=== PATIENT | female | born 1950 | race Caucasian/White ===

== ENCOUNTER → 2018-10-24 | Outpatient (CLI) | payer MEDICARE, SELFPAY ==
[2018-10-24 17:58] LABS: ALB/GLOB Ratio 0.7 RATIO (0.9-2.4); AST(SGOT) 44 U/L (15-37); Alanine Aminotransfer ALT/SGPT 33 U/L (13-56); Albumin, Serum 3.1 g/dL (3.2-5.0); Alkaline Phosphatase 106 U/L (45-117); Anion Gap 8 (5-15); BUN 8 mg/dL (7-18); BUN/Creat Ratio 16.1 RATIO (10-20); Calcium,Total 7.9 mg/dL (8.5-10.1); Chloride 108 mmol/L (98-107); Cholesterol 117 mg/dL (200); EST Glomerular Filtration Rate 131 mL/min (>60); Est Glom Filt Rate - Afr Amer 159 mL/min (>60); Globulin 4.2 g/dL (2.2-4.2); Glucose 110 mg/dL (74-106); High Density Lipoprotein 57 mg/dL; Potassium 3.6 mmol/L (3.5-5.1); Protein, Total 7.3 g/dL (6.4-8.2); Sodium Level 141 mmol/L (136-145); Thyroid Stim Hormone (TSH) 1.88 uIU/mL (0.358-3.74); Triglycerides 76 mg/dL; Very Low Density Lipoprotein 15 mg/dL (5-40)
[2018-10-24 17:59] LABS: Absolute Lymphocyte Count 2.14 X10^3/ul (0.83-4.51); Absolute Neutrophil Count 2.3 X10^3/uL (2.0-7.7); Basophil# 0.23 X10^3/uL; Basophil% 3.7 % (0-1); Eosinophil# 0.44 X10^3/uL; Eosinophils% 7.1 % (0-5); Hematocrit 27.4 % (37-47); Hemoglobin 7.9 g/dl (12.0-15.0); Lymphocyte # 2.14 X10^3/ul (4.0); Lymphocyte % 34.6 % (19-41); Mean Corp Hgb Conc 28.8 g/gl (32-36); Mean Corpuscular Hgb 22.5 pg (27.0-32.0); Mean Corpuscular Volume 78.1 fL (81-99); Mean Platelet Vol. 9.3 fl (6.2-12.0); Monocyte# 1.08 X10^3/uL; Monocyte% 17.5 % (0-10); Neutrophil # 2.29 X10^3/uL (2.7-7.7); Neutrophil % 37.1 % (47-70); POSITIVE COUNT NO; POSITIVE DIFFERENTIAL NO; POSITIVE MORPHOLOGY NO; Platelet Count 177 K/mm3 (150-450); RBC Distribution Width CV 19.9 % (11.6-14.6); Red Blood Count 3.51 M/mm3 (4.2-5.4); White Blood Count 6.2 K/mm3 (4.4-11.0)
[2018-10-24 18:35] LABS: Microalbumin,Random Urine 12.8 mg/L (NO RANGE EST.); Microalbumin:Creatinine Ratio 28.1 mg/g CRE (<30 mg/g CRE)
== END | disposition home or self-care (01) ==
LOC: BFHLAB 15:03
PROVIDERS: Family Provider Family Medicine; PCP Family Medicine; Visit Provider Family Medicine
DX: E11.65 Type 2 diabetes mellitus with hyperglycemia (principal); R53.83 Other fatigue; E78.5 Hyperlipidemia, unspecified; R17 Unspecified jaundice
CPT/HCPCS: 36415; 80053; 80061; 82043; 82570; 84443; 85025

== ENCOUNTER → 2018-11-09 07:48 | Outpatient (CLI) | payer MEDICARE, OTHER, SELFPAY ==
[2018-11-08 16:11] LABS: Hematocrit 26.6 % (37-47); Hemoglobin 7.6 g/dl (12.0-15.0); Mean Corp Hgb Conc 28.6 g/gl (32-36); Mean Corpuscular Volume 76.9 fL (81-99); Mean Platelet Vol. 10.1 fl (6.2-12.0); Platelet Count 204 K/mm3 (150-450); RBC Distribution Width CV 19.2 % (11.6-14.6); Red Blood Count 3.46 M/mm3 (4.2-5.4); White Blood Count 5.8 K/mm3 (4.4-11.0)
[2018-11-08 16:13] LABS: Scan Indicated on CBC? Y/N NO
[2018-11-09] VITALS (7 sets, daily range): BP systolic 116–137; BP diastolic 52–65; PULSE 84–91; RESP 16–18; TEMP 36.8–37.2; O2SAT 97–99; BMI 32.1
== END ==
PROVIDERS: Family Provider Family Medicine; PCP Family Medicine; Referring Provider Family Medicine; Visit Provider Family Medicine
DX: D50.9 Iron deficiency anemia, unspecified (principal)
CPT/HCPCS: 36415; 36430; 85027; 86850; 86900; 86920; 86922; J7040; P9016; A4216

== ENCOUNTER → 2018-11-11 10:27 | Outpatient (CLI) | payer MEDICARE, SELFPAY ==
[2018-11-09 08:00] VITALS: BMI 32.1
[2018-11-11 11:15] LABS: Hematocrit 28.9 % (37-47); Hemoglobin 8.7 g/dl (12.0-15.0); Mean Corp Hgb Conc 30.1 g/gl (32-36); Mean Corpuscular Hgb 23.4 pg (27.0-32.0); Mean Corpuscular Volume 77.7 fL (81-99); Mean Platelet Vol. 9.4 fl (6.2-12.0); Platelet Count 150 K/mm3 (150-450); RBC Distribution Width CV 19.1 % (11.6-14.6); RBC Distribution Width SD 53.7 fl (35.1-43.9); Red Blood Count 3.72 M/mm3 (4.2-5.4)
[2018-11-11 11:19] LABS: Scan Indicated on CBC? Y/N NO
[2018-11-11 11:55] LABS: Anion Gap 9 (5-15); BUN 8 mg/dL (7-18); BUN/Creat Ratio 13.7 RATIO (10-20); Calcium,Total 8.1 mg/dL (8.5-10.1); Chloride 105 mmol/L (98-107); Creatinine, Serum 0.58 mg/dL (0.55-1.02); EST Glomerular Filtration Rate 110 mL/min (>60); Est Glom Filt Rate - Afr Amer 133 mL/min (>60); Glucose 219 mg/dL (74-106); Potassium 3.8 mmol/L (3.5-5.1); Sodium Level 139 mmol/L (136-145)
[2018-11-11 11:56] LABS: Iron 33 ug/dL (50-170)
[2018-11-11 11:57] VITALS: BP 134/74; PULSE 91; RESP 16; TEMP 36.5; O2SAT 97; BMI 34.3
== END ==
PROVIDERS: Family Provider Family Medicine; PCP Family Medicine; Referring Provider Family Medicine; Visit Provider Family Medicine
DX: D50.9 Iron deficiency anemia, unspecified (principal); I10 Essential (primary) hypertension; K90.9 Intestinal malabsorption, unspecified
CPT/HCPCS: 96365; 80048; 83540; 85027; J1756; J7050; A4216

== ENCOUNTER 2018-11-16 09:24 | Day surgery (SDC) | payer MEDICARE, SELFPAY ==
--- NOTE | 2018-11-07 15:46 | HP_ITS ---
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 Required: No Is patient in pain?: No Allergies estrogens, conjugated [From Premarin] Allergy (Mild, Verified 11/07/18 15:12) Unknown hydrochlorothiazide Allergy (Mild, Verified 11/07/18 15:12) Unknown Penicillins Allergy (Mild, Verified 11/07/18 15:12) Unknown Sulfa (Sulfonamide Antibiotics) Allergy (Mild, Verified 11/07/18 15:12) Unknown Medications amlodipine 10 mg tablet 10 mg PO DAILY 11/07/18 [History Confirmed 11/07/18] clonidine HCl 0.3 mg tablet 0.3 mg PO QHS 11/07/18 [History Confirmed 11/07/18] coenzyme Q10 75 mg capsule 75 mg PO DAILY 11/07/18 [History Confirmed 11/07/18] furosemide 40 mg tablet 40 mg PO DAILY 11/07/18 [History Confirmed 11/07/18] glipizide ER 10 mg tablet, extended release 24 hr 10 mg PO DAILY 11/07/18 [History Confirmed 11/07/18] losartan 50 mg tablet 50 mg PO DAILY 11/07/18 [History Confirmed 11/07/18] meloxicam 15 mg tablet 15 mg PO DAILY 11/07/18 [History Confirmed 11/07/18] metformin 500 mg tablet 500 mg PO BID 11/07/18 [History Confirmed 11/07/18] pravastatin 40 mg tablet 40 mg PO DAILY 11/07/18 [History Confirmed 11/07/18] [facility] Medical History Diabetes (Acute) High cholesterol (Acute) HTN (hypertension) (Chronic) Surgical History S/P carpal tunnel release (Acute) S/P cholecystectomy (Acute) S/P hysterectomy (Acute) S/P parathyroidectomy (Acute) S/P renal artery angioplasty (Acute) Status post right knee replacement (Acute) Family History Mother Breast cancer Hypertension CAD (coronary artery disease) Social History Smoking Status: Never smoker alcohol intake: never HPI HPI HPI: JOSE A FANG, is a 68 F who presents to the office today for HPI HPI Surgical H&P: Yes HPI: JOSE A FANG, is a 68 F who presents to the office today for EGD and colonoscopy due to anemia. Patient's recent hemoglobin was 7.9 she has been reporting being fatigued lately. Pt Hb in 2017 was 13. Patient's last colonoscopy was in January 2009 she had 2 tubular adenomas and a hyperplastic polyp. Patient denies any family history of colon cancer. Patient states she has bowel movements daily but does states she has occasional bright red blood per rectum due to her hemorrhoids. Patient states about a month ago she did have quite a bit of bright red blood in the toilet and before that it was a little bit last fall or spring. Patient denies abdominal pain nausea or vomiting states her reflux is controlled with [id number] medication she believes is ranitidine. Patient states she was recently put on Lasix due to her bilateral lower extremity swelling. Patient currently denies any itching or pain with bowel movements only notices some pressure there when sitting. ROS General General: Yes fatigue; no weight change Gastro Gastrointestinal: No abdominal pain, No nausea or vomiting, No diarrhea, No constipation, No blood in stool, Yes acid reflux, Yes hemorrhoids, No ulcers, No gallbladder problem, No black,tarry stools Exam Const General: cooperative, comfortable, no acute distress Resp Effort & Inspection: normal respiratory effort GI Inspection: non-distended, obesity Palpation: soft, no guarding, no hernias, nontender Rectal Exam: normal sphincter tone, hemorrhoids (Circumferential residual hemorrhoidal tissue, internal the left lateral), No mass, other (No gross blood) Assessment & Plan Problems 1. Anemia D64.9 2. BRBPR (bright red blood per rectum) K62.5 3. Hemorrhoids K64.9 Plan I have discussed the above with the patient. I have offered the patient EGD & colonoscopy for evaluation. I have explained the risks/benefits of the procedure and described the procedure. I have discussed the risks with the patient, including but not limited to: infection, bleeding, perforation of the GI tract requiring emergency surgery, inability to complete the procedure, injury to any internal organs, complications of anesthesia, etc. - the patient understands and agrees to proceed. I have answered all the patient's questions to the patient's satisfaction and the patient has no further questions. The patient has been given instructions for the colon cleansing preparation. 1 day of clears, MiraLAX Dulcolax split prep Keeley Washington M.D. Pager: [phone] [facility] [address] [place] [address], [facility], [address] [place] [address] Office: [phone] Orders Orders: Colonoscopy Today EGD Today Plan Detail Follow Up We will schedule EGD and colonoscopy Coding Level of Care Code Off vis,new,level 3 Diagnoses Anemia D64.9 BRBPR (bright red blood per rectum) K62.5 Hemorrhoids K64.9 11/07/18 1546 <Electronically signed by Keeley Washington MD> Date Keeley Washington MD I have examined the patient the following changes are noted: Patient did get 2 units packed red blood cells on 11/09/1018 her hemoglobin for this was 7.6 and on 11/11/2018 her hemoglobin was 8.7. Patient states her shortness of breath is improved however she still has the lower extremity swelling.
[2018-11-09 08:00] VITALS: BMI 32.1
[2018-11-11 11:57] VITALS: BMI 34.3
[2018-11-16] VITALS (7 sets, daily range): BP systolic 114–133; BP diastolic 59–74; PULSE 75–89; RESP 15–18; TEMP 36.7–37.2; O2SAT 93–97; BMI 34.5; BMI 35.0
--- NOTE | 2018-11-16 10:30 | EGD_PTH ---
PATIENT: JOSE A FANG LOC: EN U#:[id number] AGE/SX: 68/F ROOM: RE11/16/[address]: Dr. Keeley Washington MD : 1950 BED: DIS: 11/16/2018 SPEC #: [id number] RECD: 11/16/18 12:26 STATUS: DANA REWalter #: [id number] HESHAM: 11/16/18 10:[address]: Keeley Washington DEPT: SURGICAL PATHOLOGY RECD BY: Musa Cartagena ENTERED: 11/16/18 12:48 SP TYPE: EGD BIOPSY OT DR: Dr. Shana Mckeon, DO Tissues: A - Gastric mucous membrane B - Rectum, NOS C - Rectum, NOS D - Rectum, NOS Procedures: Surgery Specimen Level IV HEADER OPERATION: Colonoscopy, EGD ([facility]) PRE-OP DIAGNOSIS: Anemia TISSUE SUBMITTED: A - Antrum biopsy for H. pylori, B - Rectal polyp snare, C - Rectal polyp snare, D - Rectal polyp snare MICROSCOPIC DIAGNOSIS A. Gastric antrum, biopsy: Mild chronic gastritis. See comment. B. Rectal polyp, biopsy: Serrated adenoma. C. Rectal polyp, biopsy: Tubulovillous adenoma. D. Rectal polyp, biopsy: Hyperplastic polyp. AM:lilo 11/17/18 COMMENT A. The results of immunohistochemistry for Helicobacter pylori will be reported separately ([id number]). MICROSCOPIC DESCRIPTION Slides are reviewed. GROSS DESCRIPTION A - Received in fixative is one container labeled with the patient's name and designated antrum biopsy. The specimen consists of one irregular fragment of light martin soft tissue that measures 0.5 x 0.2 x 0.1 cm. The specimen is totally submitted in one cassette. B - Received in fixative is one container labeled with the patient's name and designated rectal polyp snare. The specimen consists of one irregular fragment of light martin soft tissue that measures 0.5 x 0.5 x 0.1 cm. The specimen is totally submitted in one cassette. C - Received in fixative is one container labeled with the patient's name and designated rectal polyp snare. The specimen consists of two fragments ranging in size from 0.3 to 1.2 cm. The largest fragment is inked, trisected and submitted along with the smaller fragment in one cassette. D - Received in fixative is one container labeled with the patient's name and designated rectal polyp snare. The specimen consists of one irregular fragment of light martin soft tissue with fecal debris that measures 0.5 x 0.2 x 0.1 cm. The specimen is totally submitted in one cassette. / AM:lilo 11/16/18 TC:5 [facility]: [id number] x4 ADDENDUM ADDENDUM ADDENDUM ADDENDUM ADDENDUM ADDENDUM 12/01/2018 13:46 ADDENDUM 12/01/2018 13:46 ADDENDUM 12/01/2018 13:46 ADDENDUM 12/01/2018 13:46 ADDENDUM 12/01/2018 13:46 A. Both fragments of gastric mucosa show similar morphologic change. There is no evidence of dysplasia. This case was reviewed and diagnosis discussed with Dr. Washington on 12/01/18.
--- NOTE | 2018-11-16 11:30 | OP.ENDO_ITS ---
11/16/2018 Shana Mckeon [address] [facility] [place] [address] Re : Upper GI endoscopy procedure for Shanna Hinds Dear Dr. Mckeon This procedure was performed on Friday, November 16, 2018. My impressions and recommendations are as follows: Impressions : - Z-line regular, 39 cm from the incisors. - Grade II esophageal varices. - Erythematous mucosa in the antrum. Prepyloric ulcer no evidence of bleeding - Normal examined duodenum. - No specimens collected. Recommendations : - Discharge patient to home. - Continue present medications. - Await pathology results. My findings are described in the full procedure note, which is enclosed. If I can be of further assistance, please feel free to contact me at Doctor phone number(s): , Work: . Sincerely, MD Keeley Hewitt MD 11/16/2018 11:28:58 AM This report has been signed electronically.
--- NOTE | 2018-11-16 11:35 | OP.ENDO_ITS ---
12/06/2018 Shana Mckeon [address] [place] [address] Re : Colonoscopy procedure for Shanna Hinds Dear Dr. Mckeon This procedure was performed on Friday, November 16, 2018. My impressions and recommendations are as follows: Impressions : - Hemorrhoids found on perianal exam. - Three rectal polyps removed - Diverticulosis of sigmoid colon. Recommendations : - Discharge patient to home. - Continue present medications. - Await pathology results. - Repeat colonoscopy in 3 - 5 years for surveillance based on pathology results. - High fiber diet. My findings are described in the full procedure note, which is enclosed. If I can be of further assistance, please feel free to contact me at Doctor phone number(s): , Work: . Sincerely, MD Keeley Hewitt MD 11/16/2018 11:35:13 AM This report has been signed electronically.
--- NOTE | 2018-11-16 12:30 | IMM_PTH ---
PATIENT: JOSE A FANG LOC: EN U#:[id number] AGE/SX: 68/F ROOM: RE11/16/[address]: Dr. Keeley Washington MD : 1950 BED: DIS: 11/16/2018 SPEC #: [id number] RECD: 11/16/18 15:07 STATUS: DANA REQ #: [id number] HESHAM: 11/16/18 12:[address]: Keeley Washington DEPT: IMMUNOHISTOCHEMISTRY RECD BY: Lilly Sparrow ENTERED: 11/16/18 15:08 SP TYPE: IMMUNO OTHR DR: Dr. Shana Mckeon, DO Tissues: A - Stomach, NOS Procedures: H Pylori (initial) Comments: @ Specimen number changed from [id number] to [id number] @ on 11/16/18 at 1523 by [facility] IN[facility]UTION [place] [id number] SPECIMEN INFORMATION: Tissue Source: A - Antrum biopsy Clinical Info: Blood in stool Specimen Number: [id number] CPT code: 81179 METHODOLOGY: Deparaffinized sections of prefer/formalin-fixed tissue or PAP/DQ stained slides are incubated with monoclonal/polyclonal antibodies/oligonucleotide probes. Localization is made via biotin free immunoperoxidase method. Appropriate controls are performed and reacted as expected. Results on target cell population are indicated in the following table: RESULTS: ANTIBODY / CLONE RESULT Block A H Pylori (polyclonal) negative These tests were developed and their performance characteristics determined by [facility]. They may not have been cleared or approved by the U.S. Food and Drug Administration. The FDA has determined that such clearance or approval is not necessary. INTERPRETATION: A. Antrum, biopsy: Negative for Helicobacter pylori organisms. AM:lilo 11/17/18
[2018-11-16 13:02] LABS: Bedside Glucose 150 mg/dL (70-110)
[2018-11-16 13:33] LABS: Absolute Lymphocyte Count 1.16 X10^3/ul (0.83-4.51); Absolute Neutrophil Count 2.8 X10^3/uL (2.0-7.7); Basophil# 0.18 X10^3/uL; Basophil% 3.5 % (0-1); Eosinophil# 0.24 X10^3/uL; Eosinophils% 4.6 % (0-5); Hematocrit 31.9 % (37-47); Hemoglobin 9.4 g/dl (12.0-15.0); Lymphocyte # 1.16 X10^3/ul (4.0); Lymphocyte % 22.4 % (19-41); Mean Corp Hgb Conc 29.5 g/gl (32-36); Mean Corpuscular Hgb 23.3 pg (27.0-32.0); Mean Platelet Vol. 9.5 fl (6.2-12.0); Monocyte# 0.82 X10^3/uL; Monocyte% 15.9 % (0-10); Neutrophil # 2.76 X10^3/uL (2.7-7.7); Neutrophil % 53.4 % (47-70); Platelet Count 170 K/mm3 (150-450); Red Blood Count 4.04 M/mm3 (4.2-5.4); White Blood Count 5.2 K/mm3 (4.4-11.0)
[2018-11-16 13:34] LABS: Differential Indicated SCAN CRITERIA MET; POSITIVE COUNT NO; POSITIVE DIFFERENTIAL NO; POSITIVE MORPHOLOGY YES
[2018-11-16 14:29] LABS: Anisocytosis 1+; Platelet Estimate ADEQUATE (ADEQ); Red Cell Morphology N CHROM NORMAL (NORM C&C)
== END 2018-11-16 12:34 | disposition home or self-care (01) ==
LOC: EN 09:24 → AC 09:25
PROVIDERS: Family Provider Family Medicine; PCP Family Medicine; Referring Provider Family Medicine; Visit Provider Surgery
PROC: 0DJD8ZZ Inspection of Lower Intestinal Tract, Via Natural or Artificial Opening Endoscopic (ICD-10-PCS; CPT 45378; principal; 2018-11-16 10:25)
DX: K29.50 Unspecified chronic gastritis without bleeding (principal); D12.8 Benign neoplasm of rectum; K63.5 Polyp of colon; K64.0 First degree hemorrhoids; K57.30 Diverticulosis of large intestine without perforation or abscess without bleeding; I85.00 Esophageal varices without bleeding; K25.9 Gastric ulcer, unspecified as acute or chronic, without hemorrhage or perforation; K21.9 Gastro-esophageal reflux disease without esophagitis; D50.9 Iron deficiency anemia, unspecified; K90.9 Intestinal malabsorption, unspecified; E11.9 Type 2 diabetes mellitus without complications; I10 Essential (primary) hypertension; E78.00 Pure hypercholesterolemia, unspecified; M06.9 Rheumatoid arthritis, unspecified; G47.30 Sleep apnea, unspecified; N28.9 Disorder of kidney and ureter, unspecified; Z79.84 Long term (current) use of oral hypoglycemic drugs; Z79.899 Other long term (current) drug therapy
CPT/HCPCS: 43239; 45380; 96365; 82962; 85025; 88305; 88342; J1756; J7120; A4216; J2405

== ENCOUNTER → 2018-11-22 | Outpatient (CLI) | payer MEDICARE, SELFPAY ==
[2018-11-09 08:00] VITALS: BMI 32.1
--- NOTE | 2018-11-22 07:47 | CT_ITS ---
STUDY: CT ABDOMEN AND PELVIS WITH CONTRAST REASON FOR EXAM: Female, 68 years old. Anemia, esophageal varices history of diabetes and hysterectomy cholecystectomy. RADIATION DOSAGE (If Supplied By Facility): CTDIvol = ( 15.36 ) mGy, DLP = ( 1209.37 ) mGycm TECHNIQUE: Transaxial images were obtained from the dome of the diaphragm to the symphysis pubis with oral contrast. 100mL IV/Oral Isovue 300 was administered. Sagittal and coronal images were reconstructed. Individualized dose optimization techniques were used for this CT. COMPARISON: None. FINDINGS: The visualized lung bases are unremarkable. The visualized portions of the heart are within normal limits. The liver is smallish lobulated low attenuating. There is a distended appearance of the portal veins. The main portal vein measures 1.8 cm. 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 There are visualized small esophageal varices. There are surgical clips in the gallbladder fossa consistent with a prior cholecystectomy. Normal spleen. Normal pancreas. Normal bilateral adrenal glands. Normal right kidney. Normal left kidney. There is a small hiatal hernia. Normal small intestine. There is a contrasted appearance of the colon. There are a few diverticula present without visualized diverticulitis. The appendix is visualized and appears normal. There is partial calcification of the aorta. Normal inferior vena cava. Normal retroperitoneum. Normal urinary bladder. There is absence of the uterus consistent with a prior hysterectomy. There are varices which are extending from the common femoral veins up into the caput medusa and beyond up to the chest. There are diffuse degenerative changes of the visualized lumbar spine. CT/Abdomen/Pelvis WITH Contrast IMPRESSION: Cirrhosis portal hypertension, classic caput medusa. There is postoperative change in the gallbladder fossa. Status post hysterectomy status post cholecystectomy. Electronically Signed: Dawn Morales MD at 17:27 EDT Tel , Service support ,
[2018-11-22 08:31] VITALS: BP 147/72; PULSE 90; RESP 18; TEMP 36.7; O2SAT 98; BMI 34.5
[2018-11-22 08:54] LABS: Hematocrit 31.1 % (37-47); Hemoglobin 9.5 g/dl (12.0-15.0); Mean Corp Hgb Conc 30.5 g/gl (32-36); Mean Corpuscular Hgb 24.5 pg (27.0-32.0); Mean Corpuscular Volume 80.2 fL (81-99); Mean Platelet Vol. 9.3 fl (6.2-12.0); Platelet Count 159 K/mm3 (150-450); RBC Distribution Width CV 22.6 % (11.6-14.6); RBC Distribution Width SD 64.6 fl (35.1-43.9); Red Blood Count 3.88 M/mm3 (4.2-5.4); White Blood Count 5.4 K/mm3 (4.4-11.0)
[2018-11-22 08:55] LABS: Scan Indicated on CBC? Y/N YES- FLAGS NOTED
[2018-11-22 09:21] LABS: Differential Comment SCANNED
[2018-11-22 09:29] LABS: Iron 49 ug/dL (50-170)
--- NOTE | 2018-11-22 09:40 | NURSING ---
venofer complete, pt reports feeling nauseous, will flush iv with ns saline and monitor.
[2018-11-22 10:00] VITALS: BP 146/73; PULSE 104; RESP 16
[2018-11-22] MEDS: Ondansetron 4 MG/2 ML Vial IV (10:16)
== END | disposition home or self-care (01) ==
LOC: CT 07:45 → MEDOUTP 08:21
PROVIDERS: Family Provider Family Medicine; PCP Family Medicine; Referring Provider Surgery; Visit Provider Surgery
DX: D50.9 Iron deficiency anemia, unspecified (principal); K90.9 Intestinal malabsorption, unspecified; I85.00 Esophageal varices without bleeding
CPT/HCPCS: 96365; 96375; 74177; 83540; 85027; J1756; J7050; Q9967; A4216; J2405

== ENCOUNTER → 2018-11-30 | Outpatient (CLI) | payer MEDICARE, SELFPAY ==
[2018-11-09 08:00] VITALS: BMI 32.1
[2018-11-22 08:31] VITALS: BMI 34.5
[2018-11-30 13:47] VITALS: BP 149/63; PULSE 99; RESP 16; TEMP 37.4; O2SAT 96; BMI 34.5
[2018-11-30 17:15] LABS: Absolute Lymphocyte Count 1.71 X10^3/ul (0.83-4.51); Basophil# 0.12 X10^3/uL; Basophil% 2.3 % (0-1); Eosinophil# 0.27 X10^3/uL; Eosinophils% 5.2 % (0-5); Hematocrit 32.6 % (37-47); Hemoglobin 10.1 g/dl (12.0-15.0); Lymphocyte # 1.71 X10^3/ul (4.0); Lymphocyte % 33.1 % (19-41); Mean Corpuscular Hgb 25.5 pg (27.0-32.0); Mean Corpuscular Volume 82.3 fL (81-99); Mean Platelet Vol. 9.9 fl (6.2-12.0); Monocyte# 1.08 X10^3/uL; Monocyte% 20.9 % (0-10); Neutrophil # 1.98 X10^3/uL (2.7-7.7); Neutrophil % 38.3 % (47-70); Platelet Count 219 K/mm3 (150-450); RBC Distribution Width SD 69.9 fl (35.1-43.9); Red Blood Count 3.96 M/mm3 (4.2-5.4); White Blood Count 5.2 K/mm3 (4.4-11.0)
[2018-11-30 17:16] LABS: Differential Indicated SCAN CRITERIA MET; POSITIVE COUNT NO; POSITIVE DIFFERENTIAL NO; POSITIVE MORPHOLOGY YES
== END | disposition home or self-care (01) ==
LOC: MEDOUTP 13:32
PROVIDERS: Family Provider Family Medicine; PCP Family Medicine; Referring Provider Family Medicine; Visit Provider Family Medicine
DX: D50.9 Iron deficiency anemia, unspecified (principal); K90.9 Intestinal malabsorption, unspecified
CPT/HCPCS: 96365; 85025; J1756; J7050; A4216

== ENCOUNTER → 2018-12-07 13:35 | Outpatient (CLI) | payer MEDICARE, SELFPAY ==
[2018-11-09 08:00] VITALS: BMI 32.1
[2018-11-30 13:47] VITALS: BMI 34.5
[2018-12-07 14:28] VITALS: BP 131/65; PULSE 83; RESP 16; TEMP 36.4; BMI 34.1
[2018-12-07 14:54] LABS: Hematocrit 32.2 % (37-47); Hemoglobin 10.1 g/dl (12.0-15.0); Mean Corp Hgb Conc 31.4 g/gl (32-36); Mean Corpuscular Hgb 26.4 pg (27.0-32.0); Mean Corpuscular Volume 84.3 fL (81-99); Mean Platelet Vol. 9.6 fl (6.2-12.0); Platelet Count 177 K/mm3 (150-450); RBC Distribution Width CV 24.3 % (11.6-14.6); Red Blood Count 3.82 M/mm3 (4.2-5.4); White Blood Count 4.8 K/mm3 (4.4-11.0)
[2018-12-07 14:55] LABS: Scan Indicated on CBC? Y/N YES- FLAGS NOTED
== END ==
PROVIDERS: Family Provider Family Medicine; PCP Family Medicine; Referring Provider Family Medicine; Visit Provider Family Medicine
DX: D50.9 Iron deficiency anemia, unspecified (principal); K90.9 Intestinal malabsorption, unspecified
CPT/HCPCS: 96365; 85027; J1756; J7050; A4216

== ENCOUNTER → 2018-12-12 | Outpatient (CLI) | payer MEDICARE, SELFPAY ==
[2018-11-30 13:47] VITALS: BMI 34.5
[2018-12-07 14:28] VITALS: BMI 34.1
--- NOTE | 2018-12-12 08:48 | US_ITS ---
STUDY: ABDOMINAL ULTRASOUND - RIGHT UPPER QUADRANT REASON FOR VISIT: Female, 68 years old. Cirrhosis TECHNIQUE: Ultrasound evaluation of the right upper quadrant was performed with real-time and static taveras-scale imaging. TECHNICAL QUALITY: Adequate. COMPARISON: CT dated 11/22/2018 FINDINGS: Liver: The liver measures 17.4 cm. The liver is nodular in contour and heterogeneous in echotexture. The bile ducts are within normal limits. There is hepatic color flow. The direction of portal flow is hepatopetal. There are no focal hepatic lesions identified. Gallbladder: The patient is status post cholecystectomy. Common Bile Duct (C.B.D.): The common bile duct measures 9 mm. Pancreas: Normal size of the head, body and tail of the pancreas. There is normal echogenicity of the pancreas. There is no demonstrated pancreatic mass or cyst. Right Kidney: Normal size of the right kidney. The right kidney measures 15.3 cm. Normal renal cortex. There is no demonstrated renal mass or cyst. There is no right hydronephrosis. There are varices noted in the upper abdomen. US/Liver IMPRESSION: Cirrhotic liver. No focal hepatic lesions identified. Please note that CT and MRI are more sensitive for the detection of hepatic lesions in the setting of cirrhosis. Status post cholecystectomy. Varices. Electronically Signed: Sean Colin, at 16:58 EDT Tel , Service support ,
== END | disposition home or self-care (01) ==
LOC: US 08:46
PROVIDERS: Family Provider Family Medicine; PCP Family Medicine; Referring Provider Family Medicine; Visit Provider Family Medicine
DX: K74.60 Unspecified cirrhosis of liver (principal)
CPT/HCPCS: 76705

== ENCOUNTER → 2018-12-15 | Outpatient (CLI) | payer MEDICARE, SELFPAY ==
[2018-12-07 14:28] VITALS: BMI 34.1
[2018-12-15 18:09] LABS: Anion Gap 12 (5-15); BUN 10 mg/dL (7-18); BUN/Creat Ratio 16.1 RATIO (10-20); Calcium,Total 8.7 mg/dL (8.5-10.1); Chloride 102 mmol/L (98-107); Creatinine, Serum 0.62 mg/dL (0.55-1.02); EST Glomerular Filtration Rate 102 mL/min (>60); Est Glom Filt Rate - Afr Amer 123 mL/min (>60); Glucose 153 mg/dL (74-106); Potassium 3.8 mmol/L (3.5-5.1); Sodium Level 137 mmol/L (136-145)
== END | disposition home or self-care (01) ==
PROVIDERS: Family Provider Family Medicine; PCP Family Medicine
DX: R18.8 Other ascites (principal); K74.60 Unspecified cirrhosis of liver
CPT/HCPCS: 36415; 80048

== ENCOUNTER 2019-05-18 18:56 | Emergency (ER) | payer MEDICARE, SELFPAY ==
[2018-12-07 14:28] VITALS: BMI 34.1
[2019-05-18 18:58] VITALS: BP 184/89; PULSE 96; RESP 16; TEMP 36.8; O2SAT 94; BMI 33.4
--- NOTE | 2019-05-18 19:01 | EKG12_ITS ---
Test Reason : SYNCOPE Blood Pressure : / mmHG Vent. Rate : 094 BPM Atrial Rate : 094 BPM P-R Int : 112 ms QRS Dur : 098 ms QT Int : 416 ms P-R-T Axes : 058 -17 068 degrees QTc Int : 520 ms Normal sinus rhythm Prolonged QT Abnormal ECG Confirmed by RAHAT LOPEZ, JOHANNY ([id number]), offline editor DOMINGUEZ BENITEZ ([id number]) on 05/23/2019 11:27:53 AM Referred By: Confirmed By:JOHANNY GIANG MD
--- NOTE | 2019-05-18 19:02 | ED.VIS.GEN ---
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 She became lightheaded, nauseous and passed out. She states she has not been eating well. She has history of nonalcoholic cirrhosis. Paramedics checked blood sugar was greater than 200. She states blood sugar normally runs 120. She reports no appetite the past several days with weight loss. She denies dysuria, frequency, urgency or hematuria. She denies chest pain, shortness of breath. She denies leg pain or swelling. She denies history of PE or DVT. She denies headache, ocular, visual or auditory symptoms. Prior similar symptoms: No Recent Illness/Hospitalization: No - Past Medical History (1) Non-alcoholic cirrhosis Status: Acute (2) History of type 2 diabetes mellitus Status: Acute (3) History of hypertension Status: Acute Past Medical History - Allergies and Home Meds Allergies/Adverse Reactions: Allergies estrogens, conjugated [From Premarin] Allergy (Mild, Verified 05/18/19 19:01) SWELLING, ITCHING, RASH hydrochlorothiazide Allergy (Mild, Verified 05/18/19 19:01) RASH, ITCHING Penicillins Allergy (Mild, Verified 05/18/19 19:01) Unknown Sulfa (Sulfonamide Antibiotics) Allergy (Mild, Verified 05/18/19 19:01) SWELLING, ITCHING, RASH Primary Care Physician: Shana Mckeon DO [Primary Care Provider] - Prior records reviewed: Yes Surgical History: noncontributory Lives: Alone Smoking Status: Never smoker Alcohol: None Drugs: None Review of Systems General: Reports: Malaise, Weight loss. Denies: Chills, Fever, Subjective, Sweats, - Eyes: Denies: Visual changes - bilaterally, Blurred Vision - bilaterally, Diplopia ENT: Denies: Rhinorrhea, Sore throat Cardiovascular: Denies: Chest pain, Palpitations Respiratory: Denies: Dyspnea, Cough, Dyspnea on exertion, Orthopnea Gastrointestinal: Reports: Nausea, Hematochezia, - - Poor appetite. Denies: Abdominal pain, Vomiting, Diarrhea, Constipation, Melena Genitourinary: Denies: Dysuria, Hematuria, Frequency Musculoskeletal: Denies: Myalgias, Arthralgias, Neck pain, Back pain, Swelling, Extremity Pain, -, - Skin: Denies: Rash, Wounds Neurological: Reports: Weakness. Denies: Headache, Parasthesia, Numbness, -, - Hematologic: Denies: Easy bruising, Easy bleeding Physical Exam Vital Signs/Narrative: Vital Signs Temp Pulse Resp BP Pulse Ox 05/18/19 18:58 98.3 F 96 16 184/89 H 94 Inital Vital Signs reviewed: Yes General: Well nourished, Well developed, Obese, No Acute Distress Head: Normocephalic, Atraumatic Eyes: Perrl, EOMI. Negative for: Pale conjunctiva, Scleral icterus ENT: No rhinorrhea, TM's clear, Dry mucous membranes Neck: Supple, Nontender, No lymphadenopathy, No JVD Cardiovascular: Regular rate, Regular rhythm, No murmurs, Normal S1, Normal S2 Respiratory: No distress, CTA bilaterally, Chest nontender Abdomen: Soft, Nontender, Nondistended, Normal bowel sounds, No masses Rectal: Deferred Back: Nontender, Normal Inspection Extremities: Nontender, No edema Skin: Normal color, No rash, No Trauma. Negative for: Cyanosis, Diaphoresis, Jaundice Neurological: Alert, Oriented x3, Cranial nerves II-XII grossly intact, Normal Strength, Normal Sensation Psychological: Normal affect, Normal Mood Diagnostic/Tx/Re-eval Laboratory Results 05/18/19 19:04 Sodium 141 Potassium 3.1 L Chloride 108 H Carbon Dioxide 25.0 Anion Gap 8 BUN 4 L Creatinine 0.52 L Estim Creat Clear Calc 47.14 Est GFR (MDRD) Af Amer 153 Est GFR (MDRD) Non-Af 126 BUN/Creatinine Ratio 7.8 L Glucose 186 H Calcium 8.1 L Basic metabolic panel is remarkable for mild hypokalemia. BUN and creatinine are four 0.52 respectively. BUN to creatinine ratio is less than 21. Glucose is elevated 186. Since there is no evidence of endorgan injury patient will be discharged to home. - EKG Initial EKG Interpretation: Sinus Rhythm - This rhythm with a ventricular rate of 94. OR interval 112 ms. QRS duration 98 ms. QT intervals 416 ms with a QTC of 520 ms. [place] is normal. EKG is remarkable for prolonged QT. - Medical Decision Making His history suggestive of vasovagal episode. Will obtain EKG to evaluate for cardiac ischemia. Since she is clinically dehydrated has been losing weight and not eating well with history of diabetes hypertension we will obtain basic metabolic panel to assess renal function as well as blood sugar/anion gap. She received 1 L of normal saline wide open she also received 4 mg of Zofran. ED Disposition - Plan for ED Patient: Disposition: Home or Assisted Living Diagnosis: Syncope and collapse, Hypokalemia Instructions: SYNCOPE, Vasovagal Referrals: Shana Mckeon DO [Primary Care Provider] - As soon as possible
[2019-05-18] MEDS: 0.9% Normal Saline 1,000 ML 1000 ML IV (19:04)
[2019-05-18 20:08] VITALS: BP 174/89; PULSE 89; RESP 17; O2SAT 95
[2019-05-18 20:11] LABS: Anion Gap 8 (5-15); BUN 4 mg/dL (7-18); BUN/Creat Ratio 7.8 RATIO (10-20); Calcium,Total 8.1 mg/dL (8.5-10.1); Chloride 108 mmol/L (98-107); Creatinine, Serum 0.52 mg/dL (0.55-1.02); EST Glomerular Filtration Rate 126 mL/min (>60); Est Glom Filt Rate - Afr Amer 153 mL/min (>60); Estimated Creatinine Clearance 47.14 ml/min; Glucose 186 mg/dL (74-106); Potassium 3.1 mmol/L (3.5-5.1); Sodium Level 141 mmol/L (136-145)
[2019-05-18 20:30] VITALS: BP 173/79; PULSE 85; RESP 17; O2SAT 97
== END 2019-05-18 20:31 | disposition home or self-care (01) ==
PROVIDERS: Emergency Provider Emergency Medicine; Family Provider Family Medicine; PCP Family Medicine
DX: R55 Syncope and collapse (principal); E87.6 Hypokalemia; E11.9 Type 2 diabetes mellitus without complications; I10 Essential (primary) hypertension; E66.9 Obesity, unspecified; Z79.84 Long term (current) use of oral hypoglycemic drugs; Z79.899 Other long term (current) drug therapy
CPT/HCPCS: 80048; 93005; 96360; 99285; J7030; A4216; J2405

== ENCOUNTER → 2019-05-24 11:24 | Outpatient (CLI) | payer MEDICARE, SELFPAY ==
[2019-05-18 18:58] VITALS: BMI 33.4
[2019-05-24 15:37] LABS: Anion Gap 10 (5-15); BUN 5 mg/dL (7-18); BUN/Creat Ratio 8.3 RATIO (10-20); Calcium,Total 7.9 mg/dL (8.5-10.1); Chloride 105 mmol/L (98-107); EST Glomerular Filtration Rate 105 mL/min (>60); Est Glom Filt Rate - Afr Amer 127 mL/min (>60); Glucose 140 mg/dL (74-106); Sodium Level 141 mmol/L (136-145)
== END ==
PROVIDERS: Family Provider Family Medicine; PCP Family Medicine; Visit Provider Family Medicine
DX: E87.6 Hypokalemia (principal)
CPT/HCPCS: 36415; 80048

== ENCOUNTER → 2019-06-12 07:47 | Outpatient (CLI) | payer MEDICARE, SELFPAY ==
[2018-12-07 14:28] VITALS: BMI 34.1
[2019-05-18 18:58] VITALS: BMI 33.4
--- NOTE | 2019-06-12 07:55 | RAD_ITS ---
STUDY: X-RAY CHEST REASON FOR EXAM: Female, 68 years old. Cough. TECHNIQUE: PA and lateral views of the chest. COMPARISON: None. FINDINGS: Small right pleural effusion with underlying consolidation in the right lower lobe. Radiographic follow-up is recommended. The left lung is clear. The lungs are clear and expanded. There is no demonstrated pleural abnormality. Normal size heart. Normal mediastinum and mckenna. Normal visualized pulmonary arteries. Normal visualized aortic arch and descending thoracic aorta. Normal visualized thoracic spine. Normal visualized ribs, clavicles, and shoulders. There is no demonstrated abnormality of the visualized soft tissue structures of the upper abdomen. RAD/Chest PA and Lateral IMPRESSION: Small right pleural effusion with underlying consolidation in the right lower lobe. Follow-up is recommended. Electronically Signed: Dimas Suarez, at 9:19 EST , Service support ,
[2019-06-12 10:42] LABS: ALB/GLOB Ratio 0.8 RATIO (0.9-2.4); AST(SGOT) 34 U/L (15-37); Alanine Aminotransfer ALT/SGPT 36 U/L (13-56); Albumin, Serum 2.8 g/dL (3.2-5.0); Alkaline Phosphatase 111 U/L (45-117); Anion Gap 7 (5-15); BUN 5 mg/dL (7-18); BUN/Creat Ratio 10.1 RATIO (10-20); Bilirubin, Direct 0.79 mg/dL (0.00-0.30); Calcium,Total 7.5 mg/dL (8.5-10.1); Chloride 111 mmol/L (98-107); Creatinine, Serum 0.49 mg/dL (0.55-1.02); EST Glomerular Filtration Rate 133 mL/min (>60); Est Glom Filt Rate - Afr Amer 160 mL/min (>60); Globulin 3.7 g/dL (2.2-4.2); Glucose 134 mg/dL (74-106); Magnesium 1.5 mg/dL (1.6-2.6); Potassium 3.1 mmol/L (3.5-5.1); Protein, Total 6.5 g/dL (6.4-8.2); Sodium Level 143 mmol/L (136-145)
== END ==
PROVIDERS: Family Provider Family Medicine; PCP Family Medicine; Referring Provider Family Medicine; Visit Provider Family Medicine
DX: R06.00 Dyspnea, unspecified (principal); R06.2 Wheezing; K74.60 Unspecified cirrhosis of liver; E83.42 Hypomagnesemia; E87.6 Hypokalemia; Z51.81 Encounter for therapeutic drug level monitoring
CPT/HCPCS: 36415; 71046; 80053; 82248; 83735

== ENCOUNTER → 2019-07-07 12:30 | Outpatient (CLI) | payer MEDICARE, SELFPAY ==
--- NOTE | 2019-07-07 13:30 | RAD_ITS ---
STUDY: X-RAY CHEST REASON FOR EXAM: Female, 69 years old. HX PNEUMONIA TECHNIQUE: PA and lateral views of the chest. COMPARISON: June 12, 2019. FINDINGS: There is interval resolution of the right pleural effusion and right basilar consolidation visualized on the prior examination. There are low lung volumes. There is cardiomegaly. Normal mediastinum and mckenna. Normal visualized pulmonary arteries. Normal visualized aortic arch and descending thoracic aorta. Normal visualized thoracic spine. Normal visualized ribs, clavicles, and shoulders. There are surgical clips within the right upper quadrant of the abdomen consistent with prior cholecystectomy. RAD/Chest PA and Lateral IMPRESSION: Interval resolution of right pleural effusion and right basilar pneumonia. No acute cardiopulmonary process. Electronically Signed: Nichole Yoo MD at 14:03 EST Tel , Service support ,
== END ==
PROVIDERS: Family Provider Family Medicine; PCP Family Medicine; Referring Provider Family Medicine; Visit Provider Family Medicine
DX: J18.9 Pneumonia, unspecified organism (principal)
CPT/HCPCS: 71046

== ENCOUNTER → 2019-07-17 11:06 | Outpatient (CLI) | payer OTHER, SELFPAY ==
[2019-07-17 15:35] LABS: International Normalized Ratio 1.5; Prothrombin Time (Protime)PT. 17.9 SECONDS (11.7-14.9)
[2019-07-17 15:38] LABS: ALB/GLOB Ratio 0.7 RATIO (0.9-2.4); AST(SGOT) 30 U/L (15-37); Alanine Aminotransfer ALT/SGPT 29 U/L (13-56); Alkaline Phosphatase 117 U/L (45-117); Anion Gap 6 (5-15); BUN 7 mg/dL (7-18); BUN/Creat Ratio 10.7 RATIO (10-20); Calcium,Total 8.5 mg/dL (8.5-10.1); Chloride 105 mmol/L (98-107); Creatinine, Serum 0.66 mg/dL (0.55-1.02); EST Glomerular Filtration Rate 96 mL/min (>60); Est Glom Filt Rate - Afr Amer 116 mL/min (>60); Globulin 4.2 g/dL (2.2-4.2); Glucose 151 mg/dL (74-106); Magnesium 1.6 mg/dL (1.6-2.6); Protein, Total 7.2 g/dL (6.4-8.2); Sodium Level 136 mmol/L (136-145)
[2019-07-19 12:42] LABS: AFP, Tumor Marker 4.6 ng/mL (0.0-8.3)
== END ==
PROVIDERS: Family Provider Family Medicine; PCP Family Medicine; Visit Provider Family Medicine
DX: E87.6 Hypokalemia (principal); E11.9 Type 2 diabetes mellitus without complications; K74.60 Unspecified cirrhosis of liver; E83.42 Hypomagnesemia; Z51.81 Encounter for therapeutic drug level monitoring
CPT/HCPCS: 36415; 80053; 82105; 83735; 85610

== ENCOUNTER → 2019-09-04 | Outpatient (CLI) | payer MEDICARE, SELFPAY ==
--- NOTE | 2019-09-04 15:14 | RAD_ITS ---
STUDY: X-RAY CHEST REASON FOR EXAM: Female, 69 years old. Cough for approx 6 months; hx of pneumonia; SOB upon exertion TECHNIQUE: PA and lateral views of the chest. COMPARISON: PA and lateral chest July 07, 2019. FINDINGS: The lungs again are under expanded. There is stable minor bibasilar volume loss and crowding, but no acute consolidation. There is no demonstrated pleural abnormality. Normal size heart. Normal mediastinum and mckenna. Normal visualized pulmonary arteries. Normal visualized aortic arch and descending thoracic aorta. There are stable mild degenerative changes of the visualized thoracic spine. Normal visualized ribs, clavicles, and shoulders. Surgical clips consistent with prior cholecystectomy again seen in the medial right upper quadrant of the abdomen. RAD/Chest PA and Lateral IMPRESSION: Suboptimal inspiratory effort. No acute consolidating infiltrate or CHF. Electronically Signed: Willam Camilo MD at 20:07 EST , Service support ,
[2019-09-04 17:07] LABS: Absolute Neutrophil Count 1.8 X10^3/uL (2.0-7.7); Basophil# 0.07 X10^3/uL; Basophil% 1.8 % (0-1); Eosinophil# 0.03 X10^3/uL; Eosinophils% 0.8 % (0-5); Hemoglobin 6.1 g/dL (12.0-15.0); Mean Corp Hgb Conc 27.7 g/dL (32-36); Mean Corpuscular Volume 72.1 fL (81-99); Mean Platelet Vol. 10.2 fl (6.2-12.0); Monocyte# 1.07 X10^3/uL; Monocyte% 27.4 % (0-10); NRBC Flagged by Analyzer 0 % (0-5); Neutrophil # 1.84 X10^3/uL (2.7-7.7); POSITIVE MORPHOLOGY YES; Platelet Count 165 K/mm3 (150-450); RBC Distribution Width CV 20.9 % (11.6-14.6); RBC Distribution Width SD 54.2 fl (35.1-43.9); Red Blood Count 3.05 M/mm3 (4.2-5.4); White Blood Count 3.9 K/mm3 (4.4-11.0)
[2019-09-04 17:10] LABS: Differential Indicated SCAN CRITERIA MET
[2019-09-04 17:25] LABS: ALB/GLOB Ratio 0.7 RATIO (0.9-2.4); AST(SGOT) 45 U/L (15-37); Alanine Aminotransfer ALT/SGPT 28 U/L (13-56); Albumin, Serum 2.9 g/dL (3.2-5.0); Alkaline Phosphatase 98 U/L (45-117); Anion Gap 9 (5-15); BUN 6 mg/dL (7-18); BUN/Creat Ratio 9.3 RATIO (10-20); Calcium,Total 8.2 mg/dL (8.5-10.1); Chloride 106 mmol/L (98-107); Creatinine, Serum 0.64 mg/dL (0.55-1.02); EST Glomerular Filtration Rate 97 mL/min (>60); Est Glom Filt Rate - Afr Amer 118 mL/min (>60); Globulin 4.3 g/dL (2.2-4.2); Glucose 131 mg/dL (74-106); Potassium 3.9 mmol/L (3.5-5.1); Protein, Total 7.2 g/dL (6.4-8.2); Sodium Level 137 mmol/L (136-145)
[2019-09-04 17:34] LABS: BNP,B-Type NATRIURETIC PEPTIDE 65.4 pg/mL (0-100)
[2019-09-04 17:42] LABS: Differential Comment SCANNED
== END | disposition home or self-care (01) ==
PROVIDERS: PCP Family Medicine; Referring Provider Family Medicine; Visit Provider Family Medicine
DX: I50.9 Heart failure, unspecified (principal); R05 Cough; K74.60 Unspecified cirrhosis of liver
CPT/HCPCS: 36415; 71046; 80053; 83880; 85025

== ENCOUNTER → 2019-09-11 | Outpatient (CLI) | payer MEDICARE, SELFPAY ==
[2019-09-11] VITALS (10 sets, daily range): BP systolic 123–146; BP diastolic 60–71; PULSE 80–98; RESP 16–18; TEMP 36.3–37.2; O2SAT 95–100; BMI 30.6
== END | disposition home or self-care (01) ==
LOC: MEDOUTP 07:47
PROVIDERS: PCP Family Medicine; Referring Provider Family Medicine; Visit Provider Family Medicine
DX: D64.9 Anemia, unspecified (principal); K74.60 Unspecified cirrhosis of liver
CPT/HCPCS: 36415; 36430; 86850; 86900; 86901; 86920; 86922; J7040; P9016; A4216

== ENCOUNTER → 2020-01-04 | Outpatient (CLI) | payer MEDICARE, SELFPAY ==
[2019-09-11 08:13] VITALS: BMI 30.6
[2020-01-04 12:52] LABS: International Normalized Ratio 1.4; Prothrombin Time (Protime)PT. 16.9 SECONDS (11.7-14.9)
[2020-01-04 13:34] LABS: AST(SGOT) 28 U/L (15-37); Alanine Aminotransfer ALT/SGPT 28 U/L (13-56); Albumin, Serum 3.1 g/dL (3.2-5.0); Alkaline Phosphatase 228 U/L (45-117); Anion Gap 7 (5-15); BUN 7 mg/dL (7-18); BUN/Creat Ratio 11.1 RATIO (10-20); Bilirubin, Direct 0.47 mg/dL (0.00-0.30); Calcium,Total 8.4 mg/dL (8.5-10.1); Chloride 107 mmol/L (98-107); Creatinine, Serum 0.63 mg/dL (0.55-1.02); EST Glomerular Filtration Rate 100 mL/min (>60); Est Glom Filt Rate - Afr Amer 120 mL/min (>60); Globulin 4.8 g/dL (2.2-4.2); Glucose 202 mg/dL (74-106); Potassium 3.8 mmol/L (3.5-5.1); Protein, Total 7.9 g/dL (6.4-8.2); Sodium Level 139 mmol/L (136-145)
[2020-01-04 13:47] LABS: Hemoglobin A1c 9.6 % (3.8-5.6)
[2020-01-05 14:58] LABS: AFP, Tumor Marker 5.9 ng/mL (0.0-8.3)
== END | disposition home or self-care (01) ==
LOC: BFHLAB 09:48
PROVIDERS: PCP Family Medicine; Visit Provider Family Medicine
DX: K74.60 Unspecified cirrhosis of liver (principal); E11.9 Type 2 diabetes mellitus without complications
CPT/HCPCS: 36415; 80048; 80076; 82105; 83036; 85610

== ENCOUNTER → 2020-01-12 | Outpatient (CLI) | payer MEDICARE, SELFPAY ==
[2019-09-11 08:13] VITALS: BMI 30.6
--- NOTE | 2020-01-12 10:05 | US_ITS ---
STUDY: ABDOMINAL ULTRASOUND - RIGHT UPPER QUADRANT REASON FOR VISIT: Female, 69 years old cirrhosis TECHNIQUE: Ultrasound evaluation of the right upper quadrant was performed with real-time and static taveras-scale imaging. TECHNICAL QUALITY: Adequate. COMPARISON: Comparison is made with prior examination dated December 12, 2018. FINDINGS: Liver: The liver measures 17.7 cm. There is a heterogeneous echogenicity of the liver. The liver as a nodular contour. The bile ducts are within normal limits. There is hepatic color flow. The direction of portal flow is hepatopetal. There is no demonstrated mass lesion. Gallbladder: The patient is status post cholecystectomy. Common Bile Duct (C.B.D.): The common bile duct measures 7.3 mm. Pancreas: Normal size of the head, body and tail of the pancreas. There is increased echogenicity of the pancreas. There is no demonstrated pancreatic mass or cyst. Right Kidney: Normal size of the right kidney. The right kidney measures 14.5 cm x 6.4 cm x 4.8 cm. Normal renal cortex. The right cortex measures 1.9 cm. There is no demonstrated renal mass or cyst. There is no right hydronephrosis. US/Abdomen Limited IMPRESSION: Heterogeneous echotexture of the liver with a nodular contour. This is in keeping with the history of cirrhosis. Status post cholecystectomy. Electronically Signed: Dimas Suarez, at 13:45 EDT , Service support ,
== END | disposition home or self-care (01) ==
LOC: US 10:03
PROVIDERS: PCP Family Medicine; Referring Provider Family Medicine; Visit Provider Family Medicine
DX: K74.60 Unspecified cirrhosis of liver (principal)
CPT/HCPCS: 76705

== ENCOUNTER → 2020-02-12 10:51 | Outpatient (CLI) | payer MEDICARE, SELFPAY ==
[2019-09-11 08:13] VITALS: BMI 30.6
[2020-02-12 14:50] LABS: Absolute Lymphocyte Count 1.29 X10^3/uL (0.83-4.51); Absolute Neutrophil Count 1.4 X10^3/uL (2.0-7.7); Basophil% 2.8 % (0-1); Eosinophil# 0.16 X10^3/uL; Eosinophils% 4.4 % (0-5); Hematocrit 31.8 % (37-47); Hemoglobin 9.1 g/dL (12.0-15.0); Lymphocyte # 1.29 X10^3/ul (4.0); Lymphocyte % 35.8 % (19-41); Mean Corp Hgb Conc 28.6 g/dL (32-36); Mean Corpuscular Hgb 22.9 pg (27.0-32.0); Mean Corpuscular Volume 79.9 fL (81-99); Mean Platelet Vol. 9.5 fl (6.2-12.0); Monocyte# 0.65 X10^3/uL; Monocyte% 18.1 % (0-10); NRBC Flagged by Analyzer 0 % (0-5); Neutrophil # 1.39 X10^3/uL (2.7-7.7); Neutrophil % 38.6 % (47-70); POSITIVE MORPHOLOGY YES; Platelet Count 206 K/mm3 (150-450); RBC Distribution Width CV 20.1 % (11.6-14.6); RBC Distribution Width SD 58.9 fl (35.1-43.9); Red Blood Count 3.98 M/mm3 (4.2-5.4); White Blood Count 3.6 K/mm3 (4.4-11.0)
[2020-02-12 14:55] LABS: Differential Indicated SCAN CRITERIA MET
[2020-02-12 15:03] LABS: International Normalized Ratio 1.6; Prothrombin Time (Protime)PT. 18.3 SECONDS (11.7-14.9)
[2020-02-12 15:08] LABS: Vitamin B12 1137 pg/mL (211-911)
[2020-02-12 15:23] LABS: ALB/GLOB Ratio 0.7 RATIO (0.9-2.4); AST(SGOT) 39 U/L (15-37); Alanine Aminotransfer ALT/SGPT 32 U/L (13-56); Albumin, Serum 2.9 g/dL (3.2-5.0); Alkaline Phosphatase 166 U/L (45-117); Anion Gap 11 (5-15); BUN 4 mg/dL (7-18); BUN/Creat Ratio 7.1 RATIO (10-20); Calcium,Total 8.1 mg/dL (8.5-10.1); Chloride 106 mmol/L (98-107); Creatinine, Serum 0.56 mg/dL (0.55-1.02); EST Glomerular Filtration Rate 113 mL/min (>60); Est Glom Filt Rate - Afr Amer 137 mL/min (>60); Ferritin 9 ng/mL (8-252); Globulin 4.3 g/dL (2.2-4.2); Glucose 212 mg/dL (74-106); Iron 65 ug/dL (50-170); Iron Binding Capacity,Total 417 ug/dL (250-450); Potassium 3.5 mmol/L (3.5-5.1); Protein, Total 7.2 g/dL (6.4-8.2); Sodium Level 140 mmol/L (136-145)
[2020-02-13 12:07] LABS: Anti-Centromere B Ab <0.2 AI (0.0-0.9); Anti-Chromatin 0.2 AI (0.0-0.9); Anti-Jo <0.2 AI (0.0-0.9); Anti-Scleroderma-70 AB <0.2 AI (0.0-0.9); RNP Ab <0.2 AI (0.0-0.9); SJOGREN'S Anti-SS-A test < 0.2 AI (0.0-0.9); SJOGREN'S Anti-SS-B test < 0.2 AI (0.0-0.9); Smith Ab <0.2 AI (0.0-0.9)
[2020-02-13 14:08] LABS: HEPATITIS B SURFACE AG Negative (Negative); Hepatitis A AB, Total Negative (Negative); Hepatitis A IgM Antibody Negative (Negative); Hepatitis B Core AB IgM Negative (Negative); Hepatitis B Core Ab Total Negative (Negative); Hepatitis C Ab <0.1 s/co ratio (0.0-0.9)
[2020-02-13 14:40] LABS: Anti-Smooth Muscle ABS 15 Units (0-19); Ceruloplasmin 21.1 mg/dL (19.0-39.0); Hep B Surface Antibodies Non Reactive (.)
[2020-02-13 14:55] LABS: Anti-dsDNA Ab <1 IU/mL (0-9)
== END ==
PROVIDERS: PCP Family Medicine; Visit Provider Family Medicine
DX: D64.9 Anemia, unspecified (principal); K74.69 Other cirrhosis of liver; K92.0 Hematemesis; D68.9 Coagulation defect, unspecified; R53.83 Other fatigue; I10 Essential (primary) hypertension; E11.65 Type 2 diabetes mellitus with hyperglycemia; E78.5 Hyperlipidemia, unspecified
CPT/HCPCS: 36415; 80053; 82390; 82607; 82728; 82746; 83516; 83540; 83550; 85025; 85610; 86225; 86235; 86704; 86705; 86706; 86708; 86709; 86803; 87340

== ENCOUNTER → 2020-04-30 | Outpatient (CLI) | payer MEDICARE, SELFPAY ==
[2019-09-11 08:13] VITALS: BMI 30.6
[2020-04-30 17:20] LABS: Hematocrit 42.7 % (37-47); Hemoglobin 13.7 g/dL (12.0-15.0); Mean Corp Hgb Conc 32.1 g/dL (32-36); Mean Corpuscular Hgb 29.8 pg (27.0-32.0); Mean Platelet Vol. 10.4 fl (6.2-12.0); POSITIVE MORPHOLOGY YES; Platelet Count 180 K/mm3 (150-450); RBC Distribution Width CV 20.4 % (11.6-14.6); RBC Distribution Width SD 70.1 fl (35.1-43.9); Red Blood Count 4.59 M/mm3 (4.2-5.4); White Blood Count 5.3 K/mm3 (4.4-11.0)
[2020-04-30 17:24] LABS: International Normalized Ratio 1.6; Prothrombin Time (Protime)PT. 18.2 SECONDS (11.7-14.9)
[2020-04-30 17:25] LABS: Partial Thromboplast Time 36.9 Seconds (24.1-36.2)
[2020-04-30 17:44] LABS: Scan Indicated on CBC? Y/N YES- FLAGS NOTED
[2020-04-30 18:03] LABS: ALB/GLOB Ratio 0.7 RATIO (0.9-2.4); AST(SGOT) 47 U/L (15-37); Alanine Aminotransfer ALT/SGPT 42 U/L (13-56); Albumin, Serum 2.9 g/dL (3.2-5.0); Alkaline Phosphatase 136 U/L (45-117); Anion Gap 12 (5-15); BUN 7 mg/dL (7-18); BUN/Creat Ratio 11.3 RATIO (10-20); Calcium,Total 8.3 mg/dL (8.5-10.1); Chloride 105 mmol/L (98-107); Creatinine, Serum 0.62 mg/dL (0.55-1.02); EST Glomerular Filtration Rate 101 mL/min (>60); Est Glom Filt Rate - Afr Amer 123 mL/min (>60); Ferritin 52 ng/mL (8-252); Globulin 4.4 g/dL (2.2-4.2); Glucose 269 mg/dL (74-106); Iron 104 ug/dL (50-170); Iron Binding Capacity,Total 352 ug/dL (250-450); Protein, Total 7.3 g/dL (6.4-8.2); Sodium Level 137 mmol/L (136-145)
[2020-05-02 08:27] LABS: AFP, Tumor Marker 6.8 ng/mL (0.0-8.3)
== END | disposition home or self-care (01) ==
LOC: LAB.FUTURE 16:07
PROVIDERS: PCP Family Medicine; Referring Provider Family Medicine; Visit Provider Internal Medicine
DX: K74.69 Other cirrhosis of liver (principal); D50.9 Iron deficiency anemia, unspecified
CPT/HCPCS: 36415; 80053; 82105; 82728; 83540; 83550; 85027; 85610; 85730

== ENCOUNTER 2020-08-28 08:59 | Outpatient (RCR) | payer MEDICARE, SELFPAY ==
[2019-09-11 08:13] VITALS: BMI 30.6
== END 2020-08-28 23:59 ==
LOC: IMMUN 08:59
PROVIDERS: PCP Family Medicine; Referring Provider Family Medicine; Visit Provider Family Medicine
DX: Z23 Encounter for immunization (principal)
CPT/HCPCS: 0011A; 0012A

== ENCOUNTER → 2020-09-05 13:07 | Outpatient (CLI) | payer MEDICARE, SELFPAY ==
[2019-09-11 08:13] VITALS: BMI 30.6
[2020-09-05 15:10] LABS: Hematocrit 43.6 % (37-47); Hemoglobin 14.9 g/dL (12.0-15.0); Mean Corp Hgb Conc 34.2 g/dL (32-36); Mean Corpuscular Hgb 35.5 pg (27.0-32.0); Mean Corpuscular Volume 103.8 fL (81-99); Mean Platelet Vol. 10.7 fl (6.2-12.0); Platelet Count 141 K/mm3 (150-450); RBC Distribution Width CV 13.4 % (11.6-14.6); RBC Distribution Width SD 51.8 fl (35.1-43.9); White Blood Count 4.9 K/mm3 (4.4-11.0)
[2020-09-05 15:16] LABS: International Normalized Ratio 1.6; Prothrombin Time (Protime)PT. 18.1 SECONDS (11.7-14.9)
[2020-09-05 16:02] LABS: ALB/GLOB Ratio 0.7 RATIO (0.9-2.4); AST(SGOT) 52 U/L (15-37); Alanine Aminotransfer ALT/SGPT 41 U/L (13-56); Albumin, Serum 2.8 g/dL (3.2-5.0); Alkaline Phosphatase 153 U/L (45-117); Anion Gap 10 (5-15); BUN 4 mg/dL (7-18); BUN/Creat Ratio 6.8 RATIO (10-20); Calcium,Total 8.7 mg/dL (8.5-10.1); Chloride 103 mmol/L (98-107); Creatinine, Serum 0.58 mg/dL (0.55-1.02); EST Glomerular Filtration Rate 109 mL/min (>60); Est Glom Filt Rate - Afr Amer 131 mL/min (>60); Globulin 4.1 g/dL (2.2-4.2); Glucose 282 mg/dL (74-106); Potassium 3.6 mmol/L (3.5-5.1); Protein, Total 6.9 g/dL (6.4-8.2); Sodium Level 138 mmol/L (136-145)
== END ==
PROVIDERS: PCP Family Medicine; Visit Provider Internal Medicine
DX: K74.69 Other cirrhosis of liver (principal); I85.00 Esophageal varices without bleeding
CPT/HCPCS: 36415; 80053; 85027; 85610

== ENCOUNTER 2021-10-01 14:50 | Outpatient (CLI) | payer MEDICARE, SELFPAY ==
--- NOTE | 2021-10-01 14:54 | RAD_ITS ---
STUDY: X-RAY CHEST REASON FOR EXAM: Female, 71 years old. COUGH, PNEUMONIA TECHNIQUE: PA and lateral views of the chest. COMPARISON: Comparison is made with prior study of 09/04/2019. FINDINGS: Small right pleural effusion. Possible mass lesion versus dense consolidation in the right lower lobe. Correlation with the CT scan of the thorax is recommended. Normal size heart. Normal mediastinum and mckenna. Normal visualized pulmonary arteries. There is atherosclerotic calcification of the aortic arch with tortuosity. There is demineralization of the osseous structures. Normal visualized ribs, clavicles, and shoulders. There is no demonstrated abnormality of the visualized soft tissue structures of the upper abdomen. RAD/Chest PA and Lateral IMPRESSION: Findings suggestive of a consolidation and/or mass lesion in the right lower lobe with right pleural effusion. Correlation with CT scan is recommended. Electronically Signed: Dimas Suarez MD at 15:27 EDT ,
== END 2021-10-01 23:59 | disposition home or self-care (01) ==
LOC: MTRAD 14:52
PROVIDERS: PCP Family Medicine; Referring Provider Family Medicine; Visit Provider Family Medicine
DX: R05.9 Cough, unspecified (principal)
CPT/HCPCS: 71046

== ENCOUNTER 2021-10-10 12:01 | Outpatient (CLI) | payer MEDICARE, SELFPAY ==
--- NOTE | 2021-10-10 12:50 | CT_ITS ---
STUDY: CT CHEST WITHOUT CONTRAST REASON FOR EXAM: Female, 71 years old. COUGH / PNEUMONIA RADIATION DOSAGE (If Supplied By Facility): CTDIvol = ( 15.06 ) mGy, DLP = ( 450.87 ) mGycm TECHNIQUE: Transaxial imaging was performed without the administration of intravenous contrast material. Multiplanar coronal and sagittal images were reformatted. Individualized dose optimization techniques were used for this CT. COMPARISON: Comparison is made with prior chest radiograph dated 10/01/2021. FINDINGS: Moderate sized right pleural effusion with collapse of the right lower lobe. Mild increased markings in the anterior medial aspect of the left upper lobe suggestive of atelectasis. There are calcifications of the coronary arteries. Normal mediastinum. Normal hilar regions. Normal unenhanced pulmonary arteries. Normal aorta arch and descending thoracic aorta. Normal osseous structures. Heterogeneous appearance of the liver. Irregular contour of the liver suggestive of a cirrhotic change. The patient is status post cholecystectomy. CT/Chest without Contrast IMPRESSION: Moderate sized right pleural effusion with collapse of the right lower lobe. Increased markings in the mid segment of the left upper lobe suggestive of infiltrate and/or atelectasis. Heterogeneous appearance of the liver with nodular contour suggestive of cirrhotic change. Electronically Signed: Dimas Suarez MD at 13:44 EDT ,
== END 2021-10-10 23:59 | disposition home or self-care (01) ==
LOC: CT 12:02
PROVIDERS: PCP Family Medicine; Visit Provider Family Medicine
DX: J18.9 Pneumonia, unspecified organism (principal); R09.02 Hypoxemia
CPT/HCPCS: 71250

== ENCOUNTER 2021-10-10 13:56 | Inpatient (IN) | payer MEDICARE, SELFPAY ==
[2021-10-10] VITALS (8 sets, daily range): BP systolic 115–167; BP diastolic 62–86; PULSE 83–90; RESP 15–24; TEMP 36–37.1; O2SAT 83–96; BMI 29.2; BMI 31.7
--- NOTE | 2021-10-10 14:40 | RAD_ITS ---
STUDY: X-RAY CHEST REASON FOR EXAM: Female, 71 years old. Pleural effusion. TECHNIQUE: Single AP portable view of the chest. COMPARISON: Comparison is made with prior study dated 10/01/2021. FINDINGS: EKG electrodes are seen. Moderate size right pleural effusion. This has progressed as compared to prior study. Right basilar atelectasis and/or infiltrate. Normal size heart. Normal mediastinum and mckenna. Normal visualized pulmonary arteries. Normal visualized aortic arch and descending thoracic aorta. Normal visualized thoracic spine. Normal visualized ribs, clavicles, and shoulders. There is no demonstrated abnormality of the visualized soft tissue structures of the upper abdomen. RAD/Chest 1 View (Portable) IMPRESSION: Moderate size right pleural effusion with right basilar infiltration and/or atelectasis. Electronically Signed: Dimas Suarez MD at 15:00 EDT ,
--- NOTE | 2021-10-10 14:41 | EKG12_ITS ---
Test Reason : SOB Blood Pressure : / mmHG Vent. Rate : 082 BPM Atrial Rate : 082 BPM P-R Int : 106 ms QRS Dur : 092 ms QT Int : 422 ms P-R-T Axes : 006 -03 039 degrees QTc Int : 493 ms Sinus rhythm with sinus arrhythmia with short TX Prolonged QT Abnormal ECG Confirmed by RAHAT LOPEZ, JOHANNY ([id number]), script editor HOA DOBBS ([id number]) on 10/15/2021 10:39:21 AM Referred By: STEFFEN Confirmed By:JOHANNY GIANG MD
--- NOTE | 2021-10-10 14:48 | ED.VIS.DYS ---
HPI History of Present Illness Chief Complaint: Shortness of Breath Narrative Narrative: Patient presents with shortness of breath. She was diagnosed with pneumonia about 7 or 8 days ago, she has been on Levaquin and she is worsening. She has an outpatient CAT scan which showed a significant effusion. She is also been using her 's oxygen since she has been quite short of breath. She was found to be at least 83% on room air upon arrival. She is denying fevers. She has no back pain. She has no pleuritic component. No abdominal pain. She is denying lower extremity edema. [facility] Medical History Diabetes High cholesterol HTN (hypertension) Home Medications losartan 50 mg tablet 25 mg PO DAILY 11/07/18 [History Last Taken 05/18/19] metformin 500 mg tablet 500 mg PO BID 11/07/18 [History Last Taken 05/18/19] cholecalciferol (vitamin D3) [Vitamin D] 1,000 unit PO DAILY 11/14/18 [History Last Taken 05/18/19] cyanocobalamin (vitamin B-12) 1,000 mcg PO DAILY 11/14/18 [History Last Taken 05/18/19] garlic 500 mg PO QHS 11/14/18 [History Last Taken 05/18/19] spironolactone 25 mg PO DAILY 12/07/18 [History Last Taken 05/18/19] pantoprazole 40 mg PO BID 05/18/19 [History Last Taken 05/18/19] Allergy/AdvReac Type Severity Reaction Status Date / Time estrogens, conjugated Allergy Mild SWELLING, Verified 05/18/19 19:01 [From Premarin] ITCHING, RASH hydrochlorothiazide Allergy Mild RASH, Verified 05/18/19 19:01 ITCHING Penicillins Allergy Mild Unknown Verified 05/18/19 19:01 Sulfa (Sulfonamide Allergy Mild SWELLING, Verified 05/18/19 19:01 Antibiotics) ITCHING, RASH Family History Mother Breast cancer Hypertension CAD (coronary artery disease) Surgical History S/P carpal tunnel release S/P cholecystectomy S/P hysterectomy S/P parathyroidectomy S/P renal artery angioplasty Status post right knee replacement Social History Smoking Status: Never smoker alcohol intake: never ROS ROS ED ROS Narrative Past medical history: Reviewed, she has nonalcoholic cirrhosis, diabetes, hypertension Medications: Reviewed Social history: Noncontributory Review of systems: All systems negative except as indicated General: No fever. She is endorsing generalized weakness Eyes: No visual changes ENT: No upper airway congestion, normal voice Neck: No neck pain Cardiovascular: No chest pain Respiratory: Shortness of breath as in HPI Gastrointestinal: No abdominal pain, nausea vomiting or diarrhea Genitourinary: No dysuria Musculoskeletal: Denies myalgias no difficulty with ambulation Skin: No rash Neurological: No memory loss, confusion or any focal weakness Psych: No recent behavioral changes Hematologic: No easy bleeding or easy bruising EXAM Physical Exam Narrative Exam Narrative: Physical exam General: She appears chronically ill. She is in mild respiratory distress. Head: Normocephalic, Atraumatic Eyes: Conjunctiva not pale ENT: Slightly dry mucous membranes Neck: Supple, Nontender, No lymphadenopathy Cardiovascular: Regular rate, Regular rhythm Respiratory: Coarse breath sounds on the left, diminished breath sounds right lower and coarse breath sounds right upper lung region. She is slightly tachypneic. Abdomen: Soft, Nontender, Nondistended Back: Nontender, Normal Inspection. Negative for: CVA tenderness Extremities: Nontender, No edema Skin: Normal color, No rash Neurological: Alert, Normal Strength, Normal Sensation Psychological: Normal affect Const Vital Signs: 10/10/21 13:57 10/10/21 14:19 10/10/21 15:01 Temperature 96.8 F L Temperature Source Temporal Pulse Rate 88 Respiratory Rate 24 H Respiratory Effort Short of Breath Labored Respiratory Depth Normal Respiratory Pattern Normal Blood Pressure 167/80 H Blood Pressure Mean 109 Pulse Ox 83 88 Oxygen Delivery Method Nasal Cannula Nasal Cannula Room Air Oxygen Flow Rate (L/min) 3 3 10/10/21 15:15 Temperature 98.8 F Temperature Source Temporal Pulse Rate 86 Respiratory Rate 20 H Respiratory Effort Respiratory Depth Respiratory Pattern Blood Pressure 132/86 H Blood Pressure Mean 101 Pulse Ox 94 Oxygen Delivery Method Nasal Cannula Oxygen Flow Rate (L/min) 2.5 MDM MDM MDM Narrative Medical decision making narrative: Patient is found to have a moderate-sized right-sided effusion. She is hypoxic and dependent on oxygen. I will admit her for further work-up including thoracentesis Lab Data Labs: Laboratory Results - last 24 hr 10/10/21 10/10/21 10/10/21 14:35 14:35 14:35 WBC 5.4 RBC 4.19 L Hgb 14.6 Hct 43.2 MCV 103.1 H MCH 34.8 H MCHC 33.8 RDW Std Deviation 53.8 H RDW Coeff of Malryn 14.3 Plt Count 120 L MPV 10.3 Immature Gran % (Auto) 0.400 Neut % (Auto) 52.6 Lymph % (Auto) 24.5 [place] % (Auto) 16.4 H Eos % (Auto) 4.4 Baso % (Auto) 1.7 H Absolute Neuts (auto) 2.9 Absolute Lymphs (auto) 1.33 Nucleated RBC % 0 PT INR Troponin I High Sens 3 B-Natriuretic Peptide 58.5 10/10/21 15:00 WBC RBC Hgb Hct MCV MCH MCHC RDW Std Deviation RDW Coeff of Marlyn Plt Count MPV Immature Gran % (Auto) Neut % (Auto) Lymph % (Auto) [place] % (Auto) Eos % (Auto) Baso % (Auto) Absolute Neuts (auto) Absolute Lymphs (auto) Nucleated RBC % PT 20.2 H INR 1.8 Troponin I High Sens B-Natriuretic Peptide Radiography Diagnostic Testing: Clinical Impression(s) from Imaging Studies Chest X-Ray 10/10/21 14:40 IMPRESSION: Moderate size right pleural effusion with right basilar infiltration and/or atelectasis. Electronically Signed: Dimas Suarez MD at 15:00 EDT , X-ray read by me shows right-sided pleural effusion. EKG Initial EKG: Comments: Sinus rhythm with a rate of 82. Normal VT and QTc intervals. No ischemic changes. Interpreted by emergency doctor Discharge Plan Triage Chief Complaint: Shortness of Breath ED Provider: Perry Torres Dx/Rx/DC Orders Clinical Impression: Hypoxia, Pleural effusion Prescriptions: No Action losartan 50 mg tablet 25 mg PO DAILY RF: 0 metformin 500 mg tablet 500 mg PO BID RF: 0 garlic 500 MG capsule 500 mg PO QHS RF: 0 cyanocobalamin (vitamin B-12) 500 MCG tablet 1,000 mcg PO DAILY RF: 0 cholecalciferol (vitamin D3) [Vitamin D3] 1,000 UNIT tablet 1,000 unit PO DAILY RF: 0 spironolactone 100 MG tablet 25 mg PO DAILY RF: 0 pantoprazole 40 MG tablet 40 mg PO BID RF: 0 Primary Care Provider: Shana Mckeon Referrals: Shana Mckeon DO [Primary Care Provider] - Disposition Disposition: Acute Care Hospital [facility]
[2021-10-10 15:09] LABS: Absolute Lymphocyte Count 1.33 X10^3/uL (0.83-4.51); Absolute Neutrophil Count 2.9 X10^3/uL (2.0-7.7); Basophil# 0.09 X10^3/uL; Basophil% 1.7 % (0-1); Eosinophil# 0.24 X10^3/uL; Eosinophils% 4.4 % (0-5); Hematocrit 43.2 % (37-47); Hemoglobin 14.6 g/dL (12.0-15.0); Lymphocyte # 1.33 X10^3/ul (0.83-4.51); Lymphocyte % 24.5 % (19-41); Mean Corp Hgb Conc 33.8 g/dL (32-36); Mean Corpuscular Hgb 34.8 pg (27.0-32.0); Mean Corpuscular Volume 103.1 fL (81-99); Mean Platelet Vol. 10.3 fl (6.2-12.0); Monocyte# 0.89 X10^3/uL; Monocyte% 16.4 % (0-10); NRBC Flagged by Analyzer 0 % (0-5); Neutrophil # 2.85 X10^3/uL (2.7-7.7); Neutrophil % 52.6 % (47-70); Platelet Count 120 K/mm3 (150-450); RBC Distribution Width CV 14.3 % (11.6-14.6); RBC Distribution Width SD 53.8 fl (35.1-43.9); Red Blood Count 4.19 M/mm3 (4.2-5.4); White Blood Count 5.4 K/mm3 (4.4-11.0)
[2021-10-10 15:29] LABS: BNP,B-Type NATRIURETIC PEPTIDE 58.5 pg/mL (0-100)
[2021-10-10 15:33] LABS: Troponin-I HS 3 pg/mL (3.0-54.0)
[2021-10-10 15:37] LABS: International Normalized Ratio 1.8; Prothrombin Time (Protime)PT. 20.2 SECONDS (11.7-14.9)
[2021-10-10] MEDS: Ceftriaxone 1 GM/50 ML BAG IV (15:42)
[2021-10-10 16:23] LABS: ALB/GLOB Ratio 0.5 RATIO (0.9-2.4); AST(SGOT) 65 U/L (15-37); Alanine Aminotransfer ALT/SGPT 44 U/L (13-56); Albumin, Serum 2.3 g/dL (3.2-5.0); Alkaline Phosphatase 156 U/L (45-117); Anion Gap 5 (5-15); BUN 4 mg/dL (7-18); BUN/Creat Ratio 9.2 RATIO (10-20); Chloride 106 mmol/L (98-107); Creatinine, Serum 0.43 mg/dL (0.55-1.02); EST Glomerular Filtration Rate 153 mL/min (>60); Est Glom Filt Rate - Afr Amer 185 mL/min (>60); Globulin 4.7 g/dL (2.2-4.2); Glucose 123 mg/dL (74-106); Potassium 3.8 mmol/L (3.5-5.1); Sodium Level 139 mmol/L (136-145)
--- NOTE | 2021-10-10 16:36 | NURSING ---
MED SUG TERELETSKY HYPOXIA, EFFUSION
--- NOTE | 2021-10-10 16:59 | HP.PCM.HOS_ITS ---
Documented by User: Delma Correia NP, TELE GROUT SEWER LINE REPAIRER-C 10/10/21 17:19 HPI - General General Date of Admission: 10/10/21 HPI Narrative JOSE A FANG, is a 71 F who presents to the emergency room due to shortness of breath. Patient states she has had shortness of breath for approximately the last week and a half which has worsened over that period of time. She states her primary care provider placed her on Levaquin for suspected pneumonia. She did not notice an improvement in her symptoms. She denies cough, fever, chills. She denies increased swelling or weight gain. She denies chest pain. She states her wears oxygen at bedtime and she has been using his supplemental oxygen to help with shortness of breath. 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 Her other past medical history includes type 2 diabetes mellitus, rheumatoid arthritis, GERD. [facility] Medical History (Updated 10/10/21 @ 16:22 by Dayan Forbes) Asthma Cirrhosis CPAP (continuous positive airway pressure) dependence Diabetes GERD (gastroesophageal reflux disease) GI bleed High cholesterol HTN (hypertension) Rheumatoid arthritis Sleep apnea Home Medications metformin 500 mg tablet 1,000 mg PO BID 11/07/18 [History Last Taken 10/10/21] cholecalciferol (vitamin D3) [Vitamin D] 2,000 unit PO DAILY 11/14/18 [History Last Taken 10/10/21] cyanocobalamin (vitamin B-12) 1,000 mcg PO DAILY 11/14/18 [History Last Taken 10/10/21] spironolactone 25 mg PO DAILY 12/07/18 [History Last Taken 10/10/21] pantoprazole 40 mg PO BID 05/18/19 [History Last Taken 10/10/21] iron 40 mg PO DAILY 10/10/21 [History Last Taken 10/10/21] magnesium chloride [Mag 64] 64 mg PO DAILY 10/10/21 [History Last Taken Unknown] Allergy/AdvReac Type Severity Reaction Status Date / Time estrogens, conjugated Allergy Mild SWELLING, Verified 05/18/19 19:01 [From Premarin] ITCHING, RASH hydrochlorothiazide Allergy Mild RASH, Verified 05/18/19 19:01 ITCHING Penicillins Allergy Mild Hives Verified 10/10/21 16:23 Sulfa (Sulfonamide Allergy Mild SWELLING, Verified 05/18/19 19:01 Antibiotics) ITCHING, RASH Family History (Updated 10/10/21 @ 17:06 by Delma Correia TELE GROUT SEWER LINE REPAIRER, TELE GROUT SEWER LINE REPAIRER-C) Mother Breast cancer Hypertension CAD (coronary artery disease) Father CAD (coronary artery disease) Cancer Surgical History (Reviewed 10/10/21 @ 17:06 by Delma Correia TELE GROUT SEWER LINE REPAIRER, TELE GROUT SEWER LINE REPAIRER-C) History of cholecystectomy S/P carpal tunnel release S/P cholecystectomy S/P hysterectomy S/P parathyroidectomy S/P renal artery angioplasty Status post right knee replacement Social History Smoking Status: Never smoker alcohol intake: never ROS Constitutional Constitutional: Denies change in weight, chills, fatigue, fever(s) or weakness Cardiovascular Cardiovascular: Denies chest pain, edema, lightheadedness, palpitations or syncope Respiratory/Chest Respiratory/Chest: Reports shortness of breath at rest and shortness of breath with exertion; Denies cough, productive cough or wheezing Gastrointestinal Gastrointestinal: Denies abdominal pain, constipation, diarrhea, nausea or vomiting Genitourinary Genitourinary: Denies burning urination, difficulty urinating, dysuria, hematuria, urinary frequency, urinary incontinence or urinary urgency Musculoskeletal Musculoskeletal: Denies back pain, joint pain or muscle weakness Integumentary Integumentary: Denies erythema, lesions, rash or wounds Neurologic Neurologic: Denies abnormal speech, confusion, dizziness, focal weakness, numbness, paresthesias, seizure-like activity or syncope Psychiatric Psychiatric: Denies anxiety or depression Hematologic/Lymphatic Hematologic/Lymphatic: Denies anemia, easy bleeding or easy bruising Allergic/Immunologic Allergic/Immunologic: Denies hives or asthma Vital Signs Vital Signs Vital Signs: 10/10/21 13:57 10/10/21 14:19 10/10/21 15:01 Temperature 96.8 F L Temperature Source Temporal Pulse Rate 88 Respiratory Rate 24 H Respiratory Effort Short of Breath Labored Respiratory Depth Normal Respiratory Pattern Normal Blood Pressure 167/80 H Blood Pressure Mean 109 Pulse Ox 83 88 Oxygen Delivery Method Nasal Cannula Nasal Cannula Room Air Oxygen Flow Rate (L/min) 3 3 10/10/21 15:15 10/10/21 16:00 10/10/21 16:33 Temperature 98.8 F 98.4 F 98.4 F Temperature Source Temporal Temporal Temporal Pulse Rate 86 83 88 Respiratory Rate 20 H 15 16 Respiratory Effort Respiratory Depth Respiratory Pattern Blood Pressure 132/86 H 135/68 H 135/68 H Blood Pressure Mean 101 90 90 Pulse Ox 94 96 96 Oxygen Delivery Method Nasal Cannula Nasal Cannula Nasal Cannula Oxygen Flow Rate (L/min) 2.5 2.5 2.5 Weight Weight: 170 lb Body Mass Index (BMI) 29.2 Physical Exam Const alert, oriented x3 and no apparent distress Orientation / Consciousness: awake, oriented to person, oriented to place and oriented to time HEENT normocephalic and moist oral mucous membranes Eyes PERRL, EOMs intact bilaterally and conjunctivae normal Neck no lymphadenopathy Resp clear to auscultation bilaterally Auscultation: diminished lung sounds Cardio regular rate, regular rhythm and no murmurs Peripheral Pulses: pulses 2+ throughout GI normal to inspection, nondistended, normoactive bowel sounds, non-tender and non-distended Extremity normal to inspection General Extremity: edema bilateral lower extremity Details: mild Skin no rashes or lesions noted Lesions: no lesions Rashes: no rashes Trauma: no lacerations or abrasions Neuro CN's II-XII intact bilaterally, no focal motor deficits, no sensory deficits noted and deep tendon reflexes 2+ bilaterally Psych mental status grossly normal and affect normal Results Lab / Micro Data Result Diagrams: 10/10/21 14:35 10/10/21 14:35 Labs: Laboratory Results - last 24 hr 10/10/21 14:35: WBC 5.4, RBC 4.19 L, Hgb 14.6, Hct 43.2, MCV 103.1 H, MCH 34.8 H , MCHC 33.8, RDW Std Deviation 53.8 H, RDW Coeff of Marlyn 14.3, Plt Count 120 L, MPV 10.3, Immature Gran % (Auto) 0.400, Neut % (Auto) 52.6, Lymph % (Auto) 24.5, [place] % (Auto) 16.4 H, Eos % (Auto) 4.4, Baso % (Auto) 1.7 H, Absolute Neuts (auto) 2.9, Absolute Lymphs (auto) 1.33, Nucleated RBC % 0 10/10/21 14:35: B-Natriuretic Peptide 58.5 10/10/21 14:35: Troponin I High Sens 3 10/10/21 14:35: Sodium 139, Potassium 3.8, Chloride 106, Carbon Dioxide 28.0, Anion Gap 5, BUN 4 L, Creatinine 0.43 L, Estim Creat Clear Calc 45.20, Est GFR (MDRD) Af Amer 185, Est GFR (MDRD) Non-Af 153, BUN/Creatinine Ratio 9.2 L, Glucose 123 H, Calcium 8.0 L, Total Bilirubin 4.20 H, AST 65 H, ALT 44, Alkaline Phosphatase 156 H, Total Protein 7.0, Albumin 2.3 L, Globulin 4.7 H, Albumin/Globulin Ratio 0.5 L 10/10/21 15:00: PT 20.2 H, INR 1.8 Micro: Microbiology 10/10/21 15:08 Mucosa - Nasopharyngeal Influenza Types A,B Direct FA (MIRELLA) - Final 10/10/21 14:35 Nasal Secretion SARS-CoV-2 Antigen (Rapid) - Final Radiology Impression Chest X-Ray 10/10/21 14:40 IMPRESSION: Moderate size right pleural effusion with right basilar infiltration and/or atelectasis. Electronically Signed: Dimas Suarez MD at 15:00 EDT , Assessment & Plan Assessment/Plan (1) Non-alcoholic cirrhosis: PLAN: 1. Acute hypoxic respiratory failure secondary to right pleural effusion with collapse of right lower lobe- patient documented to be hypoxic in the emergency room with initial tachypnea. Now improved on supplemental oxygen. Plan for diagnostic and therapeutic thoracentesis. Send fluid studies with culture and cytology. Low suspicion for pneumonia. Patient completed 7-day course of Levaquin. Afebrile, no leukocytosis. BNP normal. Suspect pleural effusion related to liver disease versus rheumatologic. Continue supplement oxygen to maintain O2 at above 90%. 2. Nonalcoholic cirrhosis-following with hepatology in [place], in process to be placed on transplant list. Continue spironolactone. Consider adding low dose lasix. 3. Type 2 diabetes mellitus-patient is on Metformin. She reports episodes of low blood sugar in the morning. Check hemoglobin A1c. 4. Rheumatoid arthritis- not on regimen. 5. GERD- continue PPI. DVT prophylaxis- heparin sc This patient was seen by Delma Correia NP-C under the supervision of Dr. Sandoval. Time spent examining patient, reviewing data and subsequent management of care: 17 minutes Documented by User: Dr. Efraín Sandoval, 10/10/21 18:17 HPI - General General Date of Admission: 10/10/21 [facility] Medical History (Updated 10/10/21 @ 16:22 by Dayan Forbes) Asthma Cirrhosis CPAP (continuous positive airway pressure) dependence Diabetes GERD (gastroesophageal reflux disease) GI bleed High cholesterol HTN (hypertension) Rheumatoid arthritis Sleep apnea Home Medications metformin 500 mg tablet 1,000 mg PO BID 11/07/18 [History Last Taken 10/10/21] cholecalciferol (vitamin D3) [Vitamin D] 2,000 unit PO DAILY 11/14/18 [History Last Taken 10/10/21] cyanocobalamin (vitamin B-12) 1,000 mcg PO DAILY 11/14/18 [History Last Taken 10/10/21] spironolactone 25 mg PO DAILY 12/07/18 [History Last Taken 10/10/21] pantoprazole 40 mg PO BID 05/18/19 [History Last Taken 10/10/21] iron 40 mg PO DAILY 10/10/21 [History Last Taken 10/10/21] magnesium chloride [Mag 64] 64 mg PO DAILY 10/10/21 [History Last Taken Unknown] Allergy/AdvReac Type Severity Reaction Status Date / Time estrogens, conjugated Allergy Mild SWELLING, Verified 05/18/19 19:01 [From Premarin] ITCHING, RASH hydrochlorothiazide Allergy Mild RASH, Verified 05/18/19 19:01 ITCHING Penicillins Allergy Mild Hives Verified 10/10/21 16:23 Sulfa (Sulfonamide Allergy Mild SWELLING, Verified 05/18/19 19:01 Antibiotics) ITCHING, RASH Family History (Updated 10/10/21 @ 17:06 by Delma Correia TELE GROUT SEWER LINE REPAIRER, TELE GROUT SEWER LINE REPAIRER-C) Mother Breast cancer Hypertension CAD (coronary artery disease) Father CAD (coronary artery disease) Cancer Surgical History (Reviewed 10/10/21 @ 17:06 by Delma Correia TELE GROUT SEWER LINE REPAIRER, TELE GROUT SEWER LINE REPAIRER-C) History of cholecystectomy S/P carpal tunnel release S/P cholecystectomy S/P hysterectomy S/P parathyroidectomy S/P renal artery angioplasty Status post right knee replacement Social History Smoking Status: Never smoker alcohol intake: never Results Lab / Micro Data Result Diagrams: 10/10/21 14:35 10/10/21 14:35 Charges/Coding Addendum Addendum: Patient was seen and examined today independently of Delma Correia, she came to the ER today at [facility] with a chief complaint of increasing shortness of breath. She was treated as an outpatient for presumed pneumonia approximately a week ago, she is on Levaquin but she states that her respiratory status was worsening. She had an outpatient CAT scan which shows significant right pleural effusion, she has been using her 's oxygen at home due to shortness of breath. Patient has a history of nonalcoholic steatohepatitis and is currently seeing a commercial relationship manager, she is also seeing a second commercial relationship manager who is a transplant surgeon at [facility]. On examination she appeared in good health and spirits, she does not appear to be in any distress. Vital signs as documented. Skin warm and dry and without overt rashes. Neck without JVD, thyroid appears normal, trachea is midline, neck is supple. Lungs-decreased air movement was noted over the right lower lung field, decreased breath sounds are noted over the right lower lung field. Heart: heart exam notable for regular rhythm, normal sounds and absence of murmurs, rubs or gallops. Abdomen unremarkable and without evidence of organomegaly, masses, or abdominal aortic enlargement, bowel sounds are present in all 4 quadrants, no abdominal tenderness was noted. Extremities-there is noted to be mild edema in the pretibial areas of both lower legs, no cyanosis was noted, no clubbing was noted. Neuro: Cranial nerves II through XII are grossly intact, no focal motor deficits were noted, sensation to light touch and pinprick is intact, motor exam 5/5 throughout. Psych: Patient is alert and oriented x3, she does not appear anxious or depressed, she does not appear agitated. Impression: #1 right pleural effusion-most probably secondary to nonalcoholic liver disease with cirrhosis-I talked to the patient at length about increasing her diuretic usage, she states she is sensitive to Lasix and when she was on 40 mg of Lasix she got very fatigued and tired. I have decided to place her on 20 of Lasix daily, I will give her 1 dose of IV Lasix tonight. Patient will need to see pulmonary medicine tomorrow and hopefully they can do a right-sided thoracentesis. #2 hypoxemic respiratory failure-secondary to right pleural effusion with suspected right lower lobe atelectasis-patient's pulse ox will be monitored, she is currently on 2-1/2 L via nasal cannula. #3 nonalcoholic liver disease with cirrhosis-patient sees a commercial relationship manager as an outpatient concerning this #4 type 2 diabetes-patient is on Metformin, blood sugars will be monitored, sliding scale insulin will be used #5 essential hypertension-patient is on losartan, this will be continued I have reviewed Delma Correia's history and physical including her medical assessment and plan of care and endorse it with the above additions. Total clinical time spent by myself addressing the patient's medical issues, reviewing the patient's medical data, and conferring with the patient's care team: 53 minutes Visit Charges Inpatient E&M: 72043 Init Hosp L3
[2021-10-10 17:33] LABS: ALB/GLOB Ratio 0.5 RATIO (0.9-2.4); Globulin 4.7 g/dL (2.2-4.2); LDH 496 U/L (84-246)
[2021-10-10] MEDS: Furosemide 20 MG/2 ML VIAL IV (18:42)
[2021-10-10] MEDS: 0.9% Saline Lock 10 ML Syringe IV ×2 (18:43→22:16)
[2021-10-10] MEDS: metFORMIN HCl 1,000 MG Tablet 1000 MG PO (22:12)
[2021-10-10] MEDS: Pantoprazole Sodium 40 MG Tablet PO (22:13)
[2021-10-10] MEDS: Heparin Injection (Vial) 5,000 UNIT/ML VIAL 5000 UNIT SC (22:14)
[2021-10-11] VITALS (11 sets, daily range): BP systolic 120–132; BP diastolic 61–75; PULSE 92–109; RESP 16–20; TEMP 36.3–37.1; O2SAT 85–95
[2021-10-11 00:15] LABS: Bedside Glucose 211 mg/dL (74-106)
--- NOTE | 2021-10-11 06:15 | CON.PCM.CC_ITS ---
Assessment & Plan Assessment/Plan (1) Pleural effusion: PLAN: RECOMMENDATIONS: 1. Proceed with ultrasound-guided thoracentesis. 2. Send pleural fluid for analysis as ordered. 3. Wean supplemental oxygen to maintain saturations at or above 90%. 4. Encourage incentive spirometer use and mobilize patient as tolerated. 5. The patient may ultimately require additional medical optimization of her underlying liver disease. IMPRESSIONS: 1. Right pleural effusion The patient presented to the hospital with shortness of breath and cough after having been treated for 7 days with Levaquin for outpatient coverage of pneumonia. Her CT scan revealed a moderate sized right-sided pleural effusion with associated atelectasis. Bedside ultrasound imaging revealed a sizable free-flowing pleural effusion. Therefore, we will proceed with bedside ultrasound-guided thoracentesis. Pleural fluid will be sent for analysis to include cell count with differential, cultures, LDH, total protein, glucose and cytology. The patient has not currently demonstrated any systemic signs of infection. It is certainly plausible that the pleural effusion is the consequence of her underlying liver disease. If this is truly the case, the effusion may return post thoracentesis. Her underlying medical management of her liver disease may need to be further optimized. 2. History of BYRD cirrhosis/diabetes mellitus/rheumatoid arthritis/GERD Complicates care, management, recovery and prognosis. Continue home medications as indicated. This note was generated with [employer] dictation software. It may contain incorrect words, spelling, and punctuation that were not noted in checking the note before signing. HPI Consult Data Date of Consult: 10/12/21 HPI Narrative Reason for Consultation: Pleural effusion HPI Narrative: The patient is a 71-year-old female, with a history as outlined below, who presented to the emergency department on October 10 with progressive dyspnea. The patient has a history of BYRD cirrhosis and is currently working with a surgical aide in [place]. She was recently treated by her primary care provider with Levaquin for suspected pneumonia, but failed to respond to therapy. Her medical history is also significant for diabetes mellitus, GERD and rheumatoid arthritis. The patient denies ever having had a thoracentesis completed previously. The patient reported that her liver specialist wants her to follow-up at [facility] for potential transplantation. She is not currently on any diuretic therapy. On presentation to the emergency department, the patient was noted to be afebrile and hemodynamically stable. She was initially noted to be hypoxemic on room air. Initial laboratory evaluation revealed no evidence of a leukocytosis. Platelet count was low at 120,000. Chemistry profile was unrevealing. Total bili was increased at 4.2 with an AST of 65 and alkaline phosphatase of 156. A CT chest revealed a moderate sized right-sided pleural effusion with associated atelectasis. The liver appeared cirrhotic radiographically. [facility] Medical History (Updated 10/11/21 @ 06:[address] Kurtis Lance, DO) Asthma Cirrhosis CPAP (continuous positive airway pressure) dependence Diabetes GERD (gastroesophageal reflux disease) GI bleed High cholesterol HTN (hypertension) Rheumatoid arthritis Sleep apnea Home Medications metformin 500 mg tablet 1,000 mg PO BID 11/07/18 [History Last Taken 10/10/21] cholecalciferol (vitamin D3) [Vitamin D] 2,000 unit PO DAILY 11/14/18 [History Last Taken 10/10/21] cyanocobalamin (vitamin B-12) 1,000 mcg PO DAILY 11/14/18 [History Last Taken 10/10/21] spironolactone 25 mg PO DAILY 12/07/18 [History Last Taken 10/10/21] pantoprazole 40 mg PO BID 05/18/19 [History Last Taken 10/10/21] iron 40 mg PO DAILY 10/10/21 [History Last Taken 10/10/21] magnesium chloride [Mag 64] 64 mg PO DAILY 10/10/21 [History Last Taken Unknown] nadolol 20 mg PO DAILY 10/11/21 [History Last Taken Unknown] Allergy/AdvReac Type Severity Reaction Status Date / Time estrogens, conjugated Allergy Mild SWELLING, Verified 05/18/19 19:01 [From Premarin] ITCHING, RASH hydrochlorothiazide Allergy Mild RASH, Verified 05/18/19 19:01 ITCHING Penicillins Allergy Mild Hives Verified 10/10/21 16:23 Sulfa (Sulfonamide Allergy Mild SWELLING, Verified 05/18/19 19:01 Antibiotics) ITCHING, RASH Family History (Updated 10/10/21 @ 17:06 by Delma Correia HEALTH SAFETY ENGINEER, HEALTH SAFETY ENGINEER-C) Mother Breast cancer Hypertension CAD (coronary artery disease) Father CAD (coronary artery disease) Cancer Surgical History History of cholecystectomy S/P carpal tunnel release S/P cholecystectomy S/P hysterectomy S/P parathyroidectomy S/P renal artery angioplasty Status post right knee replacement Social History Smoking Status: Never smoker alcohol intake: never ROS Constitutional Constitutional: Denies chills, fatigue or fever(s) Eyes Eyes: Denies blurry vision or change in vision ENT HEENT: Denies dizziness, dysphagia, epistaxis or headache(s) Cardiovascular Cardiovascular: Reports dyspnea; Denies chest pain Respiratory/Chest Respiratory/Chest: Reports cough and dyspnea Gastrointestinal Gastrointestinal: Reports nausea; Denies abdominal pain or diarrhea Genitourinary Genitourinary: Denies difficulty urinating Musculoskeletal Musculoskeletal: Denies arthralgias, back pain or joint pain Integumentary Integumentary: Denies lesions, rash or skin ulcer Neurologic Neurologic: Denies abnormal gait or abnormal speech Psychiatric Psychiatric: Denies anxiety or depression Endocrine Endocrinology: Denies fatigue Hematologic/Lymphatic Hematologic/Lymphatic: Reports easy bleeding Physical Exam Const alert, oriented x3 and no apparent distress General Appearance: cooperative Nutritional Appearance: obese HEENT normocephalic and head/scalp atraumatic Eyes PERRL, EOMs intact bilaterally and conjunctivae normal Neck supple General: trachea midline Chest inspection of chest normal Resp Resp Narrative: Grossly diminished air movement in the right lower lobe with dullness to percussion. Cardio regular rate and regular rhythm GI normal to inspection, nondistended, normoactive bowel sounds Extremity no clubbing, cyanosis or edema Skin no rashes or lesions noted Neuro oriented x3, CN's II-XII intact bilaterally, moves all extremities and no focal motor deficits Psych cooperative and affect normal Lab / Micro Data Result Diagrams: 10/11/21 08:58 10/11/21 05:57 Labs: Laboratory Results - last 24 hr 10/10/21 14:35: WBC 5.4, RBC 4.19 L, Hgb 14.6, Hct 43.2, MCV 103.1 H, MCH 34.8 H , MCHC 33.8, RDW Std Deviation 53.8 H, RDW Coeff of Marlyn 14.3, Plt Count 120 L, MPV 10.3, Immature Gran % (Auto) 0.400, Neut % (Auto) 52.6, Lymph % (Auto) 24.5, [place] % (Auto) 16.4 H, Eos % (Auto) 4.4, Baso % (Auto) 1.7 H, Absolute Neuts (auto) 2.9, Absolute Lymphs (auto) 1.33, Nucleated RBC % 0 10/10/21 14:35: B-Natriuretic Peptide 58.5 10/10/21 14:35: Troponin I High Sens 3 10/10/21 14:35: Sodium 139, Potassium 3.8, Chloride 106, Carbon Dioxide 28.0, Anion Gap 5, BUN 4 L, Creatinine 0.43 L, Estim Creat Clear Calc 45.20, Est GFR (MDRD) Af Amer 185, Est GFR (MDRD) Non-Af 153, BUN/Creatinine Ratio 9.2 L, Glucose 123 H, Calcium 8.0 L, Total Bilirubin 4.20 H, AST 65 H, ALT 44, Alkaline Phosphatase 156 H, Total Protein 7.0, Albumin 2.3 L, Globulin 4.7 H, Albumin/Globulin Ratio 0.5 L 10/10/21 14:35: Lactate Dehydrogenase 496 H, Total Protein 7.0, Globulin 4.7 H, Albumin/Globulin Ratio 0.5 L 10/10/21 15:00: PT 20.2 H, INR 1.8 10/10/21 22:03: POC Glucose 211 H Micro: Microbiology 10/10/21 15:08 Mucosa - Nasopharyngeal Influenza Types A,B Direct FA (MIRELLA) - Final 10/10/21 14:35 Nasal Secretion SARS-CoV-2 Antigen (Rapid) - Final Radiology Impression Chest X-Ray 10/10/21 14:40 IMPRESSION: Moderate size right pleural effusion with right basilar infiltration and/or atelectasis. Electronically Signed: Dimas Suarez MD at 15:00 EDT , Charges/Coding Visit Charges Inpatient E&M: 61301 Init Hosp L3
[2021-10-11] MEDS: Lidocaine 1% (20 ml mdv) 20 ML Vial INFILT (06:55)
--- NOTE | 2021-10-11 07:18 | RAD_ITS ---
INDICATION: bedside procedure EXAMINATION/TECHNIQUE: X-RAY - XR Chest 1 View COMPARISON: 10/10/2021 FINDINGS: LINES/DEVICES: None. LUNGS: Interval decreased right pleural effusion now small. Hazy opacities in the right lower lung field are improved compared to the prior. MEDIASTINUM AND CARDIOVASCULAR STRUCTURES: Cardiac silhouette not enlarged. Central airways and mediastinal contour are unremarkable. BONES AND SOFT TISSUES: Unremarkable. RAD/Chest 1 View (Portable) IMPRESSION: 1. Interval decreased right pleural effusion, now small. 2. Interval decreased right lower lobe hazy opacities, likely represent layering effusion. 3. No pneumothorax. Electronically Signed: Jose Mcdowell MD at 7:52 EDT ,
--- NOTE | 2021-10-11 07:25 | FLU_PTH ---
PATIENT: JOSE A FANG LOC: MS3 U#:[id number] AGE/SX: 71/F ROOM: [facility] [place]10/10/[address]: Dr. Corky Montaño DO : 1950 BED: 1 DIS: 10/15/2021 SPEC #: [id number] RECD: 10/13/21 09:31 STATUS: DANA REWalter #: [id number] HESHAM: 10/11/21 07:[address]: Kurtis Lance DEPT: CYTOLOGY RECD BY: Keiko Loya ENTERED: 10/13/21 09:31 SP TYPE: Fluid OTHR DR: MD Dr. Kurtis Orta, DO Dr. Efraín Grant Dr., DO Sravanthi Kumari, AUTOMATIC CLIPPER AND STRIPPER-C Tissues: Lung, NOS Procedures: Special Stain Group II Surgery Specimen Level IV Cytospin Fluid Comments: @ Ordering doctor for SSII edited from to [email or web address] [place] by ISELA at 10/13/21 1350 @ Ordering doctor for SUIV edited from to [email or web address] [place] by ISELA at 10/13/21 1350 @ Ordering doctor for CYSPIN edited from to [email or web address] [place] by ISELA at 10/13/21 1350 @ Submitting doctor edited from to [email or web address] [place] by ISELA at 10/13/21 1350 HEADER OPERATION: Thoracentesis PRE-OP DIAGNOSIS: Pleural effusion TISSUE SUBMITTED: Thoracentesis fluid for cytology DIAGNOSIS CYTOLOGY Thoracentesis fluid for cytology (cytospin and cell block): Negative for malignant cells. AM:lilo 10/14/2021 CYTOLOGY STUDY Slides are reviewed. CYTOLOGY GROSS Received is 3 ml of yellow cloudy fluid labeled with the patient's name and and designated per the requisition as thoracentesis. Submitted for cytology preparation including cell block. / lilo 10/13/2021 TC:5 CPT: 34590, 15489
--- NOTE | 2021-10-11 07:29 | PCM.OP.PRO ---
Procedure Report Date of Procedure: 10/11/21 Thoracentesis procedure note Procedure Date: October 11, 2021 [place] Protocol Verbal consent obtained Written consent obtained Consent given by: patient Patient states understanding of procedure being performed: Yes The patient's understanding of the procedure matches consent given Procedure consent matches procedure scheduled Relevant documents present and verified: Yes Test results available and properly labeled: Yes Site marked: Yes Imaging studies available: Yes Required blood products, implants, devices, and special equipment available Patient identity confirmed: verbally with patient Immediately prior to procedure a time out was called to verify the correct patient, procedure, equipment, technical support specialist and site/side marked as required. Indications Procedure purpose: therapeutic and diagnostic Indications: pleural effusion Anesthesia Local anesthesia used: yes Local: 1% Lidocaine Procedure Vital Signs Monitored Procedure Details hand hygiene performed prior to procedure Skin prep agent completely dried prior to procedure Maximum sterile barriers were used: cap, mask, sterile gown, sterile gloves, and large sterile sheet Patient position: sitting Ultrasound guidance: yes Location: right posterior Number of attempts: 1 Drainage characteristics: 1500 mL yellow straw colored Post-Procedure Patient tolerance: Patient tolerated the procedure well with no immediate complications. Post procedure chest x-ray is pending. Pleural fluid to be sent for analysis as ordered. ULTRASOUND GUIDANCE STATEMENT: Prior to thoracentesis, I performed ultrasound image acquisition and interpretation for needle placement during this procedure. The inner chest wall, the diaphragm, and the lung margin were identified. An area of echo free fluid was determined and marked at the skin. The needle was guided by obtaining free flowing fluid. Procedures Pulmonary CF Procedures 30xxx-32xxx: [id number] Aspirate pleura w/o imaging
[2021-10-11 07:31] LABS: Anion Gap 7 (5-15); BUN 5 mg/dL (7-18); BUN/Creat Ratio 11.7 RATIO (10-20); Calcium,Total 7.4 mg/dL (8.5-10.1); Chloride 101 mmol/L (98-107); Creatinine, Serum 0.43 mg/dL (0.55-1.02); EST Glomerular Filtration Rate 155 mL/min (>60); Est Glom Filt Rate - Afr Amer 188 mL/min (>60); Glucose 101 mg/dL (74-106); Potassium 3.5 mmol/L (3.5-5.1); Sodium Level 137 mmol/L (136-145)
[2021-10-11 07:34] LABS: Cytology, Body Fluid / CSF SEE PATHOLOGY REPORT
[2021-10-11] MEDS: Ondansetron 4 MG/2 ML Vial IV (07:42)
[2021-10-11] MEDS: 0.9% Saline Lock 10 ML Syringe IV (07:42)
[2021-10-11 07:46] LABS: Bedside Glucose 113 mg/dL (74-106)
[2021-10-11 07:55] LABS: Hemoglobin A1c 6.2 % (3.8-5.6)
[2021-10-11 08:19] LABS: Body Fluid Mononuclear WBC # 0.092 10^3/uL; Body Fluid Mononuclear WBC % 74.8 %; Body Fluid Polynuclear WBC # 0.031 10^3/uL; Body Fluid Polynuclear WBC % 25.2 %; Body Fluid Total Cells Counted 0.209 10^3/ul; White Blood Count/Body Fluid 0.123 10^3/uL
[2021-10-11 08:57] LABS: Glucose, Body Fluid 147 mg/dL (40-70); LDH,Body Fluid 63 Units/l (Not Establ.); Protein, Body Fluid 0.7 g/dL (Not Establ.)
[2021-10-11] MEDS: Pantoprazole Sodium 40 MG Tablet PO ×2 (09:05→22:12)
[2021-10-11] MEDS: metFORMIN HCl 1,000 MG Tablet 1000 MG PO ×2 (09:05→16:13)
[2021-10-11] MEDS: Furosemide 20 MG Tablet PO (09:06)
[2021-10-11] MEDS: Heparin Injection (Vial) 5,000 UNIT/ML VIAL 5000 UNIT SC ×2 (09:06→22:10)
[2021-10-11] MEDS: Spironolactone 25 MG Tablet PO (09:08)
[2021-10-11 09:28] LABS: Lymphocytes 2 %; Macrophages 82 %; Mesothelial Cells 5 %; Monocytes 10 %; Neutrophil (Segs) 1 %
[2021-10-11 09:38] LABS: Hematocrit 42.8 % (37-47); Hemoglobin 14.2 g/dL (12.0-15.0); Mean Corp Hgb Conc 33.2 g/dL (32-36); Mean Corpuscular Hgb 34.3 pg (27.0-32.0); Mean Corpuscular Volume 103.4 fL (81-99); Platelet Count 118 K/mm3 (150-450); Red Blood Count 4.14 M/mm3 (4.2-5.4); White Blood Count 5.6 K/mm3 (4.4-11.0)
[2021-10-11 09:42] LABS: GGTP 38 U/L (5-55); Lipase 192 U/L (73-393)
[2021-10-11 09:46] LABS: Auto B Fluid Analyzer BKGD Ct COUNTS W/IN LIMITS (W/IN LIMITS)
[2021-10-11 09:47] LABS: Appearance/Body Fluid CLEAR; Color/Body Fluid YELLOW; Red Cell Count/Body Fluid 54 /mm3; Source- Body Fluid THORACENTESIS
[2021-10-11 09:48] LABS: Body Fluid QC Type(s) BF1Q
[2021-10-11] MEDS: Insulin Lispro 100 UNIT/ML INSULN.PEN SC ×3 (11:09→22:11)
--- NOTE | 2021-10-11 11:15 | CASEMGMT ---
SINDHU MACIAS assessment: Face to Face with patient for initial transition planning/care coordination assessment. SINDHU MACIAS introduced self and role at [facility], pt voices understanding and consents to assessment. Pt is sitting up in bed in no distress on 3.5L nc. Pt is A/Ox4 and answers all questions appropriately. Care providers, pharmacy, and demographics verified. Presentation: Pt was dx w/ pna and fluid on lungs Admitting dx: Hypoxia PCP: Luis Alberto appt 10/15/21 Specialists: john Boucher Dr at [facility]; RAKESH Jarquin in [place] Preferred Pharmacy: [facility] Insurance: [facility] Prescription Benefit: [facility] Living Will/HPOA: Pt does not have LW/HPOA but states is 'working on it'. LNOK: Melchor Hinds, Living Arrangements: Pt lives in split level home with and mother and states no concerns at home. Pt is independent with ADL's. Transportation: Pt drives self and states no transportation concerns. DME/HHC: Pt has the following DME: cane, w/c, walker, grab bars, and shower bench. Pt is aware will need oxygen at discharge and states would like [employer] as her has oxygen thru them. Pt states no hx of HHC or SNF. Pt states no concerns with going home at time of discharge. Pt is retired. Pt states does not smoke cigarettes or drink ETOH. Pt states no concerns/needs. CM to follow for any further discharge planning/needs. Advised pt to ask for CM if any further questions/concerns/needs arise, voices understanding. Pt Goal: Home Plan: Home w/ oxygen. [place] SINDHU MACIAS
[2021-10-11 11:16] LABS: Bedside Glucose 195 mg/dL (74-106)
--- NOTE | 2021-10-11 11:56 | CASEMGMT ---
Addendum entered by Lexy Ramon 10/11/21 12:11: [place] [facility] [place] them disregard order at this time, voice understanding. Gary MANLEY CM Original Note: Pt qualifies for 2L nc at rest and 6L w/ exertion at this time. [place] was [place] [facility] [place] pt preference but then Dr. Sandoval states pt will not discharge today now. Green sheet left on chart for home oxygen at discharge. Gary MANLEY CM
--- NOTE | 2021-10-11 14:01 | PN.HOSP_ITS ---
Documented by User: Delma Correia COUNT TEAM MEMBER, COUNT TEAM MEMBER-C 10/11/21 14:06 Subjective Subjective Patient seen and examined. Underwent thoracentesis with 1200 cc fluid removal. Remains on supplemental oxygen, requiring 6 L with exertion. Reports subjectively she feels breathing is improved. Objective Data Objective Data Vital Signs: Vital Signs Temp Pulse Resp BP Pulse Ox 98.6 F 105 H 16 120/69 87 10/11/21 11:23 10/11/21 11:23 10/11/21 11:23 10/11/21 11:23 10/11/21 11:36 Oxygen Flow Rate (L/min) [ 3 AMBULATING with Oxygen #3] Oxygen Flow Rate (L/min) [ 6 AMBULATING with Oxygen #2] Oxygen Flow Rate (L/min) [ 4 AMBULATING with Oxygen #1] Oxygen Flow Rate (L/min) [At 2 REST with Oxygen] Oxygen Flow Rate (L/min) 3.5 Oxygen Delivery Method Nasal Cannula Weight: 186 lb Body Mass Index (BMI) 31.7 Intake & Output: Intake and Output for Last 24 Hours 10/09/21 10/10/21 10/11/21 23:59 23:59 23:59 Intake Total 605 / 605 300 / 300 Output Total 650 / 650 Balance -45 / -45 300 / 300 Lab / Micro Data Result Diagrams: 10/11/21 08:58 10/11/21 05:57 Labs: Laboratory Results - last 24 hr 10/10/21 14:35: WBC 5.4, RBC 4.19 L, Hgb 14.6, Hct 43.2, MCV 103.1 H, MCH 34.8 H , MCHC 33.8, RDW Std Deviation 53.8 H, RDW Coeff of Marlyn 14.3, Plt Count 120 L, MPV 10.3, Immature Gran % (Auto) 0.400, Neut % (Auto) 52.6, Lymph % (Auto) 24.5, Bowman % (Auto) 16.4 H, Eos % (Auto) 4.4, Baso % (Auto) 1.7 H, Absolute Neuts (auto) 2.9, Absolute Lymphs (auto) 1.33, Nucleated RBC % 0 10/10/21 14:35: B-Natriuretic Peptide 58.5 10/10/21 14:35: Troponin I High Sens 3 10/10/21 14:35: Sodium 139, Potassium 3.8, Chloride 106, Carbon Dioxide 28.0, Anion Gap 5, BUN 4 L, Creatinine 0.43 L, Estim Creat Clear Calc 45.20, Est GFR (MDRD) Af Amer 185, Est GFR (MDRD) Non-Af 153, BUN/Creatinine Ratio 9.2 L, Glucose 123 H, Calcium 8.0 L, Total Bilirubin 4.20 H, AST 65 H, ALT 44, Alkaline Phosphatase 156 H, Total Protein 7.0, Albumin 2.3 L, Globulin 4.7 H, Albumin/Globulin Ratio 0.5 L 10/10/21 14:35: Lactate Dehydrogenase 496 H, Total Protein 7.0, Globulin 4.7 H, Albumin/Globulin Ratio 0.5 L 10/10/21 15:00: PT 20.2 H, INR 1.8 10/10/21 22:03: POC Glucose 211 H 10/11/21 05:57: Hemoglobin A1c 6.2 H 10/11/21 05:57: Sodium 137, Potassium 3.5, Chloride 101, Carbon Dioxide 29.0, Anion Gap 7, BUN 5 L, Creatinine 0.43 L, Estim Creat Clear Calc 45.20, Est GFR (MDRD) Af Amer 188, Est GFR (MDRD) Non-Af 155, BUN/Creatinine Ratio 11.7, Glucose 101, Calcium 7.4 L 10/11/21 07:10: Fluid Glucose 147 H, Fluid Total Protein 0.7, Fluid LDH 63 10/11/21 07:10: Fluid Source THORACENTESIS, Fluid Color YELLOW, Fluid Appearance CLEAR, Fluid WBC 0.123, Fluid RBC 54, Fluid Tot Cell Count 0.209 H, Fld Polynuclear WBCs # 0.031, Fld Polynuclear WBCs % 25.2, Fluid Mononuclear WBCs 0.092, Fld Mononuclear WBCs % 74.8, Fluid Neutrophils 1, Fluid Lymphocytes 2, Fluid Monocytes 10, Fluid Macrophages 82, Fld Mesothelial Cells 5, Fl Pathologist Comment May follow, Fluid Comment 2 SEE COMMENT 10/11/21 07:35: POC Glucose 113 H 10/11/21 08:58: WBC 5.6, RBC 4.14 L, Hgb 14.2, Hct 42.8, MCV 103.4 H, MCH 34.3 H , MCHC 33.2, RDW Std Deviation 54.0 H, RDW Coeff of Marlyn 14.0, Plt Count 118 L, MPV 10.0 10/11/21 08:58: GGT 38, Lipase 192 10/11/21 11:06: POC Glucose 195 H Micro: Microbiology 10/11/21 07:10 Fluid - Thoracentesis Fluid Gram Stain - Final 10/10/21 15:08 Mucosa - Nasopharyngeal Influenza Types A,B Direct FA (MIRELLA) - Final 10/10/21 14:35 Nasal Secretion SARS-CoV-2 Antigen (Rapid) - Final Radiography Diagnostic Testing: Radiology Impression Chest X-Ray 10/10/21 14:40 IMPRESSION: Moderate size right pleural effusion with right basilar infiltration and/or atelectasis. Electronically Signed: Dimas Suarez MD at 15:00 EDT , Chest X-Ray 10/11/21 07:18 IMPRESSION: 1. Interval decreased right pleural effusion, now small. 2. Interval decreased right lower lobe hazy opacities, likely represent layering effusion. 3. No pneumothorax. Electronically Signed: Jose Mcdowell MD at 7:52 EDT , Physical Exam Const alert, oriented x3 and no apparent distress Orientation / Consciousness: awake, oriented to person, oriented to place and oriented to time HEENT normocephalic and moist oral mucous membranes Eyes PERRL, EOMs intact bilaterally and conjunctivae normal Neck no lymphadenopathy Resp clear to auscultation bilaterally Auscultation: diminished lung sounds Cardio regular rate, regular rhythm and no murmurs Peripheral Pulses: pulses 2+ throughout GI normal to inspection, nondistended, normoactive bowel sounds, non-tender and non-distended Extremity normal to inspection Skin no rashes or lesions noted Lesions: no lesions Rashes: no rashes Trauma: no lacerations or abrasions Neuro CN's II-XII intact bilaterally, no focal motor deficits, no sensory deficits noted and deep tendon reflexes 2+ bilaterally Psych mental status grossly normal and affect normal Assessment & Plan Assessment/Plan (1) Pleural effusion: PLAN: 1. Acute hypoxic respiratory failure secondary to right transudative pleural effusion with collapse of right lower lobe- underwent diagnostic and therapeutic thoracentesis. Culture and cytology pending. Patient completed 7- day course of Levaquin. No evidence of infectious process. Suspect pleural effusion related to liver disease. Continue supplement oxygen to maintain O2 at above 90%. Patient requiring 6 L with exertion. Will likely need home O2 at discharge. Increase spironolactone and add Lasix. 2. Nonalcoholic cirrhosis-following with hepatology in [place], in process to be placed on transplant list. Continue spironolactone. Add low-dose Lasix. 3. Type 2 diabetes mellitus-continue Metformin. Hemoglobin A1c 6.2%. 4. Rheumatoid arthritis- not on regimen. 5. GERD- continue PPI. DVT prophylaxis- heparin sc This patient was seen by Delma Correia, OUMAR-C under the supervision of Dr. Sandoval. Time spent examining patient, reviewing data and subsequent management of care: 13 minutes Documented by User: Dr. Efraín Sandoval DO 10/11/21 15:35 Objective Data Lab / Micro Data Result Diagrams: 10/11/21 08:58 10/11/21 05:57 Charges/Coding Addendum Addendum: Patient was seen and examined today independently of Delma Correia, she underwent a right thoracentesis today done by pulmonary medicine with removal of 1500 cc of yellow straw-colored fluid. Patient still requiring 3 L supplemental oxygen via nasal cannula at rest. On examination she appeared in good health and spirits, she does not appear to be in any distress. Vital signs as documented. Skin warm and dry and without overt rashes. Neck without JVD, thyroid appears normal, trachea is midline, neck is supple. Lungs clear, there is decreased breath sounds at the right base noted as compared with the left base.. Heart exam notable for regular rhythm, normal sounds and absence of murmurs, rubs or gallops. Abdomen unremarkable and without evidence of organomegaly, masses, or abdominal aortic enlargement, bowel sounds are present in all 4 quadrants, no abdominal tenderness was noted. Extremities nonedematous, no cyanosis was noted, no clubbing was noted. Neuro: Cranial nerves II through XII are grossly intact, no focal motor deficits were noted, sensation to light touch and pinprick is intact, motor exam 5/5 throughout. Psych: Patient is alert and oriented x3, she does not appear anxious or depressed, she does not appear agitated. Impression: #1 right pleural effusion-probably secondary to nonalcoholic cirrhosis, continue to monitor patient, chest x-ray taken after procedure shows some remaining fluid over the right lower lung #2 acute hypoxic respiratory failure-patient is currently on 3 L via nasal cannula at rest, I will reevaluate her oxygen requirement tomorrow, I have started aerosol treatments on the patient. #3 nonalcoholic cirrhosis-patient's Aldactone will be continued, she will be placed on low-dose Lasix to mobilize fluid #4 type 2 diabetes-patient is currently on Metformin #5 essential hypertension-patient is on losartan I have reviewed Delma Correia's progress note including her medical assessment and plan of care and with the above additions endorse it. Total clinical time spent by myself addressing the patient's medical issues, reviewing patient's medical data, and collaborating with the patient's care team: 22 minutes Visit Charges Inpatient E&M: 25255 Subs Hosp L3
[2021-10-11] MEDS: Albuterol 2.5 MG/3 ML VIAL.NEB. INHALATION ×2 (15:06→19:30)
[2021-10-11 16:26] LABS: Bedside Glucose 182 mg/dL (74-106)
[2021-10-11] MEDS: Nadolol 20 MG Tablet PO (22:10)
[2021-10-11] MEDS: Nystatin Powder 15gm Bottle 1 APPLIC TOPICAL (22:12)
[2021-10-11 22:31] LABS: Bedside Glucose 188 mg/dL (74-106)
[2021-10-12] VITALS (9 sets, daily range): BP systolic 105–124; BP diastolic 52–62; PULSE 69–89; RESP 16–20; TEMP 36.6–37.1; O2SAT 86–97
--- NOTE | 2021-10-12 05:51 | PCM.PN.INT ---
Assessment & Plan Assessment/Plan (1) Pleural effusion: PLAN: RECOMMENDATIONS: 1. Continue to wean supplemental oxygen to maintain saturations at or above 90%. 2. Continue to encourage incentive spirometer use. 3. Await finalized pleural fluid culture results and cytology. 4. Continue diuresis as tolerated by hemodynamics and renal function. 5. Continue Corgard. IMPRESSIONS: 1. Right pleural effusion with associated hypoxemia The patient presented to the hospital with shortness of breath and cough after having been treated for 7 days with Levaquin for outpatient coverage of pneumonia. Her CT scan revealed a moderate sized right-sided pleural effusion with associated atelectasis. Bedside ultrasound imaging revealed a sizable free-flowing pleural effusion. Therefore, the patient underwent bedside ultrasound-guided thoracentesis on October 11 with 1.5 L of fluid removed from the right hemithorax. Per traditional Light's criteria, if at least one of the following three is fulfilled, the fluid would be considered an exudate: 1. Pleural fluid protein/serum protein ratio greater than 0.5 2. Pleural fluid LDH/serum LDH ratio greater than 0.6 3. Pleural fluid LDH greater than two thirds the upper limits of the laboratories normal serum LDH Based upon my review of the patient's pleural fluid analysis, along with serum LDH and total protein levels, the pleural fluid would be considered transudative in nature. 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 Continue current medical management with diuretics as tolerated by hemodynamics and renal function. Continue to wean supplemental oxygen to maintain saturations at or above 90%. 2. History of BYRD cirrhosis/diabetes mellitus/rheumatoid arthritis/GERD Complicates care, management, recovery and prognosis. Continue home medications as indicated. This note was generated with [employer] dictation software. It may contain incorrect words, spelling, and punctuation that were not noted in checking the note before signing. Subjective Subjective The patient was seen and examined at the bedside this morning. Events from the last 24 hours have been reviewed. The patient is currently afebrile, hemodynamically stable and maintaining appropriate oxygen saturations on 4 L/min via nasal cannula. The patient tolerated bedside ultrasound-guided thoracentesis yesterday with 1.5 L of fluid removed from her right hemithorax. The patient has noted interval improvement in her breathing quality. She has remained compliant with the use of her incentive spirometer. Objective Data Objective Data The patient's most recent lab work, culture data and imaging studies have all been personally reviewed. Pleural fluid Gram stain demonstrated no organisms. Cultures are pending. Vital Signs: Vital Signs Temp Pulse Resp BP Pulse Ox 98.5 F 75 16 117/60 94 10/12/21 03:15 10/12/21 03:15 10/12/21 03:15 10/12/21 03:15 10/12/21 03:15 Oxygen Flow Rate (L/min) [ 3 AMBULATING with Oxygen #3] Oxygen Flow Rate (L/min) [ 6 AMBULATING with Oxygen #2] Oxygen Flow Rate (L/min) [ 4 AMBULATING with Oxygen #1] Oxygen Flow Rate (L/min) [At 2 REST with Oxygen] Oxygen Flow Rate (L/min) 4 Oxygen Delivery Method Nasal Cannula Weight: 84.368 kg Body Mass Index (BMI) 31.7 Intake & Output: Intake and Output for Last 24 Hours 10/10/21 10/11/21 10/12/21 23:59 23:59 23:59 Intake Total 605 / 605 650 / 650 Output Total 650 / 650 800 / 800 Balance -45 / -45 -150 / -150 Lab / Micro Data Attestation: I reviewed the patient's lab results. Result Diagrams: 10/11/21 08:58 10/11/21 05:57 Labs: Laboratory Results - last 24 hr 10/11/21 05:57: Hemoglobin A1c 6.2 H 10/11/21 05:57: Sodium 137, Potassium 3.5, Chloride 101, Carbon Dioxide 29.0, Anion Gap 7, BUN 5 L, Creatinine 0.43 L, Estim Creat Clear Calc 45.20, Est GFR (MDRD) Af Amer 188, Est GFR (MDRD) Non-Af 155, BUN/Creatinine Ratio 11.7, Glucose 101, Calcium 7.4 L 10/11/21 07:10: Fluid Glucose 147 H, Fluid Total Protein 0.7, Fluid LDH 63 10/11/21 07:10: Fluid Source THORACENTESIS, Fluid Color YELLOW, Fluid Appearance CLEAR, Fluid WBC 0.123, Fluid RBC 54, Fluid Tot Cell Count 0.209 H, Fld Polynuclear WBCs # 0.031, Fld Polynuclear WBCs % 25.2, Fluid Mononuclear WBCs 0.092, Fld Mononuclear WBCs % 74.8, Fluid Neutrophils 1, Fluid Lymphocytes 2, Fluid Monocytes 10, Fluid Macrophages 82, Fld Mesothelial Cells 5, Fl Pathologist Comment May follow, Fluid Comment 2 SEE COMMENT 10/11/21 07:35: POC Glucose 113 H 10/11/21 08:58: WBC 5.6, RBC 4.14 L, Hgb 14.2, Hct 42.8, MCV 103.4 H, MCH 34.3 H, MCHC 33.2, RDW Std Deviation 54.0 H, RDW Coeff of Marlyn 14.0, Plt Count 118 L, MPV 10.0 10/11/21 08:58: GGT 38, Lipase 192 10/11/21 11:06: POC Glucose 195 H 10/11/21 16:10: POC Glucose 182 H 10/11/21 22:07: POC Glucose 188 H Micro: Microbiology 10/11/21 07:10 Fluid - Thoracentesis Fluid Gram Stain - Final 10/10/21 15:08 Mucosa - Nasopharyngeal Influenza Types A,B Direct FA (MIRELLA) - Final 10/10/21 14:35 Nasal Secretion SARS-CoV-2 Antigen (Rapid) - Final Radiography Diagnostic Testing: Radiology Impression Chest X-Ray 10/11/21 07:18 IMPRESSION: 1. Interval decreased right pleural effusion, now small. 2. Interval decreased right lower lobe hazy opacities, likely represent layering effusion. 3. No pneumothorax. Electronically Signed: Jose Mcdowell MD at 7:52 EDT Reading Location ID and State: [address] [place] [address] Tel , Service support , Physical Exam Const alert, oriented x3 and no apparent distress General Appearance: cooperative Nutritional Appearance: obese HEENT normocephalic and head/scalp atraumatic Eyes PERRL, EOMs intact bilaterally and conjunctivae normal Neck supple General: trachea midline Chest inspection of chest normal Resp Resp Narrative: Improved aeration throughout the right mid and lower lung blum when compared to previous. Cardio regular rate and regular rhythm GI normal to inspection, nondistended, normoactive bowel sounds Extremity no clubbing, cyanosis or edema Skin no rashes or lesions noted Neuro oriented x3, CN's II-XII intact bilaterally, moves all extremities and no focal motor deficits Psych cooperative and affect normal Charges/Coding Visit Charges Inpatient E&M: 66510 Subs Hosp L2
[2021-10-12 06:26] LABS: Bedside Glucose 100 mg/dL (74-106)
[2021-10-12] MEDS: Albuterol 2.5 MG/3 ML VIAL.NEB. INHALATION ×3 (06:38→19:46)
--- NOTE | 2021-10-12 07:19 | RAD_ITS ---
EXAM: XR CHEST, 2 VIEWS CLINICAL INDICATION: Right pleural effusion. TECHNIQUE: Frontal and lateral views of the chest. This report was created using [employer] report generation technology. COMPARISON: None. FINDINGS: LUNGS AND PLEURAL SPACES: Right subpulmonic fluid with compressive atelectases of the right lung base and right middle lobe. No pneumothorax. HEART: Unremarkable. Cardiac silhouette not enlarged. MEDIASTINUM: Central airways and mediastinal contour are unremarkable. BONES/JOINTS: Minimal old anterior wedging of the upper T12 vertebral body. SOFT TISSUES: Unremarkable. RAD/Chest PA and Lateral IMPRESSION: Right subpulmonic fluid with compressive atelectases of the right lung base and right middle lobe. Electronically Signed: Denilson Christensen MD at 17:05 EDT ,
[2021-10-12] MEDS: metFORMIN HCl 1,000 MG Tablet 1000 MG PO ×2 (08:28→17:53)
[2021-10-12] MEDS: Pantoprazole Sodium 40 MG Tablet PO ×2 (08:28→21:00)
[2021-10-12] MEDS: Nystatin Powder 15gm Bottle 1 APPLIC TOPICAL ×2 (08:28→21:00)
[2021-10-12] MEDS: Furosemide 20 MG Tablet PO ×2 (08:28→17:53)
[2021-10-12] MEDS: Heparin Injection (Vial) 5,000 UNIT/ML VIAL 5000 UNIT SC ×2 (08:29→20:58)
--- NOTE | 2021-10-12 09:15 | RAD_ITS ---
EXAM: XR CHEST, 1 VIEW CLINICAL INDICATION: Pleural effusion. Right decubitus positioning. TECHNIQUE: Frontal view of the chest. This report was created using [employer] report generation technology. COMPARISON: 10/12/2021 at 9:06 AM. FINDINGS: LUNGS AND PLEURAL SPACES: Layering of moderate right subpulmonic fluid along the right lateral pleural space on decubitus positioning. Diminished right lung volume due to partial atelectases of the right lung. Normal left lung. No pneumothorax. HEART: Normal cardiac size. MEDIASTINUM: Central airways and mediastinal contour are unremarkable. BONES/JOINTS: Unremarkable. SOFT TISSUES: Unremarkable. RAD/Special CXR (Obl/Decub/A/L) IMPRESSION: Layering of moderate right pleural fluid followed decubitus positioning and diminished right lung volume due to partial atelectases. Electronically Signed: Denilson Christensen MD at 9:33 EDT ,
--- NOTE | 2021-10-12 10:17 | PCM.PN.HOSP ---
Documented by User: Delma Correia NP, MEMBER SERVICES COORDINATOR-C 10/12/21 14:48 Objective Data Objective Data Vital Signs: Vital Signs Temp Pulse Resp BP Pulse Ox 98 F 69 18 105/52 L 87 10/12/21 08:04 10/12/21 08:04 10/12/21 08:04 10/12/21 08:04 10/12/21 09:56 Oxygen Flow Rate (L/min) [ 6 AMBULATING with Oxygen #3] Oxygen Flow Rate (L/min) [ 4 AMBULATING with Oxygen #2] Oxygen Flow Rate (L/min) [ 4 AMBULATING with Oxygen #1] Oxygen Flow Rate (L/min) [At 2 REST with Oxygen] Oxygen Flow Rate (L/min) 4 Oxygen Delivery Method Nasal Cannula Weight: 186 lb Body Mass Index (BMI) 31.7 Intake & Output: Intake and Output for Last 24 Hours 10/10/21 10/11/21 10/12/21 23:59 23:59 23:59 Intake Total 605 / 605 650 / 650 Output Total 650 / 650 800 / 800 Balance -45 / -45 -150 / -150 Lab / Micro Data Result Diagrams: 10/11/21 08:58 10/11/21 05:57 Labs: Laboratory Results - last 24 hr 10/11/21 11:06: POC Glucose 195 H 10/11/21 16:10: POC Glucose 182 H 10/11/21 22:07: POC Glucose 188 H 10/12/21 06:18: POC Glucose 100 Micro: Microbiology 10/10/21 14:50 Blood Culture (Wb) - Right Hand Blood Culture - Preliminary No growth in 48 hours. 10/11/21 07:10 Fluid - Thoracentesis Fluid Gram Stain - Final 10/10/21 15:08 Mucosa - Nasopharyngeal Influenza Types A,B Direct FA (MIRELLA) - Final 10/10/21 14:35 Nasal Secretion SARS-CoV-2 Antigen (Rapid) - Final Radiography Diagnostic Testing: Radiology Impression Chest X-Ray 10/12/21 09:15 IMPRESSION: Layering of moderate right pleural fluid followed decubitus positioning and diminished right lung volume due to partial atelectases. Electronically Signed: Denilson Christensen MD at 9:33 EDT , Assessment & Plan Assessment/Plan (1) Pleural effusion: PLAN: 1. Acute hypoxic respiratory failure secondary to right transudative pleural effusion with collapse of right lower lobe- underwent diagnostic and therapeutic thoracentesis 10/11/21. Culture and cytology pending. Patient completed 7-day course of Levaquin. No evidence of infectious process. Suspect pleural effusion related to liver disease. Continue supplement oxygen to maintain O2 at above 90%. Patient requiring 6 L with exertion. Will likely need home O2 at discharge. Increase spironolactone and add Lasix. Repeat chest x-ray shows layering of moderate right pleural effusion. Plan for additional thoracenesis 10/13/21. 2. Nonalcoholic cirrhosis-following with hepatology in [place], in process to be placed on transplant list. Continue spironolactone. Add low-dose Lasix. 3. Type 2 diabetes mellitus-continue Metformin. Hemoglobin A1c 6.2%. 4. Rheumatoid arthritis- not on regimen. 5. GERD- continue PPI. DVT prophylaxis- heparin sc This patient was seen by Delma Correia, MEMBER SERVICES COORDINATOR-C under the supervision of Dr. Sandoval. Time spent examining patient, reviewing data and subsequent management of care: 12 minutes Documented by User: Dr. Efraín Sandoval, 10/12/21 17:43 Objective Data Lab / Micro Data Result Diagrams: 10/11/21 08:58 10/11/21 05:57 Charges/Coding Addendum Addendum: Patient was seen and examined independently of Delma Correia today, I repeated her chest x-ray today and it showed moderate effusion around her right lung, patient still requiring supplemental oxygen, I think it would be ann to do another thoracentesis tomorrow to see if we can get more fluid off and make her more comfortable. On examination she appeared in good health and spirits, she does not appear to be in any distress. Vital signs as documented. Skin warm and dry and without overt rashes. Neck without JVD, thyroid appears normal, trachea is midline, neck is supple. Lungs decreased breath sounds are noted over the right lower lung field Heart exam notable for regular rhythm, normal sounds and absence of murmurs, rubs or gallops. Abdomen unremarkable and without evidence of organomegaly, masses, or abdominal aortic enlargement, bowel sounds are present in all 4 quadrants, no abdominal tenderness was noted. Extremities nonedematous, no cyanosis was noted, no clubbing was noted. Neuro: Cranial nerves II through XII are grossly intact, no focal motor deficits were noted, sensation to light touch and pinprick is intact, motor exam 5/5 throughout. Psych: Patient is alert and oriented x3, she does not appear anxious or depressed, she does not appear agitated. #1 right pleural effusion-probably secondary to nonalcoholic cirrhosis, continue to monitor patient, repeat right thoracentesis tomorrow #2 acute hypoxic respiratory failure-patient is currently on 4 L via nasal cannula at rest, I will reevaluate her oxygen requirement tomorrow, patient is on aerosol treatment #3 nonalcoholic cirrhosis-patient's Aldactone will be continued, she will remain on Lasix #4 type 2 diabetes-patient is currently on Metformin #5 essential hypertension-patient is on losartan I have reviewed Delma Correia's progress note including her medical assessment and plan of care and with the above additions endorse it. Total clinical time spent by myself addressing the patient's medical issues, reviewing the patient's data, and collaborating with the patient's caregivers: 24 minutes Visit Charges Inpatient E&M: 08244 Subs Hosp L3
[2021-10-12] MEDS: Spironolactone 50 MG Tablet PO (10:44)
[2021-10-12] MEDS: Insulin Lispro 100 UNIT/ML INSULN.PEN SC ×2 (11:08→20:59)
[2021-10-12 11:15] LABS: Bedside Glucose 175 mg/dL (74-106)
[2021-10-12] MEDS: guaiFENesin Dm 10 ML UDC PO (14:36)
[2021-10-12 15:56] LABS: Bedside Glucose 114 mg/dL (74-106)
[2021-10-12] MEDS: Ondansetron 4 MG/2 ML Vial IV (20:44)
[2021-10-12] MEDS: 0.9% Saline Lock 10 ML Syringe IV ×2 (20:45→20:50)
[2021-10-12 21:15] LABS: Bedside Glucose 218 mg/dL (74-106)
[2021-10-13] VITALS (10 sets, daily range): BP systolic 100–129; BP diastolic 52–79; PULSE 75–88; RESP 16–22; TEMP 36.3–37.1; O2SAT 80–96
[2021-10-13] MEDS: guaiFENesin Dm 10 ML UDC PO ×3 (04:30→21:58)
--- NOTE | 2021-10-13 05:00 | US_ITS ---
PROCEDURE: ULTRASOUND GUIDED THORACENTESIS. DATE: 10/13/2021. INDICATION: Female, 71 years old. Right pleural effusion. PHYSICIAN: Dimas Suarez M.D. PROCEDURE: The risks, benefits, and alternatives to the procedure were explained to the patient. The specific risks of bleeding, infection, and pneumothorax requiring chest tube insertion were discussed and accepted. Written informed consent was obtained. Ultrasonographic evaluation of the right lower pleural space was carried out. An adequate pocket was identified. The patient was placed in the sitting, upright position. The overlying skin was prepped and draped in sterile fashion. 1% lidocaine was administered subcutaneously for local anesthesia. Under ultrasound guidance, a 5 Vietnamese thoracentesis needle/catheter system was advanced into the right posterior lower pleural fluid collection. Approximately 1150 mL of salo-colored fluid was drained. The catheter was removed, and a sterile dressing was applied. The patient tolerated the procedure well. A chest x-ray was ordered. US/Thoracentesis W US IMPRESSION: Ultrasound-guided right thoracentesis. Electronically Signed: Dimas Suarez MD at 14:30 EDT ,
[2021-10-13 06:24] LABS: Absolute Lymphocyte Count 1.75 X10^3/uL (0.83-4.51); Absolute Neutrophil Count 2.3 X10^3/uL (2.0-7.7); Basophil# 0.09 X10^3/uL; Basophil% 1.6 % (0-1); Eosinophil# 0.31 X10^3/uL; Eosinophils% 5.6 % (0-5); Hematocrit 40.2 % (37-47); Hemoglobin 13.4 g/dL (12.0-15.0); Lymphocyte # 1.75 X10^3/ul (0.83-4.51); Lymphocyte % 31.7 % (19-41); Mean Corp Hgb Conc 33.3 g/dL (32-36); Mean Corpuscular Hgb 34.4 pg (27.0-32.0); Mean Corpuscular Volume 103.3 fL (81-99); Mean Platelet Vol. 10.3 fl (6.2-12.0); Monocyte# 1.04 X10^3/uL; Monocyte% 18.8 % (0-10); NRBC Flagged by Analyzer 0 % (0-5); Neutrophil # 2.32 X10^3/uL (2.7-7.7); Neutrophil % 42.1 % (47-70); Platelet Count 104 K/mm3 (150-450); RBC Distribution Width CV 14.2 % (11.6-14.6); RBC Distribution Width SD 53.4 fl (35.1-43.9); Red Blood Count 3.89 M/mm3 (4.2-5.4); White Blood Count 5.5 K/mm3 (4.4-11.0)
[2021-10-13 06:31] LABS: International Normalized Ratio 1.8; Prothrombin Time (Protime)PT. 20.3 SECONDS (11.7-14.9)
[2021-10-13 06:48] LABS: Anion Gap 5 (5-15); BUN 5 mg/dL (7-18); BUN/Creat Ratio 16.9 RATIO (10-20); Calcium,Total 7.6 mg/dL (8.5-10.1); Chloride 99 mmol/L (98-107); EST Glomerular Filtration Rate 237 mL/min (>60); Est Glom Filt Rate - Afr Amer 287 mL/min (>60); Glucose 120 mg/dL (74-106); Potassium 3.3 mmol/L (3.5-5.1); Sodium Level 137 mmol/L (136-145)
[2021-10-13 07:00] LABS: Bedside Glucose 123 mg/dL (74-106)
[2021-10-13] MEDS: Albuterol 2.5 MG/3 ML VIAL.NEB. INHALATION ×2 (07:22→19:35)
--- NOTE | 2021-10-13 07:43 | US_ITS ---
STUDY: ABDOMINAL ULTRASOUND - 4 quadrants. REASON FOR VISIT: Female, 71 years old Ascites TECHNIQUE: Ultrasound evaluation of the 4 quadrants was performed with real-time and static taveras-scale imaging. TECHNICAL QUALITY: Adequate. COMPARISON: None. FINDINGS: The 4 quadrants were evaluated for possible ascites. Minimal fluid is seen in the pelvis. US/Abdomen Limited IMPRESSION: Minimal fluid is seen in the pelvis. Not enough fluid for a safe paracentesis. Electronically Signed: Dimas Suarez MD at 15:09 EDT ,
--- NOTE | 2021-10-13 07:45 | PN.CC_ITS ---
Assessment & Plan Assessment/Plan (1) Pleural effusion: PLAN: RECOMMENDATIONS: 1. Continue to wean supplemental oxygen to maintain saturations at or above 90%. 2. Continue to encourage incentive spirometer use. 3. Await finalized pleural fluid culture results and cytology. 4. Continue diuresis, fluid removal and C[place]ard as tolerated by hemodynamics and renal function. 5. Evaluate for ascites. Paracentesis prior to thoracentesis 6. Supplement vitamin K and potassium 7. Walking oximetry prior to discharge IMPRESSIONS: 1. Acute hypoxic respiratory insufficiency secondary to transudative right pleural effusion Work-up from thoracentesis over the weekend consistent with a transudate pattern. Patient does appear to have ascites on physical exam. This is likely led to rapid reaccumulation of the pleural effusion. Will add on a paracentesis. This should be done prior to the thoracentesis and should limit the rapid reaccumulation. Cannot exclude the need for a Pleurx catheter in the future. Patient is on appropriate medical therapy at this time. Patient will need a walking oximetry prior to discharge. 2. History of BYRD cirrhosis/diabetes mellitus/rheumatoid arthritis/GERD/coagulopathy Complicates care, management, recovery and prognosis. Continue home medications as indicated. Patient may have an element of poor utilization of vitamin K given Byrd cirrhosis. Will supplement vitamin K. Blood sugars have been relatively controlled. This note was generated with [employer] dictation software. It may contain incorrect words, spelling, and punctuation that were not noted in checking the note before signing. Subjective Subjective Patient did okay overnight. Patient does feel that she has worsened from a respiratory standpoint since her thoracentesis. Patient states that she felt significantly better immediately after the thoracentesis, but has progressively gotten more short of breath over the weekend. Patient denies any current chest pain. Patient does continue to report abdominal bloating. Objective Data Objective Data Vital Signs: Vital Signs Temp Pulse Resp BP Pulse Ox 36.3 C L 80 16 129/61 H 96 10/13/21 03:45 10/13/21 03:45 10/13/21 03:45 10/13/21 03:45 10/13/21 03:45 Oxygen Flow Rate (L/min) [ 6 AMBULATING with Oxygen #3] Oxygen Flow Rate (L/min) [ 4 AMBULATING with Oxygen #2] Oxygen Flow Rate (L/min) [ 4 AMBULATING with Oxygen #1] Oxygen Flow Rate (L/min) [At 2 REST with Oxygen] Oxygen Flow Rate (L/min) 3 Oxygen Delivery Method Nasal Cannula Weight: 84.368 kg Body Mass Index (BMI) 31.7 Intake & Output: Intake and Output for Last 24 Hours 10/11/21 10/12/21 10/13/21 23:59 23:59 23:59 Intake Total 650 / 650 750 / 750 Output Total 800 / 800 200 / 400 200 / 200 Balance -150 / -150 550 / 350 -200 / -200 Lab / Micro Data Result Diagrams: 10/13/21 05:07 10/13/21 05:07 Labs: Laboratory Results - last 24 hr 10/12/21 11:07: POC Glucose 175 H 10/12/21 15:46: POC Glucose 114 H 10/12/21 20:34: POC Glucose 218 H 10/13/21 05:07: WBC 5.5, RBC 3.89 L, Hgb 13.4, Hct 40.2, MCV 103.3 H, MCH 34.4 H , MCHC 33.3, RDW Std Deviation 53.4 H, RDW Coeff of Marlyn 14.2, Plt Count 104 L, MPV 10.3, Immature Gran % (Auto) 0.200, Neut % (Auto) 42.1 L, Lymph % (Auto) 31.7, [place] % (Auto) 18.8 H, Eos % (Auto) 5.6 H, Baso % (Auto) 1.6 H, Absolute Neuts (auto) 2.3, Absolute Lymphs (auto) 1.75, Nucleated RBC % 0 10/13/21 05:07: PT 20.3 H, INR 1.8 10/13/21 05:07: Sodium 137, Potassium 3.3 L, Chloride 99, Carbon Dioxide 33.0 H, Anion Gap 5, BUN 5 L, Creatinine 0.30 L, Estim Creat Clear Calc 45.20, Est GFR (MDRD) Af Amer 287, Est GFR (MDRD) Non-Af 237, BUN/Creatinine Ratio 16.9, Glucose 120 H, Calcium 7.6 L 10/13/21 06:34: POC Glucose 123 H Micro: Microbiology 10/11/21 07:10 Fluid - Thoracentesis Fluid Gram Stain - Final 10/11/21 07:10 Fluid - Thoracentesis Fluid Body Fluid Culture - Preliminary No growth-Final to follow 10/10/21 14:50 Blood Culture (Wb) - Right Hand Blood Culture - Preliminary No growth in 48 hours. 10/10/21 15:08 Mucosa - Nasopharyngeal Influenza Types A,B Direct FA (MIRELLA) - Final 10/10/21 14:35 Nasal Secretion SARS-CoV-2 Antigen (Rapid) - Final Radiography Diagnostic Testing: Radiology Impression Chest X-Ray 10/12/21 07:19 IMPRESSION: Right subpulmonic fluid with compressive atelectases of the right lung base and right middle lobe. Electronically Signed: Denilson Christensen MD at 17:05 EDT , Chest X-Ray 10/12/21 09:15 IMPRESSION: Layering of moderate right pleural fluid followed decubitus positioning and diminished right lung volume due to partial atelectases. Electronically Signed: Denilson Christensen MD at 9:33 EDT , Physical Exam Const alert, oriented x3 and no apparent distress General Appearance: cooperative Nutritional Appearance: obese HEENT normocephalic and head/scalp atraumatic Eyes PERRL, EOMs intact bilaterally and conjunctivae normal Neck supple General: trachea midline Chest inspection of chest normal Resp Resp Narrative: Diminished at the right base Cardio regular rate, regular rhythm, no murmurs, no rub and no gallops GI non-tender Inspection: central obesity and fluid wave present Palpation: soft; Negative for guarding Extremity no clubbing, cyanosis or edema Skin no rashes or lesions noted Neuro oriented x3, CN's II-XII intact bilaterally, moves all extremities and no focal motor deficits Psych cooperative and affect normal Charges/Coding Visit Charges Inpatient E&M: 36518 Subs Hosp L3
[2021-10-13] MEDS: Phytonadione (Vit K1) 5 MG TABLET PO (08:40)
[2021-10-13] MEDS: metFORMIN HCl 1,000 MG Tablet 1000 MG PO ×2 (08:40→17:32)
[2021-10-13] MEDS: Potassium Chloride Oral Tablet 20 MEQ 40 MEQ PO (08:40)
[2021-10-13] MEDS: Nadolol 20 MG Tablet PO (10:31)
[2021-10-13] MEDS: Pantoprazole Sodium 40 MG Tablet PO ×2 (10:31→21:59)
[2021-10-13] MEDS: Nystatin Powder 15gm Bottle 1 APPLIC TOPICAL ×2 (10:31→22:00)
[2021-10-13] MEDS: Spironolactone 50 MG Tablet PO ×2 (10:32→21:59)
[2021-10-13] MEDS: Furosemide 20 MG Tablet PO (10:35)
[2021-10-13 11:26] LABS: Bedside Glucose 179 mg/dL (74-106)
[2021-10-13] MEDS: Insulin Lispro 100 UNIT/ML INSULN.PEN SC ×2 (12:13→21:59)
[2021-10-13 13:19] LABS: Pathologist Comment/Body Fluid Reviewed
[2021-10-13] MEDS: Lidocaine 2% (20 ml mdv) 20 ML Vial INFILT (13:42)
--- NOTE | 2021-10-13 13:54 | RAD_ITS ---
STUDY: X-RAY CHEST REASON FOR EXAM: Female, 71 years old. Post thora TECHNIQUE: AP inspiration and expiration views. COMPARISON: Comparison is made with prior study dated 10/12/2021. FINDINGS: The patient is status post right thoracentesis. There is no evidence of pneumothorax. RAD/Chest Insp/Exp 2 View IMPRESSION: No evidence of pneumothorax on the status post right thoracocentesis examination. Electronically Signed: Dimas Suarez MD at 14:12 EDT ,
--- NOTE | 2021-10-13 15:32 | PCM.PN.HOSP ---
Documented by User: Delma Correia NP, LOSS PREVENTION REPRESENTATIVE-C 10/13/21 15:41 Subjective Subjective Patient seen and examined. Denies worsening shortness of breath. Underwent thoracentesis with greater than 1 L fluid removal. Patient ambulated following recovery and O2 dropped to 86% on 6 L. Objective Data Objective Data Vital Signs: Vital Signs Temp Pulse Resp BP Pulse Ox 98.3 F 79 18 111/55 L 88 10/13/21 14:29 10/13/21 14:29 10/13/21 14:29 10/13/21 14:29 10/13/21 15:13 Oxygen Flow Rate (L/min) [4] 3 Oxygen Flow Rate (L/min) [3] 3 Oxygen Flow Rate (L/min) [2] 3 Oxygen Flow Rate (L/min) [1 ( 3 Initial Baseline)] Oxygen Flow Rate (L/min) [ 8 AMBULATING with Oxygen #3] Oxygen Flow Rate (L/min) [ 6 AMBULATING with Oxygen #2] Oxygen Flow Rate (L/min) [ 4 AMBULATING with Oxygen #1] Oxygen Flow Rate (L/min) [At 2 REST with Oxygen] Oxygen Flow Rate (L/min) 3 Oxygen Delivery Method [4] Nasal Cannula Oxygen Delivery Method [3] Nasal Cannula Oxygen Delivery Method [2] Nasal Cannula Oxygen Delivery Method [1 ( Nasal Cannula Initial Baseline)] Oxygen Delivery Method Nasal Cannula Weight: 186 lb Body Mass Index (BMI) 31.7 Intake & Output: Intake and Output for Last 24 Hours 10/11/21 10/12/21 10/13/21 23:59 23:59 23:59 Intake Total 650 / 650 750 / 750 650 / 650 Output Total 800 / 800 200 / 400 2049 / 2049 Balance -150 / -150 550 / 350 -1400 / -1400 Lab / Micro Data Result Diagrams: 10/13/21 05:07 10/13/21 05:07 Labs: Laboratory Results - last 24 hr 10/11/21 07:10: Fl Pathologist Comment Reviewed 10/12/21 15:46: POC Glucose 114 H 10/12/21 20:34: POC Glucose 218 H 10/13/21 05:07: WBC 5.5, RBC 3.89 L, Hgb 13.4, Hct 40.2, MCV 103.3 H, MCH 34.4 H, MCHC 33.3, RDW Std Deviation 53.4 H, RDW Coeff of Marlyn 14.2, Plt Count 104 L, MPV 10.3, Immature Gran % (Auto) 0.200, Neut % (Auto) 42.1 L, Lymph % (Auto) 31.7, [place] % (Auto) 18.8 H, Eos % (Auto) 5.6 H, Baso % (Auto) 1.6 H, Absolute Neuts (auto) 2.3, Absolute Lymphs (auto) 1.75, Nucleated RBC % 0 10/13/21 05:07: PT 20.3 H, INR 1.8 10/13/21 05:07: Sodium 137, Potassium 3.3 L, Chloride 99, Carbon Dioxide 33.0 H, Anion Gap 5, BUN 5 L, Creatinine 0.30 L, Estim Creat Clear Calc 45.20, Est GFR (MDRD) Af Amer 287, Est GFR (MDRD) Non-Af 237, BUN/Creatinine Ratio 16.9, Glucose 120 H, Calcium 7.6 L 10/13/21 06:34: POC Glucose 123 H 10/13/21 11:20: POC Glucose 179 H Micro: Microbiology 10/11/21 07:10 Fluid - Thoracentesis Fluid Gram Stain - Final 10/11/21 07:10 Fluid - Thoracentesis Fluid Body Fluid Culture - Preliminary No growth-Final to follow 10/11/21 07:10 Fluid - Thoracentesis Fluid Anaerobic Culture - Preliminary No growth in 48 hours. 10/10/21 14:50 Blood Culture (Wb) - Right Hand Blood Culture - Preliminary No growth in 48 hours. 10/10/21 15:08 Mucosa - Nasopharyngeal Influenza Types A,B Direct FA (MIRELLA) - Final 10/10/21 14:35 Nasal Secretion SARS-CoV-2 Antigen (Rapid) - Final Radiography Diagnostic Testing: Radiology Impression Chest X-Ray 10/12/21 07:19 IMPRESSION: Right subpulmonic fluid with compressive atelectases of the right lung base and right middle lobe. Electronically Signed: Denilson Christensen MD at 17:05 EDT , Thoracentesis Ultrasound 10/13/21 05:00 IMPRESSION: Ultrasound-guided right thoracentesis. Electronically Signed: Dimas Suarez MD at 14:30 EDT , Abdomen Ultrasound 10/13/21 07:43 IMPRESSION: Minimal fluid is seen in the pelvis. Not enough fluid for a safe paracentesis. Electronically Signed: Dimas Suarez MD at 15:09 EDT , Chest X-Ray 10/13/21 13:54 IMPRESSION: No evidence of pneumothorax on the status post right thoracocentesis examination. Electronically Signed: Dimas Suarez MD at 14:12 EDT , Physical Exam Const alert, oriented x3 and no apparent distress Orientation / Consciousness: awake, oriented to person, oriented to place and oriented to time HEENT normocephalic and moist oral mucous membranes Eyes PERRL, EOMs intact bilaterally and conjunctivae normal Neck no lymphadenopathy Resp clear to auscultation bilaterally Auscultation: diminished lung sounds Cardio regular rate, regular rhythm and no murmurs Peripheral Pulses: pulses 2+ throughout GI normal to inspection, nondistended, normoactive bowel sounds, non-tender and non-distended Extremity normal to inspection Skin no rashes or lesions noted Lesions: no lesions Rashes: no rashes Trauma: no lacerations or abrasions Neuro CN's II-XII intact bilaterally, no focal motor deficits, no sensory deficits noted and deep tendon reflexes 2+ bilaterally Psych mental status grossly normal and affect normal Assessment & Plan Assessment/Plan (1) Pleural effusion: PLAN: 1. Acute hypoxic respiratory failure secondary to right transudative pleural effusion with collapse of right lower lobe- underwent diagnostic and therapeutic thoracentesis 10/11/21. Culture and cytology pending. Patient completed 7-day course of Levaquin. No evidence of infectious process. Suspect pleural effusion related to liver disease. Continue supplement oxygen to maintain O2 at above 90%. Repeat chest x-ray shows layering of moderate right pleural effusion. Repeat thoracentesis for 1122 with 1150 ml removal. Increase spironolactone to 50mg BID and add transition to IV lasix 20mg BID. 2. Nonalcoholic cirrhosis-following with hepatology in [place], in process to be placed on transplant list. Continue spironolactone, lasix as noted above. 3. Type 2 diabetes mellitus-continue Metformin. Hemoglobin A1c 6.2%. 4. Rheumatoid arthritis- not on regimen. 5. GERD- continue PPI. DVT prophylaxis- heparin sc This patient was seen by DOMINIC Cordoba under the supervision of Dr. Sandoval. Time spent examining patient, reviewing data and subsequent management of care: 12 minutes Documented by User: Dr. Efraín Sandoval DO 10/13/21 16:24 Objective Data Lab / Micro Data Result Diagrams: 10/13/21 05:07 10/13/21 05:07 Charges/Coding Addendum Addendum: Patient was seen and examined today independently of Delma Correia, she underwent a thoracentesis today with removal of approximately 1200 cc of fluid, there was not enough fluid in the peritoneal space to tap. I talked briefly with pulmonary medicine about her care, pulmonary medicine recommended increasing her diuresis and getting an echocardiogram. Patient requires over 6 L of oxygen via nasal cannula to maintain her pulse ox on ambulation, she is not appropriate for discharge at this time. On examination she appeared in good health and spirits, she does not appear to be in any distress. Vital signs as documented. Skin warm and dry and without overt rashes. Neck without JVD, thyroid appears normal, trachea is midline, neck is supple. Lungs-decreased breath sounds are noted over the right lower lung field. Heart exam notable for regular rhythm, normal sounds and absence of murmurs, rubs or gallops. Abdomen unremarkable and without evidence of organomegaly, masses, or abdominal aortic enlargement, bowel sounds are present in all 4 quadrants, no abdominal tenderness was noted. Extremities nonedematous, no cyanosis was noted, no clubbing was noted. Neuro: Cranial nerves II through XII are grossly intact, no focal motor deficits were noted, sensation to light touch and pinprick is intact, motor exam 5/5 throughout. Psych: Patient is alert and oriented x3, she does not appear anxious or depressed, she does not appear agitated. #1 right pleural effusion-probably secondary to nonalcoholic cirrhosis, continue to monitor patient, increase patient's diuresis, pulmonary medicine is participating in her care, echocardiogram will be obtained #2 acute hypoxic respiratory failure-patient is currently on 3 L via nasal cannula at rest, unfortunately her pulse ox is only 86% on ambulation with 6 L, patient is not stable enough to discharge at this time #3 nonalcoholic cirrhosis-patient's Aldactone will be continued, she will remain on Lasix, both these medications will be increased #4 type 2 diabetes-patient is currently on Metformin #5 essential hypertension-patient is on losartan I have reviewed Delmajonas Correia's progress note including her medical assessment and plan of care and with the above additions endorse it. Total clinical time spent by myself addressing the patient's medical issues, reviewing the patient's data, and collaborating with the patient's care team: 25 minutes Visit Charges Inpatient E&M: 29427 Subs Hosp L3
--- NOTE | 2021-10-13 15:45 | ECHOD_ITS ---
Reason For Study: CHF Procedure This was a 2D Doppler, Color Flow transthoracic echocardiogram. The study was technically difficult. Due to body habitus and discomfort. Exam performed portable in patient room. Left Ventricle Normal LV size. Left ventricular systolic function is normal. The estimated ejection fraction is 65 %. Diastolic function is indeterminate. No regional wall motion abnormalities noted. Right Ventricle Normal RV size. Normal systolic function. Atria The left atrium is moderately enlarged. Normal right atrium. No doppler evidence for ASD. Mitral Valve There is mild mitral annular calcification. Extension of the mitral annular calcification on the base of the posterior mitral valve leaflet. Mild (1+) mitral valve insufficiency. Tricuspid Valve Normal tricuspid valve. Trivial tricuspid valve insufficiency. Unable to estimate RV systolic pressure/pulmonary artery pressure due to technically difficult study. Aortic Valve Trisinus/trileaflet aortic valve. Mild focal aortic valve thickening. Pulmonic Valve The pulmonic valve is not well visualized. Great Vessels Normal sized aortic root. Pericardium/Pleural No pericardial effusion. MMode/2D Measurements & Calculations LVIDd: 5.4 cm IVSd: 1.0 cm LVOT diam: 2.0 cm LVIDs: 3.7 cm LVPWd: 0.99 cm LVOT area: 3.1 cm2 FS: 30.8 % Ao root diam: 3.1 cm LAV(MOD-bp): 91.8 ml LA A4 area: 25.3 cm2 LAV(MOD-bp) Indexed: 48.4 ml/m2 LAV(MOD-sp2): 89.7 ml LAV(MOD-sp4): 87.3 ml LA dimension(2D): 4.9 cm Time Measurements MV dec time: 0.28 sec Doppler Measurements & Calculations MV E max faisal: 102.7 cm/sec Lat Peak E' Faisal: 11.1 cm/sec Med Peak E' Faisal: 9.1 cm/sec MV A max faisal: 114.8 cm/sec E/E' lat: 9.3 E/E' med: 11.2 MV E/A: 0.90 Ao V2 max: 216.0 cm/sec LV V1 max: 151.6 cm/sec SV(LVOT): 102.1 ml Ao max P.7 mmHg LV V1 max P.2 mmHg Ao V2 mean: 147.3 cm/sec LV V1 mean P.0 mmHg Ao mean P.8 mmHg LV V1 mean: 106.8 cm/sec Ao V2 VTI: 45.0 cm LV V1 VTI: 32.6 cm PAL(I,D): 2.3 cm2 PAL(V,D): 2.2 cm2 PA V2 max: 114.6 cm/sec ECHO/Echo Complete Interpretation Summary The study was technically difficult. Left ventricular systolic function is normal. The estimated ejection fraction is 65 %. The left atrium is moderately enlarged. There is mild mitral annular calcification. Extension of the mitral annular calcification on the base of the posterior mitr al valve leaflet. Mild (1+) mitral valve insufficiency. Trivial tricuspid valve insufficiency. Mild focal aortic valve thickening. Unable to estimate RV systolic pressure/pulmonary artery pressure due to techni ervin difficult study. Diastolic function is indeterminate. Ordering Physician: Delma Correia Referring Physician: Shana Mckeon Performed By: Radha Mckeon, ROSALIE, RVT
[2021-10-13 17:05] LABS: Bedside Glucose 146 mg/dL (74-106)
[2021-10-13] MEDS: Furosemide 20 MG/2 ML VIAL IV (17:32)
--- NOTE | 2021-10-13 17:33 | PCA ---
Facesheet faxed to [facility] transfer pending fax: [phone]
[2021-10-13 21:50] LABS: Bedside Glucose 224 mg/dL (74-106)
[2021-10-13] MEDS: Heparin Injection (Vial) 5,000 UNIT/ML VIAL 5000 UNIT SC (21:59)
[2021-10-14] VITALS (7 sets, daily range): BP systolic 114–124; BP diastolic 51–64; PULSE 75–82; RESP 16–20; TEMP 36.8–37.3; O2SAT 92–94
[2021-10-14] MEDS: guaiFENesin Dm 10 ML UDC PO ×3 (05:30→18:10)
[2021-10-14 06:15] LABS: Bedside Glucose 116 mg/dL (74-106)
[2021-10-14 06:45] LABS: Anion Gap 2 (5-15); BUN 5 mg/dL (7-18); Calcium,Total 7.6 mg/dL (8.5-10.1); Chloride 99 mmol/L (98-107); Creatinine, Serum 0.26 mg/dL (0.55-1.02); EST Glomerular Filtration Rate 272 mL/min (>60); Est Glom Filt Rate - Afr Amer 329 mL/min (>60); Glucose 81 mg/dL (74-106); Potassium 3.4 mmol/L (3.5-5.1); Sodium Level 138 mmol/L (136-145)
[2021-10-14] MEDS: Albuterol 2.5 MG/3 ML VIAL.NEB. INHALATION ×3 (07:02→18:46)
--- NOTE | 2021-10-14 08:27 | PCM.PN.INT ---
Assessment & Plan Assessment/Plan (1) Pleural effusion: PLAN: RECOMMENDATIONS: 1. Continue to wean supplemental oxygen to maintain saturations at or above 90%. 2. Continue to encourage incentive spirometer use. 3. Await finalized pleural fluid culture results and cytology. 4. Continue diuresis and Corgard as tolerated by hemodynamics and renal function. 5. Supplement vitamin K and potassium 6. Walking oximetry prior to discharge. Potential discharge if demands improve IMPRESSIONS: 1. Acute hypoxic respiratory insufficiency secondary to transudative right pleural effusion Work-up from thoracentesis over the weekend consistent with a transudate pattern. Patient had a repeat thoracentesis yesterday with an additional 1+ liters removed. Unfortunately, patient continued to require significant amounts of oxygen with ambulation. This is likely secondary to hepatopulmonary syndrome. Treatment would be aggressive diuresis. Patient is down 1.9 L over last 24 hours. Patient has had issues with hypotension in the past, so will likely need to remain hospitalized until diuresis is completed 2. History of BYRD cirrhosis/diabetes mellitus/rheumatoid arthritis/GERD/coagulopathy Complicates care, management, recovery and prognosis. Continue home medications as indicated. Patient may have an element of poor utilization of vitamin K given Byrd cirrhosis. Will supplement vitamin K. Blood sugars have been relatively controlled. This note was generated with [employer] dictation software. It may contain incorrect words, spelling, and punctuation that were not noted in checking the note before signing. Subjective Subjective Patient did well yesterday and tolerated thoracentesis well. Patient did not have significant ascites, so paracentesis was canceled. However, patient's discharge was delayed as she was only marginally controlled on 6 L/min with ambulation. Patient had increased diuretics and overall feels subjectively improved today. Patient feels her abdomen is much less distended. Objective Data Objective Data Vital Signs: Vital Signs Temp Pulse Resp BP Pulse Ox 36.9 C 75 16 118/64 92 10/14/21 03:00 10/14/21 07:02 10/14/21 07:02 10/14/21 03:00 10/14/21 07:02 Oxygen Flow Rate (L/min) [4] 3 Oxygen Flow Rate (L/min) [3] 3 Oxygen Flow Rate (L/min) [2] 3 Oxygen Flow Rate (L/min) [1 ( 3 Initial Baseline)] Oxygen Flow Rate (L/min) [ 8 AMBULATING with Oxygen #3] Oxygen Flow Rate (L/min) [ 6 AMBULATING with Oxygen #2] Oxygen Flow Rate (L/min) [ 4 AMBULATING with Oxygen #1] Oxygen Flow Rate (L/min) [At 2 REST with Oxygen] Oxygen Flow Rate (L/min) 3 Oxygen Delivery Method [4] Nasal Cannula Oxygen Delivery Method [3] Nasal Cannula Oxygen Delivery Method [2] Nasal Cannula Oxygen Delivery Method [1 ( Nasal Cannula Initial Baseline)] Oxygen Delivery Method Nasal Cannula Weight: 84.368 kg Body Mass Index (BMI) 31.7 Intake & Output: Intake and Output for Last 24 Hours 10/12/21 10/13/21 10/14/21 23:59 23:59 23:59 Intake Total 750 / 750 1300 / 1300 Output Total 200 / 400 2800 / 3400 600 / 600 Balance 550 / 350 -1500 / -2100 -600 / -600 Lab / Micro Data Result Diagrams: 10/13/21 05:07 10/14/21 05:17 Labs: Laboratory Results - last 24 hr 10/11/21 07:10: Fl Pathologist Comment Reviewed 10/13/21 11:20: POC Glucose 179 H 10/13/21 17:03: POC Glucose 146 H 10/13/21 21:40: POC Glucose 224 H 10/14/21 05:17: Sodium 138, Potassium 3.4 L, Chloride 99, Carbon Dioxide 37.0 H, Anion Gap 2 L, BUN 5 L, Creatinine 0.26 L, Estim Creat Clear Calc 45.20, Est GFR (MDRD) Af Amer 329, Est GFR (MDRD) Non-Af 272, BUN/Creatinine Ratio 19.0, Glucose 81, Calcium 7.6 L 10/14/21 06:12: POC Glucose 116 H Micro: Microbiology 10/11/21 07:10 Fluid - Thoracentesis Fluid Gram Stain - Final 10/11/21 07:10 Fluid - Thoracentesis Fluid Body Fluid Culture - Final No growth aerobically. 10/11/21 07:10 Fluid - Thoracentesis Fluid Anaerobic Culture - Final No growth in 5 days. 10/10/21 14:50 Blood Culture (Wb) - Right Hand Blood Culture - Preliminary No growth in 48 hours. 10/10/21 15:08 Mucosa - Nasopharyngeal Influenza Types A,B Direct FA (MIRELLA) - Final 10/10/21 14:35 Nasal Secretion SARS-CoV-2 Antigen (Rapid) - Final Radiography Diagnostic Testing: Radiology Impression Thoracentesis Ultrasound 10/13/21 05:00 IMPRESSION: Ultrasound-guided right thoracentesis. Electronically Signed: Dimas Suarez MD at 14:30 EDT , Abdomen Ultrasound 10/13/21 07:43 IMPRESSION: Minimal fluid is seen in the pelvis. Not enough fluid for a safe paracentesis. Electronically Signed: Dimas Suarez MD at 15:09 EDT , Chest X-Ray 10/13/21 13:54 IMPRESSION: No evidence of pneumothorax on the status post right thoracocentesis examination. Electronically Signed: Dimas Suarez MD at 14:12 EDT , Physical Exam Const alert, oriented x3 and no apparent distress General Appearance: cooperative Nutritional Appearance: obese HEENT normocephalic and head/scalp atraumatic Eyes PERRL, EOMs intact bilaterally and conjunctivae normal Neck supple General: trachea midline Chest inspection of chest normal Resp normal respiratory effort Effort and Inspection: symmetric chest movement Auscultation: Negative for rales, rhonchi or wheezes Cardio regular rate, regular rhythm, no murmurs, no rub and no gallops GI non-tender Inspection: central obesity; Negative for fluid wave present Palpation: soft; Negative for guarding Extremity no clubbing, cyanosis or edema Skin no rashes or lesions noted Neuro oriented x3, CN's II-XII intact bilaterally, moves all extremities and no focal motor deficits Psych cooperative and affect normal Charges/Coding Visit Charges Inpatient E&M: 98999 Subs Hosp L2
[2021-10-14] MEDS: Heparin Injection (Vial) 5,000 UNIT/ML VIAL 5000 UNIT SC (08:52)
[2021-10-14] MEDS: Spironolactone 50 MG Tablet PO ×2 (08:53→21:43)
[2021-10-14] MEDS: Furosemide 20 MG/2 ML VIAL IV ×2 (08:53→17:33)
[2021-10-14] MEDS: Pantoprazole Sodium 40 MG Tablet PO ×2 (08:54→22:02)
[2021-10-14] MEDS: metFORMIN HCl 1,000 MG Tablet 1000 MG PO ×2 (08:54→17:43)
[2021-10-14] MEDS: Nystatin Powder 15gm Bottle 1 APPLIC TOPICAL ×2 (08:54→21:40)
[2021-10-14] MEDS: Nadolol 20 MG Tablet PO (08:54)
--- NOTE | 2021-10-14 09:08 | CASEMGMT ---
Patient is being transferred and accepted to [facility], awaiting bed. [facility] is in-network with patient's insurance Cher[employer] SHARMA
[2021-10-14] MEDS: Potassium Chloride 10mEq/100mL 10 MEQ/100 ML IV.SOLN. 100 MEQ IV BOLUS ×4 (09:12→13:17)
--- NOTE | 2021-10-14 09:52 | DS.PCM_ITS ---
Documented by User: Delma Correia NP, MANAGER SKILLED-C 10/14/21 10:08 Providers Date of Admission: 10/10/21 Date of Discharge: 10/14/21 Primary Care Physician: Dr. 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 Routine Consulting Provider: Pulmonary Medicine [facility] Reason for Consult: hypoxia, need for thoracentesis EMERGENT Consult: No MD Notified: Yes Date Notified: 10/10/21 Time Notified: 16:46 Method of Notification: Verbal Reason For Visit: HYPOXIA Diagnosis Discharge Diagnosis (1) Pleural effusion: Status: Acute Code(s): J90 - Pleural effusion, not elsewhere classified Medications at Discharge Home Medications metformin 500 mg tablet 1,000 mg PO BID 11/07/18 cholecalciferol (vitamin D3) [Vitamin D] 2,000 unit PO DAILY 11/14/18 cyanocobalamin (vitamin B-12) 1,000 mcg PO DAILY 11/14/18 spironolactone 25 mg PO DAILY 12/07/18 pantoprazole 40 mg PO BID 05/18/19 iron 40 mg PO DAILY 10/10/21 magnesium chloride [Mag 64] 64 mg PO DAILY 10/10/21 nadolol 20 mg PO DAILY 10/11/21 Hospital Course Operations None Procedures 2-D Echocardiogram and Thoracentesis Summary of Care Provided Hospital Course: Patient is a 71 year old female admitted 10/10/21 due to shortness of breath. 1. Acute hypoxic respiratory failure secondary to right transudative pleural effusion with collapse of right lower lobe- underwent diagnostic and therapeutic thoracentesis 10/11/21. Culture with no growth. Cytology pending. Patient completed 7-day course of Levaquin. No evidence of infectious process. Suspect pleural effusion related to liver disease. Continue supplement oxygen to maintain O2 at above 90%. Repeat chest x-ray 10/12/21 showed layering of moderate right pleural effusion. Repeat thoracentesis for 1122 with 1150 ml removal. Increase spironolactone to 50mg BID and add transition to IV lasix 20mg BID. Patient accepted to [facility] and will be transferred to tertiary facility for further hepatology evaluation. 2. Nonalcoholic cirrhosis-following with hepatology in [place] and [facility], in process to be placed on transplant list. Continue spironolactone, lasix as noted above. 3. Type 2 diabetes mellitus-continue Metformin. Hemoglobin A1c 6.2%. 4. Rheumatoid arthritis- not on regimen. 5. GERD- continue PPI. Physical Exam Const alert, oriented x3 and no apparent distress Orientation / Consciousness: awake, oriented to person, oriented to place and oriented to time HEENT normocephalic and moist oral mucous membranes Eyes PERRL, EOMs intact bilaterally and conjunctivae normal Neck no lymphadenopathy Resp clear to auscultation bilaterally Auscultation: diminished lung sounds Cardio regular rate, regular rhythm and no murmurs Peripheral Pulses: pulses 2+ throughout GI normal to inspection, nondistended, normoactive bowel sounds, non-tender and non-distended Extremity normal to inspection Skin no rashes or lesions noted Lesions: no lesions Rashes: no rashes Trauma: no lacerations or abrasions Neuro CN's II-XII intact bilaterally, no focal motor deficits, no sensory deficits noted and deep tendon reflexes 2+ bilaterally Psych mental status grossly normal and affect normal Patient seen and examined prior to discharge. Physical assessment as noted above. Patient is stable for discharge with follow up recommendations as noted above. This patient was seen by DOMINIC Cordoba under the supervision of Dr. Montaño. Time spent examining patient, reviewing data and subsequent management of care: 17 minutes Weight / BMI Weight Weight: 186 lb Body Mass Index (BMI) 31.7 ABG / Lab / Microbiology Data Result Diagrams: 10/13/21 05:07 10/14/21 05:17 Laboratory: Laboratory Results - last 24 hr 10/11/21 07:10: Fl Pathologist Comment Reviewed 10/13/21 11:20: POC Glucose 179 H 10/13/21 17:03: POC Glucose 146 H 10/13/21 21:40: POC Glucose 224 H 10/14/21 05:17: Sodium 138, Potassium 3.4 L, Chloride 99, Carbon Dioxide 37.0 H, Anion Gap 2 L, BUN 5 L, Creatinine 0.26 L, Estim Creat Clear Calc 45.20, Est GFR (MDRD) Af Amer 329, Est GFR (MDRD) Non-Af 272, BUN/Creatinine Ratio 19.0, Glucose 81, Calcium 7.6 L 10/14/21 06:12: POC Glucose 116 H Microbiology: Microbiology 10/11/21 07:10 Fluid - Thoracentesis Fluid Gram Stain - Final 10/11/21 07:10 Fluid - Thoracentesis Fluid Body Fluid Culture - Final No growth aerobically. 10/11/21 07:10 Fluid - Thoracentesis Fluid Anaerobic Culture - Final No growth in 5 days. 10/10/21 14:50 Blood Culture (Wb) - Right Hand Blood Culture - Preliminary No growth in 48 hours. 10/10/21 15:08 Mucosa - Nasopharyngeal Influenza Types A,B Direct FA (MIRELLA) - Final 10/10/21 14:35 Nasal Secretion SARS-CoV-2 Antigen (Rapid) - Final Radiography Diagnostic Testing: Radiology Impression Thoracentesis Ultrasound 10/13/21 05:00 IMPRESSION: Ultrasound-guided right thoracentesis. Electronically Signed: Dimas Suarez MD at 14:30 EDT , Abdomen Ultrasound 10/13/21 07:43 IMPRESSION: Minimal fluid is seen in the pelvis. Not enough fluid for a safe paracentesis. Electronically Signed: Dimas Suarez MD at 15:09 EDT , Chest X-Ray 10/13/21 13:54 IMPRESSION: No evidence of pneumothorax on the status post right thoracocentesis examination. Electronically Signed: Dimas Suarez MD at 14:12 EDT , Meaningful Use Info Meaningful Use Diagnoses (Choose all that apply): None applicable Discharge Plan Admission Admit Date/Time: 10/10/21 16:38 Attending Provider: Corky Montaño Primary Care Provider: Shana Mckeon Consulting Providers: Abad Bey ; Kurtis Lance ; Sravanthi Kumari MANAGER SKILLED Discharge Orders/Prescriptions Prescriptions: No Action metformin 500 mg tablet 1,000 mg PO BID RF: 0 cyanocobalamin (vitamin B-12) 500 MCG tablet 1,000 mcg PO DAILY RF: 0 cholecalciferol (vitamin D3) [Vitamin D3] 1,000 UNIT tablet 2,000 unit PO DAILY RF: 0 spironolactone 100 MG tablet 25 mg PO DAILY RF: 0 pantoprazole 40 MG tablet 40 mg PO BID RF: 0 iron 40 mg Capsule 40 mg PO DAILY RF: 0 Mag 64 64 mg Tablet,Delayed Release (Dr/Ec) 64 mg PO DAILY RF: 0 nadolol 20 mg tablet 20 mg PO DAILY RF: 0 Referrals / Follow Up: Shana Mckeon DO [Primary Care Provider] - Disposition Disposition (needs filled in before D/C Order can be placed): [facility] Documented by User: Dr. Corky Montaño DO 10/14/21 12:36 Providers Date of Admission: 10/10/21 Reason For Visit: HYPOXIA Medications at Discharge Home Medications metformin 500 mg tablet 1,000 mg PO BID 11/07/18 cholecalciferol (vitamin D3) [Vitamin D] 2,000 unit PO DAILY 11/14/18 cyanocobalamin (vitamin B-12) 1,000 mcg PO DAILY 11/14/18 spironolactone 25 mg PO DAILY 12/07/18 pantoprazole 40 mg PO BID 05/18/19 iron 40 mg PO DAILY 10/10/21 magnesium chloride [Mag 64] 64 mg PO DAILY 10/10/21 nadolol 20 mg PO DAILY 10/11/21 Hospital Course Operations None Procedures Thoracentesis Summary of Care Provided Minutes Spent on Discharge: 32 Hospital Course: 71 year old female presents with shortness of breath. Patient ws found to have a large right pleural effusion. Patient underwent a right sided thoracentesis on the , removing 1500cc of fluid. It reaccumulated and she underwent another thoracentesis on the removing 1150cc. Fluid was consistent with transudative. It was presumed to be due to underlying cirrhosis. A paracentesis was ordered, but not performed due to lack of significant fluid. Diuretics were increased. Given the recurrent nature, her underlying cirrhosis [facility] was called for transfer. Pt was accepted at [facility] main [facility] for transfer. Physical Exam Resp normal respiratory effort, no retractions, no use of accessory muscles and clear to auscultation bilaterally Cardio regular rate, regular rhythm, S1 normal heart sound and S2 normal heart sound GI normal to inspection, nondistended, normoactive bowel sounds and soft to palpation Extremity normal to inspection ABG / Lab / Microbiology Data Result Diagrams: 10/13/21 05:07 10/14/21 05:17 Discharge Plan Admission Admit Date/Time: 10/10/21 16:38 Attending Provider: Corky Montaño Primary Care Provider: Shana Mckeon Consulting Providers: Abad Bey ; Kurtis Lance ; Sravanthi Kumari MANAGER SKILLED Discharge Orders/Prescriptions Prescriptions: No Action metformin 500 mg tablet 1,000 mg PO BID RF: 0 cyanocobalamin (vitamin B-12) 500 MCG tablet 1,000 mcg PO DAILY RF: 0 cholecalciferol (vitamin D3) [Vitamin D3] 1,000 UNIT tablet 2,000 unit PO DAILY RF: 0 spironolactone 100 MG tablet 25 mg PO DAILY RF: 0 pantoprazole 40 MG tablet 40 mg PO BID RF: 0 iron 40 mg Capsule 40 mg PO DAILY RF: 0 Mag 64 64 mg Tablet,Delayed Release (Dr/Ec) 64 mg PO DAILY RF: 0 nadolol 20 mg tablet 20 mg PO DAILY RF: 0 Referrals / Follow Up: Shana Mckeon DO [Primary Care Provider] - Disposition Disposition (needs filled in before D/C Order can be placed): Acute Care Hospital Charges/Coding Visit Charges Inpatient E&M: 69346 Disch Hosp
[2021-10-14] MEDS: Insulin Lispro 100 UNIT/ML INSULN.PEN SC ×2 (12:11→17:33)
[2021-10-14 12:30] LABS: Bedside Glucose 202 mg/dL (74-106)
[2021-10-14 16:36] LABS: Bedside Glucose 178 mg/dL (74-106)
[2021-10-14] MEDS: 0.9% Saline Lock 10 ML Syringe IV ×2 (17:46→21:38)
[2021-10-14] MEDS: Menthol/Lanolin/Calamine/Znox 113 GM Tube 1 APPLIC TOPICAL (21:39)
[2021-10-14 22:30] LABS: Bedside Glucose 146 mg/dL (74-106)
[2021-10-15 04:21] VITALS: BP 123/55; PULSE 73; RESP 18; TEMP 36.9; O2SAT 92
--- NOTE | 2021-10-15 05:23 | NURSING ---
Report given to Sindi ([phone])at [facility]. Transport to be here at 0630.
[2021-10-15 05:57] VITALS: BP 116/48; PULSE 76; RESP 20; TEMP 37.2; O2SAT 93
[2021-10-15 06:03] LABS: Absolute Lymphocyte Count 1.68 X10^3/uL (0.83-4.51); Absolute Neutrophil Count 2.7 X10^3/uL (2.0-7.7); Basophil# 0.08 X10^3/uL; Basophil% 1.3 % (0-1); Hematocrit 39.2 % (37-47); Hemoglobin 13.3 g/dL (12.0-15.0); Lymphocyte # 1.68 X10^3/ul (0.83-4.51); Lymphocyte % 28.1 % (19-41); Mean Corp Hgb Conc 33.9 g/dL (32-36); Mean Corpuscular Hgb 35.1 pg (27.0-32.0); Mean Corpuscular Volume 103.4 fL (81-99); Mean Platelet Vol. 10.2 fl (6.2-12.0); Monocyte% 20.1 % (0-10); NRBC Flagged by Analyzer 0 % (0-5); Neutrophil % 45.3 % (47-70); Platelet Count 107 K/mm3 (150-450); RBC Distribution Width CV 14.1 % (11.6-14.6); RBC Distribution Width SD 53.6 fl (35.1-43.9); Red Blood Count 3.79 M/mm3 (4.2-5.4)
[2021-10-15 06:06] LABS: Bedside Glucose 102 mg/dL (74-106)
[2021-10-15 06:18] LABS: Anion Gap 3 (5-15); BUN 6 mg/dL (7-18); BUN/Creat Ratio 17.5 RATIO (10-20); Calcium,Total 7.7 mg/dL (8.5-10.1); Chloride 98 mmol/L (98-107); Creatinine, Serum 0.34 mg/dL (0.55-1.02); EST Glomerular Filtration Rate 200 mL/min (>60); Est Glom Filt Rate - Afr Amer 242 mL/min (>60); Glucose 86 mg/dL (74-106); Magnesium 1.3 mg/dL (1.6-2.6); Potassium 3.9 mmol/L (3.5-5.1); Sodium Level 136 mmol/L (136-145)
[2021-10-15] MEDS: guaiFENesin Dm 10 ML UDC PO (07:03)
--- NOTE | 2021-10-15 07:18 | NURSING ---
per Dr Bey's request, this rn called Sindi [phone] @ [facility] and notified that the pt's magnesium was 1.3 this am. Sindi states she would notify the the [facility] nurse and the
== END 2021-10-15 07:15 | disposition short-term general hospital (02) | DRG 186 ==
LOC: ED 16:18 → MS3 17:16
PROVIDERS: Internal Medicine Critical Care Medicine; Nurse Practitioner Family; Admitting Provider Internal Medicine; Emergency Provider Emergency Medicine; PCP Family Medicine
DX: J94.8 Other specified pleural conditions (principal); J96.01 Acute respiratory failure with hypoxia; J18.9 Pneumonia, unspecified organism; J98.11 Atelectasis; K74.69 Other cirrhosis of liver; E11.9 Type 2 diabetes mellitus without complications; M06.9 Rheumatoid arthritis, unspecified; J90 Pleural effusion, not elsewhere classified; K75.81 Nonalcoholic steatohepatitis (NASH); K21.9 Gastro-esophageal reflux disease without esophagitis; I10 Essential (primary) hypertension; E78.00 Pure hypercholesterolemia, unspecified; J45.909 Unspecified asthma, uncomplicated; Z99.81 Dependence on supplemental oxygen; R53.83 Other fatigue; Z79.84 Long term (current) use of oral hypoglycemic drugs; R05.9 Cough, unspecified; R09.02 Hypoxemia; Z79.899 Other long term (current) drug therapy
CPT/HCPCS: 32555; 36415; 71045; 71046; 71250; 76705; 80048; 80053; 82945; 82962; 82977; 83036; 83615; 83690; 83735; 83880; 83986; 84100; 84156; 84157; 84484; 85025; 85027; 85610; 87040; 87070; 87075; 87205; 87804; 87811; 88108; 88305; 88313; 89050; 93005; 93306; 94640; 99251; 99284; J7050; A4216; G0463; J1940; J2405

== ENCOUNTER 2021-10-30 04:34 | Emergency (ER) | payer MEDICARE, SELFPAY ==
[2021-10-30] VITALS (7 sets, daily range): BP systolic 114–155; BP diastolic 58–67; PULSE 90–110; RESP 13–20; TEMP 36.4; O2SAT 96–98; BMI 28.5
--- NOTE | 2021-10-30 05:01 | RAD_ITS ---
INDICATION: cough EXAMINATION/TECHNIQUE: X-RAY - XR Chest 1 View COMPARISON: 10/13/2021 FINDINGS: LINES/DEVICES: None. LUNGS: No consolidation, edema or effusion. No pneumothorax. MEDIASTINUM AND CARDIOVASCULAR STRUCTURES: Cardiac silhouette not enlarged. Central airways and mediastinal contour are unremarkable. BONES AND SOFT TISSUES: Surgical clips in the right upper quadrant suggestive of prior cholecystectomy. No acute osseous abnormality... RAD/Chest 1 View (Portable) IMPRESSION: No acute cardiopulmonary disease. Electronically Signed: Jose Mcdowell MD at 5:36 EDT ,
--- NOTE | 2021-10-30 05:01 | EKG12_ITS ---
Test Reason : WEAKNESS Blood Pressure : / mmHG Vent. Rate : 103 BPM Atrial Rate : 103 BPM P-R Int : 146 ms QRS Dur : 100 ms QT Int : 416 ms P-R-T Axes : 052 -28 039 degrees QTc Int : 544 ms Sinus tachycardia Inferior infarct , age undetermined , cannot be excluded Prolonged QT Poor R wave progression Abnormal ECG Confirmed by YUAN LOPEZ, SEUN ([id number]), fan mail editor JAZZ SMITH ([id number]) on 11/03/2021 11:33:01 AM Referred By: NUNO Confirmed By:SEUN BOLDEN MD
[2021-10-30 05:15] LABS: Absolute Lymphocyte Count 1.07 X10^3/uL (0.83-4.51); Absolute Neutrophil Count 3.5 X10^3/uL (2.0-7.7); Basophil# 0.07 X10^3/uL; Basophil% 1.3 % (0-1); Eosinophil# 0.11 X10^3/uL; Hematocrit 39.9 % (37-47); Hemoglobin 13.7 g/dL (12.0-15.0); Lymphocyte # 1.07 X10^3/ul (0.83-4.51); Lymphocyte % 19.7 % (19-41); Mean Corp Hgb Conc 34.3 g/dL (32-36); Mean Platelet Vol. 9.4 fl (6.2-12.0); Monocyte% 12.9 % (0-10); NRBC Flagged by Analyzer 0 % (0-5); Neutrophil # 3.47 X10^3/uL (2.7-7.7); Neutrophil % 63.7 % (47-70); Platelet Count 242 K/mm3 (150-450); RBC Distribution Width SD 56.6 fl (35.1-43.9); Red Blood Count 3.91 M/mm3 (4.2-5.4); White Blood Count 5.4 K/mm3 (4.4-11.0)
[2021-10-30 05:37] LABS: AST(SGOT) 52 U/L (15-37); Alanine Aminotransfer ALT/SGPT 38 U/L (13-56); Albumin, Serum 3.2 g/dL (3.2-5.0); Alkaline Phosphatase 124 U/L (45-117); Anion Gap 11 (5-15); BUN 11 mg/dL (7-18); BUN/Creat Ratio 14.6 RATIO (10-20); Bilirubin, Direct 2.05 mg/dL (0.00-0.30); Calcium,Total 7.9 mg/dL (8.5-10.1); Chloride 93 mmol/L (98-107); Creatinine, Serum 0.75 mg/dL (0.55-1.02); EST Glomerular Filtration Rate 81 mL/min (>60); Est Glom Filt Rate - Afr Amer 98 mL/min (>60); Globulin 4.6 g/dL (2.2-4.2); Glucose 185 mg/dL (74-106); Magnesium 1.7 mg/dL (1.6-2.6); Protein, Total 7.8 g/dL (6.4-8.2); Sodium Level 132 mmol/L (136-145); Troponin-I HS 3 pg/mL (3.0-54.0)
[2021-10-30 06:04] LABS: Color, Urine Yellow (Yellow); Glucose, Dipstick Normal (Normal); Ketone-Dipstick 15 mg/dl (Negative); Leukocyte Esterase-Dipstick 100 /ul (Negative); Nitrite-Dipstick Negative (Negative); Occult Blood-Urine 250 /ul (Negative); Protein-Dipstick 30 mg/dl (Negative); Urine Clarity Clear (Clear); Urine Urobilinogen 1 mg/dl (Normal)
[2021-10-30 06:13] LABS: Urine Bilirubin Dipstick 1 mg/dL (Negative)
[2021-10-30 06:15] LABS: Amorphous Sediment 1+; Bacteria 2+ /hpf (None Seen); Mucous, Urine 1+ /hpf (<or=2+); Red Blood Cells-Urine > 100 SEEN /hpf (0-5); Squamous Epithelial Cells - UA 0-5 SEEN /hpf (5-10); White Blood Cells 50-100 SEEN /hpf (0-5)
[2021-10-30] MEDS: Potassium Chloride 10mEq/100mL 10 MEQ/100 ML IV.SOLN. 100 MEQ IV BOLUS ×4 (06:24→09:33)
--- NOTE | 2021-10-30 07:14 | EX.ED.DYSGE1 ---
HPI History of Present Illness Chief Complaint: Weakness Narrative Narrative: Patient is a 71-year-old female with past medical history of liver failure from [place]. She was in the hospital roughly for 4 weeks in the past month secondary to a right-sided pleural effusion from her liver failure. She states she has been home approximately 1 week. She reports that she went out to the store yesterday and that any type of activity will make her extremely tired. She states that after doing so she went to bed around 6:30 PM. She states she awoke around 3:30 in the morning to use the restroom and felt so weak that she had difficulty moving. She denies any fevers chills or cough/shortness of breath associated with this. She denies any dysuria. She states there is been no chest pain and she denies any fall/trauma from the weakness. However as the weakness has progressed and she is having difficulty getting around she had EMS called to bring her in for evaluation [facility] Medical History Asthma Cirrhosis CPAP (continuous positive airway pressure) dependence Diabetes GERD (gastroesophageal reflux disease) GI bleed High cholesterol HTN (hypertension) Non-alcoholic cirrhosis Rheumatoid arthritis Sleep apnea Home Medications metformin 500 mg tablet 1,000 mg PO BID 11/07/18 [History Last Taken 10/10/21] cholecalciferol (vitamin D3) [Vitamin D] 1,000 unit PO DAILY 11/14/18 [History Last Taken 10/10/21] cyanocobalamin (vitamin B-12) 500 mcg PO DAILY 11/14/18 [History Last Taken 10/10/21] spironolactone 100 mg PO DAILY 12/07/18 [History Last Taken 10/10/21] pantoprazole 40 mg PO BID 05/18/19 [History Last Taken 10/10/21] nadolol 20 mg PO DAILY 10/11/21 [History Last Taken Unknown] cephalexin 500 mg PO TID 7 Days #21 cap 10/30/21 [Rx Last Taken Unknown] ferrous sulfate 325 mg PO DAILY 10/30/21 [History Last Taken Unknown] furosemide 40 mg PO BID 10/30/21 [History Last Taken Unknown] lactulose 15 ml PO DAILY 10/30/21 [History Last Taken Unknown] magnesium oxide 140 mg PO DAILY 10/30/21 [History Last Taken Unknown] magnesium sulfate 1,000 mg PO DAILY 10/30/21 [History Last Taken Unknown] Allergy/AdvReac Type Severity Reaction Status Date / Time estrogens, conjugated Allergy Mild SWELLING, Verified 05/18/19 19:01 [From Premarin] ITCHING, RASH hydrochlorothiazide Allergy Mild RASH, Verified 05/18/19 19:01 ITCHING Penicillins Allergy Mild Hives Verified 10/10/21 16:23 Sulfa (Sulfonamide Allergy Mild SWELLING, Verified 05/18/19 19:01 Antibiotics) ITCHING, RASH Family History (Updated 10/10/21 @ 17:06 by Delma Correia [employer]ED F[employer]ER [employer]IT OPERATOR, VULCANIZED FIBER UNIT OPERATOR-C) Mother Breast cancer Hypertension CAD (coronary artery disease) Father CAD (coronary artery disease) Cancer Surgical History History of cholecystectomy S/P carpal tunnel release S/P cholecystectomy S/P hysterectomy S/P parathyroidectomy S/P renal artery angioplasty Status post right knee replacement Social History Smoking Status: Never smoker alcohol intake: never ROS ROS ED Constitutional Constitutional ED: Denies chills or fever(s) ENT ENT ED: Denies sore throat Cardiovascular Cardiovascular: Denies chest pain Respiratory/Chest Respiratory/Chest: Denies cough or dyspnea Gastrointestinal Gastrointestinal: Denies abdominal pain, diarrhea, nausea or vomiting Genitourinary Genitourinary ED: Denies dysuria Musculoskeletal Musculoskeletal: Denies myalgias Integumentary Denies rash Neurologic Neurologic: Reports weakness; Denies headache(s) Hematologic/Lymphatic Hematologic/Lymphatic: Reports easy bleeding and easy bruising EXAM Physical Exam Const Vital Signs: 10/30/21 04:35 10/30/21 04:41 10/30/21 06:02 Temperature 97.5 F L Temperature Source Oral Pulse Rate 110 H 103 H Respiratory Rate 14 16 Respiratory Effort Normal Non-Labored Blood Pressure 155/65 H 137/67 H Blood Pressure Mean 95 90 Pulse Ox 98 98 Oxygen Delivery Method Nasal Cannula Room Air Oxygen Flow Rate (L/min) 2 10/30/21 06:44 Temperature Temperature Source Pulse Rate 91 Respiratory Rate 13 Respiratory Effort Blood Pressure 137/67 H Blood Pressure Mean 90 Pulse Ox 98 Oxygen Delivery Method Nasal Cannula Oxygen Flow Rate (L/min) 2 Positive well nourished and well developed General Appearance ED: well developed HEENT Reports dry mucous membranes Mouth ED: Yes dry mucous membranes Mouth: dry mucous membranes Eyes PERRL and EOMs intact bilaterally General Eye ED: Yes scleral icterus Neck supple and no JVD Resp normal respiratory effort Resp Narrative: Breath sounds are diminished throughout but overall clear to auscultation with no signs of distress Cardio regular rhythm Rate: tachycardic and other Other Details: Radial pulses are +2-4 bilaterally are equal and symmetric GI normal to inspection, nondistended, normoactive bowel sounds, non-tender, non-distended and no masses GI Narrative: No voluntary guarding or rigidity. No pulsatile mass or fluid wave noted. Auscultation: normoactive bowel sounds Palpation: soft Extremity normal to inspection Neuro oriented x3 and CN's II-XII intact bilaterally Neuro Narrative: Patient has plus 4 out of 5 strength to both upper and lower extremities. Cranial nerves II through XII are grossly intact there are no focal neurologic deficits. NIH stroke scale score of 0 Sensorium / Orientation: alert Psych Psych Narrative: Patient has a depressed/flat affect Skin Skin Narrative: Skin turgor is increased General Skin Exam: jaundice MDM MDM MDM Narrative Medical decision making narrative: Patient presented to the ER afebrile but tachycardic. She reported generalized weakness to the point where she had difficulty moving around the house and by physical exam she has no focal findings and therefore stroke scale score of 0. She does have physical exam changes consistent with her liver failure but also with acute dehydration. Therefore this time there is concern she has progressed to acute kidney injury or has a severe electrolyte derangement that would require place. Work-up showed chronic elevation to her liver enzymes which are near baseline. Her kidney function is normal but her potassium has dropped to 3 from a previous value of 3.7 consistent with her dehydration status. Urine sample also shows infection but patient does not have a fever or white count or left shift to suggest urosepsis. The urine be sent for culture and patient will be started on antibiotic. Her potassium will also be replaced in ER and she will be provided fluid hydration. I discussed with patient the possibility of placing her back in the hospital secondary to her dehydration and fatigue and UTI as well as her hypokalemia. Patient states that she does not want this and would prefer to go home. Therefore at this time patient will need to stay in the ER for treatment of the lab derangements found and after this ambulation can be attempted. If patient is able to ambulate with walker like she does at home then we will have her continue her normal medications but add antibiotics secondary to the UTI and have her follow-up on an outpatient basis Lab Data Attestation: I reviewed the patient's lab results. Labs: Laboratory Results - last 24 hr 10/30/21 10/30/21 10/30/21 04:45 04:45 04:45 WBC 5.4 RBC 3.91 L Hgb 13.7 Hct 39.9 MCV 102.0 H MCH 35.0 H MCHC 34.3 RDW Std Deviation 56.6 H RDW Coeff of Marlyn 15.0 H Plt Count 242 MPV 9.4 Immature Gran % (Auto) 0.400 Neut % (Auto) 63.7 Lymph % (Auto) 19.7 [place] % (Auto) 12.9 H Eos % (Auto) 2.0 Baso % (Auto) 1.3 H Absolute Neuts (auto) 3.5 Absolute Lymphs (auto) 1.07 Nucleated RBC % 0 Sodium 132 L Potassium 3.0 L Chloride 93 L Carbon Dioxide 28.0 Anion Gap 11 BUN 11 Creatinine 0.75 Estim Creat Clear Calc 45.20 Est GFR (MDRD) Af Amer 98 Est GFR (MDRD) Non-Af 81 BUN/Creatinine Ratio 14.6 Glucose 185 H Calcium 7.9 L Magnesium 1.7 Total Bilirubin 3.90 H Direct Bilirubin 2.05 H AST 52 H ALT 38 Alkaline Phosphatase 124 H Ammonia Cancelled Troponin I High Sens 3 Total Protein 7.8 Albumin 3.2 Globulin 4.6 H Urine Color Urine Clarity Urine pH Ur Specific [place] Urine Protein Urine Glucose (UA) Urine Ketones Urine Occult Blood Urine Nitrite Urine Bilirubin Urine Urobilinogen Ur Leukocyte Esterase Urine RBC Urine WBC Ur Squamous Epith Cells Amorphous Sediment Urine Bacteria Urine Mucus 10/30/21 10/30/21 05:31 06:00 WBC RBC Hgb Hct MCV MCH MCHC RDW Std Deviation RDW Coeff of Marlyn Plt Count MPV Immature Gran % (Auto) Neut % (Auto) Lymph % (Auto) [place] % (Auto) Eos % (Auto) Baso % (Auto) Absolute Neuts (auto) Absolute Lymphs (auto) Nucleated RBC % Sodium Potassium Chloride Carbon Dioxide Anion Gap BUN Creatinine Estim Creat Clear Calc Est GFR (MDRD) Af Amer Est GFR (MDRD) Non-Af BUN/Creatinine Ratio Glucose Calcium Magnesium Total Bilirubin Direct Bilirubin AST ALT Alkaline Phosphatase Ammonia 96.0 H Troponin I High Sens Total Protein Albumin Globulin Urine Color Yellow Urine Clarity Clear Urine pH 5.0 Ur Specific [place] 1.030 Urine Protein 30 H Urine Glucose (UA) Normal Urine Ketones 15 H Urine Occult Blood 250 H Urine Nitrite Negative Urine Bilirubin 1 H Urine Urobilinogen 1 H Ur Leukocyte Esterase 100 H Urine RBC > 100 SEEN Urine WBC 50-100 SEEN Ur Squamous Epith Cells 0-5 SEEN Amorphous Sediment 1+ Urine Bacteria 2+ Urine Mucus 1+ Radiography Diagnostic Testing: Clinical Impression(s) from Imaging Studies Chest X-Ray 10/30/21 05:01 IMPRESSION: No acute cardiopulmonary disease. Electronically Signed: Jose Mcdowell MD at 5:36 EDT Reading Location ID and State: [address] [place] [address] Tel , Service support , 1 view chest x-ray as interpreted by the emergency medicine physician reveals no acute infiltrate pneumothorax or pleural effusion Discharge Plan Triage Chief Complaint: Weakness ED Provider: Dominic Wheeler Dx/Rx/DC Orders Clinical Impression: Dehydration, Acute hypokalemia, Urinary tract infection, Chronic liver failure, Generalized muscle weakness Instructions: Urinary Tract Infections in Women, Dehydration, ED Hypokalemia Prescriptions: New cephalexin 500 mg capsule 500 mg PO TID 7 Days Qty: 21 RF: 0 No Action metformin 500 mg tablet 1,000 mg PO BID RF: 0 cyanocobalamin (vitamin B-12) 500 MCG tablet 500 mcg PO DAILY RF: 0 cholecalciferol (vitamin D3) [Vitamin D3] 1,000 UNIT tablet 1,000 unit PO DAILY RF: 0 spironolactone 100 MG tablet 100 mg PO DAILY RF: 0 pantoprazole 40 MG tablet 40 mg PO BID RF: 0 nadolol 20 mg tablet 20 mg PO DAILY RF: 0 furosemide 40 mg Tablet 40 mg PO BID RF: 0 magnesium oxide 140 mg Capsule 140 mg PO DAILY RF: 0 lactulose 10 gram/15 mL Solution 15 ml PO DAILY RF: 0 ferrous sulfate 325 mg (65 mg iron) Tablet 325 mg PO DAILY RF: 0 magnesium sulfate 100 mg Capsule 1,000 mg PO DAILY RF: 0 Primary Care Provider: Shana Mckeon Referrals: Shana Mckeon DO [Primary Care Provider] - Activity Restrictions/Additional Instructions: Please keep yourself hydrated and take your medications as directed to help control your symptoms. Please start back on your oral potassium pills for the next 3 to 5-day secondary to the low value found on today's laboratory studies and return to the ER should you have any further concerns Disposition Disposition: Home, Self Care
[2021-10-30 08:56] LABS: Bedside Glucose 169 mg/dL (74-106)
[2021-10-30] MEDS: Ceftriaxone 1 GM/50 ML BAG IV (10:37)
--- NOTE | 2021-10-30 11:32 | MDS.RN ---
pt ambulated at this time in pt room with wheeled walker. pt unsteady at first with a mild loss of balance. pt ambulates well with assist of 1 and wheeled walker. gait slow but steady after loss of balance at the start of ambulation. pt tolerated well. O2 at 2L NC.
== END 2021-10-30 12:18 | disposition home or self-care (01) ==
PROVIDERS: Emergency Provider Emergency Medicine; PCP Family Medicine; Visit Provider Emergency Medicine
DX: N39.0 Urinary tract infection, site not specified (principal); K72.10 Chronic hepatic failure without coma; E11.9 Type 2 diabetes mellitus without complications; R74.8 Abnormal levels of other serum enzymes; M62.81 Muscle weakness (generalized); E78.00 Pure hypercholesterolemia, unspecified; F32.A Depression, unspecified; I10 Essential (primary) hypertension; E86.0 Dehydration; E87.6 Hypokalemia; J45.909 Unspecified asthma, uncomplicated; Z79.899 Other long term (current) drug therapy; Z79.84 Long term (current) use of oral hypoglycemic drugs; K21.9 Gastro-esophageal reflux disease without esophagitis
CPT/HCPCS: 71045; 80048; 80076; 81001; 82140; 82962; 83735; 84484; 85025; 87086; 93005; 96365; 96366; 96367; 99285; J7030; A4216

== ENCOUNTER → 2021-11-06 | Outpatient (CLI) | payer MEDICARE, SELFPAY ==
[2021-11-06 10:44] LABS: Anion Gap 6 (5-15); BUN 11 mg/dL (7-18); BUN/Creat Ratio 18.3 RATIO (10-20); Chloride 102 mmol/L (98-107); EST Glomerular Filtration Rate 105 mL/min (>60); Est Glom Filt Rate - Afr Amer 127 mL/min (>60); Glucose 185 mg/dL (74-106); Potassium 3.9 mmol/L (3.5-5.1); Sodium Level 133 mmol/L (136-145)
== END | disposition home or self-care (01) ==
LOC: MTLAB 08:56
PROVIDERS: PCP Family Medicine; Referring Provider Family Medicine; Visit Provider Family Medicine
DX: K74.60 Unspecified cirrhosis of liver (principal); E87.6 Hypokalemia; E83.42 Hypomagnesemia; R79.89 Other specified abnormal findings of blood chemistry
CPT/HCPCS: 36415; 80048; 82140; 83735

== ENCOUNTER 2021-11-27 07:55 | Outpatient (RCR) | payer MEDICARE, SELFPAY ==
[2021-11-13 08:38] LABS: Anion Gap 6 (5-15); BUN 11 mg/dL (7-18); BUN/Creat Ratio 20.3 RATIO (10-20); Calcium,Total 8.6 mg/dL (8.5-10.1); Chloride 105 mmol/L (98-107); Creatinine, Serum 0.54 mg/dL (0.55-1.02); EST Glomerular Filtration Rate 118 mL/min (>60); Est Glom Filt Rate - Afr Amer 143 mL/min (>60); Glucose 129 mg/dL (74-106); Magnesium 1.9 mg/dL (1.6-2.6); Potassium 3.6 mmol/L (3.5-5.1); Sodium Level 138 mmol/L (136-145)
[2021-11-20 10:36] LABS: Anion Gap 9 (5-15); BUN 9 mg/dL (7-18); BUN/Creat Ratio 13.8 RATIO (10-20); Calcium,Total 8.7 mg/dL (8.5-10.1); Chloride 101 mmol/L (98-107); Creatinine, Serum 0.65 mg/dL (0.55-1.02); EST Glomerular Filtration Rate 95 mL/min (>60); Est Glom Filt Rate - Afr Amer 115 mL/min (>60); Glucose 141 mg/dL (74-106); Sodium Level 136 mmol/L (136-145)
[2021-11-27 10:56] LABS: Anion Gap 11 (5-15); BUN 15 mg/dL (7-18); BUN/Creat Ratio 25.4 RATIO (10-20); Calcium,Total 8.8 mg/dL (8.5-10.1); Chloride 100 mmol/L (98-107); Creatinine, Serum 0.59 mg/dL (0.55-1.02); EST Glomerular Filtration Rate 107 mL/min (>60); Est Glom Filt Rate - Afr Amer 129 mL/min (>60); Glucose 133 mg/dL (74-106); Magnesium 1.9 mg/dL (1.6-2.6); Potassium 3.7 mmol/L (3.5-5.1); Sodium Level 136 mmol/L (136-145)
== END 2021-11-27 18:00 | disposition home or self-care (01) ==
LOC: MTLAB 07:55
PROVIDERS: PCP Family Medicine; Referring Provider Family Medicine; Visit Provider Family Medicine
DX: K74.60 Unspecified cirrhosis of liver (principal); E87.6 Hypokalemia; E83.42 Hypomagnesemia; R79.89 Other specified abnormal findings of blood chemistry
CPT/HCPCS: 36415; 80048; 82140; 83735

== ENCOUNTER 2022-01-01 09:37 | Outpatient (RCR) | payer MEDICARE, SELFPAY ==
[2021-12-04 10:39] LABS: Anion Gap 8 (5-15); BUN 12 mg/dL (7-18); BUN/Creat Ratio 18.3 RATIO (10-20); Calcium,Total 8.5 mg/dL (8.5-10.1); Chloride 100 mmol/L (98-107); Creatinine, Serum 0.65 mg/dL (0.55-1.02); EST Glomerular Filtration Rate 95 mL/min (>60); Est Glom Filt Rate - Afr Amer 115 mL/min (>60); Glucose 122 mg/dL (74-106); Magnesium 1.9 mg/dL (1.6-2.6); Sodium Level 135 mmol/L (136-145)
[2021-12-18 10:12] LABS: Anion Gap 8 (5-15); BUN 10 mg/dL (7-18); BUN/Creat Ratio 15.5 RATIO (10-20); Calcium,Total 8.3 mg/dL (8.5-10.1); Chloride 103 mmol/L (98-107); Creatinine, Serum 0.64 mg/dL (0.55-1.02); EST Glomerular Filtration Rate 97 mL/min (>60); Est Glom Filt Rate - Afr Amer 117 mL/min (>60); Glucose 108 mg/dL (74-106); Magnesium 1.5 mg/dL (1.6-2.6); Potassium 3.8 mmol/L (3.5-5.1); Sodium Level 137 mmol/L (136-145)
[2021-12-25 10:26] LABS: Anion Gap 9 (5-15); BUN 10 mg/dL (7-18); Calcium,Total 8.5 mg/dL (8.5-10.1); Chloride 103 mmol/L (98-107); Creatinine, Serum 0.59 mg/dL (0.55-1.02); EST Glomerular Filtration Rate 107 mL/min (>60); Est Glom Filt Rate - Afr Amer 130 mL/min (>60); Glucose 111 mg/dL (74-106); Magnesium 1.8 mg/dL (1.6-2.6); Potassium 3.7 mmol/L (3.5-5.1); Sodium Level 138 mmol/L (136-145)
[2022-01-01 12:54] LABS: Anion Gap 6 (5-15); BUN 8 mg/dL (7-18); BUN/Creat Ratio 12.7 RATIO (10-20); Calcium,Total 8.5 mg/dL (8.5-10.1); Chloride 103 mmol/L (98-107); Creatinine, Serum 0.63 mg/dL (0.55-1.02); EST Glomerular Filtration Rate 100 mL/min (>60); Est Glom Filt Rate - Afr Amer 120 mL/min (>60); Glucose 140 mg/dL (74-106); Magnesium 1.9 mg/dL (1.6-2.6); Potassium 3.7 mmol/L (3.5-5.1); Sodium Level 137 mmol/L (136-145)
== END 2022-01-01 16:00 | disposition home or self-care (01) ==
LOC: MTLAB 09:37
PROVIDERS: PCP Family Medicine; Referring Provider Family Medicine; Visit Provider Family Medicine
DX: K74.60 Unspecified cirrhosis of liver (principal); E87.6 Hypokalemia; E83.42 Hypomagnesemia; R79.89 Other specified abnormal findings of blood chemistry
CPT/HCPCS: 36415; 80048; 82140; 83735

== ENCOUNTER 2022-01-15 11:02 | Outpatient (RCR) | payer MEDICARE, SELFPAY ==
[2022-01-08 12:24] LABS: Anion Gap 7 (5-15); BUN 7 mg/dL (7-18); BUN/Creat Ratio 11.2 RATIO (10-20); Calcium,Total 8.7 mg/dL (8.5-10.1); Chloride 106 mmol/L (98-107); Creatinine, Serum 0.62 mg/dL (0.55-1.02); EST Glomerular Filtration Rate 100 mL/min (>60); Est Glom Filt Rate - Afr Amer 122 mL/min (>60); Glucose 143 mg/dL (74-106); Magnesium 1.9 mg/dL (1.6-2.6); Potassium 3.8 mmol/L (3.5-5.1); Sodium Level 139 mmol/L (136-145)
[2022-01-15 15:14] LABS: Anion Gap 9 (5-15); BUN 10 mg/dL (7-18); BUN/Creat Ratio 13.6 RATIO (10-20); Calcium,Total 8.9 mg/dL (8.5-10.1); Chloride 104 mmol/L (98-107); Creatinine, Serum 0.74 mg/dL (0.55-1.02); EST Glomerular Filtration Rate 83 mL/min (>60); Est Glom Filt Rate - Afr Amer 100 mL/min (>60); Glucose 195 mg/dL (74-106); Magnesium 1.9 mg/dL (1.6-2.6); Potassium 3.4 mmol/L (3.5-5.1); Sodium Level 138 mmol/L (136-145)
== END 2022-02-01 03:30 | disposition home or self-care (01) ==
LOC: MTLAB 11:02
PROVIDERS: PCP Family Medicine; Referring Provider Family Medicine; Visit Provider Family Medicine
DX: K74.60 Unspecified cirrhosis of liver (principal); E87.6 Hypokalemia; E83.42 Hypomagnesemia; R79.89 Other specified abnormal findings of blood chemistry
CPT/HCPCS: 36415; 80048; 82140; 83735

== ENCOUNTER → 2022-02-06 | Outpatient (CLI) | payer MEDICARE, SELFPAY ==
--- NOTE | 2022-02-06 14:34 | BI_ITS ---
MAMMOGRAPHY - BILATERAL SCREENING REASON FOR EXAM: Female, 71 years old. Routine annual screening examination. PERTINENT HISTORY: Mother with breast cancer. Grandmother with breast cancer. TECHNIQUE: Digital bilateral breast jennifer (3D mammographic acquisition) in the CC and MLO projections. 2-D mediolateral oblique (MLO) and craniocaudad (CC) views of both breasts were obtained. CAD: Full Field Digital Mammography with Computer Added Detection was performed. COMPARISON: No comparison mammograms available at this time. If any prior films become available, an addendum to this report can be generated. FINDINGS: Breast Composition: The breasts are heterogeneously dense, which may obscure small masses. A cluster of microcalcification is seen in the anterior upper lateral portion of the right breast. The patient will be recalled for additional views including magnification spot views. No other significant abnormalities are identified. BI/SCRN MAMM (CAD)W/JENNIFER BILAT IMPRESSION: Cluster microcalcifications in the anterior upper lateral aspect of the right breast as described. The patient will be recalled for additional views including compression magnification views. ASSESSMENT CATEGORY: BIRADS Category 0: Incomplete. Need additional imaging evaluation. A letter regarding these results will be sent to the patient by the facility within 30 days. Approximately 10% of breast cancers are not detected by mammography. A normal mammogram should not delay biopsy of a clinically suspicious abnormality. [id number] Electronically Signed: Dimas Suarez MD at 10:33 EDT ,
== END | disposition home or self-care (01) ==
LOC: OPBI 14:33
PROVIDERS: PCP Family Medicine; Visit Provider Family Medicine
DX: Z12.31 Encounter for screening mammogram for malignant neoplasm of breast (principal)
CPT/HCPCS: 77063; 77067

== ENCOUNTER → 2022-02-16 | Outpatient (CLI) | payer MEDICARE, SELFPAY ==
--- NOTE | 2022-02-16 14:22 | BI_ITS ---
MAMMOGRAPHY - UNILATERAL DIAGNOSTIC: RIGHT BREAST REASON FOR EXAM: Female, 71 years old. Callback for assessment of right breast calcifications. PERTINENT HISTORY: Mother with breast cancer. Grandmother with breast cancer. TECHNIQUE: Digital unilateral breast shahnaz (3D mammographic acquisition) in the CC and MLO projections. 2-D mediolateral oblique (MLO) and craniocaudad (CC) views of both breasts were obtained. CAD: Full Field Digital Mammography with Computer Added Detection was performed. COMPARISON: Screening mammogram from 02/06/2022. FINDINGS: Breast Composition: The breasts are heterogeneously dense, which may obscure small masses. The grouped calcifications in the upper outer right breast demonstrate coarse heterogeneous morphology. On the spot magnification CC views, there also appears to be a grouping of tiny amorphous calcifications in the right upper outer breast located 1.5 cm posterior to the larger grouping detailed above. BI/DIAG MAMM W/CAD, UNILAT IMPRESSION: Suspicious right breast calcifications. Biopsy is recommended. ASSESSMENT CATEGORY: BIRADS Category 4: Suspicious - Biopsy Should Be Considered. A letter regarding these results will be sent to the patient by the facility within 30 days. Approximately 10% of breast cancers are not detected by mammography. A normal mammogram should not delay biopsy of a clinically suspicious abnormality. Electronically Signed: Roni Corral, at 16:51 EDT ,
== END | disposition home or self-care (01) ==
LOC: OPBI 14:19
PROVIDERS: PCP Family Medicine; Visit Provider Family Medicine
DX: R92.1 Mammographic calcification found on diagnostic imaging of breast (principal)
CPT/HCPCS: 77065

== ENCOUNTER 2022-03-02 09:26 | Outpatient (RCR) | payer MEDICARE, SELFPAY ==
[2022-03-02 12:06] LABS: Hematocrit 43.4 % (37-47); Hemoglobin 15.2 g/dL (12.0-15.0); Mean Corpuscular Hgb 35.7 pg (27.0-32.0); Mean Corpuscular Volume 101.9 fL (81-99); Mean Platelet Vol. 10.9 fl (6.2-12.0); Platelet Count 152 K/mm3 (150-450); RBC Distribution Width CV 13.4 % (11.6-14.6); RBC Distribution Width SD 50.5 fl (35.1-43.9); Red Blood Count 4.26 M/mm3 (4.2-5.4); White Blood Count 4.7 K/mm3 (4.4-11.0)
[2022-03-02 12:15] LABS: International Normalized Ratio 1.5; Prothrombin Time (Protime)PT. 17.4 SECONDS (11.7-14.9)
[2022-03-02 12:35] LABS: AST(SGOT) 46 U/L (15-37); Alanine Aminotransfer ALT/SGPT 41 U/L (13-56); Albumin, Serum 2.7 g/dL (3.2-5.0); Alkaline Phosphatase 122 U/L (45-117); Anion Gap 8 (5-15); BUN 11 mg/dL (7-18); Bilirubin, Direct 0.99 mg/dL (0.00-0.30); Chloride 101 mmol/L (98-107); Creatinine, Serum 0.67 mg/dL (0.55-1.02); EST Glomerular Filtration Rate 93 mL/min (>60); Est Glom Filt Rate - Afr Amer 112 mL/min (>60); Globulin 4.8 g/dL (2.2-4.2); Potassium 3.3 mmol/L (3.5-5.1); Protein, Total 7.5 g/dL (6.4-8.2); Sodium Level 138 mmol/L (136-145)
== END 2022-03-02 18:00 | disposition home or self-care (01) ==
LOC: MTLAB 09:26
PROVIDERS: PCP Family Medicine; Referring Provider Family Medicine; Visit Provider Family Medicine
DX: K74.60 Unspecified cirrhosis of liver (principal); E87.6 Hypokalemia; E83.42 Hypomagnesemia; R79.89 Other specified abnormal findings of blood chemistry; J91.8 Pleural effusion in other conditions classified elsewhere; K75.81 Nonalcoholic steatohepatitis (NASH)
CPT/HCPCS: 36415; 80051; 80076; 82565; 84520; 85027; 85610

== ENCOUNTER → 2022-03-03 | Outpatient (CLI) | payer MEDICARE, SELFPAY ==
--- NOTE | 2022-03-03 11:40 | BRBX_PTH ---
PATIENT: OJSE A FANG LOC: [facility] U#:[id number] AGE/SX: 71/F ROOM: RE03/03/[address]: Dr. Keeley Washington MD : 1950 BED: DIS: 03/03/2022 SPEC #: [id number] RECD: 03/03/22 12:55 STATUS: DANA REWalter #: [id number] HESHAM: 03/03/22 11:[address]: Keeley Washington DEPT: SURGICAL PATHOLOGY RECD BY: Minda Gardner ENTERED: 03/04/22 08:28 SP TYPE: BREAST BX OTHR DR: Dr. Shana Mckeon DO Tissues: Right breast, NOS Procedures: Surgery Specimen Level IV HEADER OPERATION: Right breast stereotactic biopsy PRE-OP DIAGNOSIS: Right breast upper outer quadrant calcifications TISSUE SUBMITTED: Right breast core tissue ISCHEMIC TIME: 1 minute FIXATION TIME: 32 hours MICROSCOPIC DIAGNOSIS Right breast, stereotactic biopsy: Hyalinized fibroadenoma with clustered microcalcifications. Fibrocystic change. Focal intraductal hyperplasia without atypia. Calcifications of vessel alarcon. No evidence of malignancy. AM:lilo 03/05/2022 MICROSCOPIC DESCRIPTION Slides are reviewed. GROSS DESCRIPTION Received is one container labeled with the patient's name and not further designated. The specimen consists of multiple irregular and elongated fragments of martin-yellow soft tissue that in aggregate measure 4 x 3 x 0.2 cm. The specimen is totally submitted in two cassettes. / AM:lilo 03/04/2022 TC:5 CPT: 16472
--- NOTE | 2022-03-03 12:55 | PCM.OPRPT ---
Report of Operation Date of Procedure: 03/03/22 Pre-Operative Diagnosis: Right breast microcalcifications Post-Operative Diagnosis: Same Surgery/Procedure Performed:: Stereotactic guided biopsy right breast Surgeon: Keeley Washington Type of Anesthesia: Local Specimen's removed: Right breast microcalcifications?upper outer Estimated Blood Loss (mL): 10 cc Description of Procedure: Procedure: Right stereotactic core biopsy Indications: 71 year-old female with microcalcifications in the upper outer of the right breast. Risk benefits were discussed the patient and she elected to proceed with stereotactic core biopsy with clip placement Description of procedure: Patient was brought into the mammography suite and laid prone on the stereotactic table. A timeout was completed verifying correct patient, procedure, site, specially, prior to beginning procedure. The right breast was prepped and draped in usual sterile fashion and using local anesthesia was obtained with 1% lidocaine with epi. Patient's right breast was positioned and placed into compression. Initial film showed calcifications are in the center of the compression paddle. 15? views were then taken. The calcifications were localized. The left breast was prepped draped in usual sterile fashion. An 8-gauge mammotome was set up according to the digital coordinates. The tract of the mammotome was anesthetized with local anesthesia and an incision was made with the 11 blade scalpel at the entry site. The mammotome was advanced to the prefire state. Pre-prior films were checked and verified. The mammotome was fired. Post fire films were also checked and verified. Biopsies were taken from 9:00 to 2:00. The specimen was x-rayed and almost all the calcifications were within the specimen. Mammotome clip was placed at the 12 o'clock position. The mammotome was removed from the breast. An additional films were taken which showed all calcifications were removed and a clip was in place. Pressure was held for hemostasis for about 30 minutes due to patient's cirrhosis and slow oozing and previous INR in October was 1.8. Once hemostasis was assured the wound was dressed with Steri-Strips and OpSite. The patient tolerated the procedure well and was discharged from the mammography suite good condition. complications: none
== END | disposition home or self-care (01) ==
LOC: BIRAD 10:54
PROVIDERS: PCP Family Medicine; Visit Provider Surgery
DX: D24.1 Benign neoplasm of right breast (principal); R92.0 Mammographic microcalcification found on diagnostic imaging of breast; N62 Hypertrophy of breast; R92.1 Mammographic calcification found on diagnostic imaging of breast
CPT/HCPCS: 19101; 19081; 88305; J7050; A4648

== ENCOUNTER 2022-03-24 09:39 | Outpatient (RCR) | payer MEDICARE, SELFPAY ==
[2022-03-24 11:59] LABS: Hematocrit 42.3 % (37-47); Hemoglobin 14.9 g/dL (12.0-15.0); Mean Corp Hgb Conc 35.2 g/dL (32-36); Mean Corpuscular Hgb 36.4 pg (27.0-32.0); Mean Corpuscular Volume 103.4 fL (81-99); Mean Platelet Vol. 11.2 fl (6.2-12.0); Platelet Count 148 K/mm3 (150-450); RBC Distribution Width SD 50.1 fl (35.1-43.9); Red Blood Count 4.09 M/mm3 (4.2-5.4); White Blood Count 4.5 K/mm3 (4.4-11.0)
[2022-03-24 12:07] LABS: International Normalized Ratio 1.4; Prothrombin Time (Protime)PT. 17.2 SECONDS (11.7-14.9)
[2022-03-24 12:41] LABS: AST(SGOT) 41 U/L (15-37); Alanine Aminotransfer ALT/SGPT 33 U/L (13-56); Albumin, Serum 2.7 g/dL (3.2-5.0); Alkaline Phosphatase 107 U/L (45-117); Anion Gap 12 (5-15); BUN 13 mg/dL (7-18); Bilirubin, Direct 1.15 mg/dL (0.00-0.30); Calcium,Total 8.7 mg/dL (8.5-10.1); Chloride 100 mmol/L (98-107); Creatinine, Serum 0.76 mg/dL (0.55-1.02); EST Glomerular Filtration Rate 79 mL/min (>60); Est Glom Filt Rate - Afr Amer 96 mL/min (>60); Globulin 4.5 g/dL (2.2-4.2); Glucose 178 mg/dL (74-106); Magnesium 1.9 mg/dL (1.6-2.6); Potassium 3.8 mmol/L (3.5-5.1); Protein, Total 7.2 g/dL (6.4-8.2); Sodium Level 135 mmol/L (136-145)
== END 2022-03-24 18:00 | disposition home or self-care (01) ==
LOC: MTLAB 09:39
PROVIDERS: PCP Family Medicine; Referring Provider Family Medicine; Visit Provider Family Medicine
DX: K75.81 Nonalcoholic steatohepatitis (NASH) (principal); K74.60 Unspecified cirrhosis of liver; E87.6 Hypokalemia; E83.42 Hypomagnesemia; R79.89 Other specified abnormal findings of blood chemistry; J91.8 Pleural effusion in other conditions classified elsewhere
CPT/HCPCS: 80048; 80076; 82140; 83735; 85027; 85610

== ENCOUNTER 2022-04-13 09:48 | Outpatient (RCR) | payer MEDICARE, SELFPAY ==
[2022-04-13 12:11] LABS: Hematocrit 41.7 % (37-47); Hemoglobin 14.9 g/dL (12.0-15.0); Mean Corp Hgb Conc 35.7 g/dL (32-36); Mean Corpuscular Hgb 37.9 pg (27.0-32.0); Mean Corpuscular Volume 106.1 fL (81-99); Mean Platelet Vol. 10.7 fl (6.2-12.0); Platelet Count 144 K/mm3 (150-450); RBC Distribution Width CV 13.8 % (11.6-14.6); RBC Distribution Width SD 54.2 fl (35.1-43.9); Red Blood Count 3.93 M/mm3 (4.2-5.4)
[2022-04-13 12:16] LABS: International Normalized Ratio 1.6; Prothrombin Time (Protime)PT. 18.4 SECONDS (11.7-14.9)
[2022-04-13 12:24] LABS: AST(SGOT) 50 U/L (15-37); Alanine Aminotransfer ALT/SGPT 39 U/L (13-56); Albumin, Serum 2.6 g/dL (3.2-5.0); Alkaline Phosphatase 138 U/L (45-117); Anion Gap 9 (5-15); BUN 12 mg/dL (7-18); BUN/Creat Ratio 17.9 RATIO (10-20); Bilirubin, Direct 1.02 mg/dL (0.00-0.30); Calcium,Total 8.9 mg/dL (8.5-10.1); Chloride 104 mmol/L (98-107); Creatinine, Serum 0.67 mg/dL (0.55-1.02); EST Glomerular Filtration Rate 92 mL/min (>60); Est Glom Filt Rate - Afr Amer 112 mL/min (>60); Globulin 4.6 g/dL (2.2-4.2); Glucose 153 mg/dL (74-106); Potassium 4.1 mmol/L (3.5-5.1); Protein, Total 7.2 g/dL (6.4-8.2); Sodium Level 139 mmol/L (136-145)
== END 2022-04-13 18:00 | disposition home or self-care (01) ==
LOC: MTLAB 09:48
PROVIDERS: PCP Family Medicine; Referring Provider Family Medicine; Visit Provider Family Medicine
DX: K75.81 Nonalcoholic steatohepatitis (NASH) (principal); K74.60 Unspecified cirrhosis of liver; E87.6 Hypokalemia; E83.42 Hypomagnesemia; J91.8 Pleural effusion in other conditions classified elsewhere; R79.89 Other specified abnormal findings of blood chemistry
CPT/HCPCS: 36415; 80048; 80076; 82140; 83735; 85027; 85610

== ENCOUNTER → 2022-05-26 | Outpatient (CLI) | payer MEDICARE, SELFPAY ==
[2022-05-27 08:42] LABS: Blood Gas Specimen Type ART; O2 Delivery Device Room Air; SITE L BRACHIAL
[2022-05-27 08:44] LABS: Time Given 1417; pCO2 25.7 mmHg (35-45); pH 7.53 (7.35-7.45)
[2022-05-27 08:45] LABS: Base Excess -1 mmol/L (-2 to +2); Bicarbonate 21.7 mmol/L (22-26); PO2 74 mmHG (75-100); Total Carbon Dioxide 23 mmol/L
[2022-05-27 08:48] LABS: SO2 97 % (95-99)
== END | disposition home or self-care (01) ==
PROVIDERS: PCP Family Medicine
DX: Z01.818 Encounter for other preprocedural examination (principal); K76.81 Hepatopulmonary syndrome; K74.60 Unspecified cirrhosis of liver; K75.81 Nonalcoholic steatohepatitis (NASH); Z99.81 Dependence on supplemental oxygen
CPT/HCPCS: 36600; 82803

== ENCOUNTER 2022-06-30 17:01 | Emergency (ER) | payer MEDICARE, SELFPAY ==
[2022-06-30 17:02] VITALS: BP 124/76; PULSE 86; RESP 16; TEMP 37; O2SAT 97; BMI 26.9
--- NOTE | 2022-06-30 17:35 | RAD_ITS ---
INDICATION: INJURY EXAMINATION/TECHNIQUE: X-RAY - XR Ribs 4 Views W/ PA Chest Bilateral COMPARISON: 10/30/2021. FINDINGS: LINES/DEVICES: None. LUNGS: No consolidation, edema or effusion. No pneumothorax. MEDIASTINUM AND CARDIOVASCULAR STRUCTURES: Cardiac silhouette not enlarged. Central airways and mediastinal contour are unremarkable. RIBS AND OSSEOUS STRUCTURES: Unremarkable. No evidence of displaced rib fractures. RAD/Ribs Semaj Min 4V w/PA Chest IMPRESSION: Negative chest and ribs series. Electronically Signed: Laura Dooley MD at 17:58 EST Reading Location ID and State: [id number] / Tel , Service support ,
--- NOTE | 2022-06-30 18:25 | EDS_ITS ---
HPI History of Present Illness Chief Complaint: Fall Narrative Narrative: 72-year-old female presenting with left rib pain. She states she had a mechanical fall on Wednesday. She states he got up out of bed and was trying to go to the restroom when she fell landing on her left arm and her left arm went into her ribs. She is concerned she may have broken a rib. She has not taken any ibuprofen or Tylenol. She does not have shortness of breath. She is not coughing. She has been ambulatory since that time and reports stable gait. She has not had head injury or LOC. [facility] Medical History Asthma Cirrhosis CPAP (continuous positive airway pressure) dependence Diabetes GERD (gastroesophageal reflux disease) GI bleed High cholesterol HTN (hypertension) Non-alcoholic cirrhosis Rheumatoid arthritis Sleep apnea Home Medications metformin 500 mg tablet 1,000 mg PO BID 11/07/18 [History Last Taken 10/10/21] cholecalciferol (vitamin D3) 25 mcg (1,000 unit) tablet (Vitamin D3) 1,000 unit PO DAILY 11/14/18 [History Last Taken 10/10/21] cyanocobalamin (vitamin B-12) 500 mcg tablet 500 mcg PO DAILY 11/14/18 [History Last Taken 10/10/21] spironolactone 100 mg tablet 100 mg PO DAILY 12/07/18 [History Last Taken 10/10/21] pantoprazole 40 mg tablet,delayed release 40 mg PO BID 05/18/19 [History Last Taken 10/10/21] nadolol 20 mg tablet 20 mg PO DAILY blood pressure/heart rate 10/11/21 [History Last Taken Unknown] ferrous sulfate 325 mg (65 mg iron) tablet 325 mg PO DAILY 10/30/21 [History Las t Taken Unknown] furosemide 40 mg tablet 40 mg PO BID 10/30/21 [History Last Taken Unknown] lactulose 10 gram/15 mL oral solution 15 ml PO DAILY 10/30/21 [History Last Taken Unknown] magnesium oxide 140 mg capsule 140 mg PO DAILY 10/30/21 [History Last Taken Unknown] magnesium sulfate 100 mg capsule 1,000 mg PO DAILY 10/30/21 [History Last Taken Unknown] potassium chloride 10 mEq tablet,extended release(part/cryst) 10 meq PO BID 02/23/22 [History Last Taken Unknown] Allergy/AdvReac Type Severity Reaction Status Date / Time estrogens, conjugated Allergy Mild SWELLING, Verified 06/30/22 17:02 [From Premarin] ITCHING, RASH hydrochlorothiazide Allergy Mild RASH, Verified 06/30/22 17:02 ITCHING Penicillins Allergy Mild Hives Verified 06/30/22 17:02 Sulfa (Sulfonamide Allergy Mild SWELLING, Verified 06/30/22 17:02 Antibiotics) ITCHING, RASH Family History Mother Breast cancer Hypertension CAD (coronary artery disease) Father CAD (coronary artery disease) Cancer Surgical History History of cholecystectomy S/P carpal tunnel release S/P cholecystectomy S/P hysterectomy S/P parathyroidectomy S/P renal artery angioplasty Status post right knee replacement Social History Smoking Status: Never smoker alcohol intake: never ROS ROS ED Constitutional Constitutional ED: Denies chills or fever(s) Eyes Eyes: Denies change in vision ENT ENT ED: Denies rhinorrhea Cardiovascular Cardiovascular: Reports other Details: Left rib pain ; Denies chest pain or palpitations Respiratory/Chest Respiratory/Chest: Denies cough or dyspnea Gastrointestinal Gastrointestinal: Denies abdominal pain Genitourinary Genitourinary ED: Denies dysuria or hematuria Musculoskeletal Musculoskeletal: Denies arthralgias or back pain Integumentary Denies abscess Neurologic Neurologic: Denies headache(s) or paresthesias EXAM Physical Exam Const Vital Signs: 06/30/22 17:02 Temperature 98.6 F Temperature Source Temporal Pulse Rate 86 Respiratory Rate 16 Blood Pressure 124/76 H Blood Pressure Mean 92 Pulse Ox 97 Oxygen Delivery Method Room Air Positive well nourished General Appearance ED: NAD HEENT atraumatic Eyes PERRL and EOMs intact bilaterally Chest Wall Chest Narrative: Tenderness to palpation of the left ribs in the midaxillary line. No crepitance, deformity. Equal symmetric breath sounds and chest wall rise. Resp normal respiratory effort and clear to auscultation bilaterally Auscultation: Negative for rales, rhonchi or wheezes Cardio regular rhythm Rate: regular rate GI normal to inspection, nondistended, normoactive bowel sounds Extremity normal to inspection Neuro oriented x3 and CN's II-XII intact bilaterally Sensorium / Orientation: alert Motor Exam: strength 5/5 throughout Psych mental status grossly normal and thought process normal Skin no rashes or lesions noted and no wounds MDM MDM MDM Narrative Medical decision making narrative: Patient seen and evaluated for left rib pain after mechanical fall on Wednesday. She is not needed to take anything for pain. She states the pain is worse when she tries to hold her cell from a sitting position with her left arm. She also states it hurts when she takes a really deep breath. This all started after her fall. No head injury or LOC. She feels otherwise well. He has not had another fall. She and her significant other states that she has been steadily walking without difficulty since then. Patient was given a Lidoderm patch. Her left rib series was obtained and on my interpretation there is no acute fracture of the ribs. No acute cardiopulmonary process. Radiology interpreted this and agrees. Patient will be discharged home with lidocaine patches. She states she has an incentive spirometer at home and she is encouraged to use this. Return precautions discussed. Impression: 1. Mechanical fall 2. Left rib contusion Lab Data Attestation: I reviewed the patient's lab results. Radiography Diagnostic Testing: Clinical Impression(s) from Imaging Studies Ribs w/Chest X-Ray 06/30/22 17:35 IMPRESSION: Negative chest and ribs series. Electronically Signed: Laura Dooley MD at 17:58 EST Reading Location ID and State: [id number] / Tel , Service support , Discharge Plan Triage Chief Complaint: Fall ED Provider: Jean Carlos Smith Dx/Rx/DC Orders Prescriptions: No Action metformin 500 mg tablet 1,000 mg PO BID potassium chloride 10 mEq tablet,ER particles/crystals 10 meq PO BID cyanocobalamin (vitamin B-12) 500 MCG tablet 500 mcg PO DAILY cholecalciferol (vitamin D3) [Vitamin D3] 1,000 UNIT tablet 1,000 unit PO DAILY spironolactone 100 MG tablet 100 mg PO DAILY pantoprazole 40 MG tablet 40 mg PO BID nadolol 20 mg tablet 20 mg PO DAILY Label Comments: TAKE 1 TABLET BY MOUTH ONCE DAILY furosemide 40 mg Tablet 40 mg PO BID magnesium oxide 140 mg Capsule 140 mg PO DAILY lactulose 10 gram/15 mL Solution 15 ml PO DAILY ferrous sulfate 325 mg (65 mg iron) Tablet 325 mg PO DAILY magnesium sulfate 100 mg Capsule 1,000 mg PO DAILY Primary Care Provider: Shana Mckeon Referrals: Shana Mckeon DO [Primary Care Provider] -
[2022-06-30 19:02] VITALS: BP 142/82; PULSE 87; RESP 15; O2SAT 98
--- NOTE | 2022-06-30 19:07 | ED.RN ---
LIDOCAINE PATCH GIVEN PRIOR TO D/C. AKanu PICHARDO RN [phone]
== END 2022-06-30 19:08 | disposition home or self-care (01) ==
LOC: ED 18:52
PROVIDERS: Emergency Provider Student in an Organized Health Care Education/Training Program; PCP Family Medicine; Visit Provider Student in an Organized Health Care Education/Training Program
DX: S20.212A Contusion of left front wall of thorax, initial encounter (principal); E11.9 Type 2 diabetes mellitus without complications; E78.00 Pure hypercholesterolemia, unspecified; I10 Essential (primary) hypertension; W06.XXXA Fall from bed, initial encounter
CPT/HCPCS: 71111; 99283

== ENCOUNTER 2022-07-21 12:53 | Outpatient (RCR) | payer MEDICARE, SELFPAY ==
[2022-07-21 13:42] LABS: Absolute Lymphocyte Count 1.88 X10^3/uL (0.83-4.51); Absolute Neutrophil Count 1.9 X10^3/uL (2.0-7.7); Basophil# 0.11 X10^3/uL; Basophil% 2.1 % (0-1); Eosinophil# 0.35 X10^3/uL; Eosinophils% 6.7 % (0-5); Hematocrit 42.4 % (37-47); Hemoglobin 14.7 g/dL (12.0-15.0); Lymphocyte # 1.88 X10^3/ul (0.83-4.51); Lymphocyte % 35.8 % (19-41); Mean Corp Hgb Conc 34.7 g/dL (32-36); Mean Corpuscular Hgb 35.1 pg (27.0-32.0); Mean Corpuscular Volume 101.2 fL (81-99); Mean Platelet Vol. 10.1 fl (6.2-12.0); Monocyte# 1.01 X10^3/uL; Monocyte% 19.2 % (0-10); NRBC Flagged by Analyzer 0 % (0-5); Neutrophil # 1.89 X10^3/uL (2.7-7.7); Platelet Count 174 K/mm3 (150-450); RBC Distribution Width CV 13.4 % (11.6-14.6); RBC Distribution Width SD 49.4 fl (35.1-43.9); Red Blood Count 4.19 M/mm3 (4.2-5.4); White Blood Count 5.3 K/mm3 (4.4-11.0)
[2022-07-21 13:54] LABS: International Normalized Ratio 1.5; Partial Thromboplast Time 32.8 Seconds (24.1-36.2); Prothrombin Time (Protime)PT. 17.7 SECONDS (11.7-14.9)
[2022-07-21 14:17] LABS: ALB/GLOB Ratio 0.6 RATIO (0.9-2.4); AST(SGOT) 39 U/L (15-37); Alanine Aminotransfer ALT/SGPT 35 U/L (13-56); Albumin, Serum 2.7 g/dL (3.2-5.0); Alkaline Phosphatase 167 U/L (45-117); Anion Gap 9 (5-15); BUN 15 mg/dL (7-18); BUN/Creat Ratio 18.8 RATIO (10-20); Bilirubin, Direct 0.88 mg/dL (0.00-0.30); Calcium,Total 8.4 mg/dL (8.5-10.1); Chloride 101 mmol/L (98-107); EST Glomerular Filtration Rate 75 mL/min (>60); Est Glom Filt Rate - Afr Amer 91 mL/min (>60); Globulin 4.6 g/dL (2.2-4.2); Glucose 167 mg/dL (74-106); Potassium 3.2 mmol/L (3.5-5.1); Protein, Total 7.3 g/dL (6.4-8.2); Sodium Level 136 mmol/L (136-145)
== END 2022-07-21 14:00 | disposition home or self-care (01) ==
LOC: LAB 12:53
PROVIDERS: PCP Family Medicine; Referring Provider Family Medicine
DX: K75.81 Nonalcoholic steatohepatitis (NASH) (principal); K74.60 Unspecified cirrhosis of liver; E87.6 Hypokalemia; E83.42 Hypomagnesemia; J91.8 Pleural effusion in other conditions classified elsewhere; R79.89 Other specified abnormal findings of blood chemistry; R92.8 Other abnormal and inconclusive findings on diagnostic imaging of breast
CPT/HCPCS: 36415; 36600; 80053; 82248; 82803; 85025; 85610; 85730

== ENCOUNTER → 2022-07-21 | Outpatient (CLI) | payer MEDICARE, SELFPAY ==
[2022-07-21 13:03] LABS: Blood Gas Specimen Type ART
[2022-07-21 13:04] LABS: Base Excess -4 mmol/L (-2 to +2); Bicarbonate 19.1 mmol/L (22-26); FI02 21; PO2 66 mmHG (75-100); SITE L BRACHIAL; Total Carbon Dioxide 20 mmol/L; pCO2 25.2 mmHg (35-45); pH 7.49 (7.35-7.45)
[2022-07-21 13:05] LABS: SO2 95 % (95-99)
== END | disposition home or self-care (01) ==
PROVIDERS: PCP Family Medicine
DX: Z01.818 Encounter for other preprocedural examination (principal); K76.81 Hepatopulmonary syndrome; K74.60 Unspecified cirrhosis of liver; K75.81 Nonalcoholic steatohepatitis (NASH)
CPT/HCPCS: 36600; 82803

== ENCOUNTER 2022-08-14 11:00 | Outpatient (RCR) | payer MEDICARE, SELFPAY ==
[2022-08-07 10:56] VITALS: BP 122/62; PULSE 80; RESP 18; TEMP 36.1; BMI 37.8
--- NOTE | 2022-08-07 14:49 | HP.PCM_ITS ---
History of Present Illness Date of Service: 08/07/22 Chief Complaint: ulcers buttock History of Wound: Shanna is 72 yo woman who presents to the wound center today for evaluation and treatment of ulcers of her buttocks. She has been having problems intermittently for the last 9 months. She has been using Calmoseptine and Pinqsalve to the area and recently it has worsened with bleeding over the last 2 weeks. She has cirrhosis and controlled DM and is on the liver transplant list for her cirrhosis. She is very inactive due to poor balance and hypoxia with activity from her liver disease. Sleeping in recliner. Light drainage but bleeding intermittently. No fever or chills, increased odor or drainage. [facility] Medical History (Updated 08/07/22 @ 15:[address] Shana Mckeon DO) Asthma Cirrhosis CPAP (continuous positive airway pressure) dependence Diabetes GERD (gastroesophageal reflux disease) GI bleed High cholesterol HTN (hypertension) Non-alcoholic cirrhosis Rheumatoid arthritis Sleep apnea Home Medications metformin 500 mg tablet 1,000 mg PO BID 11/07/18 [History Last Taken 10/10/21] cholecalciferol (vitamin D3) 25 mcg (1,000 unit) tablet (Vitamin D3) 1,000 unit PO DAILY 11/14/18 [History Last Taken 10/10/21] cyanocobalamin (vitamin B-12) 500 mcg tablet 500 mcg PO DAILY 11/14/18 [History Last Taken 10/10/21] spironolactone 100 mg tablet 100 mg PO DAILY 12/07/18 [History Last Taken 10/10/21] pantoprazole 40 mg tablet,delayed release 40 mg PO BID 05/18/19 [History Last Taken 10/10/21] nadolol 20 mg tablet 20 mg PO DAILY blood pressure/heart rate 10/11/21 [History Last Taken Unknown] ferrous sulfate 325 mg (65 mg iron) tablet 325 mg PO DAILY 10/30/21 [History Last Taken Unknown] furosemide 40 mg tablet 40 mg PO BID 10/30/21 [History Last Taken Unknown] lactulose 10 gram/15 mL oral solution 15 ml PO DAILY 10/30/21 [History Last Taken Unknown] magnesium oxide 140 mg capsule 140 mg PO DAILY 10/30/21 [History Last Taken Unknown] magnesium sulfate 100 mg capsule 1,000 mg PO DAILY 10/30/21 [History Last Taken Unknown] potassium chloride 10 mEq tablet,extended release(part/cryst) 10 meq PO BID 02/23/22 [History Last Taken Unknown] lidocaine 5 % topical patch (Lidoderm) 1 patch topical DAILY PRN pain #15 ea 06/30/22 [Rx Last Taken Unknown] Allergy/AdvReac Type Severity Reaction Status Date / Time estrogens, conjugated Allergy Mild SWELLING, Verified 06/30/22 17:02 [From Premarin] ITCHING, RASH hydrochlorothiazide Allergy Mild RASH, Verified 06/30/22 17:02 ITCHING Penicillins Allergy Mild Hives Verified 06/30/22 17:02 Sulfa (Sulfonamide Allergy Mild SWELLING, Verified 06/30/22 17:02 Antibiotics) ITCHING, RASH Family History Mother Breast cancer Hypertension CAD (coronary artery disease) Father CAD (coronary artery disease) Cancer Surgical History History of cholecystectomy S/P carpal tunnel release S/P cholecystectomy S/P hysterectomy S/P parathyroidectomy S/P renal artery angioplasty Status post right knee replacement Social History Smoking Status: Never smoker alcohol intake: never Vital Signs Vital Signs Vital Signs: 08/07/22 10:56 Temperature 97 F L Temperature Source Temporal Pulse Rate 80 Respiratory Rate 18 Blood Pressure 122/62 H Blood Pressure Mean 82 Blood Pressure Source Monitor Blood Pressure Position Sitting Blood Pressure Location Left Arm Weight Weight: 97 kg Body Mass Index (BMI) 37.8 Physical Exam Const alert, oriented x3 and no apparent distress General Appearance: cooperative and comfortable HEENT normocephalic and head/scalp atraumatic Resp normal respiratory effort Effort and Inspection: able to speak in complete sentences Cardio regular rate and regular rhythm Skin Wounds: wounds noted Wound Narrative: as in clinical panel Psych mental status grossly normal, thought process normal, cooperative and affect normal Debridement Note Debridement Note Wound debrided: right buttock Laterality: Right Wound Grade/Stage: Stage 2 Type of Debridement: Excisional debridement Anesthesia Used: 4% Lidocaine Solution and 5% Lidocaine Gel Depth: Down to and including healthy tissue and in the subcutaneous layer Percentage of wound debrided: 100 Instrument Used: 3mm curette Tissue Removed: yellow slough, devitalized Severity: Fat Layer Exposed Amount of bleeding with debridement: Mild Bleeding Controlled with: Compression and gauze Patient tolerated procedure: Patient tolerated procedure well Post-Debridement Measurements and Additional Note: Post-Debridement Measurements/Treatment WC - Nurse 1 - General Ulcer Assessment Start: 08/07/22 10:56 Freq: Status: Active Protocol: GARCIA Activity Type Activity Date Activity User E-sign Co-sign Detail Recorded Client Recorded Date Recorded By Document 08/07/22 10:56 SHAN [id number] 08/07/22 11:07 SHAN 08/07/22 10:56 WC - Today's Visit Information Type of service Initial Visit Arrival Mode Ambulatory,Cane Transfer Assistance None Patient Identification Verified (Name & Yes ) Patient Requires Transmission-Based No Precautions Height and Weight Height 5 ft 3 in Weight 97 kg Weight in Pounds 213.8 lbs Body Mass Index (BMI) 37.8 BMI Classification Obese BSA - Pierce 1.99 Vital Signs Temperature (97.8 F-99.1 F) 97 F L Temperature Source Temporal Pulse Rate (60-100) 80 Pulse Location Monitor Respiratory Rate (12-18) 18 Respiratory rate source Observation Blood Pressure (90/60-120/80) 122/62 H Blood Pressure Mean 82 Source Monitor Position Sitting Blood Pressure Location Left Arm History Since Last Visit- (Skip if this is Patient's initial visit) Have you changed medications since your No last visit? Any new allergies or adverse reactions No Had a fall/change in ADL's that may No increase risk of falls Signs or symptoms of abuse and/or No neglect since last visit Have you been in the hospital since your No last visit? Has dressing in place as prescribed Yes Has compression in place as prescribed No Has offloadiing in place as prescribed No Experienced any changes in pain level or No management Pain Scale: 0-10 Numeric Is Patient Pain Free? Yes coccyx -Description Aching -Intensity 8 -Duration (hours) Acute -Pain Behavior Withdrawal from Touch -Pain Aggravating Factors ADL's -Alleviating Factors/Interventions Medication,None -Effectiveness of Alleviating Factor/ Minimally Intervention effective WC - Nurse 1 - General Ulcer Measurement Start: 08/07/22 10:56 Freq: Status: Active Protocol: Activity Type Activity Date Activity User E-sign Co-sign Detail Recorded Client Recorded Date Recorded By Document 08/07/22 10:56 RB [id number] 08/07/22 11:07 RB 08/07/22 10:56 Wound Center Nurse 1 1. R buttock -Combined with other wound No -Current Size (cm) - Length 0.1 -Current Size (cm) - Width 0.1 -Current Size (cm) - Depth 0.1 -Total Square Cm 0.01 -Photo Taken Yes -Tunneling No -Undermining/Tunneling No -Circular Undermining No -Exudate Amt Medium -Exudate Type Serosanguineous -Wound Margin Distinct, Outline Attached -Granulation Amt Medium (34-66%) -Granulation Quality Kings -Slough/Fibrin Yes -Necrosis Amt Small (1-33%) -Necrotic Tissue Type Adherent Slough -Structure Exposed N/A -Texture (Dolly-wound Skin Appearance) Scarring -Moisture (Dolly-wound Skin Appearance) Assessed -Color (Dolly-wound Skin Appearance) Assessed -Temperature (Dolly-wound Skin No Abnormality Appearance) (Pt Warm) -Tenderness on Palpation (Dolly-wound No Skin Appearance) -Ulcer Cleansing Wound Cleanser -Foul Odor after Cleansing No -Anesthetic Used 5% Lidocaine Gel WC - Nurse 2 - General Ulcer CM Notes Start: 08/07/22 10:56 Freq: Status: Active Protocol: Activity Type Activity Date Activity User E-sign Co-sign Detail Recorded Client Recorded Date Recorded By Document 08/07/22 11:31 MW [id number] 08/07/22 11:48 MW 08/07/22 11:31 Wound Center Nurse 2 #2 left buttock -Time 11:36 -Correct Patient Yes -Correct Side, Site, Position Yes -Correct Procedure Yes -Procedure Performed Yes -Type of Procedure Debridement -Clinical Debridement Subcutaneous -Tissue Removed Subcutaneous -Post Debridement (cm) - Length 0.2 -Post Debridement (cm) - Width 0.2 -Post Debridement (cm) - Depth 0.1 -Total Square (Post) (cm) 0.04 -Area of Debridement (cm) - Length 0.2 -Area of Debridement (cm) - Width 0.2 -Total Square (Area) (cm) 0.04 -Tunneling No -Undermining/Tunneling No -Circular Undermining No -Wound/Ulcer Outcome Not Healed -Ulcer Cleansing Rinsed/ Irrigated with Saline -Foul Odor after Cleansing No -Bioengineered Tissue No -Bleeding Controlled with Pressure -Treatment Response Procedure Tolerated Well -Offloading No -Debridement - Subq, 1st 20sq cm No 1. R buttock -Time 11:32 -Correct Patient Yes -Correct Side, Site, Position Yes -Correct Procedure Yes -Procedure Performed Yes -Type of Procedure Debridement -Clinical Debridement Subcutaneous -Tissue Removed Subcutaneous -Post Debridement (cm) - Length 0.4 -Post Debridement (cm) - Width 0.4 -Post Debridement (cm) - Depth 0.1 -Total Square (Post) (cm) 0.16 -Area of Debridement (cm) - Length 0.4 -Area of Debridement (cm) - Width 0.4 -Total Square (Area) (cm) 0.16 -Tunneling No -Undermining/Tunneling No -Circular Undermining No -Wound/Ulcer Outcome Not Healed -Ulcer Cleansing Rinsed/ Irrigated with Saline -Foul Odor after Cleansing No -Bioengineered Tissue No -Bleeding Controlled with Pressure -Treatment Response Procedure Tolerated Well -Offloading No -Debridement - Subq, 1st 20sq cm Yes Pain Scale: 0-10 Numeric Is Patient Pain Free? Yes - Nurse 3 - General Ulcer D/C NN Start: 08/07/22 10:56 Freq: Status: Active Protocol: Activity Type Activity Date Activity User E-sign Co-sign Detail Recorded Client Recorded Date Recorded By Document 08/07/22 12:07 DL [id number] 08/07/22 12:09 DL 08/07/22 12:07 Wound Care Center Nurse 3 #2 left buttock -Ulcer Cleansing Rinsed/ Irrigated with Saline -Foul Odor after Cleansing No -Primary Dressing Applied C Hydrogel ($), NonAdherent Contact Layer, Mepilex Border -Mepilex Border 1 1. R buttock -Ulcer Cleansing Rinsed/ Irrigated with Saline -Foul Odor after Cleansing No -Primary Dressing Applied NonAdherent Contact Layer, Mepilex Border -Other Dressing hydrogel -Mepilex Border 1 Treatment Response Procedure Tolerated Well Pain Scale: 0-10 Numeric Is Patient Pain Free? Yes - Visit Discharge Discharge Condition Stable Ambulatory Status Ambulatory,Cane Transportation Additional Wound Wound debrided: left buttock Laterality: Left Wound Grade/Stage: Stage 2 Type of Debridement: Excisional debridement Anesthesia Used: 4% Lidocaine Solution Depth: Down to and including healthy tissue and in the subcutaneous layer Percentage of wound debrided: 100 Instrument Used: 3mm curette Tissue Removed: yellow slough, devitalized Severity: Fat Layer Exposed Amount of bleeding with debridement: Mild Bleeding Controlled with: Compression and gauze Patient tolerated procedure: Patient tolerated procedure well Lab / Micro Data Micro: Microbiology 08/07/22 11:45 Wound Abcess - Buttock Gram Stain - Final Assessment/Plan Assessment/Plan (1) Cirrhosis: CODE(S): K74.60 - Unspecified cirrhosis of liver (2) Pressure ulcer of left buttock, stage 2: CODE(S): L89.322 - Pressure ulcer of left buttock, stage 2 (3) Decubitus ulcer of right buttock, stage 2: CODE(S): L89.312 - Pressure ulcer of right buttock, stage 2 PLAN: Plan Debridement performed today in clinic as annotated above. At home wound-care instructions: Will apply hydrogel and adaptic and cover with silicone foam bordered dressing changed daily. Keep dressing clean and dry. Off-loading: The patient was instructed to avoid pressure and friction on the affected areas. Reposition every 2 hours at minimum. Avoid prolonged standing and/or dangling of legs. When seated, feet should be elevated at chest level. Frequent ambulation is encouraged. Diet: Patient encouraged to increase protein intake while taking caution to avoid high carbohydrate and/or sugar intake. Labs/cultures/imaging:culture taken today. Follow-up: Return in 1 week for wound care follow up. Return sooner or report to the emergency room should symptoms worsen, or new symptoms arise. Note: [employer] speech recognition block handler software was used to create portions of this document. Sound-alike and misspelled words, as well as other block handler errors may be contained in the documentation.
[2022-08-14 11:05] VITALS: BP 101/48; PULSE 76; RESP 18; TEMP 36.1; BMI 37.8
[2022-08-14 12:19] LABS: Absolute Lymphocyte Count 1.61 X10^3/uL (0.83-4.51); Absolute Neutrophil Count 2.3 X10^3/uL (2.0-7.7); Basophil% 1.9 % (0-1); Eosinophil# 0.29 X10^3/uL; Eosinophils% 5.6 % (0-5); Hematocrit 42.6 % (37-47); Hemoglobin 15.2 g/dL (12.0-15.0); Lymphocyte # 1.61 X10^3/ul (0.83-4.51); Lymphocyte % 31.1 % (19-41); Mean Corp Hgb Conc 35.7 g/dL (32-36); Mean Corpuscular Hgb 35.6 pg (27.0-32.0); Mean Corpuscular Volume 99.8 fL (81-99); Mean Platelet Vol. 10.1 fl (6.2-12.0); Monocyte# 0.84 X10^3/uL; Monocyte% 16.2 % (0-10); NRBC Flagged by Analyzer 0 % (0-5); Neutrophil # 2.32 X10^3/uL (2.7-7.7); Neutrophil % 44.8 % (47-70); Platelet Count 169 K/mm3 (150-450); RBC Distribution Width CV 13.3 % (11.6-14.6); RBC Distribution Width SD 49.1 fl (35.1-43.9); Red Blood Count 4.27 M/mm3 (4.2-5.4); White Blood Count 5.2 K/mm3 (4.4-11.0)
[2022-08-14 13:38] LABS: ALB/GLOB Ratio 0.6 RATIO (0.9-2.4); AST(SGOT) 47 U/L (15-37); Alanine Aminotransfer ALT/SGPT 37 U/L (13-56); Albumin, Serum 2.8 g/dL (3.2-5.0); Alkaline Phosphatase 172 U/L (45-117); Anion Gap 8 (5-15); BUN 13 mg/dL (7-18); BUN/Creat Ratio 16.4 RATIO (10-20); Chloride 102 mmol/L (98-107); Creatinine, Serum 0.79 mg/dL (0.55-1.02); EST Glomerular Filtration Rate 76 mL/min (>60); Est Glom Filt Rate - Afr Amer 92 mL/min (>60); Estimated Creatinine Clearance 42.68 ml/min; Globulin 4.4 g/dL (2.2-4.2); Glucose 312 mg/dL (74-106); Potassium 3.7 mmol/L (3.5-5.1); Protein, Total 7.2 g/dL (6.4-8.2); Sodium Level 134 mmol/L (136-145)
--- NOTE | 2022-08-14 13:53 | PN.PCM_ITS ---
History of Present Illness Date of Service: 08/14/22 Chief Complaint: ulcers buttock History of Wound: Shanna is 72 yo woman who presents to the wound center today for evaluation and treatment of ulcers of her buttocks. She has been having problems intermittently for the last 9 months. She has been using Calmoseptine and Pinqsalve to the area and recently it has worsened with bleeding over the last 2 weeks. She has cirrhosis and controlled DM and is on the liver transplant list for her cirrhosis. She is very inactive due to poor balance and hypoxia with activity from her liver disease. Sleeping in recliner. Light drainage but bleeding intermittently. No fever or chills, increased odor or drainage. Subjective Subjective Shanna's wounds are healed. Objective Data Objective Data Vital Signs: Vital Signs Temp Pulse Resp BP O2 Del Method 97 F L 76 18 101/48 L Room Air 08/14/22 11:05 08/14/22 11:05 08/14/22 11:05 08/14/22 11:05 08/14/22 11:05 Oxygen Delivery Method Room Air Weight: 97 kg Body Mass Index (BMI) 37.8 Lab / Micro Data Result Diagrams: 08/14/22 11:58 08/14/22 11:58 Labs: Laboratory Results - last 24 hr 08/14/22 11:58: Ammonia 114.0 H 08/14/22 11:58: Sodium 134 L, Potassium 3.7, Chloride 102, Carbon Dioxide 24.0, Anion Gap 8, BUN 13, Creatinine 0.79, Estim Creat Clear Calc 42.68, Est GFR (MDRD) Af Amer 92, Est GFR (MDRD) Non-Af 76, BUN/Creatinine Ratio 16.4, Glucose 312 H, Calcium 9.0, Total Bilirubin 2.10 H, AST 47 H, ALT 37, Alkaline Phosphatase 172 H, Total Protein 7.2, Albumin 2.8 L, Globulin 4.4 H, Albumin/Globulin Ratio 0.6 L 08/14/22 11:58: WBC 5.2, RBC 4.27, Hgb 15.2 H, Hct 42.6, MCV 99.8 H, MCH 35.6 H, MCHC 35.7, RDW Std Deviation 49.1 H, RDW Coeff of Marlyn 13.3, Plt Count 169, MPV 10.1, Immature Gran % (Auto) 0.400, Neut % (Auto) 44.8 L, Lymph % (Auto) 31.1, [place] % (Auto) 16.2 H, Eos % (Auto) 5.6 H, Baso % (Auto) 1.9 H, Absolute Neuts (auto) 2.3, Absolute Lymphs (auto) 1.61, Nucleated RBC % 0 Micro: Microbiology 08/07/22 11:45 Wound Abcess - Buttock Gram Stain - Final 08/07/22 11:45 Wound Abcess - Buttock Wound Culture - Final Staphylococcus epidermidis 08/07/22 11:45 Wound Abcess - Buttock Anaerobic Culture - Final No anaerobic bacteria isolated. Physical Exam Const alert, oriented x3 and no apparent distress General Appearance: cooperative and comfortable HEENT normocephalic and head/scalp atraumatic Resp normal respiratory effort Effort and Inspection: able to speak in complete sentences Cardio regular rate and regular rhythm Skin Wounds: wounds noted Wound Narrative: as in clinical panel Psych mental status grossly normal, thought process normal, cooperative and affect normal Debridement Note Debridement Note Wound debrided: right buttock Laterality: Right No debridement was completed: No debridement was completed today Post-Debridement Measurements and Additional Note: Post-Debridement Measurements/Treatment - Nurse 1 - General Ulcer Assessment Start: 08/07/22 10:56 Freq: Status: Active Protocol: GARCIA Activity Type Activity Date Activity User E-sign Co-sign Detail Recorded Client Recorded Date Recorded By Document 08/07/22 10:56 [id number] 08/07/22 11:07 RB Document 08/14/22 11:05 OK [id number] 08/14/22 11:08 OK 08/07/22 08/14/22 10:56 11:05 - Today's Visit Information Type of service Initial Visit Follow-up Visit (Physician/STOCK HANDLER FLOORPERSON ) Arrival Mode Ambulatory,Cane Ambulatory, Wheelchair Transfer Assistance None Accompanied by Patient Identification Verified (Name & Yes Yes ) Patient Requires Transmission-Based No Precautions Finger Stick Blood Sugar(mg/dl) (if 155 indicated): Blood Sugar Stated by Patient Height and Weight Height 5 ft 3 in Weight 97 kg Weight in Pounds 213.8 lbs Body Mass Index (BMI) 37.8 37.8 BMI Classification Obese Obese BSA - [place] 1.99 Vital Signs Temperature (97.8 F-99.1 F) 97 F L 97 F L Temperature Source Temporal Temporal Pulse Rate (60-100) 80 76 Pulse Location Monitor Monitor Respiratory Rate (12-18) 18 18 Respiratory rate source Observation Observation Oxygen Delivery Method Room Air Blood Pressure (90/60-120/80) 122/62 H 101/48 L Blood Pressure Mean (mm Hg) 82 65 Source Monitor Monitor Position Sitting Semi-Fowlers Blood Pressure Location Left Arm Right Arm History Since Last Visit- (Skip if this is Patient's initial visit) Have you changed medications since your No last visit? Any new allergies or adverse reactions No Had a fall/change in ADL's that may No increase risk of falls Signs or symptoms of abuse and/or No neglect since last visit Have you been in the hospital since your No No last visit? Has dressing in place as prescribed Yes Yes Has compression in place as prescribed No Yes Has offloadiing in place as prescribed No Yes Experienced any changes in pain level or No Yes management Left Footwear Regular Shoe Right Footwear Regular Shoe Pain Scale: 0-10 Numeric Is Patient Pain Free? Yes Yes coccyx -Description Aching -Intensity 8 -Duration (hours) Acute -Pain Behavior Withdrawal from Touch -Pain Aggravating Factors ADL's -Alleviating Factors/Interventions Medication,None -Effectiveness of Alleviating Factor/ Minimally Intervention effective WC - Nurse 1 - General Ulcer Measurement Start: 08/07/22 10:56 Freq: Status: Active Protocol: Activity Type Activity Date Activity User E-sign Co-sign Detail Recorded Client Recorded Date Recorded By Document 08/07/22 10:56 [id number] 08/07/22 11:07 RB Document 08/14/22 11:05 OK [id number] 08/14/22 11:08 OK 08/07/22 08/14/22 10:56 11:05 Wound Center Nurse 1 #2 left buttock -Current Size (cm) - Length 0.1 -Current Size (cm) - Width 0.1 -Current Size (cm) - Depth 0.1 -Total Square Cm 0.01 -Date of Last Picture (Recall this 08/14/22 field) -Photo Taken Yes -Exudate Amt None Present -Wound Margin Flat & Intact -Granulation Amt Large (67-100%) -Granulation Quality Pale,[place] -Slough/Fibrin No -Necrosis Amt None Present (0 %) -Moisture (Dolly-wound Skin Appearance) Assessed -Color (Dolly-wound Skin Appearance) Assessed -Temperature (Dolly-wound Skin No Abnormality Appearance) (Pt Warm) -Tenderness on Palpation (Dolly-wound No Skin Appearance) 1. R buttock -Combined with other wound No -Current Size (cm) - Length 0.1 0.1 -Current Size (cm) - Width 0.1 0.1 -Current Size (cm) - Depth 0.1 0.1 -Total Square Cm 0.01 0.01 -Date of Last Picture (Recall this 08/14/22 field) -Photo Taken Yes Yes -Epithelialization Large 67-100% -Tunneling No -Undermining/Tunneling No -Circular Undermining No -Exudate Amt Medium None Present -Exudate Type Serosanguineous -Wound Margin Distinct, Flat & Intact Outline Attached -Granulation Amt Medium (34-66%) Large (67-100%) -Granulation Quality [place] Pale,[place] -Slough/Fibrin Yes No -Necrosis Amt Small (1-33%) -Necrotic Tissue Type Adherent Slough -Structure Exposed N/A -Texture (Dolly-wound Skin Appearance) Scarring Assessed -Moisture (Dolly-wound Skin Appearance) Assessed Assessed -Color (Dolly-wound Skin Appearance) Assessed No Abnormality -Temperature (Dolly-wound Skin No Abnormality No Abnormality Appearance) (Pt Warm) (Pt Warm) -Tenderness on Palpation (Dolly-wound No No Skin Appearance) -Ulcer Cleansing Wound Cleanser Soap and Water -Foul Odor after Cleansing No -Anesthetic Used 5% Lidocaine Gel Lower Limb Edema Present NA WC - Nurse 2 - General Ulcer CM Notes Start: 08/07/22 10:56 Freq: Status: Active Protocol: Activity Type Activity Date Activity User E-sign Co-sign Detail Recorded Client Recorded Date Recorded By Document 08/07/22 11:31 MW [id number] 08/07/22 11:48 MW Document 08/14/22 11:20 MW [id number] 08/14/22 11:24 MW 08/07/22 08/14/22 11:31 11:20 Wound Center Nurse 2 #2 left buttock -Time 11:36 11:23 -Correct Patient Yes Yes -Correct Side, Site, Position Yes Yes -Correct Procedure Yes Yes -Procedure Performed Yes No -Type of Procedure Debridement -Clinical Debridement Subcutaneous -Tissue Removed Subcutaneous -Post Debridement (cm) - Length 0.2 0 -Post Debridement (cm) - Width 0.2 0 -Post Debridement (cm) - Depth 0.1 0 -Total Square (Post) (cm) 0.04 0 -Area of Debridement (cm) - Length 0.2 -Area of Debridement (cm) - Width 0.2 -Total Square (Area) (cm) 0.04 -Tunneling No -Undermining/Tunneling No -Circular Undermining No -Wound/Ulcer Outcome Not Healed Healed- Epithelialized -Ulcer Cleansing Rinsed/ Irrigated with Saline -Foul Odor after Cleansing No -Bioengineered Tissue No -Bleeding Controlled with Pressure -Treatment Response Procedure Tolerated Well -Offloading No -Debridement - Subq, 1st 20sq cm No 1. R buttock -Time 11:32 11:23 -Correct Patient Yes Yes -Correct Side, Site, Position Yes Yes -Correct Procedure Yes Yes -Procedure Performed Yes No -Type of Procedure Debridement -Clinical Debridement Subcutaneous -Tissue Removed Subcutaneous -Post Debridement (cm) - Length 0.4 0 -Post Debridement (cm) - Width 0.4 0 -Post Debridement (cm) - Depth 0.1 0 -Total Square (Post) (cm) 0.16 0 -Area of Debridement (cm) - Length 0.4 -Area of Debridement (cm) - Width 0.4 -Total Square (Area) (cm) 0.16 -Tunneling No -Undermining/Tunneling No -Circular Undermining No -Wound/Ulcer Outcome Not Healed Healed- Epithelialized -Ulcer Cleansing Rinsed/ Irrigated with Saline -Foul Odor after Cleansing No -Bioengineered Tissue No -Bleeding Controlled with Pressure -Treatment Response Procedure Tolerated Well -Offloading No -Debridement - Subq, 1st 20sq cm Yes Pain Scale: 0-10 Numeric Is Patient Pain Free? Yes Yes WC - Nurse 3 - General Ulcer D/C NN Start: 08/07/22 10:56 Freq: Status: Active Protocol: Activity Type Activity Date Activity User E-sign Co-sign Detail Recorded Client Recorded Date Recorded By Document 08/07/22 12:07 BETH [id number] 08/07/22 12:09 DL Document 08/14/22 11:26 MW [id number] 08/14/22 11:28 MW 08/07/22 08/14/22 12:07 11:26 Wound Care Center Nurse 3 #2 left buttock -Ulcer Cleansing Rinsed/ Not Cleansed Irrigated with Saline -Foul Odor after Cleansing No No -Negative Pressure Wound Therapy N/A -Primary Dressing Applied C Hydrogel ($), Mepilex Border NonAdherent Contact Layer, Mepilex Border -Mepilex Border 1 1 1. R buttock -Ulcer Cleansing Rinsed/ Not Cleansed Irrigated with Saline -Foul Odor after Cleansing No -Primary Dressing Applied NonAdherent Contact Layer, Mepilex Border -Other Dressing hydrogel mepilex -Mepilex Border 1 Treatment Response Procedure Procedure Tolerated Well Tolerated Well Pain Scale: 0-10 Numeric Is Patient Pain Free? Yes Yes Teaching: Wound Center Dressing Your Wound -Person Taught Patient,Family -Teaching Method Discussion -Response to teaching Verbalize understanding WC - Visit Discharge Discharge Condition Stable Stable Ambulatory Status Ambulatory,Cane Ambulatory Transportation Private Auto Accompanied by Medication Reconcilliation completed & No provided to patient/care provider Clinical Summary of Care Provided Yes Additional Wound Wound debrided: left buttock Laterality: Left Operative Diagnosis: No debridement completed Assessment/Plan Assessment/Plan (1) Cirrhosis: CODE(S): K74.60 - Unspecified cirrhosis of liver (2) Pressure ulcer of left buttock, stage 2: CODE(S): L89.322 - Pressure ulcer of left buttock, stage 2 (3) Decubitus ulcer of right buttock, stage 2: CODE(S): L89.312 - Pressure ulcer of right buttock, stage 2 PLAN: Plan Her ulcers are healed. At home wound-care instructions: Will cover with silicone foam bordered dressing changed daily. Keep dressing clean and dry. Off-loading: The patient was instructed to avoid pressure and friction on the affected areas. Reposition every 2 hours at minimum. Avoid prolonged standing and/or dangling of legs. When seated, feet should be elevated at chest level. Frequent ambulation is encouraged. Diet: Patient encouraged to increase protein intake while taking caution to avoid high carbohydrate and/or sugar intake. Labs/cultures/imaging:culture taken today. Follow-up: Discharge from wound care today. Return sooner or report to the emergency room should symptoms worsen, or new symptoms arise. Note: Dr [employer] speech recognition call center consultant software was used to create portions of this document. Sound-alike and misspelled words, as well as other call center consultant errors may be contained in the documentation.
== END 2022-08-14 14:27 | disposition home or self-care (01) ==
LOC: WC 11:00
PROVIDERS: PCP Family Medicine; Referring Provider Family Medicine; Visit Provider Family Medicine
DX: L89.312 Pressure ulcer of right buttock, stage 2 (principal); L89.322 Pressure ulcer of left buttock, stage 2; K74.60 Unspecified cirrhosis of liver; E11.9 Type 2 diabetes mellitus without complications; I10 Essential (primary) hypertension; R09.02 Hypoxemia; Z79.84 Long term (current) use of oral hypoglycemic drugs; K76.9 Liver disease, unspecified; E78.00 Pure hypercholesterolemia, unspecified
CPT/HCPCS: 11042; 36415; 80053; 82140; 85025; 87070; 87075; 87077; 87186; 87205; 99213; G0463

== ENCOUNTER → 2022-10-23 | Outpatient (CLI) | payer MEDICARE, SELFPAY ==
[2022-10-23 12:10] LABS: Absolute Lymphocyte Count 1.29 X10^3/uL (0.83-4.51); Absolute Neutrophil Count 2.1 X10^3/uL (2.0-7.7); Basophil# 0.11 X10^3/uL; Basophil% 2.3 % (0-1); Eosinophil# 0.42 X10^3/uL; Hematocrit 41.7 % (37-47); Hemoglobin 14.6 g/dL (12.0-15.0); Lymphocyte # 1.29 X10^3/ul (0.83-4.51); Lymphocyte % 27.5 % (19-41); Mean Corpuscular Volume 102.7 fL (81-99); Mean Platelet Vol. 10.7 fl (6.2-12.0); Monocyte# 0.81 X10^3/uL; Monocyte% 17.3 % (0-10); NRBC Flagged by Analyzer 0 % (0-5); Neutrophil # 2.05 X10^3/uL (2.7-7.7); Neutrophil % 43.7 % (47-70); Platelet Count 147 K/mm3 (150-450); RBC Distribution Width CV 13.4 % (11.6-14.6); RBC Distribution Width SD 50.9 fl (35.1-43.9); Red Blood Count 4.06 M/mm3 (4.2-5.4); White Blood Count 4.7 K/mm3 (4.4-11.0)
[2022-10-23 12:29] LABS: ALB/GLOB Ratio 0.6 RATIO (0.9-2.4); AST(SGOT) 49 U/L (15-37); Alanine Aminotransfer ALT/SGPT 38 U/L (13-56); Albumin, Serum 2.6 g/dL (3.2-5.0); Alkaline Phosphatase 143 U/L (45-117); Anion Gap 4 (5-15); BUN 12 mg/dL (7-18); BUN/Creat Ratio 17.9 RATIO (10-20); Bilirubin, Direct 0.94 mg/dL (0.00-0.30); Calcium,Total 8.7 mg/dL (8.5-10.1); Chloride 106 mmol/L (98-107); Cholesterol 150 mg/dL (200); Creatinine, Serum 0.67 mg/dL (0.55-1.02); EST Glomerular Filtration Rate 92 mL/min (>60); Est Glom Filt Rate - Afr Amer 112 mL/min (>60); Globulin 4.2 g/dL (2.2-4.2); Glucose 142 mg/dL (74-106); High Density Lipoprotein 69 mg/dL; Potassium 4.1 mmol/L (3.5-5.1); Protein, Total 6.8 g/dL (6.4-8.2); Sodium Level 135 mmol/L (136-145); Triglycerides 54 mg/dL; Very Low Density Lipoprotein 11 mg/dL (5-40); Vitamin D,25 Hydroxy 57.9 ng/mL
[2022-10-23 12:30] LABS: International Normalized Ratio 1.5; Prothrombin Time (Protime)PT. 17.5 SECONDS (11.7-14.9)
[2022-10-23 12:31] LABS: Partial Thromboplast Time 33.7 Seconds (24.1-36.2)
== END | disposition home or self-care (01) ==
LOC: MTLAB 09:20
PROVIDERS: PCP Family Medicine; Referring Provider Family Medicine; Visit Provider Family Medicine
DX: E55.9 Vitamin D deficiency, unspecified (principal); K74.60 Unspecified cirrhosis of liver; E11.9 Type 2 diabetes mellitus without complications; E78.5 Hyperlipidemia, unspecified
CPT/HCPCS: 36415; 80053; 80061; 82140; 82248; 82306; 85025; 85610; 85730

== ENCOUNTER → 2022-10-29 | Outpatient (CLI) | payer MEDICARE, SELFPAY ==
[2022-10-29 18:37] LABS: Microalbumin,Random Urine 9.8 mg/L (NO RANGE EST.); Microalbumin:Creatinine Ratio 20.3 mg/g CRE (<30 mg/g CRE)
== END | disposition home or self-care (01) ==
LOC: LABSPEC 15:52
PROVIDERS: PCP Family Medicine; Referring Provider Family Medicine; Visit Provider Family Medicine
DX: E78.5 Hyperlipidemia, unspecified (principal); K74.60 Unspecified cirrhosis of liver; E11.9 Type 2 diabetes mellitus without complications; E55.9 Vitamin D deficiency, unspecified
CPT/HCPCS: 82043; 82570

== ENCOUNTER 2022-11-18 15:30 | Outpatient (RCR) | payer MEDICARE, SELFPAY ==
--- NOTE | 2022-10-20 13:48 | HP.PTEVAL ---
Patient's Visit Information JOSE A FANG is a 72 year old F referred to Physical Therapy by NAOMIE VARGAS with a diagnosis of . Date of Evaluation: Physical Therapist: Abbe Jones DPT - Anticipated Interventions Thank you for the opportunity to evaluate your patient. For Medicare and Medicare HMO plans, please review the plan of care and approve it. It will need to be FAXED BACK to us at [phone] for Medicare purposes. For Medicare only, by signing this I certify the plan of care. Please let me know if there are questions or concerns regarding this plan of care. Physician Signature: Date:
--- NOTE | 2022-10-20 14:32 | HP.PTEVAL_ITS ---
Patient's Visit Information JOSE A FANG is a 72 year old F referred to Physical Therapy by NAOMIE VARGAS with a diagnosis of General debility. Date of Evaluation: 10/13/22 Physical Therapist: Abbe Jones DPT - Visit Plan Frequency: 2x /Week Duration: 6 Weeks Plan: Start with BLE strengthening and endurance exercises. Monitor dyspnea and SpO2 throughout. Pt. is on 3L O2 at rest. Goal is to progress to [employer] gym program. - Subjective Pt. is here today for her initial evaluation with diagnosis of general debility. Pt. arrives with use of rollator on 3L of O2. Pt. reports going upto 4L with activity. Pt. reports no major pain, but does get fatigue with activities. Pt. has fallen x5, but not in the last 2 months. Pt. reports no injuries from these falls. Pt. was scheduled to have a liver transplant, but was deemed to weak to have it done. Pt. sticks mostly to home, but does go out occasionally to grocery stores, but reports not being able to do much afterwards and had to rest for several hours due to fatigue after. Pt. is hopeful to increase her endurance and general strength in order to have her transplant and get back to all household activities without limitations. Pt. reports not being able to do much in kitchen or home due to levels of fatigue. - Objective POSTURE: pt. has general flexed posture. Pt. is able to correct in sitting. Standing uses rollator for stability. PALPATION: Pt. has no pain with palpation of BLEs. NEURO: pt. has normal sensation in BLEs. Pt. has normal DTR of BLEs without issues. Pt. is able to rise on heels and toes, but requires balance aide to complete. ROM: Pt. has normal B ankle, knee, hip ROM. Pt. has tight B HS and calves. MMT: RLE: ankle 5-/5 throughout; knee 4/5 throughout; hip: flexion 4/5, abd 4/5, ext 4+/5. LLE: 5-/5 throughout; knee 4/5 throughout; hip: flexion 4/5, abd 4/5, ext 4+/5. Core strength- poor. GAIT: Pt. ambulates with rollator with flexed posture. Pt. had difficulty walking without, requiring WAREHOUSE SHIPPING SUPERVISOR to complete. . 6WMT: Pt. ambulated 321feetin 4:21 sec with rollator. Pt. had SpO2 of 94% pre 6 MWT and ended at 87% post. Eleveated back within 2 minutes. - Balance/Special Test Scores Lower Extremity Functional Score: 19 TUG Test Time Seconds: 32 6 Minute Walk Test: 321 feet in 4:21sec with rollator - Goals Goal 1:: LTG: Pt. to be I with HEP for gym exercises for BLE strengthening and endurance. Goal Time Frame: 4-6 Weeks Goal 2:: STG: Pt. to be able to finish a 6 MWT without rest periods. Goal Time Frame: 2-4 Weeks Goal 3:: LTG: Pt. to be able to walk 800+ feet with 6 MWT allowing for adjusted norms, showing improved overall endurance. Goal Time Frame: 4-6 Weeks Goal 4:: LTG: Pt. to have increased BLE strength by 1/2 grade throughout. Goal Time Frame: 4-6 Weeks Goal 5:: LTG: Pt. to have improved TUG time to less than 20seconds with use of rollator. Goal Time Frame: 4-6 Weeks - Rehabilitation Potential Physical Therapy Diagnosis: Pt. has signs and symptoms consistent with general debility. She has some marked BLE weakness, but also overall general endurance issues. She also has an underlying breathing issues resulting in further cardiopulmonary issues. Pt. would benefit from PT to address her LE weakness as well as her decreased endurance. Rehabilitation Potential: Good - Anticipated Interventions Patient/Client Instruction: Educate patient on: Condition, Plan of Care, Risk Factors, Benefits of Fitness Program For the Purpose of:: To improve decision making, To facilitate caregiver knowledge, To improve self management, To prevent re-injury, To improve ability to perform tasks related to life management Therapeutic Exercise to Include: Strength training, Power training, Endurance t raining, Balance training, Coordination, Body mechanics, Postural training Thank you for the opportunity to evaluate your patient. For Medicare and Medicare HMO plans, please review the plan of care and approve it. It will need to be FAXED BACK to us at [phone] for Medicare purposes. For Medicare only, by signing this I certify the plan of care. Please let me know if there are questions or concerns regarding this plan of care. Physician Signature: Date:
--- NOTE | 2022-10-21 13:34 | HP.OTEVAL ---
Patient's Visit Information JOSE A FANG is a 72 year old F, referred to Occupational Therapy by NAOMIE VARGAS, with a diagnosis of debility. Date of Evaluation: 10/20/22 Occupational Therapist: Mayte Bowers, SERINA/Geovanna, CHT - Subjective This 72 year old female was seen for OT eval with dx of debility ( BYRD Cirrhosis, respiratory failure on O2 with exertion. - pt states about 6 months ago she qualified for a liver transplant but now is on hold due to her debility. Pt states she has fallen 5x and luckily has not broken anything. pt is here to get stronger so she can have her liver transplant done. - ADLs Comments: Lives with spouse in split level home with 3 entry with railing- 6 steps bathroom /bedroom. pt states she sleeps in her recliner and has for years due to back problems. Pt on 3 liters of O2 at night and 3 liters with exertion. pt has walk in shower has shower chair. grab bars. long handle shower head. pt states she can bath and dress herself at [place] level- will need help with socks-. pt states spouse does cooking and cleaning. pt states she does laundry folding of laundry. pt states she struggles with walking and will walk with ww or rollator and has O2. . - ROM ROM Comments: pt demo full ROM of BUE. pt demo full composite fist - Strength Shoulder: right/left 4-/5 Elbow: right/left 4-/5 Crisis Nurse: right 40# left 35# Lateral Pinch: right 10# left 10# Tripod Pinch: right 8# left 10# Strength Comments: pt demo generalized weakness bilateral - Sensation Sensation Comments: denies - Quick DASH-Disab of Arm,Shoulder& Hand Quick DASH Score: 47.7250 - Goals Goal:: Pt will demo increase in functional strength of BLE to lift/carry 10# to increase pt ind. with kitchen/grocery and IADL tasks. pt will demo a increase in bilateral billing customer service representative strength by 10# to increase pts ind.,with ALD and IADLs by d/c, Goal:: pt will report decrease time (less than 45 min) to complete bath/dress by d/c. Goal:: pt will demo understanding of energy conservation freeman. by end of 3rd session. Pt will demo understanding of using ad. eq. by end of 3rd session. - Rehabilitation General Assessment: pt demo with BUE weakness limiting pts safe functional mobility and increase assistance with her ADLs. pt would benefit form skilled OT services 2x week for 4 weeks to increase pts strength to return to a PLOF. Today therapist ed. pt on energy conservation and using her ad. eq. pt and pts spouse demo understanding and agree to POC. Rehabilitation Potential: Good - Anticipated Interventions Strengthening, Education re assistive Equipment, Education re Diagnosis, Caregiver Training, Home Program - Visit Plan Frequency: 2-3x /Week Duration: 2 Months TEXT: Thank you for the opportunity to evaluate your patient. For Medicare and Medicare HMO plans, please review the plan of care and approve it. It will need to be FAXED BACK to us at [phone] for Medicare purposes. Please let me know if there are questions or concerns regarding this plan of care. Physician Signature: Date:
--- NOTE | 2022-12-01 13:16 | HP.PTREVAL ---
NAOMIE VARGAS, It has been my pleasure to treat JOSE A FANG over the last 5 visits for General debility. Please see the progress note below for an update on the physical therapy plan of care! Subjective: Pt. reports overall doing well. She arrives today using her rollator and on 3L of O2 pulsed. Pt. reports feeling a little bit more steady, with reports of no recent falls. Pt. reports doing well with PT, but still gets tired frequently. Objective/Function: Pt. was able to ambulate for 6 minutes, she walked 475feet. Pt. ambulated with rollator. SpO2 did drop to 89% with walking. elevated to 93% with rest. LE strength- 4/5 throughout without increase in symptoms. No pain noted. She does fatigue rapidly still. TUsec with use of rollator. She still requires rollator for stability. She is safe with use of rollator. She continues to be challenged with her dyspnea and fatigue. I want her to work on walking progression and BLE strengthening in gym. Pt. consents. Plan Plan: Pt. desires to trial exercises I at gym now. Pt. to work on progressing on walking and strengthening in gym setting. Pt. consents. Balance/Gait/Functional tests - Balance/Special Test Scores Lower Extremity Functional Score: 19 TUG Test Time Seconds: 32 Tug Test: >30sec.=impaired mobility 6 Minute Walk Test: 321 feet in 4:21sec with rollator Goals Goal 1:: LTG: Pt. to be I with HEP for gym exercises for BLE strengthening and endurance. Goal Time Frame: 4-6 Weeks Goal 2:: STG: Pt. to be able to finish a 6 MWT without rest periods. Goal Time Frame: 2-4 Weeks Goal 3:: LTG: Pt. to be able to walk 800+ feet with 6 MWT allowing for adjusted norms, showing improved overall endurance. Goal Time Frame: 4-6 Weeks Goal Progress: Progressing Goal 4:: LTG: Pt. to have increased BLE strength by 1/2 grade throughout. Goal Time Frame: 4-6 Weeks Goal Progress: Progressing Goal 5:: LTG: Pt. to have improved TUG time to less than 20seconds with use of rollator. Goal Time Frame: 4-6 Weeks Goal Progress: Progressing Anticipated Interventions Patient/Client Instruction: Educate patient on: Condition, Plan of Care, Risk Factors, Benefits of Fitness Program For the Purpose of:: To improve decision making, To facilitate caregiver knowledge, To improve self management, To prevent re-injury, To improve ability to perform tasks related to life management Therapeutic Exercise to Include: Strength training, Power training, Endurance training, Balance training, Coordination, Body mechanics, Postural training Please do not hesitate to contact me at [phone] by phone or if you have questions or concerns regarding this new plan of care! Sincerely, ANNE ChurchT
--- NOTE | 2022-12-02 07:39 | HP.OTDCSUM_ITS ---
It has been my pleasure to treat JOSE A FANG under orders from NAOMIE VARGAS, for the diagnosis of debility for a total of 5 visit(s). Please see the following information for a summary of their discharge status. Objective/Function: Fountain Dispenser: right 43# left 35#. Lateral Pinch: right 11# left 12#. Tripod Pinch: right 10# left 8#. pt denies needs for ad. eq. Patient Goals: Regain Strength, Be More Independent in ADLS Goal:: Pt will demo increase in functional strength of BLE to lift/carry 10# to increase pt ind. with kitchen/grocery and IADL tasks. pt will demo a increase in bilateral bi architect strength by 10# to increase pts ind.,with ALD and IADLs by d/c, Goal:: pt will report decrease time (less than 45 min) to complete bath/dress by d/c. goal met Goal:: pt will demo understanding of energy conservation freeman. by end of 3rd session. Pt will demo understanding of using ad. eq. by end of 3rd session. Plan: D/C pt states she feels she has more endurance- states she can fold laundry.pt states she is not cooking- is doing for her. pt states she is LAWRENCE with dressing and bathing but reports this task is exhausting- pt does have grab bars and shower chair she will use. Discharge Comments: pt states she feels she has more endurance- states she can fold laundry.pt states she is not cooking- is doing for her. pt states she is LAWRENCE with dressing and bathing but reports this task is exhausting- pt does have grab bars and shower chair she will use. If there are questions or concerns regarding this patient's occupational therapy, please fell free to call me at [phone]. Thank you for the referral of this patient. Sincerely, Mayte Bowers, OTR/L, CHT
--- NOTE | 2022-12-02 07:41 | HP.OTDCSUM_ITS ---
It has been my pleasure to treat JOSE A FANG under orders from NAOMIE VARGAS, for the diagnosis of debility for a total of 5 visit(s). Please see the following information for a summary of their discharge status. % Improvement: 70 Objective/Function: Cook Specialty: right 43# left 35#. Lateral Pinch: right 11# left 12#. Tripod Pinch: right 10# left 8#. pt denies needs for ad. eq. Patient Goals: Regain Strength, Be More Independent in ADLS Goal:: Pt will demo increase in functional strength of BLE to lift/carry 10# to increase pt ind. with kitchen/grocery and IADL tasks. pt will demo a increase in bilateral support merchandiser strength by 10# to increase pts ind.,with ALD and IADLs by d/c, Goal:: pt will report decrease time (less than 45 min) to complete bath/dress by d/c. goal met Goal:: pt will demo understanding of energy conservation freeman. by end of 3rd session. Pt will demo understanding of using ad. eq. by end of 3rd session. Plan: D/C pt states she feels she has more endurance- states she can fold laund ry.pt states she is not cooking- is doing for her. pt states she is LAWRENCE with dressing and bathing but reports this task is exhausting- pt does have grab bars and shower chair she will use. pt will cont. with physical therapy and silver sneakers. Discharge Comments: pt states she feels she has more endurance- states she can fold laundry.pt states she is not cooking- is doing for her. pt states she is LAWRENCE with dressing and bathing but reports this task is exhausting- pt does have grab bars and shower chair she will use. will cont. with Physical therapy and silver sneaker program. If there are questions or concerns regarding this patient's occupational therapy, please fell free to call me at [phone]. Thank you for the referral of this patient. Sincerely, Mayte Bowers, OTR/L, CHT
== END 2022-11-18 19:00 | disposition home or self-care (01) ==
LOC: OT 15:30
PROVIDERS: PCP Family Medicine
DX: R53.81 Other malaise (principal)
CPT/HCPCS: 97110; 97161; 97164; 97166; 97530

== ENCOUNTER → 2023-01-06 | Outpatient (CLI) | payer MEDICARE, SELFPAY ==
--- NOTE | 2023-01-06 10:57 | US_ITS ---
STUDY: ABDOMINAL ULTRASOUND - RIGHT UPPER QUADRANT REASON FOR VISIT: Female, 72 years old abnormal LFTs TECHNIQUE: Ultrasound evaluation of the right upper quadrant was performed with real-time and static taveras-scale imaging. TECHNICAL QUALITY: Adequate. COMPARISON: None. FINDINGS: Liver: The liver measures 13.4 cm. There is a heterogeneous echogenicity of the liver. The bile ducts are within normal limits. There is hepatic color flow. The direction of portal flow is hepatopetal. There is no demonstrated mass lesion. Gallbladder: The gallbladder is not visualized. Common Bile Duct (C.B.D.): The common bile duct measures 9.7 mm. Pancreas: Normal size of the head, body and tail of the pancreas. There is increased echogenicity of the pancreas. There is no demonstrated pancreatic mass or cyst. Right Kidney: Normal size of the right kidney. The right kidney measures 14.2 x 5.4 x 7 cm. Normal renal cortex. The right cortex measures 1.4 cm. There is no demonstrated renal mass or cyst. There is no right hydronephrosis. Recannulized umbilical vein US/Abdomen Limited IMPRESSION: Coarse heterogeneous echotexture within the liver suggests early fatty infiltration, no suspicious lesion. Nonspecific echogenic pancreas Electronically Signed: Willam Natarajan MD at 12:37 EDT ,
== END | disposition home or self-care (01) ==
PROVIDERS: PCP Family Medicine
DX: K75.81 Nonalcoholic steatohepatitis (NASH) (principal); K74.60 Unspecified cirrhosis of liver
CPT/HCPCS: 76705

== ENCOUNTER 2023-01-25 15:02 | Inpatient (IN) | payer MEDICARE, SELFPAY ==
[2023-01-25] VITALS (7 sets, daily range): BP systolic 104–135; BP diastolic 58–68; PULSE 64–76; RESP 15–20; TEMP 36.1–36.8; O2SAT 94–98; BMI 28.3; BMI 27.1
--- NOTE | 2023-01-25 15:17 | CT_ITS ---
EXAM: CT HEAD WITHOUT INTRAVENOUS CONTRAST CLINICAL INDICATION: Change in mental status, fall yesterday TECHNIQUE: Multiple axial images were obtained of the head without intravenous contrast. This CT exam was performed using one or more of the following dose reduction techniques: automated exposure control, adjustment of the mA and/or kV according to patient size, and/or use of iterative reconstruction technique. COMPARISON: No relevant prior studies available. FINDINGS: BRAIN AND EXTRA-AXIAL SPACES: No acute hemorrhage or mass effect. No acute ischemia. Areas of diminished white matter density noted within both cerebral hemispheres suggestive of chronic microvascular change. BONES/JOINTS: No suspicious lytic or blastic abnormality. SINUSES: No acute sinusitis. MASTOID AIR CELLS: Normal. Clear. ORBITS: Visualized globes, extraocular muscles, optic nerves and retrobulbar fat appear unremarkable. CT/Brain/Head without Contrast IMPRESSION: 1. No acute intracranial abnormality. 2. Mild senescent changes Electronically Signed: Blair Fernandez MD at 16:30 EDT ,
--- NOTE | 2023-01-25 15:19 | EKG12_ITS ---
Test Reason : SOB Blood Pressure : / mmHG Vent. Rate : 073 BPM Atrial Rate : 073 BPM P-R Int : 106 ms QRS Dur : 090 ms QT Int : 436 ms P-R-T Axes : 011 -10 044 degrees QTc Int : 480 ms Sinus rhythm with short MI Low voltage QRS Borderline ECG Confirmed by RAHAT LOPEZ, JOHANNY ([id number]), metropolitan editor JAZZ SMITH ([id number]) on 01/27/2023 9:32:46 AM Referred By: Coni Pride Confirmed By:JOHANNY GIANG MD
--- NOTE | 2023-01-25 15:21 | EDS_ITS ---
HPI History of Present Illness Chief Complaint: Alt LOC Detail of Chief Complaint: Altered mental status since yesterday Informant: spouse/S.O. Onset/Context/Timing Onset: Yesterday Context: Sudden Onset Timing: Continuous Quality: Confusion Location: Not applicable Current Severity: Unable to determine Maximum Severity: Unable to determine Worsened by: Unknown Relieved by: Nothing per Associated Symptoms Associated Symptoms: Bright red blood per rectum Narrative Narrative: Patient is a 72-year-old woman who was brought to the emergency department for evaluation. She was in hospice. She is on a liver transplant list. Since requested that she be brought to the emergency room hospice was revoked. Patient's responses to majority the question was yesterday. She does endorse shortness of breath. She stated she fell. He is unable to tell if she hurts anywhere. Patient arrived by ambulance. presented. He states this is not his . She does have history of hepatic encephalopathy on lactulose. Apparently she has been taking her medicine. She also has history of peptic ulcer disease, iron deficiency anemia, and has history of hypertension, type 2 diabetes Patient denied headache. She had trouble with vision. She denies trouble with speech or swallowing. She told the nurse that she has trouble finding her words. Her response to onset was yesterday. Prior similar symptoms: No Recent Illness/Hospitalization: No PFSH PFSH Medical History Asthma Cirrhosis CPAP (continuous positive airway pressure) dependence Diabetes GERD (gastroesophageal reflux disease) GI bleed High cholesterol HTN (hypertension) Non-alcoholic cirrhosis Rheumatoid arthritis Sleep apnea Home Medications metformin 500 mg tablet 1,000 mg PO BID 11/07/18 [History Last Taken 10/10/21] cholecalciferol (vitamin D3) 25 mcg (1,000 unit) tablet (Vitamin D3) 1,000 unit PO DAILY 11/14/18 [History Last Taken 10/10/21] cyanocobalamin (vitamin B-12) 500 mcg tablet 500 mcg PO DAILY 11/14/18 [History Last Taken 10/10/21] spironolactone 100 mg tablet 100 mg PO DAILY 12/07/18 [History Last Taken 10/10] pantoprazole 40 mg tablet,delayed release 40 mg PO BID 05/18/19 [History Last Taken 10/10/21] nadolol 20 mg tablet 20 mg PO DAILY blood pressure/heart rate 10/11/21 [History Last Taken Unknown] ferrous sulfate 325 mg (65 mg iron) tablet 325 mg PO DAILY 10/30/21 [History Last Taken Unknown] furosemide 40 mg tablet 40 mg PO BID 10/30/21 [History Last Taken Unknown] lactulose 10 gram/15 mL oral solution 15 ml PO DAILY 10/30/21 [History Last Taken Unknown] magnesium oxide 140 mg capsule 140 mg PO DAILY 10/30/21 [History Last Taken Unknown] magnesium sulfate 100 mg capsule 1,000 mg PO DAILY 10/30/21 [History Last Taken Unknown] potassium chloride 10 mEq tablet,extended release(part/cryst) 10 meq PO BID 02/23/22 [History Last Taken Unknown] lidocaine 5 % topical patch (Lidoderm) 1 patch topical DAILY PRN pain #15 ea 06/30/22 [Rx Last Taken Unknown] Allergy/AdvReac Type Severity Reaction Status Date / Time estrogens, conjugated Allergy Mild SWELLING, Verified 06/30/22 17:02 [From Premarin] ITCHING, RASH hydrochlorothiazide Allergy Mild RASH, Verified 06/30/22 17:02 ITCHING Penicillins Allergy Mild Hives Verified 06/30/22 17:02 Sulfa (Sulfonamide Allergy Mild SWELLING, Verified 06/30/22 17:02 Antibiotics) ITCHING, RASH Family History Mother Breast cancer Hypertension CAD (coronary artery disease) Father CAD (coronary artery disease) Cancer Surgical History History of cholecystectomy S/P carpal tunnel release S/P cholecystectomy S/P hysterectomy S/P parathyroidectomy S/P renal artery angioplasty Status post right knee replacement Social History (Updated 01/25/23 @ 15:[address] Leonel Lockhart MD) household members: spouse Smoking Status: Never smoker alcohol intake: never substance use type: does not use ROS ROS ED Review of Systems ROS Unobtainable: due to mental status Respiratory/Chest Respiratory/Chest: Reports dyspnea EXAM Physical Exam Const Vital Signs: 01/25/23 15:07 01/25/23 15:25 Temperature 97 F L Temperature Source Temporal Pulse Rate 76 Respiratory Rate 20 H Blood Pressure 135/68 H Blood Pressure Mean 90 Pulse Ox 95 Positive well developed and unkempt Constitutional Narrative: Patient appears jaundiced. She appears to have dried blood on her lower lip. General Appearance ED: unkempt, well developed, NAD and pallor; Negative for cyanotic or diaphoretic HEENT Reports dry mucous membranes HEENT Narrative: Head is atraumatic normocephalic. Ears normal. TMs normal. Nares patent with no discharge. Uvula is midline. Mouth ED: Yes dry mucous membranes Mouth: dry mucous membranes Eyes PERRL and EOMs intact bilaterally General Eye ED: Yes scleral icterus; Negative for pale conjunctiva Neck no lymphadenopathy, supple and no JVD Chest Wall inspection of chest normal and palpation of chest normal Resp normal respiratory effort and clear to auscultation bilaterally Cardio regular rate, regular rhythm, S1 normal heart sound, S2 normal heart sound and no murmurs GI normal to inspection, nondistended, normoactive bowel sounds, non-tender, non- distended and no masses; Negative for hepatosplenomegaly GI Narrative: Bruises noted abdomen multiple periumbilical. Palpation: soft and tender other (Predominantly over areas of bruising.) Back/Spine no CVA tenderness Extremity Negative for normal to inspection Extremity Narrative: Edema is pitting. General Extremety ED: Yes edema; Negative for tenderness General Extremity: edema Neuro No oriented x3, CN's II-XII intact bilaterally and no sensory deficits noted Sensorium / Orientation: orientation impaired; Negative for alert Psych Negative for mental status grossly normal Appearance: unkempt Skin No no rashes or lesions noted and No skin turgor normal General Skin Exam: jaundice and pallor; Negative for elasticity normal MDM MDM MDM Narrative Medical decision making narrative: With change in mental status history liver disease recent fall the to evaluate for intracranial bleed, stroke is a possibility but unlikely. Hepatic encephalopathy. Infectious etiology. PT/INR was obtained because of the multiple bruises and history of liver disease to determine she has a coagulopathy. Urine cath specimen was obtained. Ammonia level was obtained. CBC to assess H&H and white count. She does have bright red blood per rectum with hemorrhoids noted. Stool was brown. Suspect bleeding is due to hemorrhoids. wants her evaluated and reason hospice was revoked. History & Record Review Discussion w/independent historian: Significant other Lab Data Attestation: I reviewed the patient's lab results. Lab results narrative: White count is normal. Indices are elevated with an MCV of 103.0. Differential is unremarkable. Comprehensive metabolic panel is remarkable for a glucose of 151 with a normal CO2 and anion gap. Lactate elevated 3.5. Total bili is 2.7. AST and ALT are 50 and 43 respectively. Ammonia is elevated 114. UA is negative. Patient has oh positive blood. Labs: Laboratory Results - last 24 hr 01/25/23 01/25/23 15:35 15:45 WBC 6.4 RBC 4.28 Hgb 15.9 H Hct 44.1 MCV 103.0 H MCH 37.1 H MCHC 36.1 H RDW Std Deviation 49.8 H RDW Coeff of Marlyn 13.1 Plt Count 174 MPV 10.5 Immature Gran % (Auto) 0.300 Neut % (Auto) 47.1 Lymph % (Auto) 29.8 [place] % (Auto) 15.1 H Eos % (Auto) 5.8 H Baso % (Auto) 1.9 H Absolute Neuts (auto) 3.0 Absolute Lymphs (auto) 1.89 Nucleated RBC % 0 PT 17.0 H INR 1.4 Sodium 137 Potassium 3.8 Chloride 107 Carbon Dioxide 24.0 Anion Gap 6 BUN 12 Creatinine 0.75 Estim Creat Clear Calc 42.68 Est GFR (MDRD) Af Amer 97 Est GFR (MDRD) Non-Af 80 BUN/Creatinine Ratio 15.9 Glucose 151 H Lactic Acid 3.5 H* Calcium 9.2 Total Bilirubin 2.70 H AST 50 H ALT 43 Alkaline Phosphatase 170 H Ammonia 114.0 H Total Protein 7.5 Albumin 2.8 L Globulin 4.7 H Albumin/Globulin Ratio 0.6 L Urine Color Yellow Urine Clarity Clear Urine pH 7.0 Ur Specific [place] 1.020 Urine Protein Negative Urine Glucose (UA) Normal Urine Ketones 5 H Urine Occult Blood Negative Urine Nitrite Negative Urine Bilirubin 1 H Urine Urobilinogen 8 H Ur Leukocyte Esterase 25 H Urine RBC 0 SEEN Urine WBC 0-5 SEEN Ur Squamous Epith Cells 0 SEEN Urine Bacteria 0 SEEN Urine Mucus 0 SEEN Blood Type O POSITIVE Antibody Screen NEGATIVE Radiography Diagnostic Testing: Clinical Impression(s) from Imaging Studies Brain CT 01/25/23 15:17 IMPRESSION: 1. No acute intracranial abnormality. 2. Mild senescent changes Electronically Signed: Blair Fernandez MD at 16:30 EDT , EKG Initial EKG: Attestation: I personally reviewed and interpreted this EKG as follows: Interpretation: Sinus Rhythm (With 73. Low voltage otherwise EKG is unremarkable. Rate is 73. TN interval 206 ms per cures duration 90 ms. QT duration is 436. [place] normal.) Discharge Plan Triage Chief Complaint: Alt LOC ED Provider: Leonel Lockhart Dx/Rx/DC Orders Clinical Impression: History of type 2 diabetes mellitus, Cirrhosis, Acute hepatic encephalopathy, History of hypertension, Acidosis, lactic Prescriptions: No Action metformin 500 mg tablet 1,000 mg PO BID potassium chloride 10 mEq tablet,ER particles/crystals 10 meq PO BID cyanocobalamin (vitamin B-12) 500 MCG tablet 500 mcg PO DAILY cholecalciferol (vitamin D3) [Vitamin D3] 1,000 UNIT tablet 1,000 unit PO DAILY spironolactone 100 MG tablet 100 mg PO DAILY pantoprazole 40 MG tablet 40 mg PO BID nadolol 20 mg tablet 20 mg PO DAILY Patient Comments: TAKE 1 TABLET BY MOUTH ONCE DAILY furosemide 40 mg Tablet 40 mg PO BID magnesium oxide 140 mg Capsule 140 mg PO DAILY lactulose 10 gram/15 mL Solution 15 ml PO DAILY ferrous sulfate 325 mg (65 mg iron) Tablet 325 mg PO DAILY magnesium sulfate 100 mg Capsule 1,000 mg PO DAILY lidocaine [Lidoderm] 5 % adhesive patch,medicated 1 patch topical DAILY PRN (Reason: pain) Qty: 15 0RF Rx Instructions: leave on most painful area for up to 12 hrs Primary Care Provider: Shana Mckeon Referrals: Shana Mckeon DO [Primary Care Provider] - Disposition Disposition: Acute Care Hospital [facility]
[2023-01-25 15:54] LABS: Absolute Lymphocyte Count 1.89 X10^3/uL (0.83-4.51); Basophil# 0.12 X10^3/uL; Basophil% 1.9 % (0-1); Eosinophil# 0.37 X10^3/uL; Eosinophils% 5.8 % (0-5); Hematocrit 44.1 % (37-47); Hemoglobin 15.9 g/dL (12.0-15.0); Lymphocyte # 1.89 X10^3/ul (0.83-4.51); Lymphocyte % 29.8 % (19-41); Mean Corp Hgb Conc 36.1 g/dL (32-36); Mean Corpuscular Hgb 37.1 pg (27.0-32.0); Mean Platelet Vol. 10.5 fl (6.2-12.0); Monocyte# 0.96 X10^3/uL; Monocyte% 15.1 % (0-10); NRBC Flagged by Analyzer 0 % (0-5); Neutrophil # 2.99 X10^3/uL (2.7-7.7); Neutrophil % 47.1 % (47-70); Platelet Count 174 K/mm3 (150-450); RBC Distribution Width CV 13.1 % (11.6-14.6); RBC Distribution Width SD 49.8 fl (35.1-43.9); Red Blood Count 4.28 M/mm3 (4.2-5.4); White Blood Count 6.4 K/mm3 (4.4-11.0)
[2023-01-25 16:00] LABS: Bacteria 0 SEEN /hpf (None Seen); Mucous, Urine 0 SEEN /hpf (<or=2+); Red Blood Cells-Urine 0 SEEN /hpf (0-5); Squamous Epithelial Cells - UA 0 SEEN /hpf (5-10)
[2023-01-25 16:05] LABS: International Normalized Ratio 1.4
[2023-01-25 16:15] LABS: Color, Urine Yellow (Yellow); Glucose, Dipstick Normal (Normal); Ketone-Dipstick 5 mg/dl (Negative); Leukocyte Esterase-Dipstick 25 /ul (Negative); Nitrite-Dipstick Negative (Negative); Occult Blood-Urine Negative /ul (Negative); Protein-Dipstick Negative (Negative); Urine Clarity Clear (Clear); Urine Urobilinogen 8 mg/dl (Normal)
[2023-01-25 16:17] LABS: ALB/GLOB Ratio 0.6 RATIO (0.9-2.4); AST(SGOT) 50 U/L (15-37); Alanine Aminotransfer ALT/SGPT 43 U/L (13-56); Albumin, Serum 2.8 g/dL (3.2-5.0); Alkaline Phosphatase 170 U/L (45-117); Anion Gap 6 (5-15); BUN 12 mg/dL (7-18); BUN/Creat Ratio 15.9 RATIO (10-20); Calcium,Total 9.2 mg/dL (8.5-10.1); Chloride 107 mmol/L (98-107); Creatinine, Serum 0.75 mg/dL (0.55-1.02); EST Glomerular Filtration Rate 80 mL/min (>60); Est Glom Filt Rate - Afr Amer 97 mL/min (>60); Estimated Creatinine Clearance 42.68 ml/min; Globulin 4.7 g/dL (2.2-4.2); Glucose 151 mg/dL (74-106); Potassium 3.8 mmol/L (3.5-5.1); Protein, Total 7.5 g/dL (6.4-8.2); Sodium Level 137 mmol/L (136-145)
[2023-01-25 16:24] LABS: Urine Bilirubin Dipstick 1 mg/dL (Negative)
[2023-01-25 16:30] LABS: White Blood Cells 0-5 SEEN /hpf (0-5)
[2023-01-25 16:32] LABS: Lactic Acid 3.5 mmol/L (0.4-1.9)
--- NOTE | 2023-01-25 17:05 | HP.PCM.HOS_ITS ---
HPI - General General Date of Admission: 01/25/23 Date of Service: 01/25/23 Chief Complaint: Confusion, falls, fatigued, dyspnea. HPI Narrative The patient is a 72 y/o F w/ PMHx: Fe deficiency anemia, SALVADOR, Rheumatoid arthritis, HTN, HLD, Hx GI bleed (PUD), GERD, Diabetes mellitus type II, Asthma, Non-alcoholic Cirrhosis with ESLD reportedly prior on liver transplant waiting list on Hospice who presents to the [facility] ED on 01/25/23 with history of increasing dyspnea as well as confusion starting over the last 24 hours in addition to known hemorrhoids with spotting of bright red blood with general malaise, fatigue as well as dyspnea worse with exertion with a fall the day prior prompting to eventually bring his in for evaluation. He does report that she is actively appropriately been taking her medications including lactulose. Work-up in the ED included T97, heart rate 76, BP 135/68, respiratory rate 20, 95% on room air, CBC with WBC 6.4, hemoglobin 15.9, platelet 174 without marked shift, coags with PT 17, INR 1.4, CMP with glucose 151, lactic acid 3.5, T. bili 2.70, AST/LT 50/43, alk phos 170, ammonia level 114, u rinalysis with mildly elevated specific remedy 1.020 otherwise no acute evidence of UTI, type and screen initiated per ED physician, EKG with sinus rhythm with no acute evidence of ischemia, visualized hemorrhoids on ED physician evaluation, CT the brain with no acute intracranial abnormalities with mild senescent changes. In the ED patient ministered lactulose 20 g p.o. x1. [facility] Medical History Asthma Cirrhosis CPAP (continuous positive airway pressure) dependence Diabetes GERD (gastroesophageal reflux disease) GI bleed High cholesterol HTN (hypertension) Non-alcoholic cirrhosis Rheumatoid arthritis Sleep apnea Home Medications metformin 500 mg tablet 1,000 mg PO BID 11/07/18 [History Last Taken 10/10/21] cholecalciferol (vitamin D3) 25 mcg (1,000 unit) tablet (Vitamin D3) 1,000 unit PO DAILY 11/14/18 [History Last Taken 10/10/21] cyanocobalamin (vitamin B-12) 500 mcg tablet 500 mcg PO DAILY 11/14/18 [History Last Taken 10/10/21] spironolactone 100 mg tablet 100 mg PO DAILY 12/07/18 [History Last Taken 10/10/21] pantoprazole 40 mg tablet,delayed release 40 mg PO BID 05/18/19 [History Last Taken 10/10/21] nadolol 20 mg tablet 20 mg PO DAILY blood pressure/heart rate 10/11/21 [History Last Taken Unknown] ferrous sulfate 325 mg (65 mg iron) tablet 325 mg PO DAILY 10/30/21 [History Last Taken Unknown] furosemide 40 mg tablet 40 mg PO BID 10/30/21 [History Last Taken Unknown] lactulose 10 gram/15 mL oral solution 15 ml PO DAILY 10/30/21 [History Last Taken Unknown] magnesium oxide 140 mg capsule 140 mg PO DAILY 10/30/21 [History Last Taken Unknown] magnesium sulfate 100 mg capsule 1,000 mg PO DAILY 10/30/21 [History Last Taken Unknown] potassium chloride 10 mEq tablet,extended release(part/cryst) 10 meq PO BID [History Last Taken Unknown] lidocaine 5 % topical patch (Lidoderm) 1 patch topical DAILY PRN pain #15 ea 06/30/22 [Rx Last Taken Unknown] Allergy/AdvReac Type Severity Reaction Status Date / Time estrogens, conjugated Allergy Mild SWELLING, Verified 06/30/22 17:02 [From Premarin] ITCHING, RASH hydrochlorothiazide Allergy Mild RASH, Verified 06/30/22 17:02 ITCHING Penicillins Allergy Mild Hives Verified 06/30/22 17:02 Sulfa (Sulfonamide Allergy Mild SWELLING, Verified 06/30/22 17:02 Antibiotics) ITCHING, RASH Family History Mother Breast cancer Hypertension CAD (coronary artery disease) Father CAD (coronary artery disease) Cancer Surgical History History of cholecystectomy S/P carpal tunnel release S/P cholecystectomy S/P hysterectomy S/P parathyroidectomy S/P renal artery angioplasty Status post right knee replacement Social History household members: spouse Smoking Status: Never smoker alcohol intake: never substance use type: does not use ROS ROS Narrative Admission Review of Systems: CONSTITUTIONAL: No weight loss, fever, chills, + weakness or fatigue. HEENT: + Various teeth broken, lacking inserts. Eyes: No visual loss, blurred vision, double vision or yellow sclerae. Ears, Nose, Throat: No hearing loss, sneezing, congestion, runny nose or sore throat. SKIN: + Chronic issues with decubitous stage II ischemial/buttock ulcers, various staged ecchymoses. CARDIOVASCULAR: No chest pain, chest pressure or chest discomfort, palpitations, edema, orthopnea, syncopal events. RESPIRATORY: + Shortness of breath. No cough or sputum, wheezing, hemoptysis. GASTROINTESTINAL: + Anorexia, nausea, + hemorrhoids w/ intermittent BRBPR. No vomiting or diarrhea, abdominal pain, melena. GENITOURINARY: No dysuria, frequency, urgency or retention. NEUROLOGICAL: + Confusion. No headache, dizziness, syncope, paralysis, ataxia, numbness or tingling in the extremities, focal weakness, change in bowel or bladder control, seizure. MUSCULOSKELETAL: + muscle, back pain, joint pain or stiffness. HEMATOLOGIC: + anemia, bleeding or bruising. LYMPHATICS: No enlarged nodes. No history of splenectomy. PSYCHIATRIC: No history of depression or anxiety. ENDOCRINOLOGIC: No reports of sweating, cold or heat intolerance. No polyuria or polydipsia. ALLERGIES: + history of asthma, hives. Vital Signs Vital Signs Vital Signs: 01/25/23 15:07 01/25/23 15:25 Temperature 97 F L Temperature Source Temporal Pulse Rate 76 Respiratory Rate 20 H Blood Pressure 135/68 H Blood Pressure Mean 90 Pulse Ox 95 Weight Weight: 160 lb Body Mass Index (BMI) 28.3 Physical Exam Narrative Physical Examination: General: Awake, alert, oriented to self, place and some events, notes i mproved since initial ED arrival, following commands, cooperative, seated upright in ED bed in no apparent distress but lethargic/fatigued. Skin: Normal color, normal turgor, no icterus, no cyanosis except occasional very staged ecchymoses, mild stage II ischial/buttock breakdown/decubitous ulcer. HEENT: AT/NC, EOMI, PERRLA, dry MM, poor dentition with several teeth missing, chronic left lip mildly tucked in as result, no carotid bruits or JVD noted. Lungs: Diminished, > bases, appropriate effort, no rales, ronchi or wheezing. Heart: Regular rate and rhythm; no gallop, rub audible. Abdomen: Soft, NTTP, ND, hyperactive BS, + HM. Extremities: No cyanosis, no clubbing, BL ankle edema, not markedly pitting, chronic. Neurological: Patient awake, alert, oriented as noted, cognitive function im proving but still not baseline intact per discussion with spouse; pupils equally reactive to light and accommodation, cranial nerves grossly normal, moving all 4 extremities, no focal deficits, strength severely globally decreased secondary to acute presentation and underlying comorbidities. Psychiatric: Affect appears flat, fatigued, lethargic, no acute evidence of depressive or anxiety feelings. Results Lab / Micro Data 01/25/23 15:35 01/25/23 15:35 Labs: Laboratory Results - last 24 hr 01/25/23 15:35: WBC 6.4, RBC 4.28, Hgb 15.9 H, Hct 44.1, MCV 103.0 H, MCH 37.1 H , MCHC 36.1 H, RDW Std Deviation 49.8 H, RDW Coeff of Marlyn 13.1, Plt Count 174, MPV 10.5, Immature Gran % (Auto) 0.300, Neut % (Auto) 47.1, Lymph % (Auto) 29.8, [place] % (Auto) 15.1 H, Eos % (Auto) 5.8 H, Baso % (Auto) 1.9 H, Absolute Neuts (auto) 3.0, Absolute Lymphs (auto) 1.89, Nucleated RBC % 0, PT 17.0 H, INR 1.4, Sodium 137, Potassium 3.8, Chloride 107, Carbon Dioxide 24.0, Anion Gap 6, BUN 12, Creatinine 0.75, Estim Creat Clear Calc 42.68, Est GFR (MDRD) Af Amer 97, Est GFR (MDRD) Non-Af 80, BUN/Creatinine Ratio 15.9, Glucose 151 H, Lactic Acid 3.5 H*, Calcium 9.2, Total Bilirubin 2.70 H, AST 50 H, ALT 43, Alkaline Phosphatase 170 H, Ammonia 114.0 H, Total Protein 7.5, Albumin 2.8 L, Globulin 4.7 H, Albumin/Globulin Ratio 0.6 L, Blood Type O POSITIVE, Antibody Screen NEGATIVE 01/25/23 15:45: Urine Color Yellow, Urine Clarity Clear, Urine pH 7.0, Ur Specific [place] 1.020, Urine Protein Negative, Urine Glucose (UA) Normal, Urine Ketones 5 H, Urine Occult Blood Negative, Urine Nitrite Negative, Urine Bilirubin 1 H, Urine Urobilinogen 8 H, Ur Leukocyte Esterase 25 H, Urine RBC 0 SEEN, Urine WBC 0-5 SEEN, Ur Squamous Epith Cells 0 SEEN, Urine Bacteria 0 SEEN, Urine Mucus 0 SEEN Radiology Impression Brain CT 01/25/23 15:17 IMPRESSION: 1. No acute intracranial abnormality. 2. Mild senescent changes Electronically Signed: Blair Fernandez MD at 16:30 EDT , Assessment & Plan Assessment/Plan (1) Acute hepatic encephalopathy: PLAN: Plan The patient is a 72 y/o F w/ PMHx: Fe deficiency anemia, SALVADOR, Rheumatoid arthritis, HTN, HLD, Hx GI bleed (PUD), GERD, Diabetes mellitus type II, Asthma, Non-alcoholic Cirrhosis with ESLD reportedly prior on liver transplant waiting list on Hospice who presents to the [facility] ED on 01/25/23 with history of increasing dyspnea as well as confusion starting over the last 24 hours in addition to known hemorrhoids with spotting of bright red blood with general malaise, fatigue as well as dyspnea worse with exertion with a fall the day prior prompting to eventually bring his in for evaluation. #1. Hepatic encephalopathy with nonalcoholic cirrhotic liver disease/end-stage liver disease reportedly on transplant list previously hospice: Will admit to [facility] given stable VS, temporarily increase lactulose regimen with repeat ammonia level trending in a.m., will continue patient home nadolol, spironolactone, Lasix regimen with adjustments as needed, will trend CMP, de-escalate lactulose once active BMs with improving mental status and correcting NH level. Will need to ascertain if then preference to return to hospice program. #2. Lactic acidosis, unclear etiology: Admission lactic acid 3.5, patient does have mildly elevated specific remedy 1.020, suspect some component of being mildly dry, will judiciously hydrate especially given #1 and trend lactic acid per facility protocol #3. Rectal bleeding secondary to hemorrhoids: Visible hemorrhoids on ED evaluation, hemoglobin stable, will add as needed anusol especially given plan for aggressive lactulose regimen with possible further irritation, trend CBC. #4. Hypertension: Continue home regimen including Lasix, spironolactone, nadolol with first doses 01/26/23 given planned overnight judicious hydration with noted lactic acidosis with further hold parameters as needed, PRN hydralazine. #5. Hyperlipidemia: Not on regimen, given advanced liver disease would defer. #6. Chronic asthma: From current list not on any chronic regimen, PRN albuterol, HOB, IS parameters. #7. GERD with history of GI bleed with peptic ulcer disease: We will continue patient home PPI. #8. Chronic iron deficiency anemia: Admission hemoglobin 15.9, MCV 103, baseline hemoglobin noted primarily 14-15, stable, continue iron supplementation and CBC trending. #9. Rheumatoid arthritis: If necessary may continue topical lidocaine patches, not in chronic oral regimen per review of current list. #10. SALVADOR: Not using CPAP nightly. If desires may resume if amenable however if any persistent nausea or concerns of emesis would hold for concern of aspiration potential. #11. Diabetes mellitus type II: Noted history, hold oral home regimen, as long as oral intake safe we will continue ADA diet/mechanical/minced given dentation status, accu checks w/ ISS. #12. DVT prophylaxis: SCDs. #13. CODE status: Patient HCPOA and living will or not formally set up however her who is present she notes would be her decision-maker if necessary. As noted patient revoked hospice for presentation to the ED for evaluation. Discussed CODE status at length including difference between FULL code, DNR-CCA and DNR-CC status. Following discussions about the differences in these status, requested Full Code status. Patient had previously also reportedly been full CODE STATUS in the hospice program and honestly discussed the likelihood of a decent prognosis if a cardiopulmonary event should occur and despite these discussions does request to continue full code status. Advanced Care Planning Face to Face Time: 16 minutes. Charges/Coding Visit Charges Inpatient E&M: 87478 Init Hosp L3 Procedures Hospitalists Procedures: 51403 Advncd Care Plan 30 Min
[2023-01-25] MEDS: Lactulose 20 GM/30 ML UDC PO (17:07)
[2023-01-25 17:47] LABS: Magnesium 2.1 mg/dL (1.6-2.6); Phosphorus 1.3 mg/dL (2.5-4.9)
[2023-01-25 19:43] LABS: Reflex Lactate? Y
[2023-01-25 20:54] LABS: Lactic Acid 2.6 mmol/L (0.4-1.9)
[2023-01-25] MEDS: Nystatin Powder 15gm Bottle 1 APPLIC TOPICAL (22:00)
[2023-01-25] MEDS: Menthol/Lanolin/Calamine/Znox 113 GM Tube 1 APPLIC TOPICAL (22:06)
[2023-01-25] MEDS: Potassium Chloride Oral Tablet 10 MEQ PO (22:07)
[2023-01-25] MEDS: Pantoprazole Sodium 40 MG Tablet PO (22:07)
[2023-01-25] MEDS: Nadolol 20 MG Tablet PO (22:13)
[2023-01-25 22:20] LABS: Bedside Glucose 182 mg/dL (74-106)
[2023-01-25] MEDS: Glucerna Shake 120 ML LIQUID PO (22:23)
[2023-01-25] MEDS: Insulin Lispro 100 UNIT/ML INSULN.PEN SC (22:23)
[2023-01-25] MEDS: 0.9% Normal Saline 1,000 ML 100 ML IV (22:35)
[2023-01-26] MEDS: Lactulose 20 GM/30 ML UDC PO ×2 (00:33→06:36)
[2023-01-26 00:40] VITALS: BP 110/60; PULSE 67; RESP 16; TEMP 36.7; O2SAT 95
[2023-01-26 03:29] VITALS: BMI 27.1
[2023-01-26 06:00] VITALS: BP 108/59; PULSE 68; RESP 20; TEMP 37.2; O2SAT 95
[2023-01-26] MEDS: Insulin Lispro 100 UNIT/ML INSULN.PEN SC ×4 (06:41→23:12)
[2023-01-26 06:44] LABS: Absolute Lymphocyte Count 1.55 X10^3/uL (0.83-4.51); Absolute Neutrophil Count 3.3 X10^3/uL (2.0-7.7); Basophil# 0.11 X10^3/uL; Basophil% 1.8 % (0-1); Eosinophil# 0.41 X10^3/uL; Eosinophils% 6.6 % (0-5); Hematocrit 41.3 % (37-47); Hemoglobin 14.6 g/dL (12.0-15.0); Lymphocyte # 1.55 X10^3/ul (0.83-4.51); Lymphocyte % 24.9 % (19-41); Mean Corp Hgb Conc 35.4 g/dL (32-36); Mean Corpuscular Hgb 36.7 pg (27.0-32.0); Mean Corpuscular Volume 103.8 fL (81-99); Mean Platelet Vol. 10.2 fl (6.2-12.0); Monocyte# 0.85 X10^3/uL; Monocyte% 13.6 % (0-10); NRBC Flagged by Analyzer 0 % (0-5); Neutrophil # 3.28 X10^3/uL (2.7-7.7); Neutrophil % 52.6 % (47-70); Platelet Count 160 K/mm3 (150-450); RBC Distribution Width CV 13.1 % (11.6-14.6); Red Blood Count 3.98 M/mm3 (4.2-5.4); White Blood Count 6.2 K/mm3 (4.4-11.0)
[2023-01-26 07:10] LABS: Bedside Glucose 156 mg/dL (74-106)
[2023-01-26 07:17] LABS: ALB/GLOB Ratio 0.6 RATIO (0.9-2.4); AST(SGOT) 46 U/L (15-37); Alanine Aminotransfer ALT/SGPT 39 U/L (13-56); Albumin, Serum 2.5 g/dL (3.2-5.0); Alkaline Phosphatase 138 U/L (45-117); Anion Gap 6 (5-15); BUN 9 mg/dL (7-18); BUN/Creat Ratio 12.7 RATIO (10-20); Calcium,Total 8.3 mg/dL (8.5-10.1); Chloride 112 mmol/L (98-107); Creatinine, Serum 0.71 mg/dL (0.55-1.02); EST Glomerular Filtration Rate 87 mL/min (>60); Est Glom Filt Rate - Afr Amer 105 mL/min (>60); Estimated Creatinine Clearance 42.68 ml/min; Globulin 4.2 g/dL (2.2-4.2); Glucose 152 mg/dL (74-106); Potassium 3.4 mmol/L (3.5-5.1); Protein, Total 6.7 g/dL (6.4-8.2); Sodium Level 139 mmol/L (136-145)
[2023-01-26 07:25] VITALS: O2SAT 93
[2023-01-26] MEDS: Ferrous Sulfate 325 MG Tablet PO (09:34)
[2023-01-26] MEDS: Menthol/Lanolin/Calamine/Znox 113 GM Tube 1 APPLIC TOPICAL ×4 (09:34→22:55)
[2023-01-26] MEDS: Spironolactone 50 MG Tablet 100 MG PO (09:34)
[2023-01-26] MEDS: Cyanocobalamin 500 MCG Tablet PO (09:35)
[2023-01-26] MEDS: Cholecalciferol (VIT D3) 25 MCG TABLET (1,000 UNITS) PO (09:35)
[2023-01-26] MEDS: Pantoprazole Sodium 40 MG Tablet PO ×2 (09:35→22:56)
[2023-01-26] MEDS: Nystatin Powder 15gm Bottle 1 APPLIC TOPICAL ×2 (09:35→22:55)
[2023-01-26] MEDS: Potassium Chloride Oral Tablet 10 MEQ PO ×2 (09:35→22:55)
[2023-01-26] MEDS: Furosemide 40 MG Tablet PO ×2 (09:35→17:45)
[2023-01-26 09:56] VITALS: BP 118/61; PULSE 77; RESP 18; TEMP 36.6; O2SAT 90
[2023-01-26 12:15] LABS: Bedside Glucose 298 mg/dL (74-106)
--- NOTE | 2023-01-26 13:00 | CASEMGMT ---
SINDHU MACIAS Assessment: Face to Face with pt for initial transition planning/care coordination assessment. SINDHU MACIAS introduced self and role at [facility], pt voices understanding and consents to assessment. Pt is A/O x3 and answers all questions appropriately at this time. Pt states her brain feels foggy. Pt reports being on the liver transplant list. Care providers, pharmacy, and demographics verified/updated. Admitting Dx: hepatic encephalopathy PCP:Mike Specialists:[facility] liver team; pod, pt could not recall name [facility]acy[facility] Insurance: [employer] [facility] Prescription Benefit: yes LNOK: Melchor Hinds, Living Arrangements: Pt lives with in a bilevel home with 4 steps to enter. Pt reports hospice does her bathing and dressing 2x/wk. Pt ambulates as much as she can per report. Transportation: Pt transports her to medical appts. DME/HHC/SNF: Pt has oxygen through hospice, she states she has portable tanks at home. Pt has a cane, rollator, lift chair and a BGM with sufficient supplies. Pt is unsure if she has ever had HHC and denies SNF stays. Pt states no concerns with going home at time of dc. Pt states she does want to have hospice reinstated once dc'd. Updated SW. Pt states no further concerns/needs. CM to follow. Advised pt to ask CM if any further question/concerns/needs arise, voices understanding. Pt Goal: Home with hospice Plan: Home with hospice
--- NOTE | 2023-01-26 13:49 | PN_ITS ---
Subjective Subjective Patient seen and examined. She states she feels much better today. She is much more alert and oriented. She does complain of some pain in the tailbone which she states was because of change of position. She is however requesting an x- ray of the pelvis patient states she has a pilonidal cyst removed some years ago and is concerned about the pain. Review of systems otherwise negative. Objective Data Objective Data Vital Signs: Vital Signs Temp Pulse Resp BP Pulse Ox O2 Del Method O2 Flow Rate 97.8 F 77 18 118/61 90 Nasal Cannula 2 01/26/23 09:56 01/26/23 09:56 01/26/23 09:56 01/26/23 09:56 01/26/23 09:56 01/26/23 09:57 01/26/23 09:56 Oxygen Flow Rate (L/min) 2 Oxygen Delivery Method Nasal Cannula Weight: 153 lb 7.068 oz Body Mass Index (BMI) 27.1 Intake & Output: Intake and Output for Last 24 Hours 01/24/23 01/25/23 01/26/23 23:59 23:59 23:59 Intake Total 1540 / 1540 Balance 1540 / 1540 Lab / Micro Data 01/26/23 06:37 01/26/23 06:37 Labs: Laboratory Results - last 24 hr 01/25/23 15:35: WBC 6.4, RBC 4.28, Hgb 15.9 H, Hct 44.1, MCV 103.0 H, MCH 37.1 H , MCHC 36.1 H, RDW Std Deviation 49.8 H, RDW Coeff of Marlyn 13.1, Plt Count 174, MPV 10.5, Immature Gran % (Auto) 0.300, Neut % (Auto) 47.1, Lymph % (Auto) 29.8, [place] % (Auto) 15.1 H, Eos % (Auto) 5.8 H, Baso % (Auto) 1.9 H, Absolute Neuts (auto) 3.0, Absolute Lymphs (auto) 1.89, Nucleated RBC % 0, PT 17.0 H, INR 1.4, Sodium 137, Potassium 3.8, Chloride 107, Carbon Dioxide 24.0, Anion Gap 6, BUN 12, Creatinine 0.75, Estim Creat Clear Calc 42.68, Est GFR (MDRD) Af Amer 97, Est GFR (MDRD) Non-Af 80, BUN/Creatinine Ratio 15.9, Glucose 151 H, Lactic Acid 3.5 H*, Calcium 9.2, Phosphorus 1.3 L, Magnesium 2.1, Total Bilirubin 2.70 H, AST 50 H, ALT 43, Alkaline Phosphatase 170 H, Ammonia 114.0 H, Total Protein 7.5, Albumin 2.8 L, Globulin 4.7 H, Albumin/Globulin Ratio 0.6 L, Blood Type O POSITIVE, Antibody Screen NEGATIVE 01/25/23 15:45: Urine Color Yellow, Urine Clarity Clear, Urine pH 7.0, Ur Specific [place] 1.020, Urine Protein Negative, Urine Glucose (UA) Normal, Urine Ketones 5 H, Urine Occult Blood Negative, Urine Nitrite Negative, Urine Bilirubin 1 H, Urine Urobilinogen 8 H, Ur Leukocyte Esterase 25 H, Urine RBC 0 SEEN, Urine WBC 0-5 SEEN, Ur Squamous Epith Cells 0 SEEN, Urine Bacteria 0 SEEN, Urine Mucus 0 SEEN 01/25/23 20:14: Lactic Acid 2.6 H* 01/25/23 22:02: POC Glucose 182 H 01/26/23 06:37: WBC 6.2, RBC 3.98 L, Hgb 14.6, Hct 41.3, MCV 103.8 H, MCH 36.7 H , MCHC 35.4, RDW Std Deviation 50.0 H, RDW Coeff of Marlyn 13.1, Plt Count 160, MPV 10.2, Immature Gran % (Auto) 0.500, Neut % (Auto) 52.6, Lymph % (Auto) 24.9, [place] % (Auto) 13.6 H, Eos % (Auto) 6.6 H, Baso % (Auto) 1.8 H, Absolute Neuts ( auto) 3.3, Absolute Lymphs (auto) 1.55, Nucleated RBC % 0, Sodium 139, Potassium 3.4 L, Chloride 112 H, Carbon Dioxide 21.0, Anion Gap 6, BUN 9, Creatinine 0.71, Estim Creat Clear Calc 42.68, Est GFR (MDRD) Af Amer 105, Est GFR (MDRD) Non-Af 87, BUN/Creatinine Ratio 12.7, Glucose 152 H, Calcium 8.3 L, Total Bilirubin 2.30 H, AST 46 H, ALT 39, Alkaline Phosphatase 138 H, Ammonia 72.0 H, Total Protein 6.7, Albumin 2.5 L, Globulin 4.2, Albumin/Globulin Ratio 0.6 L 01/26/23 06:40: POC Glucose 156 H 01/26/23 11:25: POC Glucose 298 H Radiography Diagnostic Testing: Radiology Impression Brain CT 01/25/23 15:17 IMPRESSION: 1. No acute intracranial abnormality. 2. Mild senescent changes Electronically Signed: Blair Fernandez MD at 16:30 EDT , Physical Exam Const alert, oriented x3 and no apparent distress Constitutional Narrative: frail, weak General Appearance: cooperative HEENT normocephalic, head/scalp atraumatic, moist oral mucous membranes and oropharynx normal Eyes PERRL and EOMs intact bilaterally Neck no lymphadenopathy and supple Lymph Lymphatic: no lymphadenopathy noted Resp normal respiratory effort and normal air movement Cardio regular rate, regular rhythm, S1 normal heart sound and S2 normal heart sound GI normal to inspection, nondistended, normoactive bowel sounds, soft to palpation, non-tender and non-distended Extremity normal capillary refill, no clubbing, cyanosis or edema and no calf tenderness Extremity Narrative: mild hepatic flap of both upper extremities Skin General Skin Exam: no breakdown Neuro CN's II-XII intact bilaterally, no focal motor deficits and no sensory deficits noted Neuro Narrative: mild hepatic flap of upper extremities Motor Exam: strength 5/5 throughout and general weakness Psych thought process normal, cooperative and affect normal Appearance: appropriate Assessment & Plan Assessment/Plan (1) Acute hepatic encephalopathy: (2) History of type 2 diabetes mellitus: PLAN: Plan #Acute hepatic encephalopathy due to liver cirrhosis * on lactulose. * also on nadolol, spironolactone and lasix * titrate lactulose until she is having 2-3 loose stools daily * #LActic acidosis: resolved #rectal hemorrhoids * on anusol. she did complain of some mild bleeding which now seems to have resolved. * #Hypertension * on lasix and spironolactone as well as nadolol. * #Hyperlipidemia: not on any statins, likely due to advanced liver disease. #Asthma: not in exacerbation. On breathing treatment with bronchodilators #TYpe 2 diabetes mellitus: on ISS. Accuchecks ACHS DVT prophylaxis; SCDs Code status; full code Charges/Coding Visit Charges Inpatient E&M: 71694 Subs Hosp L2
--- NOTE | 2023-01-26 14:50 | RAD_ITS ---
STUDY: X-RAY - SACRUM/COCCYX REASON FOR EXAM: Female, 72 years old. pain over tailbone area, history of pilonidal cyst TECHNIQUE: 3 view(s) of the sacrum and coccyx were obtained. COMPARISON: None. FINDINGS: Normal bilateral sacroiliac joints. Normal visualized sacral ala and fused sacral bodies. Normal sacrococcygeal junction with a normal angulation. Normal coccygeal segments. The presacral soft tissue structures are unremarkable. RAD/Sacrum-Coccyx min 2 Views IMPRESSION: Normal x-rays of the sacrum and coccyx. CT or MRI would be helpful for further assessment if clinically warranted Electronically Signed: Forrest Valentin MD at 17:03 EDT ,
[2023-01-26 15:39] VITALS: BP 100/55; PULSE 68; RESP 18; TEMP 36.9; O2SAT 97
[2023-01-26 17:11] LABS: Bedside Glucose 180 mg/dL (74-106)
[2023-01-26 23:16] VITALS: BP 106/62; PULSE 71; RESP 16; TEMP 36.8; O2SAT 96
[2023-01-26 23:58] LABS: Bedside Glucose 185 mg/dL (74-106)
[2023-01-27 02:50] VITALS: BMI 27.1
[2023-01-27 05:43] VITALS: BP 111/59; PULSE 71; RESP 16; TEMP 36.6; O2SAT 97
[2023-01-27] MEDS: Lactulose 20 GM/30 ML UDC PO ×4 (05:52→21:51)
[2023-01-27 06:11] LABS: Absolute Lymphocyte Count 1.82 X10^3/uL (0.83-4.51); Absolute Neutrophil Count 2.8 X10^3/uL (2.0-7.7); Basophil% 1.6 % (0-1); Eosinophil# 0.73 X10^3/uL; Eosinophils% 11.4 % (0-5); Hematocrit 41.8 % (37-47); Hemoglobin 14.8 g/dL (12.0-15.0); Lymphocyte # 1.82 X10^3/ul (0.83-4.51); Lymphocyte % 28.3 % (19-41); Mean Corp Hgb Conc 35.4 g/dL (32-36); Mean Corpuscular Hgb 36.6 pg (27.0-32.0); Mean Corpuscular Volume 103.5 fL (81-99); Mean Platelet Vol. 10.1 fl (6.2-12.0); Monocyte# 0.94 X10^3/uL; Monocyte% 14.6 % (0-10); NRBC Flagged by Analyzer 0 % (0-5); Neutrophil # 2.82 X10^3/uL (2.7-7.7); Neutrophil % 43.8 % (47-70); Platelet Count 145 K/mm3 (150-450); RBC Distribution Width SD 49.1 fl (35.1-43.9); Red Blood Count 4.04 M/mm3 (4.2-5.4); White Blood Count 6.4 K/mm3 (4.4-11.0)
[2023-01-27] MEDS: Insulin Lispro 100 UNIT/ML INSULN.PEN SC ×4 (06:34→21:49)
[2023-01-27 07:02] LABS: Bedside Glucose 175 mg/dL (74-106)
[2023-01-27 07:24] LABS: ALB/GLOB Ratio 0.6 RATIO (0.9-2.4); AST(SGOT) 46 U/L (15-37); Alanine Aminotransfer ALT/SGPT 39 U/L (13-56); Albumin, Serum 2.6 g/dL (3.2-5.0); Alkaline Phosphatase 128 U/L (45-117); Anion Gap 5 (5-15); BUN 9 mg/dL (7-18); BUN/Creat Ratio 13.9 RATIO (10-20); Calcium,Total 8.2 mg/dL (8.5-10.1); Chloride 109 mmol/L (98-107); Creatinine, Serum 0.65 mg/dL (0.55-1.02); EST Glomerular Filtration Rate 96 mL/min (>60); Est Glom Filt Rate - Afr Amer 116 mL/min (>60); Estimated Creatinine Clearance 42.68 ml/min; Globulin 4.1 g/dL (2.2-4.2); Glucose 148 mg/dL (74-106); Potassium 3.3 mmol/L (3.5-5.1); Protein, Total 6.7 g/dL (6.4-8.2); Sodium Level 139 mmol/L (136-145)
[2023-01-27 08:27] VITALS: O2SAT 94
[2023-01-27] MEDS: Ferrous Sulfate 325 MG Tablet PO (08:57)
[2023-01-27] MEDS: Cyanocobalamin 500 MCG Tablet PO (09:00)
[2023-01-27] MEDS: Nystatin Powder 15gm Bottle 1 APPLIC TOPICAL ×2 (09:00→21:49)
[2023-01-27] MEDS: Menthol/Lanolin/Calamine/Znox 113 GM Tube 1 APPLIC TOPICAL ×4 (09:00→21:50)
[2023-01-27] MEDS: Spironolactone 50 MG Tablet 100 MG PO (09:00)
[2023-01-27] MEDS: Furosemide 40 MG Tablet PO ×2 (09:01→18:14)
[2023-01-27] MEDS: Cholecalciferol (VIT D3) 25 MCG TABLET (1,000 UNITS) PO (09:01)
[2023-01-27] MEDS: Potassium Chloride Oral Tablet 10 MEQ PO ×2 (09:01→21:53)
[2023-01-27] MEDS: 0.9% Saline Lock 10 ML Syringe IV (09:01)
[2023-01-27] MEDS: Pantoprazole Sodium 40 MG Tablet PO ×2 (09:01→21:53)
--- NOTE | 2023-01-27 10:53 | CASEMGMT ---
Social Work SW met with patient and introduced self and role as [facility] SW. Patient seated in hospital chair alert and oriented. SW inquired about Hospice services patient previously utilized. Patient states she was working with [facility] and wants to resume services at home at D/C. Patient reports having PCP appt at 1:30p and is hopeful she will be discharged in time to attend. SW reviewed with auto fleet manager, care team aware of appointment. SW provided verbal referral to [facility] and sent clinical information via [facility] per their request. [facility] to contact patient's to discuss services. Plan: home with [facility] Shelly WRIGHT, [place]
--- NOTE | 2023-01-27 11:04 | DS.PCM_ITS ---
Providers Date of Admission: 01/25/23 Primary Care Physician: Dr. Shana Mckeon DO Reason For Visit: HEPATIC ENCEPHALOPATHY Diagnosis Discharge Diagnosis (1) Acute hepatic encephalopathy: Status: Acute Code(s): K76.82 - Hepatic encephalopathy (2) History of type 2 diabetes mellitus: Status: Acute Code(s): Z86.39 - Personal history of other endocrine, nutritional and metabolic disease Plan #Acute hepatic encephalopathy due to liver cirrhosis * on lactulose. * also on nadolol, spironolactone and lasix * titrate lactulose until she is having 2-3 loose stools daily * #LActic acidosis: resolved #rectal hemorrhoids * on anusol. she did complain of some mild bleeding which now seems to have resolved. * #Hypertension * on lasix and spironolactone as well as nadolol. * #Hyperlipidemia: not on any statins, likely due to advanced liver disease. #Asthma: not in exacerbation. On breathing treatment with bronchodilators #TYpe 2 diabetes mellitus: on ISS. Accuchecks ACHS DVT prophylaxis; SCDs Code status; full code Medications at Discharge Home Medications metformin 500 mg tablet 1,000 mg PO BID glucose control 11/07/18 cholecalciferol (vitamin D3) 25 mcg (1,000 unit) tablet (Vitamin D3) 1,000 unit PO DAILY supplement 11/14/18 cyanocobalamin (vitamin B-12) 500 mcg tablet 500 mcg PO DAILY supplement 11/14/18 spironolactone 100 mg tablet 100 mg PO DAILY diuretic 12/07/18 pantoprazole 40 mg tablet,delayed release 40 mg PO BID gerd 05/18/19 nadolol 20 mg tablet 20 mg PO DAILY blood pressure/heart rate 10/11/21 ferrous sulfate 325 mg (65 mg iron) tablet 325 mg PO DAILY iron 10/30/21 furosemide 40 mg tablet 40 mg PO BID fld retetion 10/30/21 magnesium oxide 140 mg capsule 140 mg PO DAILY supplement 10/30/21 magnesium sulfate 100 mg capsule 1,000 mg PO DAILY supplement 10/30/21 potassium chloride 10 mEq tablet,extended release(part/cryst) 10 meq PO BID k+ s upplement 02/23/22 lactulose 20 gram/30 mL oral solution 20 g (30 mL) PO TID #3,000 mL 01/27/23 Weight / BMI Weight Weight: 153 lb 7.068 oz Body Mass Index (BMI) 27.1 ABG / Lab / Microbiology Data 01/27/23 06:00 01/27/23 06:00 Laboratory: Laboratory Results - last 24 hr 01/26/23 11:25: POC Glucose 298 H 01/26/23 16:51: POC Glucose 180 H 01/26/23 23:12: POC Glucose 185 H 01/27/23 06:00: WBC 6.4, RBC 4.04 L, Hgb 14.8, Hct 41.8, MCV 103.5 H, MCH 36.6 H , MCHC 35.4, RDW Std Deviation 49.1 H, RDW Coeff of Marlyn 13.0, Plt Count 145 L, MPV 10.1, Immature Gran % (Auto) 0.300, Neut % (Auto) 43.8 L, Lymph % (Auto) 28.3, [place] % (Auto) 14.6 H, Eos % (Auto) 11.4 H, Baso % (Auto) 1.6 H, Absolute Neuts (auto) 2.8, Absolute Lymphs (auto) 1.82, Nucleated RBC % 0, Sodium 139, Potassium 3.3 L, Chloride 109 H, Carbon Dioxide 25.0, Anion Gap 5, BUN 9, Creatinine 0.65, Estim Creat Clear Calc 42.68, Est GFR (MDRD) Af Amer 116, Est GFR (MDRD) Non-Af 96, BUN/Creatinine Ratio 13.9, Glucose 148 H, Calcium 8.2 L, Total Bilirubin 2.30 H, AST 46 H, ALT 39, Alkaline Phosphatase 128 H, Total Protein 6.7, Albumin 2.6 L, Globulin 4.1, Albumin/Globulin Ratio 0.6 L 01/27/23 06:32: POC Glucose 175 H 01/27/23 08:15: Ammonia 83.0 H Radiography Diagnostic Testing: Radiology Impression Sacrum and Coccyx X-Ray 01/26/23 14:50 IMPRESSION: Normal x-rays of the sacrum and coccyx. CT or MRI would be helpful for further assessment if clinically warranted Electronically Signed: Forrest Valentin MD at 17:03 EDT , D/C Instructions Discharge Diet: Low fat / Low cholesterol Weight Bearing Status: Weight bearing as tolerated Call your doctor if you observe: Fever of 101 or Higher, Shortness of breath, Dizziness, Swelling in the ankles, Chest pain and - (confusion) Discharge Plan Admission Admit Date/Time: 01/25/23 17:09 Primary Reason for Your Visit: acute hepatic encephalopathy Attending Provider: Thao Rush Primary Care Provider: Shana Mckeon Consulting Providers: Coni Pride Instructions Patient Instructions: Hepatic Encephalopathy Discharge Orders/Prescriptions Prescriptions: New lactulose 20 gram/30 mL solution 20 g PO TID Qty: 3000 2RF Rx Instructions: titrate until you are having 2-3 loose stools daily. Continued metformin 500 mg tablet 1,000 mg PO BID potassium chloride 10 mEq tablet,ER particles/crystals 10 meq PO BID cyanocobalamin (vitamin B-12) 500 MCG tablet 500 mcg PO DAILY cholecalciferol (vitamin D3) [Vitamin D3] 1,000 UNIT tablet 1,000 unit PO DAILY spironolactone 100 MG tablet 100 mg PO DAILY pantoprazole 40 MG tablet 40 mg PO BID nadolol 20 mg tablet 20 mg PO DAILY Patient Comments: TAKE 1 TABLET BY MOUTH ONCE DAILY furosemide 40 mg Tablet 40 mg PO BID magnesium oxide 140 mg Capsule 140 mg PO DAILY ferrous sulfate 325 mg (65 mg iron) Tablet 325 mg PO DAILY magnesium sulfate 100 mg Capsule 1,000 mg PO DAILY Discontinued lactulose 10 gram/15 mL Solution 15 ml PO DAILY Patient Comments: given in er Referrals / Follow Up: Shana Mckeon DO [Primary Care Provider] - None (to follow up with Dr Mckeon as scheduled today 01/27/2023) Disposition Disposition (needs filled in before D/C Order can be placed): Hospice in Home
--- NOTE | 2023-01-27 11:12 | PHA.DC.MR.R ---
Pharmacy [place] Med Reconciliation Pharmacy Service has performed discharge medication reconciliation for this patient. The patient's discharge medication list was reviewed for discrepancies and discrepancies were resolved. Medications at Discharge Home Medications metformin 500 mg tablet 1,000 mg PO BID glucose control 11/07/18 cholecalciferol (vitamin D3) 25 mcg (1,000 unit) tablet (Vitamin D3) 1,000 unit PO DAILY supplement 11/14/18 cyanocobalamin (vitamin B-12) 500 mcg tablet 500 mcg PO DAILY supplement 11/14/18 spironolactone 100 mg tablet 100 mg PO DAILY diuretic 12/07/18 pantoprazole 40 mg tablet,delayed release 40 mg PO BID gerd 05/18/19 nadolol 20 mg tablet 20 mg PO DAILY blood pressure/heart rate 10/11/21 ferrous sulfate 325 mg (65 mg iron) tablet 325 mg PO DAILY iron 10/30/21 furosemide 40 mg tablet 40 mg PO BID fld retetion 10/30/21 magnesium oxide 140 mg capsule 140 mg PO DAILY supplement 10/30/21 magnesium sulfate 100 mg capsule 1,000 mg PO DAILY supplement 10/30/21 potassium chloride 10 mEq tablet,extended release(part/cryst) 10 meq PO BID k+ supplement 02/23/22 lactulose 20 gram/30 mL oral solution 20 g (30 mL) PO TID #3,000 mL 01/27/23
[2023-01-27 11:30] VITALS: BP 110/57; PULSE 72; RESP 16; TEMP 37; O2SAT 95
[2023-01-27 11:42] LABS: Bedside Glucose 299 mg/dL (74-106)
--- NOTE | 2023-01-27 12:54 | PN_ITS ---
Subjective Subjective Patient seen and examined. She had no complaints and felt much better. Review of systems is otherwise negative. She was evaluated by speech therapy and recommendation is for her to have a swallow test on outpatient basis. Plan was to discharge her today; however, her subsequently said he didnt have things well set up to take care of her at home and wanted her to stay one more day. Review of systems otherwise negative. Objective Data Objective Data Vital Signs: Vital Signs Temp Pulse Resp BP Pulse Ox O2 Del Method O2 Flow Rate 97.9 F 71 16 111/59 L 94 Nasal Cannula 2 01/27/23 05:43 01/27/23 05:43 01/27/23 05:43 01/27/23 05:43 01/27/23 08:27 01/27/23 08:27 01/27/23 09:26 Oxygen Flow Rate (L/min) 2 Oxygen Delivery Method Nasal Cannula Weight: 153 lb 7.068 oz Body Mass Index (BMI) 27.1 Intake & Output: Intake and Output for Last 24 Hours 01/25/23 01/26/23 01/27/23 23:59 23:59 23:59 Intake Total 1540 / 1740 200 / 200 Balance 1540 / 1740 200 / 200 Lab / Micro Data 01/27/23 06:00 01/27/23 06:00 Labs: Laboratory Results - last 24 hr 01/26/23 16:51: POC Glucose 180 H 01/26/23 23:12: POC Glucose 185 H 01/27/23 06:00: WBC 6.4, RBC 4.04 L, Hgb 14.8, Hct 41.8, MCV 103.5 H, MCH 36.6 H , MCHC 35.4, RDW Std Deviation 49.1 H, RDW Coeff of Marlyn 13.0, Plt Count 145 L, MPV 10.1, Immature Gran % (Auto) 0.300, Neut % (Auto) 43.8 L, Lymph % (Auto) 28.3, [place] % (Auto) 14.6 H, Eos % (Auto) 11.4 H, Baso % (Auto) 1.6 H, Absolute Neuts (auto) 2.8, Absolute Lymphs (auto) 1.82, Nucleated RBC % 0, Sodium 139, Potassium 3.3 L, Chloride 109 H, Carbon Dioxide 25.0, Anion Gap 5, BUN 9, Creatinine 0.65, Estim Creat Clear Calc 42.68, Est GFR (MDRD) Af Amer 116, Est GFR (MDRD) Non-Af 96, BUN/Creatinine Ratio 13.9, Glucose 148 H, Calcium 8.2 L, Total Bilirubin 2.30 H, AST 46 H, ALT 39, Alkaline Phosphatase 128 H, Total Protein 6.7, Albumin 2.6 L, Globulin 4.1, Albumin/Globulin Ratio 0.6 L 01/27/23 06:32: POC Glucose 175 H 01/27/23 08:15: Ammonia 83.0 H 01/27/23 11:18: POC Glucose 299 H Radiography Diagnostic Testing: Radiology Impression Sacrum and Coccyx X-Ray 01/26/23 14:50 IMPRESSION: Normal x-rays of the sacrum and coccyx. CT or MRI would be helpful for further assessment if clinically warranted Electronically Signed: Forrest Valentin MD at 17:03 EDT Reading Location ID and State: [facility] / [place] , Service support , Physical Exam Const alert, oriented x3 and no apparent distress General Appearance: cooperative HEENT normocephalic, head/scalp atraumatic, moist oral mucous membranes and oropharynx normal Eyes PERRL and EOMs intact bilaterally Neck no lymphadenopathy and supple Lymph Lymphatic: no lymphadenopathy noted and no lymphedema noted Resp normal respiratory effort and normal air movement Cardio regular rate, regular rhythm, S1 normal heart sound and S2 normal heart sound GI normal to inspection, nondistended, normoactive bowel sounds, soft to palpation, non-tender and non-distended Extremity normal capillary refill, no clubbing, cyanosis or edema and no calf tenderness Extremity Narrative: hepatic flap has resolved. Skin General Skin Exam: no breakdown Neuro CN's II-XII intact bilaterally, no focal motor deficits and no sensory deficits noted Motor Exam: strength 5/5 throughout and general weakness Psych thought process normal, cooperative and affect normal Appearance: appropriate Assessment & Plan Assessment/Plan (1) Acute hepatic encephalopathy: (2) History of type 2 diabetes mellitus: PLAN: Plan #Acute hepatic encephalopathy due to liver cirrhosis * on lactulose. * also on nadolol, spironolactone and lasix * titrate lactulose until she is having 2-3 loose stools daily * ammonia level today is 83. Continue lactulose * #LActic acidosis: resolved #Dysphagia * having difficulty swallowing, sp speech therapy consulted. * to have swallow test tomorrow; if not, she can have it done on outpatient basis, per speech therapy. * on pureed diet per speech therapy * #rectal hemorrhoids * on anusol. she did complain of some mild bleeding which now seems to have resolved. * #Hypertension * on lasix and spironolactone as well as nadolol. * #Hyperlipidemia: not on any statins, likely due to advanced liver disease. #Asthma: not in exacerbation. On breathing treatment with bronchodilators #TYpe 2 diabetes mellitus: on ISS. Accuchecks ACHS DVT prophylaxis; SCDs Code status; full code Disposition: for dc tomorrow Charges/Coding Visit Charges Inpatient E&M: 75164 Subs Hosp L2
[2023-01-27] MEDS: metFORMIN HCl 1,000 MG Tablet 1000 MG PO (16:27)
[2023-01-27 16:46] LABS: Bedside Glucose 197 mg/dL (74-106)
[2023-01-27 17:30] VITALS: BP 108/59; PULSE 70; RESP 16; TEMP 37.1; O2SAT 96
[2023-01-27] MEDS: Nadolol 20 MG Tablet PO (21:53)
[2023-01-27 21:58] VITALS: BP 126/71; PULSE 88; RESP 18; TEMP 37; O2SAT 95
[2023-01-27 22:22] LABS: Bedside Glucose 255 mg/dL (74-106)
[2023-01-28 06:04] LABS: Absolute Lymphocyte Count 1.39 X10^3/uL (0.83-4.51); Absolute Neutrophil Count 4.6 X10^3/uL (2.0-7.7); Basophil% 1.3 % (0-1); Eosinophil# 0.52 X10^3/uL; Eosinophils% 6.8 % (0-5); Hematocrit 40.4 % (37-47); Hemoglobin 14.7 g/dL (12.0-15.0); Lymphocyte # 1.39 X10^3/ul (0.83-4.51); Lymphocyte % 18.1 % (19-41); Mean Corp Hgb Conc 36.4 g/dL (32-36); Mean Corpuscular Hgb 36.9 pg (27.0-32.0); Mean Corpuscular Volume 101.5 fL (81-99); Mean Platelet Vol. 10.1 fl (6.2-12.0); Monocyte# 1.08 X10^3/uL; NRBC Flagged by Analyzer 0 % (0-5); Neutrophil # 4.57 X10^3/uL (2.7-7.7); Neutrophil % 59.3 % (47-70); Platelet Count 161 K/mm3 (150-450); RBC Distribution Width CV 12.8 % (11.6-14.6); RBC Distribution Width SD 48.5 fl (35.1-43.9); Red Blood Count 3.98 M/mm3 (4.2-5.4); White Blood Count 7.7 K/mm3 (4.4-11.0)
[2023-01-28 06:35] LABS: ALB/GLOB Ratio 0.6 RATIO (0.9-2.4); AST(SGOT) 47 U/L (15-37); Alanine Aminotransfer ALT/SGPT 40 U/L (13-56); Albumin, Serum 2.5 g/dL (3.2-5.0); Alkaline Phosphatase 132 U/L (45-117); Anion Gap 4 (5-15); BUN 9 mg/dL (7-18); BUN/Creat Ratio 13.9 RATIO (10-20); Calcium,Total 8.3 mg/dL (8.5-10.1); Chloride 107 mmol/L (98-107); Creatinine, Serum 0.65 mg/dL (0.55-1.02); EST Glomerular Filtration Rate 96 mL/min (>60); Est Glom Filt Rate - Afr Amer 116 mL/min (>60); Estimated Creatinine Clearance 42.68 ml/min; Glucose 188 mg/dL (74-106); Potassium 3.2 mmol/L (3.5-5.1); Protein, Total 6.5 g/dL (6.4-8.2); Sodium Level 137 mmol/L (136-145)
[2023-01-28 06:37] VITALS: BP 106/53; PULSE 75; RESP 20; TEMP 37.2; O2SAT 94
[2023-01-28] MEDS: Lactulose 20 GM/30 ML UDC PO ×4 (06:44→23:02)
[2023-01-28] MEDS: Insulin Lispro 100 UNIT/ML INSULN.PEN SC ×3 (06:44→16:25)
[2023-01-28 07:05] LABS: Bedside Glucose 191 mg/dL (74-106)
[2023-01-28] MEDS: Potassium Chloride Oral Tablet 10 MEQ PO ×2 (08:45→23:02)
[2023-01-28] MEDS: Spironolactone 50 MG Tablet 100 MG PO (08:46)
[2023-01-28] MEDS: metFORMIN HCl 1,000 MG Tablet 1000 MG PO ×2 (08:46→17:16)
[2023-01-28] MEDS: Pantoprazole Sodium 40 MG Tablet PO ×2 (08:46→23:02)
[2023-01-28] MEDS: Ferrous Sulfate 325 MG Tablet PO (08:46)
[2023-01-28] MEDS: Menthol/Lanolin/Calamine/Znox 113 GM Tube 1 APPLIC TOPICAL ×4 (08:46→23:03)
[2023-01-28] MEDS: Cyanocobalamin 500 MCG Tablet PO (08:46)
[2023-01-28] MEDS: Furosemide 40 MG Tablet PO ×2 (08:46→17:16)
[2023-01-28] MEDS: Nystatin Powder 15gm Bottle 1 APPLIC TOPICAL ×2 (08:47→23:02)
[2023-01-28] MEDS: Potassium Chloride Oral Tablet 20 MEQ 40 MEQ PO (08:51)
[2023-01-28] MEDS: Cholecalciferol (VIT D3) 25 MCG TABLET (1,000 UNITS) PO (08:52)
[2023-01-28 09:36] VITALS: O2SAT 90
--- NOTE | 2023-01-28 11:18 | PN_ITS ---
Subjective Subjective Patient seen and examined. She feels well and has no active complaints today. Her ammonia level is even higher today at 102; it is higher than it was yesterday. Review of systems is otherwise negative. Objective Data Objective Data Vital Signs: Vital Signs Temp Pulse Resp BP Pulse Ox O2 Del Method O2 Flow Rate 99.0 F 75 20 H 106/53 L 90 Nasal Cannula 2 01/28/23 06:37 01/28/23 06:37 01/28/23 06:37 01/28/23 06:37 01/28/23 09:36 01/28/23 09:36 01/28/23 09:36 Oxygen Flow Rate (L/min) 2 Oxygen Delivery Method Nasal Cannula Weight: 153 lb 7.068 oz Body Mass Index (BMI) 27.1 Intake & Output: Intake and Output for Last 24 Hours 01/26/23 01/27/23 01/28/23 23:59 23:59 23:59 Intake Total 1540 / 1740 1160 / 1160 Balance 1540 / 1740 1160 / 1160 Lab / Micro Data 01/28/23 05:44 01/28/23 05:44 Labs: Laboratory Results - last 24 hr 01/27/23 11:18: POC Glucose 299 H 01/27/23 16:26: POC Glucose 197 H 01/27/23 21:48: POC Glucose 255 H 01/28/23 05:44: WBC 7.7, RBC 3.98 L, Hgb 14.7, Hct 40.4, MCV 101.5 H, MCH 36.9 H , MCHC 36.4 H, RDW Std Deviation 48.5 H, RDW Coeff of Marlyn 12.8, Plt Count 161, MPV 10.1, Immature Gran % (Auto) 0.500, Neut % (Auto) 59.3, Lymph % (Auto) 18.1 L, [place] % (Auto) 14.0 H, Eos % (Auto) 6.8 H, Baso % (Auto) 1.3 H, Absolute Neuts (auto) 4.6, Absolute Lymphs (auto) 1.39, Nucleated RBC % 0, Sodium 137, Potassium 3.2 L, Chloride 107, Carbon Dioxide 26.0, Anion Gap 4 L, BUN 9, Creatinine 0.65, Estim Creat Clear Calc 42.68, Est GFR (MDRD) Af Amer 116, Est GFR (MDRD) Non-Af 96, BUN/Creatinine Ratio 13.9, Glucose 188 H, Calcium 8.3 L, Total Bilirubin 2.30 H, AST 47 H, ALT 40, Alkaline Phosphatase 132 H, Total Protein 6.5, Albumin 2.5 L, Globulin 4.0, Albumin/Globulin Ratio 0.6 L 01/28/23 06:42: POC Glucose 191 H 01/28/23 08:44: Ammonia 102.0 H Physical Exam Const alert, oriented x3 and no apparent distress Constitutional Narrative: frail, weak General Appearance: cooperative HEENT normocephalic, head/scalp atraumatic, moist oral mucous membranes and oropharynx normal Eyes PERRL and EOMs intact bilaterally Neck no lymphadenopathy and supple Lymph Lymphatic: no lymphadenopathy noted and no lymphedema noted Resp normal respiratory effort and normal air movement Cardio regular rate, regular rhythm, S1 normal heart sound and S2 normal heart sound GI normal to inspection, nondistended, normoactive bowel sounds, soft to palpation, non-tender and non-distended Extremity normal capillary refill, no clubbing, cyanosis or edema and no calf tenderness Extremity Narrative: hepatic flap has resolved. Skin General Skin Exam: no breakdown Neuro CN's II-XII intact bilaterally, no focal motor deficits and no sensory deficits noted Motor Exam: strength 5/5 throughout and general weakness Psych thought process normal, cooperative and affect normal Appearance: appropriate Assessment & Plan Assessment/Plan (1) Acute hepatic encephalopathy: (2) History of type 2 diabetes mellitus: PLAN: Plan #Acute hepatic encephalopathy due to liver cirrhosis * on lactulose. * also on nadolol, spironolactone and lasix * titrate lactulose until she is having 2-3 loose stools daily * ammonia level today is even higher today at 102. Per her nurse, patient refused her lactulose last night. To reinforce education about need to take lactulose, and to continue lactulose, titrating dose upwards until she is having 2-3 loose stools daily * . Continue lactulose * #LActic acidosis: resolved #Dysphagia * having difficulty swallowing, sp speech therapy consulted. * to have swallow test today; if not, she can have it done on outpatient basis, per speech therapy. * on pureed diet per speech therapy * #rectal hemorrhoids * on anusol. stable * #Hypertension * on lasix and spironolactone as well as nadolol. * #Hyperlipidemia: not on any statins, likely due to advanced liver disease. #Asthma: not in exacerbation. On breathing treatment with bronchodilators #TYpe 2 diabetes mellitus: on ISS. Accuchecks ACHS DVT prophylaxis; SCDs Code status; full code Disposition: hold off on dc since ammonia is still markedly elevated Charges/Coding Visit Charges Inpatient E&M: 92196 Subs Hosp L2
[2023-01-28 11:29] LABS: Bedside Glucose 208 mg/dL (74-106)
--- NOTE | 2023-01-28 13:57 | CASEMGMT ---
Social Work SW updated [facility] that pt will not be discharging today. SW will continue to follow and update hopsice when appropriate. MEDARDO Saldivar
[2023-01-28 14:53] VITALS: BP 117/68; PULSE 73; RESP 12; TEMP 36.6; O2SAT 97
[2023-01-28 16:16] LABS: Bedside Glucose 176 mg/dL (74-106)
[2023-01-28 23:00] VITALS: BP 115/65; PULSE 75; RESP 16; TEMP 36.6; O2SAT 97
[2023-01-28] MEDS: Nadolol 20 MG Tablet PO (23:02)
[2023-01-28 23:48] LABS: Bedside Glucose 151 mg/dL (74-106)
[2023-01-29 05:46] VITALS: BMI 26.8
[2023-01-29 06:15] LABS: Absolute Lymphocyte Count 1.62 X10^3/uL (0.83-4.51); Absolute Neutrophil Count 4.1 X10^3/uL (2.0-7.7); Basophil# 0.13 X10^3/uL; Basophil% 1.5 % (0-1); Eosinophil# 1.39 X10^3/uL; Eosinophils% 16.3 % (0-5); Hematocrit 41.7 % (37-47); Hemoglobin 15.1 g/dL (12.0-15.0); Lymphocyte # 1.62 X10^3/ul (0.83-4.51); Mean Corp Hgb Conc 36.2 g/dL (32-36); Mean Corpuscular Hgb 36.7 pg (27.0-32.0); Mean Corpuscular Volume 101.5 fL (81-99); Monocyte# 1.27 X10^3/uL; Monocyte% 14.9 % (0-10); NRBC Flagged by Analyzer 0 % (0-5); Neutrophil # 4.09 X10^3/uL (2.7-7.7); Neutrophil % 48.1 % (47-70); Platelet Count 160 K/mm3 (150-450); RBC Distribution Width CV 13.2 % (11.6-14.6); RBC Distribution Width SD 49.4 fl (35.1-43.9); Red Blood Count 4.11 M/mm3 (4.2-5.4); White Blood Count 8.5 K/mm3 (4.4-11.0)
[2023-01-29] MEDS: Insulin Lispro 100 UNIT/ML INSULN.PEN SC ×2 (06:26→12:14)
[2023-01-29] MEDS: Lactulose 20 GM/30 ML UDC PO ×2 (06:27→12:15)
[2023-01-29 06:30] VITALS: BP 120/62; PULSE 75; RESP 18; TEMP 36.6; O2SAT 95
[2023-01-29 06:52] LABS: Bedside Glucose 150 mg/dL (74-106)
[2023-01-29 06:58] LABS: ALB/GLOB Ratio 0.6 RATIO (0.9-2.4); AST(SGOT) 48 U/L (15-37); Alanine Aminotransfer ALT/SGPT 40 U/L (13-56); Albumin, Serum 2.5 g/dL (3.2-5.0); Alkaline Phosphatase 122 U/L (45-117); Anion Gap 8 (5-15); BUN 12 mg/dL (7-18); BUN/Creat Ratio 13.4 RATIO (10-20); Calcium,Total 8.2 mg/dL (8.5-10.1); Chloride 108 mmol/L (98-107); EST Glomerular Filtration Rate 66 mL/min (>60); Est Glom Filt Rate - Afr Amer 80 mL/min (>60); Estimated Creatinine Clearance 47.43 ml/min; Globulin 4.2 g/dL (2.2-4.2); Glucose 148 mg/dL (74-106); Potassium 3.2 mmol/L (3.5-5.1); Protein, Total 6.7 g/dL (6.4-8.2); Sodium Level 140 mmol/L (136-145)
[2023-01-29 07:11] VITALS: O2SAT 95
[2023-01-29] MEDS: Ondansetron 4 MG/2 ML Vial IV (08:42)
[2023-01-29 10:30] VITALS: BP 103/68; PULSE 76; RESP 18; TEMP 36.6; O2SAT 93
--- NOTE | 2023-01-29 10:35 | DS.PCM_ITS ---
Providers Date of Admission: 01/25/23 Date of Discharge: 01/29/23 Primary Care Physician: Dr. Shana Mckeon DO Reason For Visit: HEPATIC ENCEPHALOPATHY Diagnosis Discharge Diagnosis (1) Acute hepatic encephalopathy: Status: Acute Code(s): K76.82 - Hepatic encephalopathy (2) History of type 2 diabetes mellitus: Status: Acute Code(s): Z86.39 - Personal history of other endocrine, nutritional and metabolic disease Plan #Acute hepatic encephalopathy due to liver cirrhosis * on lactulose. * also on nadolol, spironolactone and lasix * titrate lactulose until she is having 2-3 loose stools daily * ammonia level today is even higher today at 102. Per her nurse, patient refused her lactulose last night. To reinforce education about need to take lactulose, and to continue lactulose, titrating dose upwards until she is hav ing 2-3 loose stools daily * . Continue lactulose * #LActic acidosis: resolved #Dysphagia * having difficulty swallowing, sp speech therapy consulted. * to have swallow test today; if not, she can have it done on outpatient basis, per speech therapy. * on pureed diet per speech therapy * #rectal hemorrhoids * on anusol. stable * #Hypertension * on lasix and spironolactone as well as nadolol. * #Hyperlipidemia: not on any statins, likely due to advanced liver disease. #Asthma: not in exacerbation. On breathing treatment with bronchodilators #TYpe 2 diabetes mellitus: on ISS. Accuchecks ACHS DVT prophylaxis; SCDs Code status; full code Disposition: hold off on dc since ammonia is still markedly elevated Medications at Discharge Home Medications metformin 500 mg tablet 1,000 mg PO BID glucose control 11/07/18 cholecalciferol (vitamin D3) 25 mcg (1,000 unit) tablet (Vitamin D3) 1,000 unit PO DAILY supplement 11/14/18 cyanocobalamin (vitamin B-12) 500 mcg tablet 500 mcg PO DAILY supplement 11/14/18 spironolactone 100 mg tablet 100 mg PO DAILY diuretic 12/07/18 pantoprazole 40 mg tablet,delayed release 40 mg PO BID gerd 05/18/19 nadolol 20 mg tablet 20 mg PO DAILY blood pressure/heart rate 10/11/21 ferrous sulfate 325 mg (65 mg iron) tablet 325 mg PO DAILY iron 10/30/21 furosemide 40 mg tablet 40 mg PO BID fld retetion 10/30/21 magnesium oxide 140 mg capsule 140 mg PO DAILY supplement 10/30/21 magnesium sulfate 100 mg capsule 1,000 mg PO DAILY supplement 10/30/21 potassium chloride 10 mEq tablet,extended release(part/cryst) 10 meq PO BID k+ supplement 02/23/22 lactulose 20 gram/30 mL oral solution 20 g (30 mL) PO TID #3,000 mL 01/27/23 Hospital Course Operations None Procedures None Summary of Care Provided Minutes Spent on Discharge: 55 Hospital Course: Patient is a 72-year-old female with a past medical history as outlined which includes nonalcoholic cirrhosis with end-stage liver disease, previously on liver transplant waiting list but transition to hospice. She was admitted through the ED on 01/25/2023 with a complaint of confusion, falls and shortness of breath which started about 24 hours prior to admission. She also had some rectal bleeding, mainly spotting which was thought to be due to a known case of hemorrhoids. She had fallen the day prior to admission so has been brought into the ED. She had been taking her lactulose at home. On admission her lactulose was markedly elevated at 114. Urinalysis showed no evidence of UTI. CT of the brain showed no acute intracranial pathology. She was admitted and managed for acute hepatic encephalopathy. She was placed on lactulose, to titate till she had 2-3 loose stools daily. Her confusion improved and mentation improved to her baseline. Her ammonia level trended downwards but still remained elevated. She did appear to have chronicially elevated ammonia levels, so her ammonia level didnt strictly correlate with her clinical picture. She improved significatntly and requested discharge home. She was discharged home on 01/29/2023.She is to follow up with her PCP within 1-2 eeks. Patient also requested that hospice referral be made on her behalf to follow up iwth her at home. She was discharged home on 01/29/2023, and was discharged on an increased dose of lactulose at 20 mg 3 times a day to be titrated until she was having 2-3 loose stools daily. Patient seen and examined prior to discharge. She had no active complaints and had an uneventful night. Review of systems otherwise negative. Labs and vitals reviewed. Home medication reviewed and reconciled. Physical Exam Const alert, oriented x3 and no apparent distress Constitutional Narrative: frail General Appearance: cooperative and comfortable Exam Limitations: no limitations HEENT normocephalic, head/scalp atraumatic, hearing grossly normal bilaterally, moist oral mucous membranes and oropharynx normal Mouth: oral and palatal mucosa normal Eyes PERRL and EOMs intact bilaterally Neck no lymphadenopathy and supple Lymph Lymphatic: no lymphadenopathy noted and no lymphedema noted Resp normal respiratory effort and normal air movement Cardio regular rate, regular rhythm, S1 normal heart sound and S2 normal heart sound GI normal to inspection, nondistended, normoactive bowel sounds, soft to palpation, non-tender and non-distended Extremity normal to inspection, full ROM, normal capillary refill, no clubbing, cyanosis or edema and no calf tenderness Skin no rashes or lesions noted General Skin Exam: no breakdown Neuro oriented x3, CN's II-XII intact bilaterally, moves all extremities, no focal motor deficits and no sensory deficits noted Sensorium / Orientation: awake Motor Exam: strength 5/5 throughout and general weakness Psych thought process normal, cooperative and affect normal Appearance: appropriate Weight / BMI Weight Weight: 151 lb 7.321 oz Body Mass Index (BMI) 26.8 ABG / Lab / Microbiology Data 01/29/23 06:00 01/29/23 06:00 Laboratory: Laboratory Results - last 24 hr 01/28/23 11:05: POC Glucose 208 H 01/28/23 15:58: POC Glucose 176 H 01/28/23 23:11: POC Glucose 151 H 01/29/23 06:00: WBC 8.5, RBC 4.11 L, Hgb 15.1 H, Hct 41.7, MCV 101.5 H, MCH 36.7 H, MCHC 36.2 H, RDW Std Deviation 49.4 H, RDW Coeff of Marlyn 13.2, Plt Count 160, MPV 10.0, Immature Gran % (Auto) 0.200, Neut % (Auto) 48.1, Lymph % (Auto) 19.0, [place] % (Auto) 14.9 H, Eos % (Auto) 16.3 H, Baso % (Auto) 1.5 H, Absolute Neuts (auto) 4.1, Absolute Lymphs (auto) 1.62, Nucleated RBC % 0, Sodium 140, [place] um 3.2 L, Chloride 108 H, Carbon Dioxide 24.0, Anion Gap 8, BUN 12, Creatinine 0.90, Estim Creat Clear Calc 47.43, Est GFR (MDRD) Af Amer 80, Est GFR (MDRD) Non-Af 66, BUN/Creatinine Ratio 13.4, Glucose 148 H, Calcium 8.2 L, Total Bilirubin 2.40 H, AST 48 H, ALT 40, Alkaline Phosphatase 122 H, Total Protein 6.7, Albumin 2.5 L, Globulin 4.2, Albumin/Globulin Ratio 0.6 L 01/29/23 06:24: POC Glucose 150 H 01/29/23 08:05: Ammonia 95.0 H D/C Instructions Discharge Diet: Low fat / Low cholesterol Weight Bearing Status: Weight bearing as tolerated Call your doctor if you observe: Fever of 101 or Higher, Shortness of breath, Dizziness, Swelling in the ankles, Chest pain and - (confusion) Meaningful Use Info Meaningful Use Diagnoses (Choose all that apply): None applicable Discharge Plan Admission Admit Date/Time: 01/25/23 17:09 Primary Reason for Your Visit: acute hepatic encephalopathy Attending Provider: Thao Rush Primary Care Provider: Shana Mckeon Consulting Providers: Coni Pride Instructions Patient Instructions: Hepatic Encephalopathy Discharge Orders/Prescriptions Prescriptions: New lactulose 20 gram/30 mL solution 20 g PO TID Qty: 3000 2RF Rx Instructions: titrate until you are having 2-3 loose stools daily. Continued metformin 500 mg tablet 1,000 mg PO BID potassium chloride 10 mEq tablet,ER particles/crystals 10 meq PO BID cyanocobalamin (vitamin B-12) 500 MCG tablet 500 mcg PO DAILY cholecalciferol (vitamin D3) [Vitamin D3] 1,000 UNIT tablet 1,000 unit PO DAILY spironolactone 100 MG tablet 100 mg PO DAILY pantoprazole 40 MG tablet 40 mg PO BID nadolol 20 mg tablet 20 mg PO DAILY Patient Comments: TAKE 1 TABLET BY MOUTH ONCE DAILY furosemide 40 mg Tablet 40 mg PO BID magnesium oxide 140 mg Capsule 140 mg PO DAILY ferrous sulfate 325 mg (65 mg iron) Tablet 325 mg PO DAILY magnesium sulfate 100 mg Capsule 1,000 mg PO DAILY Discontinued lactulose 10 gram/15 mL Solution 15 ml PO DAILY Patient Comments: given in er Referrals / Follow Up: Shana Mckeon DO [Primary Care Provider] - 02/03/23 10:10 am Disposition Disposition (needs filled in before D/C Order can be placed): Hospice in Home Charges/Coding Visit Charges Inpatient E&M: 74776 Disch Hosp >30min
--- NOTE | 2023-01-29 10:35 | DCINST_ITS ---
Discharge Instructions Diet Discharge Diet: Low fat / Low cholesterol Activity Discharge Activity: Return to Normal Activity Weight Bearing Status: Weight bearing as tolerated Dressing / Incision Call your doctor if you observe: Fever of 101 or Higher, Shortness of breath, Dizziness, Swelling in the ankles, Chest pain and - (confusion) Follow Up Care Test Results: Test results from this visit will be discussed in further detail at your follow- up appointment, if applicable. Discharge Plan Admission Admit Date/Time: 01/25/23 17:09 Primary Reason for Your Visit: acute hepatic encephalopathy Attending Provider: Thao Rush Primary Care Provider: Shana Mckeon Consulting Providers: Coni Pride Instructions Patient Instructions: Hepatic Encephalopathy Discharge Orders/Prescriptions Prescriptions: New lactulose 20 gram/30 mL solution 20 g PO TID Qty: 3000 2RF Rx Instructions: titrate until you are having 2-3 loose stools daily. Continued metformin 500 mg tablet 1,000 mg PO BID potassium chloride 10 mEq tablet,ER particles/crystals 10 meq PO BID cyanocobalamin (vitamin B-12) 500 MCG tablet 500 mcg PO DAILY cholecalciferol (vitamin D3) [Vitamin D3] 1,000 UNIT tablet 1,000 unit PO DAILY spironolactone 100 MG tablet 100 mg PO DAILY pantoprazole 40 MG tablet 40 mg PO BID nadolol 20 mg tablet 20 mg PO DAILY Patient Comments: TAKE 1 TABLET BY MOUTH ONCE DAILY furosemide 40 mg Tablet 40 mg PO BID magnesium oxide 140 mg Capsule 140 mg PO DAILY ferrous sulfate 325 mg (65 mg iron) Tablet 325 mg PO DAILY magnesium sulfate 100 mg Capsule 1,000 mg PO DAILY Discontinued lactulose 10 gram/15 mL Solution 15 ml PO DAILY Patient Comments: given in er Referrals / Follow Up: Shana Mckeon DO [Primary Care Provider] - Within 1 Week Disposition Disposition (needs filled in before D/C Order can be placed): Hospice in Home
[2023-01-29] MEDS: Menthol/Lanolin/Calamine/Znox 113 GM Tube 1 APPLIC TOPICAL (10:52)
[2023-01-29] MEDS: Pantoprazole Sodium 40 MG Tablet PO (10:52)
[2023-01-29] MEDS: Nystatin Powder 15gm Bottle 1 APPLIC TOPICAL (10:52)
[2023-01-29] MEDS: Furosemide 40 MG Tablet PO (10:52)
[2023-01-29] MEDS: Spironolactone 50 MG Tablet 100 MG PO (10:52)
[2023-01-29] MEDS: Potassium Chloride Oral Tablet 20 MEQ 40 MEQ PO (10:55)
[2023-01-29] MEDS: metFORMIN HCl 1,000 MG Tablet 1000 MG PO (12:15)
--- NOTE | 2023-01-29 12:36 | CASEMGMT ---
Social Work Per physician, pt is ready for discharge today. SW met with pt who confirms she wants to restart services with [facility] when she returns home. Pts to transport and will be here to pick pt up after 3pm. Pt states she does have portable oxygen and spouse will bring a tank in. Phone call to Marjorie at [facility] and updated on discharge home today. Hospice to call pt's spouse and set up time to meet for start of care. Clinical updates faxed to [facility]. MEDARDO Gomez
[2023-01-29 14:45] VITALS: BP 109/63; PULSE 76; RESP 18; TEMP 36.8; O2SAT 95
--- NOTE | 2023-01-29 16:48 | CHAPLAIN ---
Type of Pastoral Visit _x__ Initial Visit ___ Follow-up Visit ___ On-call Visit ___ General Patient Visit ___ Spiritual Assessment ___ Family Conference ___ Bereavement ___ Rapid Response ___ Code Blue ___ Other (describe below) Pastoral Care Referral From _x__ Patient _x__ Family ___ Nurse ___ Physician ___ Cold Molding Press Operator ___ 3Rd Mate ___ Other (describe below) Sacrament/Intervention _x__ Active listening ___ Anointing ___ Hinduism ___ Bereavement ___ Communion _x__ Beti exploration ___ ___ Life review _x__ Prayer ___ Reconciliation ___ Sacrament of Sick _x__ Supportive presence ___ Wedding ___ Other (describe below) Pastoral Comments patient is to be discharged today, spouse is in room waiting for discharge, and both are somewhat anxious; pt is to return to hospice care at home; pt is hopeful but wondering if a liver transplant will happen for her; spouse admits that situation is not good and that he is having a difficult time emotionally; pt used to be active in [employer] but has been inactive in recent years; pt would like prayer as she acknowledges this is important way of coping for her
[2023-01-29 17:07] LABS: Bedside Glucose 220 mg/dL (74-106)
== END 2023-01-29 15:27 | disposition hospice, home (50) | DRG 443 ==
LOC: ED 18:33 → MS3 18:53
PROVIDERS: Admitting Provider Family Medicine; Emergency Provider Emergency Medicine; PCP Family Medicine; Referring Provider Family Medicine; Visit Provider Student in an Organized Health Care Education/Training Program
DX: K76.82 Hepatic encephalopathy (principal); K72.10 Chronic hepatic failure without coma; E11.9 Type 2 diabetes mellitus without complications; D50.9 Iron deficiency anemia, unspecified; E78.00 Pure hypercholesterolemia, unspecified; G47.33 Obstructive sleep apnea (adult) (pediatric); K74.60 Unspecified cirrhosis of liver; M06.9 Rheumatoid arthritis, unspecified; K64.9 Unspecified hemorrhoids; I10 Essential (primary) hypertension; K21.9 Gastro-esophageal reflux disease without esophagitis; J45.909 Unspecified asthma, uncomplicated; R13.10 Dysphagia, unspecified; Z79.84 Long term (current) use of oral hypoglycemic drugs; Z79.899 Other long term (current) drug therapy
CPT/HCPCS: 36415; 70450; 72220; 80053; 81001; 82140; 82962; 83605; 83735; 84100; 85025; 85610; 86850; 86900; 86901; 92523; 92526; 92610; 93005; 94668; 97162; 97166; 97530; 97535; 97802; 99285; J7030; P9612; A4216; J2405

== ENCOUNTER → 2023-04-05 12:02 | Outpatient (REF) | payer MEDICARE, SELFPAY ==
[2023-04-05 14:55] LABS: Anion Gap 9 (5-15); BUN 6 mg/dL (7-18); BUN/Creat Ratio 9.4 RATIO (10-20); Calcium,Total 6.7 mg/dL (8.5-10.1); Chloride 96 mmol/L (98-107); Creatinine, Serum 0.64 mg/dL (0.55-1.02); EST Glomerular Filtration Rate 97 mL/min (>60); Est Glom Filt Rate - Afr Amer 118 mL/min (>60); Glucose 181 mg/dL (74-106); Potassium 2.7 mmol/L (3.5-5.1); Sodium Level 134 mmol/L (136-145)
== END ==
LOC: LABSPEC 12:02
PROVIDERS: PCP Family Medicine
DX: E87.70 Fluid overload, unspecified (principal)
CPT/HCPCS: 80048

== ENCOUNTER 2023-04-28 10:49 | Inpatient (IN) | payer MEDICARE, SELFPAY ==
[2023-04-28] VITALS (24 sets, daily range): BP systolic 72–111; BP diastolic 41–63; PULSE 74–122; RESP 10–22; TEMP 35.4–36.3; O2SAT 95–100; BMI 33.7; BMI 32.8
--- NOTE | 2023-04-28 11:00 | CT_ITS ---
STUDY: CT BRAIN WITHOUT CONTRAST REASON FOR EXAM: Female, 72 years old. Unresponsive RADIATION DOSAGE (If Supplied By Facility): CTDIvol = ( 44.99 ) mGy, DLP = ( 812.98 ) mGycm TECHNIQUE: Transaxial CT imaging of the brain was performed without administration of intravenous contrast material. Individualized dose optimization techniques were used for this CT. COMPARISON: Comparison is made with prior study dated January 25, 2023. FINDINGS: Normal soft tissue structures. Normal calvarium. There is mild cerebral atrophy with widening of the extra-axial spaces and ventricular dilatation. Stable focal encephalomalacia in the left frontoparietal lobe suggestive of old ischemic insult. Normal basal ganglia and thalami. Normal brainstem. Normal cerebellum. There is no intracranial hemorrhage. There are no findings of an acute ischemic infarction. Atherosclerotic plaque formation of the cavernous portions of the internal carotid arteries bilaterally. Normal visualized paranasal sinuses. CT/Brain/Head without Contrast IMPRESSION: Chronic involutional changes of the brain. No acute abnormality is seen. Electronically Signed: Dimas Suarez MD at 12:11 EDT ,
--- NOTE | 2023-04-28 11:00 | RAD_ITS ---
STUDY: X-RAY CHEST REASON FOR EXAM: Female, 72 years old. Dyspnea -- -- patient on hospice sent in for unresponsive. Responds to painful stimuli. hx liver cirrhosis. 66% on 5L nc 100% on 15 L NRB TECHNIQUE: Single AP portable view of the chest. COMPARISON: Comparison is made with prior study dated October 30, 2021. FINDINGS: Small right pleural effusion with right basilar infiltration and/or atelectasis. There is no demonstrated pleural abnormality. Normal size heart. Normal mediastinum and mckenna. Normal visualized pulmonary arteries. There is atherosclerotic tortuosity of the aortic arch and descending thoracic aorta. There is a levoscoliosis of the thoracic spine. Normal visualized ribs, clavicles, and shoulders. There is no demonstrated abnormality of the visualized soft tissue structures of the upper abdomen. RAD/Chest 1 View (Portable) IMPRESSION: Small right pleural effusion with underlying right basilar atelectasis and/or infiltrate. Electronically Signed: Dimas Suarez MD at 12:16 EDT ,
--- NOTE | 2023-04-28 11:04 | EDS_ITS ---
HPI History of Present Illness Chief Complaint: Unresponsive Informant: EMS Limited: stupor Onset/Context/Timing Onset: Today Timing: Continuous Quality: Unresponsive Location: Generalized Narrative Narrative: Patient was found unresponsive today by family. EMS noted that the patient's pulse oximeter on her normal oxygen was in the 60s. EMS placed the patient on nonrebreather mask. Patient is nonverbal and is a poor informant. EMS reports patient has a history of liver cirrhosis and is on hospice. Patient is a full code however. [facility] Medical History Asthma Cirrhosis CPAP (continuous positive airway pressure) dependence Diabetes GERD (gastroesophageal reflux disease) GI bleed High cholesterol History of hypertension History of type 2 diabetes mellitus HTN (hypertension) Non-alcoholic cirrhosis Non-smoker On home oxygen therapy Rheumatoid arthritis Sleep apnea Home Medications metformin 500 mg tablet 1,000 mg PO BID BLOOD SUGARS 11/07/18 [History Last Taken 04/27/23] cholecalciferol (vitamin D3) 25 mcg (1,000 unit) tablet (Vitamin D3) 1,000 unit PO DAILY SUPPLEMENT 11/14/18 [History Last Taken 04/27/23] cyanocobalamin (vitamin B-12) 500 mcg tablet 500 mcg PO DAILY SUPPLEMENT 11/14/18 [History Last Taken 04/27/23] spironolactone 100 mg tablet 100 mg PO DAILY FLUID 12/07/18 [History Last Taken 04/27/23] pantoprazole 40 mg tablet,delayed release 40 mg PO BID ACID REFLUX 05/18/19 [History Last Taken 04/27/23] nadolol 20 mg tablet 20 mg PO DAILY BLOOD PRESSURE 10/11/21 [History Last Taken 04/27/23] ferrous sulfate 325 mg (65 mg iron) tablet 325 mg PO DAILY SUPPLEMENT 10/30/21 [History Last Taken 04/27/23] furosemide 40 mg tablet 40 mg PO BID FLUID 10/30/21 [History Last Taken 04/27/23] magnesium oxide 140 mg capsule 140 mg PO DAILY SUPPLEMENT 10/30/21 [History Last Taken 04/27/23] potassium chloride 10 mEq tablet,extended release(part/cryst) 10 meq PO BID SUPPLEMENT 02/23/22 [History Last Taken 04/27/23] HALOPERIDOL 0.5 ml PO Q6H PRN AGITATION 04/28/23 [History Last Taken Unknown] MORPHINE SULFATE 0.125 ml PO Q4H PRN PAIN/SHORTNESS OF BREATH 04/28/23 [History Last Taken Unknown] acetaminophen 650 mg rectal suppository 650 mg MN Q6H PRN PAIN/FEVER 04/28/23 [History Last Taken Unknown] bisacodyl 10 mg rectal suppository 10 mg MN DAILY PRN CONSTIPATION 04/28/23 [History Last Taken Unknown] hyoscyamine sulfate 0.125 mg tablet 0.125 mg sublingual Q4H PRN BOWELS 04/28/23 [History Last Taken Unknown] lactulose 10 gram/15 mL oral solution 15 ml PO DAILY CONSTIPATION 04/28/23 [History Last Taken 04/27/23] loratadine 10 mg tablet (Claritin) 10 mg PO DAILY PRN SEASONAL ALLERGIES 04/28/23 [History Last Taken Unknown] lorazepam 0.5 mg tablet (Ativan) 0.5 mg PO DAILY PRN ANXIETY 04/28/23 [History Last Taken Unknown] prochlorperazine maleate 10 mg tablet 10 mg PO Q6H PRN NAUSEA/VOMITING 04/28/23 [History Last Taken Unknown] Allergy/AdvReac Type Severity Reaction Status Date / Time estrogens, conjugated Allergy Mild SWELLING, Verified 01/25/23 18:53 [From Premarin] ITCHING, RASH hydrochlorothiazide Allergy Mild RASH, Verified 01/25/23 18:53 ITCHING Penicillins Allergy Mild Hives Verified 01/25/23 18:53 Sulfa (Sulfonamide Allergy Mild SWELLING, Verified 01/25/23 18:53 Antibiotics) ITCHING, RASH bisoprolol Allergy Unknown PT UNABLE Verified 04/28/23 11:00 TO RESPOND-NEEDS F/U enalapril Allergy Unknown PT UNABLE Verified 04/28/23 11:00 TO RESPOND-NEEDS F/U Family History Mother Breast cancer Hypertension CAD (coronary artery disease) Father CAD (coronary artery disease) Cancer Surgical History History of cholecystectomy S/P carpal tunnel release S/P cholecystectomy S/P hysterectomy S/P parathyroidectomy S/P renal artery angioplasty Status post right knee replacement Social History household members: spouse Smoking Status: Never smoker alcohol intake: never substance use type: does not use ROS ROS ED Review of Systems ROS Unobtainable: due to encephalopathy EXAM Physical Exam Const Vital Signs: 04/28/23 10:50 04/28/23 11:37 04/28/23 12:09 Temperature 96.9 F L Temperature Source Temporal Pulse Rate 85 85 Respiratory Rate 10 L 11 L Respiratory Pattern Blood Pressure 89/53 L 95/47 L Blood Pressure Mean 65 63 Pulse Ox 100 95 Oxygen Delivery Method Non-Rebreather Nasal Cannula Nasal Cannula Oxygen Flow Rate (L/min) 15 6 04/28/23 11:45 04/28/23 13:42 Temperature Temperature Source Pulse Rate 74 110 H Respiratory Rate 12 12 Respiratory Pattern Bradypnea Blood Pressure 82/62 L Blood Pressure Mean 68 Pulse Ox 98 Oxygen Delivery Method Oxygen Flow Rate (L/min) Positive well nourished, well developed and obese General Appearance ED: well developed Nutritional Appearance: obese HEENT Reports dry mucous membranes Mouth ED: Yes dry mucous membranes Mouth: dry mucous membranes Chest Wall inspection of chest normal and palpation of chest normal Resp Auscultation: diminished lung sounds diffuse Cardio regular rate and regular rhythm GI non-tender Palpation: soft Neuro Neuro Narrative: Patient is responsive to painful stimuli. Patient is nonverbal. Sensorium / Orientation: lethargic Sepsis Attestation Sepsis Alert: Yes Sepsis Attestation: Agree w/Sepsis Date exam was performed: 04/28/23 Time exam was performed: 10:55 Possible Source of Sepsis: Pulmonary and Genitourinary Sepsis Organ Dysfunction Criteria Present: SBP < 90 mmHg or MAP < 65 mmHg, Creatinine > 2.0 mg/dL, Total Bilirubin > 2 mg/dl, Lactic Acid > 2 mmol/L and New/Unexplained change in mental status Fluid Resuscitation Fluid resuscitation indicated?: Yes Fluid Resuscitation ordered: 30 ml/kg fluid bolus ordered MDM MDM MDM Narrative Medical decision making narrative: Differential diagnosis includes stroke, intracranial bleeding, sepsis, cardiac dysrhythmia, cardiac ischemia, hepatic encephalopathy, pneumonia, urinary tract infection, dehydration, and electrolyte abnormality. CT scan of the brain will be obtained to assess for intracranial bleeding and stroke. EKG will be obtained to assess for cardiac dysrhythmia and cardiac ischemia. Chest x-ray will be obtained to assess for pneumonia. CBC will be obtained to assess for leukocytosis and anemia. Comprehensive metabolic profile will be obtained to assess for hepatic function, renal function, and electrolyte abnormality. High- sensitivity troponin will be obtained to assess for cardiac ischemia. Lactate will be obtained to assess for sepsis. PT with INR and PTT will be obtained to assess for coagulopathy. Ammonia level will be obtained to assess for hepatic encephalopathy. Urinalysis will be obtained to assess for urinary tract infection. Blood cultures will be obtained to assess for sepsis. Urine culture will be obtained to assess for urinary tract infection. Arterial blood gas will be obtained to assess for pH and acid-base status. History & Record Review Discussion w/independent historian: Family Additional record(s) reviewed:: Prior labs Lab Data Attestation: I reviewed the patient's lab results. Lab results narrative: CBC was reviewed. There is a leukocytosis of 13.9. Platelets were slightly low at 139. PT with INR and PTT were reviewed. Pro time was 24.6 and INR is 2.2. PTT 34.7. Comprehensive metabolic profile was reviewed. BUN was slightly elevated at 33 and creatinine was 2.34 these were increased from previous results. Total bilirubin was elevated at 3.0. AST was slightly elevated at 101. The remainder was essentially within normal limits. Serum ammonia level was reviewed and was elevated at 68. High-sensitivity troponin was reviewed and was slightly elevated at 263. Lactate was reviewed and was elevated at 3.6. Urinalysis was reviewed. Leukocyte Estrace was 500 with 25-50 white blood cells and 25-50 red blood cells. There is 1+ bacteria. There are positive nitrites. Occult blood was 250. Labs: Laboratory Results - last 24 hr 04/28/23 04/28/23 04/28/23 10:55 11:09 11:24 WBC 13.9 H RBC 4.07 L Hgb 13.2 Hct 37.4 MCV 91.9 MCH 32.4 H MCHC 35.3 RDW Std Deviation 48.1 H RDW Coeff of Marlyn 14.6 Plt Count 139 L MPV 9.6 Immature Gran % (Auto) 0.900 Neut % (Auto) 74.5 H Lymph % (Auto) 10.9 L [place] % (Auto) 12.9 H Eos % (Auto) 0.6 Baso % (Auto) 0.2 Absolute Neuts (auto) 10.4 H Absolute Lymphs (auto) 1.51 Nucleated RBC % 0 Differential Comment SCANNED Diff Path Review November foll PT 24.6 H INR 2.2 APTT 34.7 Sodium 130 L Potassium 3.2 L Chloride 86 L Carbon Dioxide 37.0 H Anion Gap 7 BUN 33 H Creatinine 2.34 H Estim Creat Clear Calc 18.24 Est GFR (MDRD) Af Amer 26 L Est GFR (MDRD) Non-Af 22 L BUN/Creatinine Ratio 14.1 Glucose 80 Lactic Acid 3.6 H* Calcium 6.5 L* Total Bilirubin 3.00 H AST 101 H ALT 42 Alkaline Phosphatase 119 H Ammonia 68.0 H Troponin I High Sens 263 H* Total Protein 5.3 L Albumin 1.3 L Globulin 4.0 Albumin/Globulin Ratio 0.3 L Urine Color Lissette Urine Clarity Cloudy Urine pH 6.0 Ur Specific [place] 1.020 Urine Protein 30 H Urine Glucose (UA) Normal Urine Ketones 5 H Urine Occult Blood 250 H Urine Nitrite Positive H Urine Bilirubin 3 H Urine Urobilinogen 8 H Ur Leukocyte Esterase 500 H Urine RBC 25-50 SEEN Urine WBC 25-50 SEEN Ur Squamous Epith Cells 0 SEEN Urine Bacteria 1+ Urine Mucus 0 SEEN Urine Yeast 3+ ABG Data ABG results: ABG 04/28/23 11:24 Specimen Type ART Sample Site L Radial pH 7.60 H* Bicarbonate Actual 33.6 H Total CO2 35 Base Excess 12 H O2 Saturation 99 O2 % 6.0 ABG pCO2 34.3 L ABG pO2 106 H Wilfred Test Positive O2 Delivery Device Cannula Vent Mode Not entered Crit Call To/Read Back Yes Radiography Chest X-Ray - ED: 1 View, Read by ED Physician, Read by Radiologist, Right Infiltrate and Right Effusion Diagnostic Testing: Clinical Impression(s) from Imaging Studies Brain CT 04/28/23 11:00 IMPRESSION: Chronic involutional changes of the brain. No acute abnormality is seen. Electronically Signed: Dimas Suarez MD at 12:11 EDT , Chest X-Ray 04/28/23 11:00 IMPRESSION: Small right pleural effusion with underlying right basilar atelectasis and/or infiltrate. Electronically Signed: Dimas Suarez MD at 12:16 EDT , CT scan of the brain was obtained. There is no acute intracranial bleeding. There are chronic changes noted. There is no other acute abnormality noted. This was interpreted by the radiologist was also independently reviewed by myself. Portable chest x-ray was obtained. There is 1 view. On my independent interpretation, there is a small right pleural effusion with underlying right basilar atelectasis or infiltrate. Radiologist also interpreted the x-ray and agrees. EKG Initial EKG: Attestation: I personally reviewed and interpreted this EKG as follows: Interpretation: Sinus Rhythm (82) and No Acute Injury Pattern Comments: EKG was obtained. On my independent interpretation, it showed a normal sinus rhythm with a rate of 82. MN interval and QRS interval were normal. QTc interval was slightly prolonged at 546 ms. [place] was borderline left axis deviation at -16. There are no acute ST or T wave changes. Prior EKG tracings: available for review Prior: Unchanged (01/25/2023) Management Discussion w/another healthcare provider: Hospitalist Treatment and Re-Evaluation :: Patient was given IV fluids. Patient was given lactulose. Patient was given calcium gluconate. Patient given aerosol. Patient was started on Levaquin for urinary tract infection and pneumonia. Findings were discussed with the family. They are agreeable to having the patient admitted. They stated that the patient has 20 had her hospice revoked. Patient is a full code. Family does report patient has had an altered mental status over the past few days but when the hospice nurse evaluated the patient today she wanted the patient to come to the emergency department. Case was discussed with the hospitalist. She will admit the patient to ICU. Family understands and is agreeable with the plan. All questions were answered. Critical Care Time Critical Care Time: Yes Critical care time (excluding procedures): 30-74 minutes (38), Including time spent:, Discussing w/Patient &/or Family/Product Mgr, Discussing w/Consultants, Arranging Admission or Transfer and Performing Direct Patient Care at Bedside Discharge Plan Dx/Rx/DC Orders Clinical Impression: UTI (urinary tract infection), Toxic metabolic encephalopathy, Sepsis, ANDREA (acute kidney injury), Dehydration, Lactic acidosis Disposition Disposition: Acute Care Hospital [facility] Discharge Date/Time: 04/28/23 15:11
[2023-04-28] MEDS: 0.9% Normal Saline (1000mL) 1,000 ML 1000 ML IV ×2 (11:08→13:26)
[2023-04-28 11:16] LABS: International Normalized Ratio 2.2; Prothrombin Time (Protime)PT. 24.6 SECONDS (11.7-14.9)
[2023-04-28 11:17] LABS: Partial Thromboplast Time 34.7 Seconds (24.1-36.2)
[2023-04-28 11:28] LABS: Allen Test Positive; Base Excess 12 mmol/L (-2 to +2); Bicarbonate 33.6 mmol/L (22-26); Blood Gas Specimen Type ART; Mode Not entered; O2 Delivery Device Cannula; PO2 106 mmHG (75-100); SITE L Radial; SO2 99 % (95-99); Total Carbon Dioxide 35 mmol/L; pCO2 34.3 mmHg (35-45)
[2023-04-28 11:28] LABS: ALB/GLOB Ratio 0.3 RATIO (0.9-2.4); AST(SGOT) 101 U/L (15-37); Alanine Aminotransfer ALT/SGPT 42 U/L (13-56); Albumin, Serum 1.3 g/dL (3.2-5.0); Alkaline Phosphatase 119 U/L (45-117); Anion Gap 7 (5-15); BUN 33 mg/dL (7-18); BUN/Creat Ratio 14.1 RATIO (10-20); Calcium,Total 6.5 mg/dL (8.5-10.1); Chloride 86 mmol/L (98-107); Creatinine, Serum 2.34 mg/dL (0.55-1.02); EST Glomerular Filtration Rate 22 mL/min (>60); Est Glom Filt Rate - Afr Amer 26 mL/min (>60); Estimated Creatinine Clearance 18.24 ml/min; Glucose 80 mg/dL (74-106); Potassium 3.2 mmol/L (3.5-5.1); Protein, Total 5.3 g/dL (6.4-8.2); Sodium Level 130 mmol/L (136-145); Troponin-I HS 263 pg/mL (3.0-54.0)
[2023-04-28 11:29] LABS: Mucous, Urine 0 SEEN /hpf (<or=2+); Squamous Epithelial Cells - UA 0 SEEN /hpf (5-10)
--- NOTE | 2023-04-28 11:30 | CPS ---
Critical value verified times two. Hand delivered results to DR. Duque. Verified by read back.
[2023-04-28 11:36] LABS: Color, Urine Amber (Yellow); Glucose, Dipstick Normal (Normal); Ketone-Dipstick 5 mg/dl (Negative); Leukocyte Esterase-Dipstick 500 /ul (Negative); Nitrite-Dipstick Positive (Negative); Occult Blood-Urine 250 /ul (Negative); Protein-Dipstick 30 mg/dl (Negative); Urine Clarity Cloudy (Clear); Urine Urobilinogen 8 mg/dl (Normal)
[2023-04-28 11:40] LABS: Urine Bilirubin Dipstick 3 mg/dL (Negative)
[2023-04-28] MEDS: Ipratropium/Albuterol Sulfate 3 ML AMPUL.NEB INHALATION (11:45)
[2023-04-28 11:52] LABS: Lactic Acid 3.6 mmol/L (0.4-1.9)
[2023-04-28 11:55] LABS: Bacteria 1+ /hpf (None Seen); Red Blood Cells-Urine 25-50 SEEN /hpf (0-5); White Blood Cells 25-50 SEEN /hpf (0-5); Yeast-Urine 3+ /hpf (None Seen)
[2023-04-28] MEDS: levoFLOXacin IV 750 MG/150 ML BAG 100 MG IV (12:07)
[2023-04-28] MEDS: 0.9% Normal Saline (1000mL) 1,000 ML 999 ML IV ×2 (12:07→15:43)
[2023-04-28 12:10] LABS: Absolute Lymphocyte Count 1.51 X10^3/uL (0.83-4.51); Absolute Neutrophil Count 10.4 X10^3/uL (2.0-7.7); Basophil# 0.03 X10^3/uL; Basophil% 0.2 % (0-1); Eosinophil# 0.08 X10^3/uL; Eosinophils% 0.6 % (0-5); Hematocrit 37.4 % (37-47); Hemoglobin 13.2 g/dL (12.0-15.0); Lymphocyte # 1.51 X10^3/ul (0.83-4.51); Lymphocyte % 10.9 % (19-41); Mean Corp Hgb Conc 35.3 g/dL (32-36); Mean Corpuscular Hgb 32.4 pg (27.0-32.0); Mean Corpuscular Volume 91.9 fL (81-99); Mean Platelet Vol. 9.6 fl (6.2-12.0); Monocyte% 12.9 % (0-10); NRBC Flagged by Analyzer 0 % (0-5); Neutrophil # 10.36 X10^3/uL (2.7-7.7); Neutrophil % 74.5 % (47-70); POSITIVE COUNT YES; POSITIVE DIFFERENTIAL YES; Platelet Count 139 K/mm3 (150-450); RBC Distribution Width CV 14.6 % (11.6-14.6); RBC Distribution Width SD 48.1 fl (35.1-43.9); Red Blood Count 4.07 M/mm3 (4.2-5.4); White Blood Count 13.9 K/mm3 (4.4-11.0)
[2023-04-28 12:11] LABS: Differential Comment SCANNED; Differential Indicated SCAN CRITERIA MET
[2023-04-28] MEDS: Calcium Gluconate 1 GM/10 ML Vial IVP (12:18)
[2023-04-28] MEDS: Lactulose 20 GM/30 ML UDC 200 GM RC (12:30)
--- NOTE | 2023-04-28 14:00 | ECHOD_ITS ---
Reason For Study: ELEVATED TROPONIN Procedure This was a 2D Doppler, Color Flow transthoracic echocardiogram. The study was technically difficult. Patient was scanned in supine position during reflux assessment. Exam performed portable in ICU/CCU. Left Ventricle Normal LV size. Mild concentric left ventricular hypertrophy. Left ventricular systolic function is hyperdynamic. The left ventricular ejection fraction is 75 %. Stage 1 diastolic dysfunction. Right Ventricle Normal right ventricle. Hyperdynamic. Atria The left atrium is mildly enlarged. Normal right atrium. Mitral Valve Systolic anterior motion of the mitral valve. Moderately severe (3+) mitral valve insufficiency. Tricuspid Valve Mild tricuspid valve insufficiency. Normal pulmonary artery pressure. Great Vessels Normal sized aortic root. Pericardium/Pleural No pericardial effusion. MMode/2D Measurements & Calculations LVIDd: 3.0 cm IVSd: 1.3 cm LVOT diam: 1.9 cm RVDd: 3.1 cm LVPWd: 0.90 cm LVOT area: 2.7 cm2 Ao root diam: 3.1 cm LAV(MOD-bp): 41.4 ml LVAd ap4: 18.8 cm2 LAV(MOD-bp) Indexed: 21.9 ml/m2 LVLd ap4: 7.0 cm LAV(MOD-sp2): 47.0 ml EDV(MOD-sp4): 43.5 ml LAV(MOD-sp4): 30.0 ml EDV(sp4-el): 43.2 ml LVAs ap4: 9.1 cm2 LVLs ap4: 5.4 cm ESV(MOD-sp4): 13.7 ml ESV(sp4-el): 12.9 ml EF(MOD-sp4): 68.6 % EF(sp4-el): 70.1 % LVAd ap2: 19.5 cm2 SV(MOD-sp4): 29.9 ml SV(MOD-sp2): 34.2 ml LVLd ap2: 7.0 cm EDV(MOD-sp2): 44.7 ml EDV(sp2-el): 46.2 ml LVAs ap2: 8.2 cm2 LVLs ap2: 5.7 cm ESV(MOD-sp2): 10.5 ml ESV(sp2-el): 9.9 ml EF(MOD-sp2): 76.6 % SV(sp4-el): 30.3 ml LA dimension(2D): 4.1 cm LA A4 area: 13.7 cm2 RA A4 area: 6.6 cm2 TAPSE: 1.6 cm Doppler Measurements & Calculations MV E max faisal: 73.4 cm/sec Lat Peak E' Faisal: 9.5 cm/sec Med Peak E' Faisal: 6.4 cm/sec MV A max faisal: 148.2 cm/sec E/E' lat: 7.7 E/E' med: 11.4 MV E/A: 0.50 Ao V2 max: 213.6 cm/sec LV V1 max: 153.6 cm/sec SV(LVOT): 55.5 ml Ao max P.3 mmHg LV V1 max P.4 mmHg Ao V2 mean: 138.8 cm/sec LV V1 mean P.8 mmHg Ao mean P.9 mmHg LV V1 mean: 101.9 cm/sec Ao V2 VTI: 37.6 cm LV V1 VTI: 20.4 cm AV (velocity ratio): 0.54 PAL(I,D): 1.5 cm2 PAL(V,D): 2.0 cm2 PA V2 max: 115.4 cm/sec TR max faisal: 240.6 cm/sec TR max P.2 mmHg ECHO/Echo Complete Interpretation Summary Mild concentric left ventricular hypertrophy. Left ventricular systolic function is hyperdynamic. The left ventricular ejection fraction is 75 %. Stage 1 diastolic dysfunction. The left atrium is mildly enlarged. Systolic anterior motion of the mitral valve. Moderately severe (3+) mitral valve insufficiency. Mild tricuspid valve insufficiency. Ordering Physician: Shanna Molina Referring Physician: Shana Mckeon Performed By: Yovana Brothers RDCS
--- NOTE | 2023-04-28 14:01 | PCM.HP.STD ---
HPI - General General Date of Admission: 04/28/23 Date of Service: 04/28/23 Chief Complaint: Altered mental status HPI Narrative JOSE A FANG, is a 72 F who presented to the emergency department at [facility] on 04/28/2023 with altered mental status. Patient has a known history of cirrhosis and during her last hospitalization here she requested a consultation to hospice and she enrolled in hospice but was full code. Family brought her to the emergency department and revoked hospice at this time. Per discussion with nursing staff his family was not present at the time of my evaluation they did report they would be willing to place her back in hospice after discharge and change her CODE STATUS to DNR however currently would like her to be full code. She was enrolled in hospice at home and was found unresponsive today by family. EMS was called and they noted that the pulse oximeter on room air was in the 60s and placed her on a nonrebreather. The patient has been obtunded throughout my evaluation and her emergency department stay and family was not at the bedside so I was unable to get any significant meaningful history from her or anyone else. Vital signs on presentation showed a temperature of 96.9, heart rate was initially 85 however she did become tachycardic in the emergency department with heart rates in the 120s, initial blood pressure was 89/53 and she was somewhat responsive to IV fluids however not entirely responsive and I do anticipate she may need pressors once her boluses are completed, her respiratory rate has been anywhere from 10-14 and oxygen saturation was 100% on a 15 L nonrebreather and her oxygen was weaned to 6 L nasal cannula with a sat of 95%. Her CBC did show leukocytosis with a white count of 13.9 and a left shift of 74.5% neutrophilia. Her platelets were low at 139,000. Coags were obtained and abnormal with a PTT of 24.6, INR of 2.2, and PTT of 34.7. ABG showed alkalosis with a pH of 7.6 a PCO2 of 34.3 and a PO2 of 106. Chemistry panel was markedly abnormal with a sodium of 130, hypokalemia with a potassium of 3.2, her serum bicarb was markedly elevated compared to her baseline at 37 and her baseline appears to run between 22 and 26, her BUN and serum creatinine were markedly elevated with a creatinine of 2.34 (baseline serum creatinine runs between 0.6 and 0.9.) Her initial lactic acid was 3.6. Her calcium was 6.5 however when corrected for albumin it is normal at 9.3. Her bilirubin is 3.0 which is close to her baseline. AST is 101 with a normal ALT. Ammonia was 68 which is elevated however when compared to her baseline. Her troponin was 263. Her UA showed ketones, occult blood, nitrite, leuk esterase, white cells and 1+ bacteria. CT of the brain was unremarkable. Chest x-ray showed small right pleural effusion with underlying basilar atelectasis. CTA of the chest abdomen pelvis shows a stable moderate right-sided pleural effusion when compared to previous CTs, cirrhosis of the liver with evidence of recanalization of the umbilical venous structures, varices in the splenic hilum, diffuse abnormality of the stomach with diffuse wall thickening, ascites and diffuse fluid seen in the subcutaneous fat consistent with anasarca. [facility] Medical History Asthma Cirrhosis CPAP (continuous positive airway pressure) dependence Diabetes GERD (gastroesophageal reflux disease) GI bleed High cholesterol History of hypertension History of type 2 diabetes mellitus HTN (hypertension) Non-alcoholic cirrhosis Non-smoker On home oxygen therapy Rheumatoid arthritis Sleep apnea Home Medications metformin 500 mg tablet 1,000 mg PO BID BLOOD SUGARS 11/07/18 [History Last Taken 04/27/23] cholecalciferol (vitamin D3) 25 mcg (1,000 unit) tablet (Vitamin D3) 1,000 unit PO DAILY SUPPLEMENT 11/14/18 [History Last Taken 04/27/23] cyanocobalamin (vitamin B-12) 500 mcg tablet 500 mcg PO DAILY SUPPLEMENT 11/14/18 [History Last Taken 04/27/23] spironolactone 100 mg tablet 100 mg PO DAILY FLUID 12/07/18 [History Last Taken 04/27/23] pantoprazole 40 mg tablet,delayed release 40 mg PO BID ACID REFLUX 05/18/19 [History Last Taken 04/27/23] nadolol 20 mg tablet 20 mg PO DAILY BLOOD PRESSURE 10/11/21 [History Last Taken 04/27/23] ferrous sulfate 325 mg (65 mg iron) tablet 325 mg PO DAILY SUPPLEMENT 10/30/21 [History Last Taken 04/27/23] furosemide 40 mg tablet 40 mg PO BID FLUID 10/30/21 [History Last Taken 04/27/23] magnesium oxide 140 mg capsule 140 mg PO DAILY SUPPLEMENT 10/30/21 [History Last Taken 04/27/23] potassium chloride 10 mEq tablet,extended release(part/cryst) 10 meq PO BID SUPPLEMENT 02/23/22 [History Last Taken 04/27/23] HALOPERIDOL 0.5 ml PO Q6H PRN AGITATION 04/28/23 [History Last Taken Unknown] MORPHINE SULFATE 0.125 ml PO Q4H PRN PAIN/SHORTNESS OF BREATH 04/28/23 [History Last Taken Unknown] acetaminophen 650 mg rectal suppository 650 mg GA Q6H PRN PAIN/FEVER 04/28/23 [History Last Taken Unknown] bisacodyl 10 mg rectal suppository 10 mg GA DAILY PRN CONSTIPATION 04/28/23 [History Last Taken Unknown] hyoscyamine sulfate 0.125 mg tablet 0.125 mg sublingual Q4H PRN BOWELS 04/28/23 [History Last Taken Unknown] lactulose 10 gram/15 mL oral solution 15 ml PO DAILY CONSTIPATION 04/28/23 [History Last Taken 04/27/23] loratadine 10 mg tablet (Claritin) 10 mg PO DAILY PRN SEASONAL ALLERGIES 04/28/23 [History Last Taken Unknown] lorazepam 0.5 mg tablet (Ativan) 0.5 mg PO DAILY PRN ANXIETY 04/28/23 [History Last Taken Unknown] prochlorperazine maleate 10 mg tablet 10 mg PO Q6H PRN NAUSEA/VOMITING 04/28/23 [History Last Taken Unknown] Allergy/AdvReac Type Severity Reaction Status Date / Time estrogens, conjugated Allergy Mild SWELLING, Verified 01/25/23 18:53 [From Premarin] ITCHING, RASH hydrochlorothiazide Allergy Mild RASH, Verified 01/25/23 18:53 ITCHING Penicillins Allergy Mild Hives Verified 01/25/23 18:53 Sulfa (Sulfonamide Allergy Mild SWELLING, Verified 01/25/23 18:53 Antibiotics) ITCHING, RASH bisoprolol Allergy Unknown PT UNABLE Verified 04/28/23 11:00 TO RESPOND-NEEDS F/U enalapril Allergy Unknown PT UNABLE Verified 04/28/23 11:00 TO RESPOND-NEEDS F/U Family History Mother Breast cancer Hypertension CAD (coronary artery disease) Father CAD (coronary artery disease) Cancer Surgical History History of cholecystectomy S/P carpal tunnel release S/P cholecystectomy S/P hysterectomy S/P parathyroidectomy S/P renal artery angioplasty Status post right knee replacement Social History household members: spouse Smoking Status: Never smoker alcohol intake: never substance use type: does not use ROS Review of Systems ROS Unobtainable: due to mental status Vital Signs Vital Signs Vital Signs: 04/28/23 10:50 04/28/23 11:37 04/28/23 12:09 Temperature 96.9 F L Temperature Source Temporal Pulse Rate 85 85 Respiratory Rate 10 L 11 L Respiratory Pattern Blood Pressure 89/53 L 95/47 L Blood Pressure Mean 65 63 Pulse Ox 100 95 Oxygen Delivery Method Non-Rebreather Nasal Cannula Nasal Cannula Oxygen Flow Rate (L/min) 15 6 04/28/23 11:45 04/28/23 13:42 Temperature Temperature Source Pulse Rate 74 110 H Respiratory Rate 12 12 Respiratory Pattern Bradypnea Blood Pressure 82/62 L Blood Pressure Mean 68 Pulse Ox 98 Oxygen Delivery Method Oxygen Flow Rate (L/min) Weight Weight: 86.3 kg Body Mass Index (BMI) 33.7 Physical Exam Const Negative for average body habitus, healthy appearing or well nourished Constitutional Narrative: Older, white female who appears much older stated age, lying in bed, obtunded but intermittent moaning and responds with withdrawal to noxious stimulus, appears chronically ill but currently protecting airway, NG tube in place General Appearance: uncooperative Orientation / Consciousness: confused and lethargic HEENT normocephalic and head/scalp atraumatic HEENT Narrative: Mucous membranes are dry, Mallampati is 2, no thrush, dentition is poor Eyes conjunctivae normal Eyes Narrative: No conjunctival pallor, no scleral icterus noted at this time Neck no lymphadenopathy and supple Neck Narrative: Trachea midline, no thyroid enlargement Resp normal respiratory effort, no retractions and no use of accessory muscles Resp Narrative: Lung sounds are diminished at right base to about mid right lung field but otherwise clear Auscultation: Negative for rales, rhonchi or wheezes Cardio regular rhythm, S1 normal heart sound, S2 normal heart sound, no murmurs, no rub, no gallops and no clicks Cardio Narrative: Mild tachycardia GI normal to inspection, nondistended, normoactive bowel sounds, soft to palpation and non-tender GI Narrative: Abdominal anasarca noted Extremity Extremity Narrative: Significant anasarca noted bilateral lower extremities, bilateral upper extremities up into abdomen and posterior trunk, no clubbing or cyanosis Skin No no rashes or lesions noted, No skin turgor normal, no jaundice, no petechiae and no mottling Skin Narrative: spider angiomata noted, bruises Neuro Neuro Narrative: Moves all extremities to noxious stimulus, neuro exam was difficult due to mental status Psych Psych Narrative: Unable to assess Results Lab / Micro Data 04/28/23 10:55 04/28/23 10:55 Labs: Laboratory Results - last 24 hr 04/28/23 10:55: WBC 13.9 H, RBC 4.07 L, Hgb 13.2, Hct 37.4, MCV 91.9, MCH 32.4 H, MCHC 35.3, RDW Std Deviation 48.1 H, RDW Coeff of Marlyn 14.6, Plt Count 139 L, MPV 9.6, Immature Gran % (Auto) 0.900, Neut % (Auto) 74.5 H, Lymph % (Auto) 10.9 L, [place] % (Auto) 12.9 H, Eos % (Auto) 0.6, Baso % (Auto) 0.2, Absolute Neuts (auto) 10.4 H, Absolute Lymphs (auto) 1.51, Nucleated RBC % 0, Differential Comment SCANNED, Diff Path Review November, PT 24.6 H, INR 2.2, APTT 34.7, Sodium 130 L, Potassium 3.2 L, Chloride 86 L, Carbon Dioxide 37.0 H, Anion Gap 7, BUN 33 H, Creatinine 2.34 H, Estim Creat Clear Calc 18.24, Est GFR (MDRD) Af Amer 26 L, Est GFR (MDRD) Non-Af 22 L, BUN/Creatinine Ratio 14.1, Glucose 80, Calcium 6.5 L*, Total Bilirubin 3.00 H, AST 101 H, ALT 42, Alkaline Phosphatase 119 H, Ammonia 68.0 H, Troponin I High Sens 263 H*, Total Protein 5.3 L, Albumin 1.3 L, Globulin 4.0, Albumin/Globulin Ratio 0.3 L 04/28/23 11:09: Lactic Acid 3.6 H* 04/28/23 11:24: Urine Color Lissette, Urine Clarity Cloudy, Urine pH 6.0, Ur Specific [place] 1.020, Urine Protein 30 H, Urine Glucose (UA) Normal, Urine Ketones 5 H, Urine Occult Blood 250 H, Urine Nitrite Positive H, Urine Bilirubin 3 H, Urine Urobilinogen 8 H, Ur Leukocyte Esterase 500 H, Urine RBC 25-50 SEEN, Urine WBC 25-50 SEEN, Ur Squamous Epith Cells 0 SEEN, Urine Bacteria 1+, Urine Mucus 0 SEEN, Urine Yeast 3+ ABG Data ABG results: ABG 04/28/23 11:24 Specimen Type ART Sample Site L Radial pH 7.60 H* Bicarbonate Actual 33.6 H Total CO2 35 Base Excess 12 H O2 Saturation 99 O2 % 6.0 ABG pCO2 34.3 L ABG pO2 106 H Wilfred Test Positive O2 Delivery Device Cannula Vent Mode Not entered Crit Call To/Read Back Yes Radiology Impression Brain CT 04/28/23 11:00 IMPRESSION: Chronic involutional changes of the brain. No acute abnormality is seen. Electronically Signed: Dimas Suarez MD at 12:11 EDT , Chest X-Ray 04/28/23 11:00 IMPRESSION: Small right pleural effusion with underlying right basilar atelectasis and/or infiltrate. Electronically Signed: Dimas Suarez MD at 12:16 EDT , Assessment & Plan Assessment/Plan (1) Toxic metabolic encephalopathy: (2) Sepsis: (3) UTI (urinary tract infection): (4) Hyponatremia: (5) Hypokalemia: (6) ANDREA (acute kidney injury): (7) Leukocytosis: (8) Dehydration: (9) Coagulopathy: (10) Lactic acidosis: (11) Hypotension: (12) Tachycardia: (13) Elevated troponin I level: PLAN: Plan Sepsis secondary to suspected urinary tract infection -Patient meets sepsis criteria via SEP3 criteria with lactic acidosis, hyperbilirubinemia, elevated INR, and ANDREA with suspected source being her urine -Cultures obtained -Start cefepime with renal dosing and vancomycin -Patient was given 30 cc/kg of body weight for fluid resuscitation -May need pressors depending on response -We will likely need central venous access for this and PICC has been ordered -Await cultures and continue broad-spectrum empiric antibiotics until resulted -Care medicine consultation Hypotension -See above Lactic acidosis -Likely related to the above -We will monitor per protocol for clearance -Hold home metformin Leukocytosis -Secondary above -We will monitor for clearance ANDREA -Baseline renal function seems to run between 0.6 and 0.9 -Renal function on admission shows a creatinine of 2.34 -Aggressive hydration with pressor support if needed to keep MAP greater than 65 -Hold home diuretic Troponin elevation -Suspect related to stress-induced ischemia from sepsis picture and dehydration -Aggressive hydration -Check echocardiogram -Cycle cardiac enzymes Toxic/metabolic encephalopathy -Baseline is unclear as there is no family to help with this on presentation -Ammonia is elevated however not significantly elevated when compared to previous -We will continue lactulose via NG tube which was placed in the emergency department -Suspect overwhelming changes may be related to sepsis type picture and acute severe dehydration with ANDREA -Continue to monitor clinically as we treat her medical issues that were new on presentation Hypocalcemia -Calcium on presentation was 6.5 however when corrected for albumin is 9.3 -No intervention required Thrombocytopenia -Appears to be surprisingly more acute -Continue to monitor -Likely related to overall sepsis picture Hyponatremia -Likely hypovolemic hyponatremia -If does not improve with IV fluids may need further work-up -We will check TSH with mental status -Repeat BMP in a.m. -Hold diuretics Hypokalemia -Potassium replacement given -Check magnesium level -Repeat BMP in a.m. 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 -Overall prognosis appears to be poor -Patient was enrolled in hospice however was full code -Per discussion with the ER nurse's family indicated that they would be willing to reenroll her in hospice and acute change her CODE STATUS after we get her better -Depending on clinical progress may need to have further discussion with family with regards to hospice while in the hospital if clinically she does not stabilize -Hold nadolol -Continue lactulose via NG -Hold home Aldactone and Lasix GERD with history of GI bleed -Continue Protonix IV Chronic right-sided pleural effusion -This does not appear to be significantly changed from previous and I highly suspect it might be related to chronic ascites -We will hold off on thoracentesis for now but may need to be pursued in the future if respiratory status does not improve -Pulmonary medicine has been consulted Hypertension -Hold antihypertensives as patient is currently hypotensive History of diabetes -Hold metformin -Every 6 hours sliding scale -Accu-Cheks as ordered History of sleep apnea -Unclear if patient is currently utilizing CPAP at home -We will need to clarify DVT prophylaxis -Subcu heparin 3 times daily CODE STATUS -Full code per patient family report to ER at the time of presentation Care time greater than 36 minutes without procedures. Sepsis Attestation Sepsis Alert: Yes Sepsis Attestation: Agree w/Sepsis Date exam was performed: 04/28/23 Time exam was performed: 14:22 Possible Source of Sepsis: Genitourinary Sepsis Organ Dysfunction Criteria Present: SBP < 90 mmHg or MAP < 65 mmHg, Acute Respiratory Failure (New need for BiPAP/CPAP or MV), Creatinine > 2.0 mg/dL and Lactic Acid > 2 mmol/L Fluid Resuscitation Fluid resuscitation indicated?: Yes Fluid Resuscitation ordered: 30 ml/kg fluid bolus ordered Amount of fluid ordered: 3,000 Sepsis Note Date exam was performed: 04/28/23 Time exam was performed: 15:44 Sepsis Attestation: Sepsis re-evaluation was performed Response to fluids: Non Fluid responsive hypotension and Vasopressors started (We will start peripheral Levophed and request PICC line placement) Charges/Coding Procedures Hospitalists Procedures: 01595 Critial Care 1st Hr
--- NOTE | 2023-04-28 14:16 | NURSING ---
[facility] 201 CAM UTI,SEPTIC SHOCK, HEPATIC ENCEPHALOPATHY
--- NOTE | 2023-04-28 14:17 | CT_ITS ---
STUDY: CT CHEST, ABDOMEN T PELVIS WITHOUT CONTRAST REASON FOR EXAM: Female, 72 years old. SEPSIS RADIATION DOSAGE (If Supplied By Facility): CTDIvol = ( 19.06 ) mGy, DLP = ( 1693.76 ) mGycm TECHNIQUE: Transaxial imaging was performed without the administration of intravenous contrast material. Multiplanar coronal and sagittal images were reformatted. Individualized dose optimization techniques were used for this CT. COMPARISON: Comparison is made with prior CT scan of thorax dated October 10, 2021. FINDINGS: CHEST Moderate size right pleural effusion with right basilar compressive atelectasis and/or infiltrate. Focal infiltrate in the superior segment of the left lower lobe. This is unchanged as compared to prior study dated October 10, 2021. There are calcifications of the coronary arteries. Normal mediastinum. Normal hilar regions. Normal unenhanced pulmonary arteries. Normal aorta arch and descending thoracic aorta. Normal osseous structures. ABDOMEN There is a diffuse contour abnormality of the liver consistent with cirrhotic changes. There are surgical clips in the gallbladder fossa consistent with a prior cholecystectomy. Normal spleen. Normal pancreas. There is evidence of the venous collaterals in the subcutaneous fat suggestive of a possible portal hypertension and recanalization of the umbilical vein. There is evidence of varices in the splenic hilum. Normal bilateral adrenal glands. Normal right kidney. Normal left kidney. Diffuse wall thickening of the stomach. Normal small intestine. There are multiple colonic diverticula consistent with diverticulosis. The appendix is visualized and appears normal. There is diffuse atherosclerotic calcification of the abdominal aorta, without a demonstrated aneurysm. Normal inferior vena cava. Normal retroperitoneum. Diffuse subcutaneous edema within the subcutaneous fat. Normal osseous structures. PELVIS A Green catheter is seen within a decompressed urinary bladder. The patient is status post hysterectomy. Normal visualized small intestine. Normal visualized colon. There is no pelvic fluid. There is no pelvic lymphadenopathy or mass lesion. There is diffuse atherosclerotic calcification of the pelvic arteries. CT/CT Chest, Abd, Pelvis WO Cont IMPRESSION: Stable moderate size right pleural effusion with the right basilar consolidation and/or compressive atelectasis. Cirrhosis of the liver with evidence of a recanalization of the umbilical venous structures within the subcutaneous fat. 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 Diffuse abnormality of the stomach with diffuse wall thickening. Ascites. Diffuse fluid is seen within the subcutaneous fat. Electronically Signed: Dimas Suarez MD at 14:44 EDT ,
[2023-04-28 15:17] LABS: Reflex Lactate? Y
[2023-04-28] MEDS: Potassium Chloride 10mEq/100mL 10 MEQ/100 ML IV.SOLN. 100 MEQ IV BOLUS ×4 (15:45→19:26)
[2023-04-28] MEDS: 0.9% Normal Saline (250mL Bag) 250 ML 15 ML IV ×2 (15:45→15:57)
[2023-04-28] MEDS: Cefepime HCl 2 GM in 0.9% Normal Saline (100mL MB+) 100 ML IV (15:58)
[2023-04-28] MEDS: 0.9% Saline Lock 10 ML Syringe IV (16:00)
--- NOTE | 2023-04-28 16:25 | RAD_ITS ---
STUDY: X-RAY - ABDOMEN/PELVIS REASON FOR EXAM: Female, 72 years old. NG placement TECHNIQUE: Single AP view of the abdomen.. COMPARISON: April 28, 2023 chest x-ray FINDINGS: There is partial visualization of opacification of the right lung. There is left lower lobe atelectasis. An NG tube is present the tip is in the stomach. The upper abdomen is partially visualized on this study. There is a visualized nonspecific bowel gas pattern. Postoperative change in the right upper quadrant status post cholecystectomy. There is a suggestion of retained contrast within a diverticulum or possible right upper quadrant calcification. RAD/Abdomen Single View IMPRESSION: NG tube in satisfactory position. Status post cholecystectomy. Large right pleural effusion. Electronically Signed: Dawn Morales MD at 17:17 EDT ,
[2023-04-28 16:30] LABS: Lactic Acid 3.5 mmol/L (0.4-1.9)
[2023-04-28 16:31] LABS: Troponin-I HS 206 pg/mL (3.0-54.0)
[2023-04-28] MEDS: 0.9% Normal Saline (1000mL) 1,000 ML 100 ML IV (16:53)
[2023-04-28] MEDS: Vancomycin HCl 2,000 MG in 0.9% Normal Saline (500mL Bag) 500 ML 250 MG IV (16:57)
[2023-04-28] MEDS: Norepinephrine 8 MG in 0.9% Normal Saline (250mL Bag) 242 ML 9.4 MG CONT INF (17:00)
--- NOTE | 2023-04-28 17:11 | PCM.RX.CS ---
Consult Antibiotic Management Pharmacy has been consulted to manage selected antiobiotic: Vancomycin Type of Intervention Type of Consult: New start Suspected Infection Suspected Infection: Sepsis Labs Labs: Sodium 130 mmol/L (136-145) L 04/28/23 10:55 Potassium 3.2 mmol/L (3.5-5.1) L 04/28/23 10:55 Chloride 86 mmol/L (98-107) L 04/28/23 10:55 Carbon Dioxide 37.0 mmol/L (21.0-32.0) H 04/28/23 10:55 Anion Gap 7 (5-15) 04/28/23 10:55 BUN 33 mg/dL (7-18) H 04/28/23 10:55 Creatinine 2.34 mg/dL (0.55-1.02) H 04/28/23 10:55 Est GFR (MDRD) Af Amer 26 mL/min (>60) L 04/28/23 10:55 Est GFR (MDRD) Non-Af 22 mL/min (>60) L 04/28/23 10:55 BUN/Creatinine Ratio 14.1 RATIO (10-20) 04/28/23 10:55 Glucose 80 mg/dL (74-106) 04/28/23 10:55 Microbiology Microbiology: Microbiology 04/28/23 15:50 Nasal Secretion SARS-CoV-2 & FLU Antigen (Rapid) - Final 04/28/23 11:24 Urine Catheter - Green Legionella Antigen - Final 04/28/23 11:24 Urine Catheter - Green Streptococcus pneumoniae Antigen (M - Final Dosing Weight Weight used for dosin.1 kg Estimated Creatinine Clearance Estimated Creatinine Clearance: 22.7ML/MIN Goal Trough Goal Trough: 15-20 mcg/mL Pharmacy Plan for Drug Dosing Pharmacy Plan for Drug Dosing: Give initial load dose of 2000mg IV x1, then continue with 750mg q24h per [facility] dosing protocol. Will check a trough before the 3rd total dose. The patient's CrCl of 22.7 ml/min was calculated using an adjusted body weight. Pharmacy Service will continue to monitor and adjust dosing as required. Follow-Up Labs Follow-Up Labs: Trough: Vancomycin Date/Time Labs Ordered Labs to be done on [date and time ordered]: 04/30/23 16:30
[2023-04-28 19:01] LABS: M R Staph aureus DNA By PCR Negative (Negative); Probe Check PASS; Specimen Processing Control PASS
[2023-04-28 20:22] LABS: Troponin-I HS 182 pg/mL (3.0-54.0)
[2023-04-28] MEDS: Heparin Injection (Vial) 5,000 UNIT/ML VIAL 5000 UNIT SC (20:54)
[2023-04-29] VITALS (21 sets, daily range): BP systolic 81–135; BP diastolic 42–74; PULSE 77–114; RESP 11–12; TEMP 36.3–36.5; O2SAT 96–100; BMI 34.0
--- NOTE | 2023-04-29 01:40 | RAD_ITS ---
INDICATION: R IJ CVC EXAMINATION/TECHNIQUE: X-RAY - XR Chest 1 View COMPARISON: Chest CT from one day prior FINDINGS: LINES/DEVICES: Right jugular central line partially obscured by overlying enteric tube. Central line tip appears to be located at level of upper cavoatrial junction. Enteric tube tip within gastric lumen. LUNGS: Persistent partial opacification right lung with large right pleural effusion. Mild left basilar atelectatic changes. No pneumothorax detected. MEDIASTINUM AND CARDIOVASCULAR STRUCTURES: Heart size within normal limits. Atherosclerotic calcifications along aorta. BONES AND SOFT TISSUES: No acute findings. RAD/CXR for Line Placement IMPRESSION: Partial opacification right lung with large right pleural effusion. Electronically Signed: Efraín Salmeron MD at 2:30 EDT ,
--- NOTE | 2023-04-29 01:46 | PCM.PN.BLA ---
Progress Note Central Venous Catheter Indication: [ ] Consent was obtained from: [ ] A time-out was completed verifying correct patient, procedure, site, positioning, and special equipment if applicable. The patient was placed in a dependent position appropriate for central line placement based on the vein to be cannulated. The patient's [ ] was prepped and draped in a sterile fashion. 1% lidocaine was used to anesthetize the surrounding skin area. A triple-lumen catheter was introduced into the [ ] using the Seldinger technique and under ultrasound guidance. The catheter was threaded smoothly over the guidewire and appropriate blood return was obtained. Each lumen of the catheter was evacuated of air and flushed with sterile saline. The catheter was then sutured in place to the skin and a sterile dressing applied. Chest x-ray to confirm appropriate positioning is pending. ULTRASOUND GUIDANCE STATEMENT (Vascular Access): I performed ultrasound image acquisition and interpretation for needle placement during the procedure. The vessel was identified and found to be free of thrombosis by compression technique. A safe point of entry was marked at the skin in an angle for axis was determined. The needle was guided by obtaining free-flowing fluid and by real-time visualization.
[2023-04-29] MEDS: Norepinephrine 8 MG in 0.9% Normal Saline (250mL Bag) 242 ML 28.1 MG CONT INF (02:00)
[2023-04-29] MEDS: Hydrocortisone Sod Succinate 100 MG/2 ML Vial 50 MG IV ×2 (02:07→05:03)
[2023-04-29] MEDS: 0.9% Normal Saline (1000mL) 1,000 ML 100 ML IV (02:07)
[2023-04-29 05:16] LABS: Absolute Lymphocyte Count 1.23 X10^3/uL (0.83-4.51); Absolute Neutrophil Count 16.6 X10^3/uL (2.0-7.7); Basophil# 0.06 X10^3/uL; Basophil% 0.3 % (0-1); Eosinophil# 0.05 X10^3/uL; Eosinophils% 0.3 % (0-5); Hemoglobin 13.7 g/dL (12.0-15.0); Lymphocyte # 1.23 X10^3/ul (0.83-4.51); Lymphocyte % 6.3 % (19-41); Mean Corp Hgb Conc 35.1 g/dL (32-36); Mean Corpuscular Hgb 32.8 pg (27.0-32.0); Mean Corpuscular Volume 93.3 fL (81-99); Mean Platelet Vol. 9.4 fl (6.2-12.0); Monocyte# 1.49 X10^3/uL; Monocyte% 7.6 % (0-10); NRBC Flagged by Analyzer 0 % (0-5); Neutrophil % 84.5 % (47-70); Platelet Count 171 K/mm3 (150-450); RBC Distribution Width CV 14.6 % (11.6-14.6); RBC Distribution Width SD 49.8 fl (35.1-43.9); Red Blood Count 4.18 M/mm3 (4.2-5.4); White Blood Count 19.6 K/mm3 (4.4-11.0)
[2023-04-29 05:50] LABS: ALB/GLOB Ratio 0.3 RATIO (0.9-2.4); AST(SGOT) 128 U/L (15-37); Alanine Aminotransfer ALT/SGPT 53 U/L (13-56); Albumin, Serum 1.4 g/dL (3.2-5.0); Alkaline Phosphatase 133 U/L (45-117); Anion Gap 8 (5-15); BUN 34 mg/dL (7-18); BUN/Creat Ratio 22.7 RATIO (10-20); Calcium,Total 6.1 mg/dL (8.5-10.1); Chloride 95 mmol/L (98-107); EST Glomerular Filtration Rate 36 mL/min (>60); Est Glom Filt Rate - Afr Amer 44 mL/min (>60); Estimated Creatinine Clearance 28.46 ml/min; Globulin 4.3 g/dL (2.2-4.2); Glucose 101 mg/dL (74-106); Magnesium 1.5 mg/dL (1.6-2.6); Potassium 3.4 mmol/L (3.5-5.1); Protein, Total 5.7 g/dL (6.4-8.2); Sodium Level 133 mmol/L (136-145); Thyroid Stim Hormone (TSH) 0.42 uIU/mL (0.358-3.74)
[2023-04-29] MEDS: Norepinephrine 8 MG in 0.9% Normal Saline (250mL Bag) 242 ML 56.3 MG CONT INF (06:45)
--- NOTE | 2023-04-29 07:44 | CON.PCM.CC_ITS ---
Assessment & Plan Assessment/Plan (1) Sepsis: QUALIFIERS: Hepatic coma status: with hepatic coma Sepsis acute organ dysfunction status: with acute organ dysfunction Sepsis type: sepsis due to unspecified organism Severe sepsis acute organ dysfunction type: acute liver failure Severe sepsis shock status: with septic shock Qualified Code(s): A41.9 - Sepsis, unspecified organism; R65.21 - Severe sepsis with septic shock; K72.01 - Acute and subacute hepatic failure with coma (2) Toxic metabolic encephalopathy: (3) Non-alcoholic cirrhosis: (4) Lactic acidosis: (5) Coagulopathy: (6) ANDREA (acute kidney injury): PLAN: Plan RECOMMENDATIONS: 1. Arrange for family meeting to discuss goals of therapy 2. Continue antibiotics pending results of meeting 3. If aggressive, therapeutic and diagnostic thoracentesis 4. Aggressive electrolyte repletion 5. Continue pressors and stress dose steroids for now pending results of family meeting IMPRESSIONS: 1. Septic shock secondary to UTI versus SBP Patient does have urinalysis suggestive of UTI. Spontaneous bacterial peritonitis would also be a consideration as patient does have significant ascites. Agree with broad-spectrum antibiotics for now, but prognosis is extremely poor given cirrhosis with ascites, hypoalbuminemia and acute kidney injury. We will attempt to have a family meeting to discuss goals of therapy prior to causing additional discomfort. 2. Non-ST elevation DE versus elevated troponin Patient was found to have significant hypoxia on presentation. Echocardiogram shows an EF of 75% with diastolic dysfunction and LVH. There is no segmental findings. This may indicate supply/demand mismatch. We will aggressively replete electrolytes as patient is at risk for a malignant rhythm. Would not recommend a heparin drip given patient's multiple varices and history of GI bleed 3. Toxic/metabolic encephalopathy Unclear baseline, but patient's ammonia is slightly elevated. Unclear if patient was receiving lactulose previously. Patient does have sepsis with intravascular depletion. We will repeat ammonia to evaluate, but patient is currently just moaning. 4. BYRD with thrombocytopenia, varices, hyponatremia Reportedly, the patient's family hopes to have the patient reenroll in hospice after we get her better. It is unlikely that this is going to happen in my opinion given the severity of patient's liver dysfunction. Patient does have significant ascites and if we are going to be aggressive, patient will need a diagnostic and therapeutic paracentesis prior to any thoracentesis. 5. Acute hypoxic respiratory insufficiency Patient requiring 5 L nasal cannula to maintain saturations. Patient is on 2 L nasal cannula at baseline. Clinical suspicion for hypoxia secondary to progressive pleural effusion. Would not recommend thoracentesis unless ascites were drained prior as the patient would likely have rapid reaccumulation. 6. Advanced age/poor family insight/history of diabetes/hypertension/history of sleep apnea Complicates care, management, recovery and prognosis. Would hold metformin as this could exacerbate lactic acidosis. Patient is on reported CPAP with sleep, but would not recommend at this time given mental status as patient is at risk for aspiration complications. Blood pressure medications are on hold patient's family appears to have a very poor understanding of hospice goals and implications. We will attempt to have a family meeting as a healthcare team to discuss Addendum 9:30 AM: Spoke with hospitalist after family meeting. Hospice reportedly was the one to call EMS secondary to concerns for possible coding. Family states that they would want comfort measures moving forward. Hospitalist has stated that he does not require additional critical care support given goals of therapy. Will sign off. Please call with issues. TIME: 45 minutes critical care time spent addressing patient's septic shock, elevated troponin, cirrhosis, toxic encephalopathy, review of all data and collaboration with care team HPI Consult Data Date of Consult: 04/29/23 HPI Narrative Reason for Consultation: Sepsis/change in mental status HPI Narrative: JOSE A FANG is a 72 F, with past medical history listed below, who presents [facility] 04/28/2023 secondary to change in mental status. Patient reportedly was in hospice, but was noted to be unresponsive by family. EMS was called and patient was noted to have saturation in the 60s. Patient was placed on nonrebreather and transferred to the ER for further evaluation. In the ER, patient was afebrile with a respiratory rate of only 10 and a blood pressure of 89/53. Laboratory work-up showed a white blood cell count of 13.9, hemoglobin 13.2 and platelet count of 139. Patient did have an elevated INR of 2.2 and chemistry showing a bicarbonate of 37, potassium of 3.2 and a creatinine of 2.34. Patient did have a total bili of 3 but alkaline phosphatase of 119 and ammonia of 68 and a troponin of 263. Lactate was elevated at 3.6 and urinalysis is suggestive of a possible UTI. An ABG showed a respiratory metabolic alkalosis with increased AA gradient. CT of the head was unremarkable. Chest x-ray showed a small right pleural effusion with basilar atelectasis and EKG showed sinus rhythm at 82. A CT of the abdomen showed cirrhosis with moderate right-sided pleural effusion recannulization of umbilical venous structures and varices in the splenic hilum along with subcutaneous fat. Since being in the intensive care unit, patient has had to be placed on Levophed. Levophed has climbed significantly and there were recently orders placed for vasopressin and hydrocortisone. There is no family at the bedside and patient is unable to provide any additional information. Patient intermittently moans, especially with stimulation. [facility] Medical History (Updated 04/29/23 @ 07:[address] Abad Bey MD) Asthma Cirrhosis CPAP (continuous positive airway pressure) dependence Diabetes GERD (gastroesophageal reflux disease) GI bleed High cholesterol History of hypertension History of type 2 diabetes mellitus HTN (hypertension) Non-alcoholic cirrhosis Non-smoker On home oxygen therapy Rheumatoid arthritis Sleep apnea Home Medications metformin 500 mg tablet 1,000 mg PO BID BLOOD SUGARS 11/07/18 [History Last Taken 04/27/23] cholecalciferol (vitamin D3) 25 mcg (1,000 unit) tablet (Vitamin D3) 1,000 unit PO DAILY SUPPLEMENT 11/14/18 [History Last Taken 04/27/23] cyanocobalamin (vitamin B-12) 500 mcg tablet 500 mcg PO DAILY SUPPLEMENT 11/14/18 [History Last Taken 04/27/23] spironolactone 100 mg tablet 100 mg PO DAILY FLUID 12/07/18 [History Last Taken 04/27/23] pantoprazole 40 mg tablet,delayed release 40 mg PO BID ACID REFLUX 05/18/19 [History Last Taken 04/27/23] nadolol 20 mg tablet 20 mg PO DAILY BLOOD PRESSURE 10/11/21 [History Last Taken 04/27/23] ferrous sulfate 325 mg (65 mg iron) tablet 325 mg PO DAILY SUPPLEMENT 10/30/21 [History Last Taken 04/27/23] furosemide 40 mg tablet 40 mg PO BID FLUID 10/30/21 [History Last Taken 04/27/23] magnesium oxide 140 mg capsule 140 mg PO DAILY SUPPLEMENT 10/30/21 [History Last Taken 04/27/23] potassium chloride 10 mEq tablet,extended release(part/cryst) 10 meq PO BID SUPPLEMENT 02/23/22 [History Last Taken 04/27/23] HALOPERIDOL 0.5 ml PO Q6H PRN AGITATION 04/28/23 [History Last Taken Unknown] MORPHINE SULFATE 0.125 ml PO Q4H PRN PAIN/SHORTNESS OF BREATH 04/28/23 [History Last Taken Unknown] acetaminophen 650 mg rectal suppository 650 mg NC Q6H PRN PAIN/FEVER 04/28/23 [History Last Taken Unknown] bisacodyl 10 mg rectal suppository 10 mg NC DAILY PRN CONSTIPATION 04/28/23 [History Last Taken Unknown] hyoscyamine sulfate 0.125 mg tablet 0.125 mg sublingual Q4H PRN BOWELS 04/28/23 [History Last Taken Unknown] lactulose 10 gram/15 mL oral solution 15 ml PO DAILY CONSTIPATION 04/28/23 [History Last Taken 04/27/23] loratadine 10 mg tablet (Claritin) 10 mg PO DAILY PRN SEASONAL ALLERGIES 04/28/23 [History Last Taken Unknown] lorazepam 0.5 mg tablet (Ativan) 0.5 mg PO DAILY PRN ANXIETY 04/28/23 [History Last Taken Unknown] prochlorperazine maleate 10 mg tablet 10 mg PO Q6H PRN NAUSEA/VOMITING 04/28/23 [History Last Taken Unknown] Allergy/AdvReac Type Severity Reaction Status Date / Time estrogens, conjugated Allergy Mild SWELLING, Verified 01/25/23 18:53 [From Premarin] ITCHING, RASH hydrochlorothiazide Allergy Mild RASH, Verified 01/25/23 18:53 ITCHING Penicillins Allergy Mild Hives Verified 01/25/23 18:53 Sulfa (Sulfonamide Allergy Mild SWELLING, Verified 01/25/23 18:53 Antibiotics) ITCHING, RASH bisoprolol Allergy Unknown PT UNABLE Verified 04/28/23 11:00 TO RESPOND-NEEDS F/U enalapril Allergy Unknown PT UNABLE Verified 04/28/23 11:00 TO RESPOND-NEEDS F/U Family History Mother Breast cancer Hypertension CAD (coronary artery disease) Father CAD (coronary artery disease) Cancer Surgical History History of cholecystectomy S/P carpal tunnel release S/P cholecystectomy S/P hysterectomy S/P parathyroidectomy S/P renal artery angioplasty Status post right knee replacement Social History household members: spouse Smoking Status: Never smoker alcohol intake: never substance use type: does not use ROS Review of Systems ROS Unobtainable: due to mental status Physical Exam Const Constitutional Narrative: Appears older than stated age. Poor dentition with NG in place. Intermittently crying out General Appearance: uncooperative and ill appearing Orientation / Consciousness: confused and lethargic HEENT normocephalic and head/scalp atraumatic HEENT Narrative: Mucous membranes are dry, Mallampati is 2, no thrush Eyes PERRL and conjunctivae normal Eyes Narrative: Slight scleral icterus noted Neck no lymphadenopathy and supple Neck Narrative: Trachea midline, no thyroid enlargement Resp Effort and Inspection: Negative for actively coughing Auscultation: diminished lung sounds right lower; Negative for rales, rhonchi or wheezes Percussion: dullness Lower: right Cardio regular rate, regular rhythm, S1 normal heart sound, S2 normal heart sound, no murmurs, no rub, no gallops and no clicks GI soft to palpation and non-tender Inspection: anasarca present and abdominal distention Palpation: ascites Percussion: fluid wave Extremity Extremity Narrative: Significant anasarca noted bilateral lower extremities, bilateral upper extremities up into abdomen and posterior trunk, no clubbing or cyanosis General Extremity: Negative for clubbing Skin No no rashes or lesions noted, No skin turgor normal, no jaundice, no petechiae and no mottling Skin Narrative: spider angiomata noted, bruises Neuro Neuro Narrative: Spontaneous movement of extremities Psych Psych Narrative: Not following commands or interacting Activity / Motor Behavior: restless Medical Records Data Attestation: I reviewed the patient's medical records Lab / Micro Data Attestation: I reviewed the patient's lab results. 04/29/23 05:05 04/29/23 05:05 Labs: Laboratory Results - last 24 hr 04/28/23 10:55: WBC 13.9 H, RBC 4.07 L, Hgb 13.2, Hct 37.4, MCV 91.9, MCH 32.4 H , MCHC 35.3, RDW Std Deviation 48.1 H, RDW Coeff of Marlyn 14.6, Plt Count 139 L, MPV 9.6, Immature Gran % (Auto) 0.900, Neut % (Auto) 74.5 H, Lymph % (Auto) 10.9 L, Mcculloch % (Auto) 12.9 H, Eos % (Auto) 0.6, Baso % (Auto) 0.2, Absolute Neuts (auto) 10.4 H, Absolute Lymphs (auto) 1.51, Nucleated RBC % 0, Differential Comment SCANNED, Diff Path Review November, PT 24.6 H, INR 2.2, APTT 34.7, Sodium 130 L, Potassium 3.2 L, Chloride 86 L, Carbon Dioxide 37.0 H, Anion Gap 7, BUN 33 H, Creatinine 2.34 H, Estim Creat Clear Calc 18.24, Est GFR (MDRD) Af Amer 26 L, Est GFR (MDRD) Non-Af 22 L, BUN/Creatinine Ratio 14.1, Glucose 80, Calcium 6.5 L*, Total Bilirubin 3.00 H, AST 101 H, ALT 42, Alkaline Phosphatase 119 H, Ammonia 68.0 H, Troponin I High Sens 263 H*, Total Protein 5.3 L, Albumin 1.3 L, Globulin 4.0, Albumin/Globulin Ratio 0.3 L 04/28/23 11:09: Lactic Acid 3.6 H* 04/28/23 11:24: Urine Color Lissette, Urine Clarity Cloudy, Urine pH 6.0, Ur Specific Sterling 1.020, Urine Protein 30 H, Urine Glucose (UA) Normal, Urine Ketones 5 H, Urine Occult Blood 250 H, Urine Nitrite Positive H, Urine Bilirubin 3 H, Urine Urobilinogen 8 H, Ur Leukocyte Esterase 500 H, Urine RBC 25-50 SEEN, Urine WBC 25-50 SEEN, Ur Squamous Epith Cells 0 SEEN, Urine Bacteria 1+, Urine Mucus 0 SEEN, Urine Yeast 3+ 04/28/23 15:40: Lactic Acid 3.5 H*, Troponin I High Sens 206 H* 04/28/23 15:50: MRSA (PCR) Negative 04/28/23 19:35: Troponin I High Sens 182 H* 04/29/23 05:05: WBC 19.6 H, RBC 4.18 L, Hgb 13.7, Hct 39.0, MCV 93.3, MCH 32.8 H , MCHC 35.1, RDW Std Deviation 49.8 H, RDW Coeff of Marlyn 14.6, Plt Count 171, MPV 9.4, Immature Gran % (Auto) 1.000 H, Neut % (Auto) 84.5 H, Lymph % (Auto) 6.3 L, Mcculloch % (Auto) 7.6, Eos % (Auto) 0.3, Baso % (Auto) 0.3, Absolute Neuts (auto) 16.6 H, Absolute Lymphs (auto) 1.23, Nucleated RBC % 0, Sodium 133 L, Potassium 3.4 L, Chloride 95 L, Carbon Dioxide 30.0, Anion Gap 8, BUN 34 H, Creatinine 1.50 H, Estim Creat Clear Calc 28.46, Est GFR (MDRD) Af Amer 44 L, Est GFR (MDRD) Non-Af 36 L, BUN/Creatinine Ratio 22.7 H, Glucose 101, Calcium 6.1 L*, Phosphorus 5.0 H, Magnesium 1.5 L, Total Bilirubin 3.20 H, AST 128 H, ALT 53, Alkaline Phosphatase 133 H, Total Protein 5.7 L, Albumin 1.4 L, Globulin 4.3 H, Albumin/Globulin Ratio 0.3 L, TSH 0.42 Micro: Microbiology 04/28/23 15:50 Nasal Secretion SARS-CoV-2 & FLU Antigen (Rapid) - Final 04/28/23 11:24 Urine Catheter - Green Legionella Antigen - Final 04/28/23 11:24 Urine Catheter - Green Streptococcus pneumoniae Antigen (M - Final ABG Data ABG results: ABG 04/28/23 11:24 Specimen Type ART Sample Site L Radial pH 7.60 H* Bicarbonate Actual 33.6 H Total CO2 35 Base Excess 12 H O2 Saturation 99 O2 % 6.0 ABG pCO2 34.3 L ABG pO2 106 H Wilfred Test Positive O2 Delivery Device Cannula Vent Mode Not entered Crit Call To/Read Back Yes Attestation: I personally reviewed and interpreted this ABG as follows: (See HPI) Rhythm Strip Rhythm Strip: Sinus Rhythm Rate: 80 Ectopy: PVC(s) Radiology Impression Brain CT 04/28/23 11:00 IMPRESSION: Chronic involutional changes of the brain. No acute abnormality is seen. Electronically Signed: Dimas Suarez MD at 12:11 EDT , Chest X-Ray 04/28/23 11:00 IMPRESSION: Small right pleural effusion with underlying right basilar atelectasis and/or infiltrate. Electronically Signed: Dimas Suarez MD at 12:16 EDT , Echocardiogram 04/28/23 14:00 Interpretation Summary Mild concentric left ventricular hypertrophy. Left ventricular systolic function is hyperdynamic. The left ventricular ejection fraction is 75 %. Stage 1 diastolic dysfunction. The left atrium is mildly enlarged. Systolic anterior motion of the mitral valve. Moderately severe (3+) mitral valve insufficiency. Mild tricuspid valve insufficiency. Ordering Physician: Jose A Molina Referring Physician: Shana Mckeon Performed By: Yovana Brothers RIOS Chest/Abdomen/Pelvis CT 04/28/23 14:17 IMPRESSION: Stable moderate size right pleural effusion with the right basilar consolidation and/or compressive atelectasis. Cirrhosis of the liver with evidence of a recanalization of the umbilical venous structures within the subcutaneous fat. 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 Diffuse abnormality of the stomach with diffuse wall thickening. Ascites. Diffuse fluid is seen within the subcutaneous fat. Electronically Signed: Dimas Suarez MD at 14:44 EDT , KUB X-Ray 04/28/23 16:25 IMPRESSION: NG tube in satisfactory position. Status post cholecystectomy. Large right pleural effusion. Electronically Signed: Dawn Morales MD at 17:17 EDT , Chest X-Ray 04/29/23 01:40 IMPRESSION: Partial opacification right lung with large right pleural effusion. Electronically Signed: Efraín Salmeron MD at 2:30 EDT , Charges/Coding Procedures Hospitalists Procedures: [id number] Critial Care 1st Hr
[2023-04-29] MEDS: Magnesium Sulfate 4gm/100mL 4 GM/100 ML IV.SOLN. IV (08:29)
[2023-04-29] MEDS: Potassium Chloride Oral Soln 20 MEQ/15 ML UDC 40 MEQ PO (08:32)
[2023-04-29 09:09] LABS: Procalcitonin 0.48 ng/mL (0.00-0.09)
--- NOTE | 2023-04-29 09:17 | PN.HOSP_ITS ---
Subjective Subjective Unresponsive Objective Data Objective Data Vital Signs: Vital Signs Temp Pulse Resp BP Pulse Ox O2 Del Method O2 Flow Rate 97.7 F L 95 11 L 119/59 L 97 Nasal Cannula 4 04/29/23 08:00 04/29/23 08:00 04/29/23 08:00 04/29/23 08:00 04/29/23 08:00 04/29/23 08:00 04/29/23 08:00 Oxygen Flow Rate (L/min) 4 Oxygen Delivery Method Nasal Cannula Weight: 192 lb 0.362 oz Body Mass Index (BMI) 34.0 Intake & Output: Intake and Output for Last 24 Hours 04/28/23 04/29/23 04/30/23 03:59 03:59 03:59 Intake Total 6462.39 / 6476.47 239.30 / 239.30 Output Total 200 / 200 100 / 100 Balance 6262.39 / 6276.47 139.30 / 139.30 Lab / Micro Data 04/29/23 05:05 04/29/23 05:05 Labs: Laboratory Results - last 24 hr 04/28/23 10:55: WBC 13.9 H, RBC 4.07 L, Hgb 13.2, Hct 37.4, MCV 91.9, MCH 32.4 H , MCHC 35.3, RDW Std Deviation 48.1 H, RDW Coeff of Marlyn 14.6, Plt Count 139 L, MPV 9.6, Immature Gran % (Auto) 0.900, Neut % (Auto) 74.5 H, Lymph % (Auto) 10.9 L, Mclean % (Auto) 12.9 H, Eos % (Auto) 0.6, Baso % (Auto) 0.2, Absolute Neuts (auto) 10.4 H, Absolute Lymphs (auto) 1.51, Nucleated RBC % 0, Differential Comment SCANNED, Diff Path Review November, PT 24.6 H, INR 2.2, APTT 34.7, Sodium 130 L, Potassium 3.2 L, Chloride 86 L, Carbon Dioxide 37.0 H, Anion Gap 7, BUN 33 H, Creatinine 2.34 H, Estim Creat Clear Calc 18.24, Est GFR (MDRD) Af Amer 26 L, Est GFR (MDRD) Non-Af 22 L, BUN/Creatinine Ratio 14.1, Glucose 80, Calcium 6.5 L*, Total Bilirubin 3.00 H, AST 101 H, ALT 42, Alkaline Phosphatase 119 H, Ammonia 68.0 H, Troponin I High Sens 263 H*, Total Protein 5.3 L, Albumin 1.3 L, Globulin 4.0, Albumin/Globulin Ratio 0.3 L 04/28/23 11:09: Lactic Acid 3.6 H* 04/28/23 11:24: Urine Color Lissette, Urine Clarity Cloudy, Urine pH 6.0, Ur Specif ic [place] 1.020, Urine Protein 30 H, Urine Glucose (UA) Normal, Urine Ketones 5 H, Urine Occult Blood 250 H, Urine Nitrite Positive H, Urine Bilirubin 3 H, Urine Urobilinogen 8 H, Ur Leukocyte Esterase 500 H, Urine RBC 25-50 SEEN, Urine WBC 25-50 SEEN, Ur Squamous Epith Cells 0 SEEN, Urine Bacteria 1+, Urine Mucus 0 SEEN, Urine Yeast 3+ 04/28/23 15:40: Lactic Acid 3.5 H*, Troponin I High Sens 206 H* 04/28/23 15:50: MRSA (PCR) Negative 04/28/23 19:35: Troponin I High Sens 182 H* 04/29/23 05:05: WBC 19.6 H, RBC 4.18 L, Hgb 13.7, Hct 39.0, MCV 93.3, MCH 32.8 H , MCHC 35.1, RDW Std Deviation 49.8 H, RDW Coeff of Marlyn 14.6, Plt Count 171, MPV 9.4, Immature Gran % (Auto) 1.000 H, Neut % (Auto) 84.5 H, Lymph % (Auto) 6.3 L, Mclean % (Auto) 7.6, Eos % (Auto) 0.3, Baso % (Auto) 0.3, Absolute Neuts (auto) 1 6.6 H, Absolute Lymphs (auto) 1.23, Nucleated RBC % 0, Sodium 133 L, Potassium 3.4 L, Chloride 95 L, Carbon Dioxide 30.0, Anion Gap 8, BUN 34 H, Creatinine 1.50 H, Estim Creat Clear Calc 28.46, Est GFR (MDRD) Af Amer 44 L, Est GFR (MDRD) Non-Af 36 L, BUN/Creatinine Ratio 22.7 H, Glucose 101, Calcium 6.1 L*, Phosphorus 5.0 H, Magnesium 1.5 L, Total Bilirubin 3.20 H, AST 128 H, ALT 53, Alkaline Phosphatase 133 H, Total Protein 5.7 L, Albumin 1.4 L, Globulin 4.3 H, Albumin/Globulin Ratio 0.3 L, TSH 0.42 04/29/23 08:25: Ammonia 46.0 H, Procalcitonin 0.48 H 04/29/23 08:41: Ionized Calcium 3.60 L Micro: Microbiology 04/28/23 15:50 Nasal Secretion SARS-CoV-2 & FLU Antigen (Rapid) - Final 04/28/23 11:24 Urine Catheter - Green Legionella Antigen - Final 04/28/23 11:24 Urine Catheter - Green Streptococcus pneumoniae Antigen (M - Final ABG Data ABG results: ABG 04/28/23 11:24 Specimen Type ART Sample Site L Radial pH 7.60 H* Bicarbonate Actual 33.6 H Total CO2 35 Base Excess 12 H O2 Saturation 99 O2 % 6.0 ABG pCO2 34.3 L ABG pO2 106 H Wilfred Test Positive O2 Delivery Device Cannula Vent Mode Not entered Crit Call To/Read Back Yes Radiography Diagnostic Testing: Radiology Impression Brain CT 04/28/23 11:00 IMPRESSION: Chronic involutional changes of the brain. No acute abnormality is seen. Electronically Signed: Dimas Suarez MD at 12:11 EDT , Chest X-Ray 04/28/23 11:00 IMPRESSION: Small right pleural effusion with underlying right basilar atelectasis and/or infiltrate. Electronically Signed: Dimas Suarez MD at 12:16 EDT , Echocardiogram 04/28/23 14:00 Interpretation Summary Mild concentric left ventricular hypertrophy. Left ventricular systolic function is hyperdynamic. The left ventricular ejection fraction is 75 %. Stage 1 diastolic dysfunction. The left atrium is mildly enlarged. Systolic anterior motion of the mitral valve. Moderately severe (3+) mitral valve insufficiency. Mild tricuspid valve insufficiency. Ordering Physician: Shanna Molina Referring Physician: Shana Mckeon Performed By: Yovana Brothers RDCS Chest/Abdomen/Pelvis CT 04/28/23 14:17 IMPRESSION: Stable moderate size right pleural effusion with the right basilar consolidation and/or compressive atelectasis. Cirrhosis of the liver with evidence of a recanalization of the umbilical venous structures within the subcutaneous fat. 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 Diffuse abnormality of the stomach with diffuse wall thickening. Ascites. Diffuse fluid is seen within the subcutaneous fat. Electronically Signed: Dimas Suarez MD at 14:44 EDT , KUB X-Ray 04/28/23 16:25 IMPRESSION: NG tube in satisfactory position. Status post cholecystectomy. Large right pleural effusion. Electronically Signed: Dawn Morales MD at 17:17 EDT , Chest X-Ray 04/29/23 01:40 IMPRESSION: Partial opacification right lung with large right pleural effusion. Electronically Signed: Efraín Salmeron MD at 2:30 EDT , Rhythm Strip Rhythm Strip: Sinus Rhythm Rate: 80 Ectopy: PVC(s) Physical Exam Narrative General: Unresponsive to stimuli, only moans, HEENT: Atraumatic Oral: Dry mucosa Neck: Supple, No JVD Lungs: Diminished, Normal air movement, No rhonchi, No wheeze, No rales Cardiovascular: Regular rate, Regular Rhythm, Normal S1, Normal S2, No murmurs Abdomen: Soft, Non Tender, 2 weeks distended, No Hepato-splenomegaly Extremities: Anasarca, Capillary Refill Less than 3 Seconds Skin: No rashes, No breakdown Musculoskeletal: No Tenderness to Palpation of Joints or Extremities Neurological: Cranial nerves II-XII grossly intact, Motor Exam 5/5 strength throughout, Sensory exam intact to light touch and pain Psych/Mental Status: Obtunded Assessment & Plan Assessment/Plan (1) Toxic metabolic encephalopathy: (2) Sepsis: QUALIFIERS: Sepsis type: sepsis due to unspecified organism Sepsis acute organ dysfunction status: with acute organ dysfunction Severe sepsis acute organ dysfunction type: acute liver failure Hepatic coma status: with hepatic coma Severe sepsis shock status: with septic shock Qualified Code(s): A41.9 - Sepsis, unspecified organism; R65.21 - Severe sepsis with septic shock; K72.01 - Acute and subacute hepatic failure with coma (3) UTI (urinary tract infection): (4) ANDREA (acute kidney injury): (5) Elevated troponin I level: PLAN: Plan 1. Septic shock secondary to UTI with metabolic encephalopathy/ANDREA/elevated troponin ? We will continue with antibiotics and pressor support at this time however I h ad a 30-minute conversation with her and daughter about advance care planning and made her hospice. Apparently hospice called EMS because hospice was afraid that she was getting COVID despite the fact that she was on hospice ? Once family arrives we will withdraw care and monitor her in the hospital for another 24 hours and if she is still stable in the morning then we can discuss transfer to inpatient unit as a DNR ? Continue with aggressive IV fluids until further family arrives and then care will be discontinued ? As she is going hospice will not investigate further her elevated troponin this is likely stress-induced from her sepsis 2. 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 She was taken off the transplant list as she was too ill to survive the operation or the postoperative care ? We will discontinue the NG and discontinue lactulose 3. HTN ? We will hold her blood pressure medications as she is on pressor support 4. GERD ? Continue with PPI until family arrives and will discontinue 5. DM2 ? We will discontinue all interventions and therapies DVT: None Charges/Coding Visit Charges Inpatient E&M: 03465 Subs Hosp L2 Procedures Hospitalists Procedures: 67187 Advncd Care Plan 30 Min
--- NOTE | 2023-04-29 09:23 | CASEMGMT ---
HEATHER called [facility] at [facility]ospice and confirmed patient is active with them. Hospice was out at patient's home and family was not agreeable to change patient's code status from full code. Therefore Hospice recommended family send patient to the ED. Lynnette DARLING
--- NOTE | 2023-04-29 10:22 | PCM.RX.CS ---
Consult Antibiotic Management Pharmacy has been consulted to manage selected antiobiotic: Vancomycin Type of Intervention Type of Consult: Follow-up Suspected Infection Suspected Infection: Sepsis Prior Doses of Antibiotics Prior Doses of Antibiotics Received/Current Regimen: Received 2000mg iv loading dose. Labs Labs: Sodium 133 mmol/L (136-145) L 04/29/23 05:05 Potassium 3.4 mmol/L (3.5-5.1) L 04/29/23 05:05 Chloride 95 mmol/L (98-107) L 04/29/23 05:05 Carbon Dioxide 30.0 mmol/L (21.0-32.0) 04/29/23 05:05 Anion Gap 8 (5-15) 04/29/23 05:05 BUN 34 mg/dL (7-18) H 04/29/23 05:05 Creatinine 1.50 mg/dL (0.55-1.02) H 04/29/23 05:05 Est GFR (MDRD) Af Amer 44 mL/min (>60) L 04/29/23 05:05 Est GFR (MDRD) Non-Af 36 mL/min (>60) L 04/29/23 05:05 BUN/Creatinine Ratio 22.7 RATIO (10-20) H 04/29/23 05:05 Glucose 101 mg/dL (74-106) 04/29/23 05:05 Microbiology Microbiology: Microbiology 04/28/23 15:50 Nasal Secretion SARS-CoV-2 & FLU Antigen (Rapid) - Final 04/28/23 11:24 Urine Catheter - Green Legionella Antigen - Final 04/28/23 11:24 Urine Catheter - Green Streptococcus pneumoniae Antigen (M - Final Dosing Weight Weight used for dosin kg Estimated Creatinine Clearance Estimated Creatinine Clearance: 36ml/min Goal Trough Goal Trough: 15-20 mcg/mL Pharmacy Plan for Drug Dosing Pharmacy Plan for Drug Dosing: Cr improved from 2.34 to 1.5 with calculated CrCl ~36 using adjusted body weight 66.2kg. Will change dose to 1250mg iv q24h. Trough level ordered for tomorrow. Pharmacy Service will continue to monitor and adjust dosing as required. Follow-Up Labs Follow-Up Labs: Trough: Vancomycin (04.30.23 1630)
[2023-04-29] MEDS: Lactulose 20 GM/30 ML UDC 10 GM GT (10:27)
[2023-04-29] MEDS: Pantoprazole Sodium 40 MG in 0.9% Normal Saline (100mL MB+) 100 ML 330 MG IV (10:27)
--- NOTE | 2023-04-29 10:30 | WOUNDNOTE ---
wound photo: left heel
--- NOTE | 2023-04-29 10:31 | WOUNDNOTE ---
wound photo: right heel
--- NOTE | 2023-04-29 10:31 | WOUNDNOTE ---
wound photo: right hip
--- NOTE | 2023-04-29 10:32 | WOUNDNOTE ---
wound photo: sacrum
--- NOTE | 2023-04-29 11:06 | CASEMGMT ---
Social Work SW reviewed chart for advance directives. Upon admission, pt reports Melchor Hinds as POA and reports having a living will. Documents are not on file with [facility] and patient was asked to bring a copy in and agreed. Carol Newton MSW, ROLL SHEETING CUTTER
[2023-04-29] MEDS: HYDROmorphone 0.5 MG/0.5 ML SYRINGE IV ×2 (11:44→15:40)
[2023-04-29] MEDS: LORazepam 2 MG/ML Syringe 1 MG IV (12:01)
--- NOTE | 2023-04-29 13:58 | CHAPLAIN ---
Type of Pastoral Visit _x__ Initial Visit _x__ Follow-up Visit ___ On-call Visit ___ General Patient Visit ___ Spiritual Assessment ___ Family Conference ___ Bereavement ___ Rapid Response ___ Code Blue ___ Other (describe below) Pastoral Care Referral From ___ Patient _x__ Family ___ Nurse ___ Physician ___ Territory Sales Professional ___ Home Visitor ___ Other (describe below) Sacrament/Intervention _x__ Active listening ___ Anointing ___ Episcopalian _x__ Bereavement ___ Communion _x__ Beti exploration ___ _x__ Life review _x__ Prayer ___ Reconciliation ___ Sacrament of Sick _x__ Supportive presence ___ Wedding ___ Other (describe below) Pastoral Comments patient is unresponsive and family has decided to stop extra measures; pt was previously on hospice and is expected to return to hospice care if she survives the day; entered room to find three family members there; offered support and prayer which was readily accepted; family talks about the patient and her strong morals, beti in God, ability to sing, and love of sheep/local fairs; returned for a follow up visit and life supporting equipment has been removed so patient may pass as her body fails; pt breathing has become slow; more family members have arrived and are gathered around the bed; again family members share thoughts and memories of the patient; a sister makes mention of the hymns sung by patient and asked if anybody would sing': this sap senior developer found her favorite hymn on you tube and led in hearing that song; tears flowed and appreciation expressed for the moments shared; again a prayer was given and support offered as needed; will remain available as needed
--- NOTE | 2023-04-29 15:58 | CASEMGMT ---
SW called [facility] at [facility] and let her know that patient is now comfort care. Plan is to watch patient overnight. However, should patient make it through the night there will discussion of sending patient to the inpatient Hospice unit. Lynnette DARLING
[2023-04-30 05:31] VITALS: BMI 34.0
[2023-04-30 07:00] VITALS: O2SAT 80
--- NOTE | 2023-04-30 09:02 | PCM.PN.HOSP ---
Subjective Subjective Unresponsive Objective Data Objective Data Vital Signs: Vital Signs Temp Pulse Resp BP Pulse Ox O2 Del Method O2 Flow Rate 97.7 F L 102 H 12 93/42 L 99 Nasal Cannula 4 04/29/23 08:00 04/29/23 11:00 04/29/23 11:00 04/29/23 11:00 04/29/23 11:00 04/29/23 11:00 04/29/23 11:00 Oxygen Flow Rate (L/min) 4 Oxygen Delivery Method Nasal Cannula Weight: 191 lb 12.835 oz Body Mass Index (BMI) 34.0 Intake & Output: Intake and Output for Last 24 Hours 04/29/23 04/30/23 05/01/23 03:59 03:59 03:59 Intake Total 6462.39 / 6476.47 1609.75 / 1609.75 Output Total 200 / 200 300 / 300 0 / 0 Balance 6262.39 / 6276.47 1309.75 / 1309.75 0 / 0 Lab / Micro Data 04/29/23 05:05 04/29/23 05:05 Labs: Laboratory Results - last 24 hr 04/28/23 11:24: Urine Color Lissette, Urine Clarity Cloudy, Urine pH 6.0, Ur Specific [place] 1.020, Urine Protein 30 H, Urine Glucose (UA) Normal, Urine Ketones 5 H, Urine Occult Blood 250 H, Urine Nitrite Positive H, Urine Bilirubin 3 H, Urine Urobilinogen 8 H, Ur Leukocyte Esterase 500 H, Urine RBC 25-50 SEEN, Urine WBC 25-50 SEEN, Ur Squamous Epith Cells 0 SEEN, Urine Bacteria 1+, Urine Mucus 0 SEEN, Urine Yeast 3+ 04/29/23 08:25: Procalcitonin 0.48 H Micro: Microbiology 04/28/23 11:24 Urine Catheter - Catheter Urine Culture - Preliminary Yeast Like Organism 04/28/23 15:50 Nasal Secretion SARS-CoV-2 & FLU Antigen (Rapid) - Final 04/28/23 11:24 Urine Catheter - Green Legionella Antigen - Final 04/28/23 11:24 Urine Catheter - Green Streptococcus pneumoniae Antigen (M - Final Rhythm Strip Rhythm Strip: Sinus Rhythm Rate: 80 Ectopy: PVC(s) Physical Exam Narrative General: Unresponsive to stimuli, only moans, HEENT: Atraumatic Oral: Dry mucosa Neck: Supple, No JVD Lungs: Diminished, Normal air movement, No rhonchi, No wheeze, No rales Cardiovascular: Regular rate, Regular Rhythm, Normal S1, Normal S2, No murmurs Abdomen: Soft, distended, No Hepato-splenomegaly Extremities: Anasarca, Capillary Refill Less than 3 Seconds Skin: No rashes, No breakdown Musculoskeletal: No Tenderness to Palpation of Joints or Extremities Neurological: Unresponsive Psych/Mental Status: Obtunded Assessment & Plan Assessment/Plan (1) Toxic metabolic encephalopathy: (2) Sepsis: QUALIFIERS: Sepsis type: sepsis due to unspecified organism Sepsis acute organ dysfunction status: with acute organ dysfunction Severe sepsis acute organ dysfunction type: acute liver failure Hepatic coma status: with hepatic coma Severe sepsis shock status: with septic shock Qualified Code(s): A41.9 - Sepsis, unspecified organism; R65.21 - Severe sepsis with septic shock; K72.01 - Acute and subacute hepatic failure with coma (3) UTI (urinary tract infection): (4) ANDREA (acute kidney injury): (5) Elevated troponin I level: PLAN: Plan 1. Septic shock secondary to UTI with metabolic encephalopathy/ANDREA/elevated troponin ? We will continue with antibiotics and pressor support at this time however I had a 30-minute conversation with her and daughter about advance care planning and made her hospice. Apparently hospice called EMS because hospice was afraid that she was getting COVID despite the fact that she was on hospice ? Once family arrives we will withdraw care and monitor her in the hospital for another 24 hours and if she is still stable in the morning then we can discuss transfer to inpatient unit as a DNR ? Continue with aggressive IV fluids until further family arrives and then care will be discontinued ? As she is going hospice will not investigate further her elevated troponin this is likely stress-induced from her sepsis ? We will discuss with hospice for transfer to the inpatient unit 2. 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 She was taken off the transplant list as she was too ill to survive the operation or the postoperative care ? We will discontinue the NG and discontinue lactulose 3. HTN ? We will hold her blood pressure medications as she is on pressor support 4. GERD ? Continue with PPI until family arrives and will discontinue 5. DM2 ? We will discontinue all interventions and therapies DVT: None Charges/Coding Visit Charges Inpatient E&M: 24917 Subs Hosp L2
[2023-04-30 09:44] LABS: Pathologist Review Reviewed
--- NOTE | 2023-04-30 11:15 | CASEMGMT ---
HEATHER received a call from [facility] with [facility]. [facility]gica said Dr Tavarez accepted patient in the inpatient unit. [facility] asked if family was present so she can send a nurse to get consents signed. Patient's was in patient's room. HEATHER notified [facility]. A ammonium hydroxide operator will be over. HEATHER notified patient's and RN. Plan: d/c to [facility] inpatient Hospice unit. Lynnette DARLING
[2023-04-30 12:00] VITALS: BP 82/37; PULSE 122; RESP 12; TEMP 36.6; O2SAT 80
[2023-04-30] MEDS: HYDROmorphone 0.5 MG/0.5 ML SYRINGE IV (12:27)
--- NOTE | 2023-04-30 14:48 | PCM.DC.SUM ---
Providers Date of Admission: 04/28/23 Primary Care Physician: Dr. Shana Mckeon, DO Consultations 04/28/23 14:36 Consult: Airplane Navigator / Pulmonary Medicine Routine Consulting Provider: Pulmonary Medicine asia Manzano Reason for Consult: sepsis EMERGENT Consult: No MD Notified: Yes Date Notified: 04/28/23 Time Notified: 13:48 Method of Notification: Text 04/28/23 17:32 Consult: Onc/Wound/steel pourer helper Routine Comment: Reason for Consult:: unstageable pressure injury to coccyx upon admit Reason For Visit: SEVERE DEHYDRATION AND ENCEPHALOPATHY/HYPOXIA Diagnosis Discharge Diagnosis (1) Toxic metabolic encephalopathy: Status: Acute Code(s): G92.8 - Other toxic encephalopathy (2) Sepsis: Status: Acute Code(s): A41.9 - Sepsis, unspecified organism Qualifiers: Sepsis type: sepsis due to unspecified organism Sepsis acute organ dysfunction status: with acute organ dysfunction Severe sepsis acute organ dysfunction type: acute liver failure Hepatic coma status: with hepatic coma Severe sepsis shock status: with septic shock Qualified Code(s): A41.9 - Sepsis, unspecified organism; R65.21 - Severe sepsis with septic shock; K72.01 - Acute and subacute hepatic failure with coma (3) UTI (urinary tract infection): Status: Acute Code(s): N39.0 - Urinary tract infection, site not specified (4) ANDREA (acute kidney injury): Status: Acute Code(s): N17.9 - Acute kidney failure, unspecified (5) Elevated troponin I level: Status: Acute Code(s): R79.89 - Other specified abnormal findings of blood chemistry Plan 1. Septic shock secondary to UTI with metabolic encephalopathy/ANDREA/elevated troponin ? We will continue with antibiotics and pressor support at this time however I had a 30-minute conversation with her and daughter about advance care planning and made her hospice. Apparently hospice called EMS because hospice was afraid that she was getting COVID despite the fact that she was on hospice ? Once family arrives we will withdraw care and monitor her in the hospital for another 24 hours and if she is still stable in the morning then we can discuss transfer to inpatient unit as a DNR ? Continue with aggressive IV fluids until further family arrives and then care will be discontinued ? As she is going hospice will not investigate further her elevated troponin this is likely stress-induced from her sepsis ? We will discuss with hospice for transfer to the inpatient unit 2. 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 She was taken off the transplant list as she was too ill to survive the operation or the postoperative care ? We will discontinue the NG and discontinue lactulose 3. HTN ? We will hold her blood pressure medications as she is on pressor support 4. GERD ? Continue with PPI until family arrives and will discontinue 5. DM2 ? We will discontinue all interventions and therapies DVT: None Medications at Discharge Home Medications metformin 500 mg tablet 1,000 mg PO BID BLOOD SUGARS 11/07/18 cholecalciferol (vitamin D3) 25 mcg (1,000 unit) tablet (Vitamin D3) 1,000 unit PO DAILY SUPPLEMENT 11/14/18 cyanocobalamin (vitamin B-12) 500 mcg tablet 500 mcg PO DAILY SUPPLEMENT 11/14/18 spironolactone 100 mg tablet 100 mg PO DAILY FLUID 12/07/18 pantoprazole 40 mg tablet,delayed release 40 mg PO BID ACID REFLUX 05/18/19 nadolol 20 mg tablet 20 mg PO DAILY BLOOD PRESSURE 10/11/21 ferrous sulfate 325 mg (65 mg iron) tablet 325 mg PO DAILY SUPPLEMENT 10/30/21 furosemide 40 mg tablet 40 mg PO BID FLUID 10/30/21 magnesium oxide 140 mg capsule 140 mg PO DAILY SUPPLEMENT 10/30/21 potassium chloride 10 mEq tablet,extended release(part/cryst) 10 meq PO BID SUPPLEMENT 02/23/22 HALOPERIDOL 0.5 ml PO Q6H PRN AGITATION 04/28/23 MORPHINE SULFATE 0.125 ml PO Q4H PRN PAIN/SHORTNESS OF BREATH 04/28/23 acetaminophen 650 mg rectal suppository 650 mg LA Q6H PRN PAIN/FEVER 04/28/23 bisacodyl 10 mg rectal suppository 10 mg LA DAILY PRN CONSTIPATION 04/28/23 hyoscyamine sulfate 0.125 mg tablet 0.125 mg sublingual Q4H PRN BOWELS 04/28/23 lactulose 10 gram/15 mL oral solution 15 ml PO DAILY CONSTIPATION 04/28/23 loratadine 10 mg tablet (Claritin) 10 mg PO DAILY PRN SEASONAL ALLERGIES 04/28/23 lorazepam 0.5 mg tablet (Ativan) 0.5 mg PO DAILY PRN ANXIETY 04/28/23 prochlorperazine maleate 10 mg tablet 10 mg PO Q6H PRN NAUSEA/VOMITING 04/28/23 Hospital Course Operations None Procedures None Summary of Care Provided Minutes Spent on Discharge: 38 Hospital Course: Per HPI: JOSE A FANG, is a 72 F who presented to the emergency department at [facility] on 04/28/2023 with altered mental status. Patient has a known history of cirrhosis and during her last hospitalization here she requested a consultation to hospice and she enrolled in hospice but was full code. Family brought her to the emergency department and revoked hospice at this time. Per discussion with nursing staff his family was not present at the time of my evaluation they did report they would be willing to place her back in hospice after discharge and change her CODE STATUS to DNR however currently would like her to be full code. She was enrolled in hospice at home and was found unresponsive today by family. EMS was called and they noted that the pulse oximeter on room air was in the 60s and placed her on a nonrebreather. The patient has been obtunded throughout my evaluation and her emergency department stay and family was not at the bedside so I was unable to get any significant meaningful history from her or anyone else. Vital signs on presentation showed a temperature of 96.9, heart rate was initially 85 however she did become tachycardic in the emergency department with heart rates in the 120s, initial blood pressure was 89/53 and she was somewhat responsive to IV fluids however not entirely responsive and I do anticipate she may need pressors once her boluses are completed, her respiratory rate has been anywhere from 10-14 and oxygen saturation was 100% on a 15 L nonrebreather and her oxygen was weaned to 6 L nasal cannula with a sat of 95%. Her CBC did show leukocytosis with a white count of 13.9 and a left shift of 74.5% neutrophilia. Her platelets were low at 139,000. Coags were obtained and abnormal with a PTT of 24.6, INR of 2.2, and PTT of 34.7. ABG showed alkalosis with a pH of 7.6 a PCO2 of 34.3 and a PO2 of 106. Chemistry panel was markedly abnormal with a sodium of 130, hypokalemia with a potassium of 3.2, her serum bicarb was markedly elevated compared to her baseline at 37 and her baseline appears to run between 22 and 26, her BUN and serum creatinine were markedly elevated with a creatinine of 2.34 (baseline serum creatinine runs between 0.6 and 0.9.) Her initial lactic acid was 3.6. Her calcium was 6.5 however when corrected for albumin it is normal at 9.3. Her bilirubin is 3.0 which is close to her baseline. AST is 101 with a normal ALT. Ammonia was 68 which is elevated however when compared to her baseline. Her troponin was 263. Her UA showed ketones, occult blood, nitrite, leuk esterase, white cells and 1+ bacteria. CT of the brain was unremarkable. Chest x-ray showed small right pleural effusion with underlying basilar atelectasis. CTA of the chest abdomen pelvis shows a stable moderate right-sided pleural effusion when compared to previous CTs, cirrhosis of the liver with evidence of recanalization of the umbilical venous structures, varices in the splenic hilum, diffuse abnormality of the stomach with diffuse wall thickening, ascites and diffuse fluid seen in the subcutaneous fat consistent with anasarca. Hospital Course: 1. Septic shock secondary to UTI with metabolic encephalopathy/ANDREA/elevated troponin/anasarca?72-year-old female who was on hospice presented to the hospital as a full code. She had a central line placed and started on pressors, Levophed was maximized and vasopressin was initiated. However family meeting was held and they elected to discontinue all interventions and make her hospice again. They also did elect to make her DNR CC. She was kept in the hospital for 24 hours in anticipation of a fairly rapid demise as she was requiring a significant amount of of support, however today she was still somewhat stable she was 80% on room air and blood pressures were in the 80s to 90 systolic so I discussed the situation with the inpatient unit over at hospice and they agreed with transport to their unit to complete hospice care. I discussed with this family and they agreed with transfer today. 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 Weight / BMI Weight Weight: 191 lb 12.835 oz Body Mass Index (BMI) 34.0 ABG / Lab / Microbiology Data 04/29/23 05:05 04/29/23 05:05 Laboratory: Laboratory Results - last 24 hr 04/28/23 10:55: Diff Path Review Reviewed Microbiology: Microbiology 04/28/23 11:13 Blood Culture (Wb) - Left Wrist Blood Culture - Preliminary No growth in 48 hours. 04/28/23 11:09 Blood Culture (Wb) - Anticubital Right Blood Culture - Preliminary No growth in 48 hours. 04/28/23 11:24 Urine Catheter - Catheter Urine Culture - Preliminary Yeast Like Organism 04/28/23 15:50 Nasal Secretion SARS-CoV-2 & FLU Antigen (Rapid) - Final 04/28/23 11:24 Urine Catheter - Green Legionella Antigen - Final 04/28/23 11:24 Urine Catheter - Green Streptococcus pneumoniae Antigen (M - Final Meaningful Use Info Meaningful Use Diagnoses (Choose all that apply): None applicable Discharge Plan Admission Admit Date/Time: 04/28/23 13:44 Attending Provider: Marcell Rodriguez Primary Care Provider: Shana Mckeon Consulting Providers: Jose A Molina Discharge Orders/Prescriptions Prescriptions: No Action metformin 500 mg tablet 1,000 mg PO BID potassium chloride 10 mEq tablet,ER particles/crystals 10 meq PO BID cyanocobalamin (vitamin B-12) 500 MCG tablet 500 mcg PO DAILY cholecalciferol (vitamin D3) [Vitamin D3] 1,000 UNIT tablet 1,000 unit PO DAILY spironolactone 100 MG tablet 100 mg PO DAILY pantoprazole 40 MG tablet 40 mg PO BID nadolol 20 mg tablet 20 mg PO DAILY furosemide 40 mg Tablet 40 mg PO BID magnesium oxide 140 mg Capsule 140 mg PO DAILY ferrous sulfate 325 mg (65 mg iron) Tablet 325 mg PO DAILY lorazepam [Ativan] 0.5 mg tablet 0.5 mg PO DAILY PRN (Reason: ANXIETY ) loratadine [Claritin] 10 mg tablet 10 mg PO DAILY PRN (Reason: SEASONAL ALLERGIES) acetaminophen 650 mg suppository 650 mg LA Q6H PRN (Reason: PAIN/FEVER) bisacodyl 10 mg suppository 10 mg LA DAILY PRN (Reason: CONSTIPATION ) HALOPERIDOL 2 mg/2 mL solution 0.5 ml PO Q6H PRN (Reason: AGITATION ) prochlorperazine maleate 10 mg tablet 10 mg PO Q6H PRN (Reason: NAUSEA/VOMITING ) hyoscyamine sulfate 0.125 mg tablet 0.125 mg sublingual Q4H PRN (Reason: BOWELS) lactulose 10 gram/15 mL solution 15 ml PO DAILY MORPHINE SULFATE 20 mg/mL suspension 0.125 ml PO Q4H PRN (Reason: PAIN/SHORTNESS OF BREATH ) Referrals / Follow Up: Shana Mckeon DO [Primary Care Provider] - Disposition Disposition (needs filled in before D/C Order can be placed): Hospice in Medical Facility Charges/Coding Visit Charges Inpatient E&M: 97896 Disch Hosp >30min
== END 2023-04-30 13:20 | disposition hospice, inpatient (51) | DRG 871 ==
LOC: ED 14:12 → ICU 14:34
PROVIDERS: Internal Medicine Critical Care Medicine; Admitting Provider Internal Medicine; Emergency Provider Emergency Medicine; PCP Family Medicine; Visit Provider Family Medicine
DX: A41.9 Sepsis, unspecified organism (principal); G92.8 Other toxic encephalopathy; K72.01 Acute and subacute hepatic failure with coma; R65.21 Severe sepsis with septic shock; R18.8 Other ascites; D68.9 Coagulation defect, unspecified; N17.9 Acute kidney failure, unspecified; J90 Pleural effusion, not elsewhere classified; E87.1 Hypo-osmolality and hyponatremia; E87.20 Acidosis, unspecified; N39.0 Urinary tract infection, site not specified; D69.6 Thrombocytopenia, unspecified; I95.9 Hypotension, unspecified; K74.60 Unspecified cirrhosis of liver; E11.9 Type 2 diabetes mellitus without complications; I10 Essential (primary) hypertension; E86.0 Dehydration; E87.6 Hypokalemia; E78.00 Pure hypercholesterolemia, unspecified; K21.9 Gastro-esophageal reflux disease without esophagitis; K75.81 Nonalcoholic steatohepatitis (NASH); E88.09 Other disorders of plasma-protein metabolism, not elsewhere classified; Z79.84 Long term (current) use of oral hypoglycemic drugs; R09.02 Hypoxemia; Z66 Do not resuscitate; Z79.899 Other long term (current) drug therapy
CPT/HCPCS: 36600; 70450; 71045; 71250; 74018; 74176; 80053; 81001; 82140; 82330; 82803; 83605; 83735; 84100; 84145; 84443; 84484; 85025; 85610; 85730; 87040; 87086; 87088; 87428; 87449; 87641; 93005; 93306; 94640; 94668; 99285; J7030; J7040; J7050; A4216; J0612